=== PATIENT | female | born 1975 | race Caucasian/White ===

== ENCOUNTER 2017-11-02 08:24 | Outpatient (RCR) | payer OTHER, SELFPAY ==
--- NOTE | 2017-11-02 11:03 | BH.NA ---
Physical Data - Vital Signs Pulse Rate: 88 Respiratory Rate: 14 Blood Pressure: 103/70 - Height/Weight Height: 1.63 m Weight:: 54.431 kg Weight in Pounds: 120.0 lbs Nutritional History - Appetite Nutritional Instructions:: If client shows signs of a swallowing problem, weight change of 10 pounds or more in the last month, or is on a diabetic diet, the physician will review and request a dietitian consult, as appropriate. All unintentional weight loss will be referred to the physician for decision on need for dietitian consult. Describe your appetite:: Fair Have you noticed a change in your eating habits lately?: Yes - appetite was down d/t sx, now increased d/t Zyprexa Functional Assessment - Activities Motor Activity:: Functional Sensory/Communication Assess - Hearing Problems Do you have any hearing problems?: Adequate - Communication Problems Do you have difficulty understanding what people are saying?: No Do you have trouble putting your thoughts into words or expressing what you want to say?: Yes Do people ever have trouble understanding what you say?: Yes What is your primary language?: Macedonian Learning Assessment - Learning Barriers Learning Barriers:: Ready to learn Medical Problems/History - Metabolic Conditions Metabolic: Hypothyroidism - Gastrointestinal Conditions Gastrointestinal: Dyspepsia - GERD, Other (See comments) - IBS - Pain Assessment Do you have acute or chronic pain?: No - Female Reproductive Do you think you may be ?: No Number of pregnancies:: 1 Number of children:: 1 Have you reached menopause?: No Do you have any history of breast disease?: No Suicide Assessment - Suicidal Ideation Are you currently or have you been suicidal in the past?: Yes Suicidal Intentional Rating Scale (SIRS): Suicidal thoughts (past), Current suicidal thoughts/No plan/Contracts for safety Physician Notification: If Active suicidal thoughts/Will not contract for safety is checked, contact physician and document in the Physician Notification section below. Fall Risk Assessment - Age Age: Less than 60 - Mental Status Mental Status: Willing & able to ask for assistance when needed - Physical Status Physical Status: No problems - Impairments Impairments: None - Elimination Elimination: Continent AND independent - Gait or Balance Gait or Balance: Walks independently - Hx of Falls History of falls in the past 6 months: No known history - Medications/Substances Psychotropics:: Antipsychotics, Sedatives Medications/substances used within the past 24 hours or ordered to administer: 1-2 of the medications/substances listed above - Total Score Total Points:: 1
--- NOTE | 2017-11-02 11:29 | BH.SGPN_ITS ---
Service Group Progress Note - Session Psychotherapy Session #1 Date Open:: 11/02/17 Time Started:: 09:02 Time Stopped:: 10:05 Targeted Problem #:: 1 Type of Group:: Process - 6 Participants Goal of Group:: The goal of today's group was to check-in with client's mood, stressors, and positives, review homework, and to introduce the topic of the day. Client Response/Progress/Benefit:: Client entered session alert and attentive but appeared anxious AEB bouncing legs and shifting in seat. Client shared how she was recently had a 12 day hospital stay due to depression and suicidal thoughts. She states, ?Now I?m back in reality with my 11 year old daughter.? She went on to share the anxiety that her daughter gives her and how she is staying with her mom to reduce this. Client states, ?I don?t want to be overwhelmed. I feel like a porcelain doll.? Client indicated her emotion as anxious, depressed, and guilty. Client benefitted from group by sharing with her current stressors and receiving support from peers. Progress noted in client ?s ability to share with group. Continued treatment necessary to decrease anxiety levels and depressive symptoms. Eye Contact:: Fair Motor Activity:: Appropriate Appearance:: Casual Speech:: Appropriate Mood:: Anxious, Depressed Affect:: Congruent Thoughts:: Linear, Logical, No evidence of hallucinations/delusions noted Staff Interventions:: Therapist used open-ended questions to elicit information about client's current stressors and mood. Therapist was supportive by using active listening and reflection.
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
--- NOTE | 2017-11-02 12:19 | BH.DR.ITP ---
Initial Treatment Plan - Patient Information Visit Information: ADMISSION DATE: EXPECTED LOS: 4-6 weeks Diagnoses:: Major depressive disorder recurrent severe F 33.2, OCD F 42 - Problems/Symptoms Problem #1:: Depression Symptom:: Sad mood, anhedonia, decreased energy, difficulty concentrating, suicidal ideation Problem #2:: Anxiety Symptom:: Obsessive thoughts, compulsive behaviors, rumination, intrusive traumatic memories
--- NOTE | 2017-11-02 14:04 | BH.MDN_ITS ---
Multi-Disciplinary Note - Note 60-min Individual Time Started:: 12:40 Date: 11/02/17 Purpose of session/treatment goals addressed:: The purpose of this session was to gather information on client's current stressors, symptoms, functioning, and treatment goals. Another goal was to assess risk and collaboratively create a safety plan. Other topics included mental health resources and relaxation techniques. Eye Contact:: Good Motor Activity:: Restless Appearance:: Neat Speech:: Tangential, Rapid Mood:: Anxious Affect:: Constricted Thoughts:: Racing, Other - preoccupied- repetitive asking about time and daughter Staff Interventions:: Therapist used open-ended questions to explore client current stressors, symptoms, functioning, and treatment goals. Therapist used active listening and provided emotional support as client expressed current challenges and stressors. Therapist helped client identify triggers, supports, and healthy coping skills for client's crisis safety plan. Therapist provided client with additional mental health resources and relaxation techniques including guided imagery, which therapist facilitated during session. Therapist used strengths perspective to build rapport and empower client. Client Response:: Client open to meeting with therapist, sharing she feels anxious today. Client reported experiencing high and anxiety which client rates 8 out of 10 and increased depressive symptoms over the past month. Client identified her daughter as a large stressor for client's mental health. Client stated she experiences a lot of guilt regarding her hospitalizations and anxiety towards daughter. Client reported she loves her daughter, but has a hard time dealing with problem behaviors as client is too sensitive per client 's report. Client stated she has obsessive worries about her daughter which results in client frequently needing reassurance. Client shared she seeks reassurance from family, friends, and sometimes strangers. Client shared she is currently staying with her mother as client reports belief returning home to her family and stressors would make me break again. Client was receptive to supportive feedback given by therapist on client recognizing warning signs. Client reported at her mother?s client does not have suicidal thoughts and feels safe. Client identified her treatment goals to be reduce depression, anxiety, and negative thinking. Client reported after today's group topic she has gained awareness of the cognitive distortions client uses daily. Client helped therapist create a safety plan in which client identified triggers, negative thoughts, healthy coping skills, reasons to live, and supports. Client agreed to communicate her safety plan with her supports. Additionally, client asked to include her in a session in the future to increase his knowledge of coping skills and warning signs. Client was receptive to learning deep breathing strategies and engaging in a mindfulness activity to reduce anxiety. Client reported the mindful activity and figure-eight breathing were effective in reducing client's symptoms in the moment. Risks/Concerns:: Client reports passive thoughts of suicide. Client reports thoughts of carbon monoxide poisoning, but denies intent. Client shared she is staying with her mother which serves as a protective factor as client feels safe and has no suicidal thoughts while at mother's house. Client reports strong family support and shares belief she can maintain safety. Progress Toward Goals/Plan:: Client's first day of PHP therefore no progress to be documented. Client reports motivation to engage in the treatment process as well as a strong support system. Client contracts for safety and reports plan to stay with mother while client stabilizes anxiety and depression symptoms to reduce risk of suicidal ideation and regression. Client to continue PHP to promote mood stability and develop emotional regulation skills. Time Stopped:: 13:33
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
--- NOTE | 2017-11-02 16:00 | BH.MTP ---
[facility] Plan - Patient Information Program Physician:: Desi Montiel Primary Therapist:: Leyla Fuentes - Psychiatric Diagnoses Psychiatric Diagnoses:: Major depressive disorder recurrent severe F 33.2, OCD F 42 Diagnosis Code(s):: F 33.2; F42 - Estimated LOS Estimated LOS (in weeks):: 1 Problem/Goal #1 - Problem/Goal #1 Stated Goal:: Client will reduce depression, feelings of hopelessness, and suicidal ideation due to Major Depressive Disorder. Description of Barriers: Client reports her major stressors to be client's relationship with her daughter. Client reports negative thinking and negative core beliefs of self that developed during childhood. Client endorses a depressed mood, rumination, obsessive thoughts, anhedonia, poor concentration, and lack of energy. Client identified dealing with conflict, managing stress, and coping with other people's anger as ongoing barriers. Client reports inappropriate guilt associated with mental health and motherhood. Functional Impact: Client recently discharged from [facility] for increased depression, suicidal ideation, and OCD. Client reports symptoms are interfering with daily functioning. Client states she has negative thinking, inappropriate guilt, passive thoughts of suicide, and a depressed and anxious mood. Client endorses ruminations and panic attacks. Client shared she constantly worries about her daughter, which results in frequent need for reassurance, even from strangers. Client reports her mental health symptoms are impacting client's relationships and ability to function at her baseline. Goal Relevant Strengths/Supports: Client reports a strong support system in her and mother. Client appears compassionate, intelligent, and reports motivation to learn how to cope with mental health as evidenced by her report. Client seems to have good insight to triggers, negative thought patterns, and beneficial coping skills. Client contracts for safety and is willing to separate herself from environmental and certain family stressors while participating in [facility]. - Objectives Objective #1 Stated Objective: Client will learn and utilize 2-3 healthy coping strategies to manage depressive symptoms and increase mood stability. Interventions: Therapist will assist client in identifying warning signs and triggers for depression, suicidal ideation, and feelings of hopelessness. Therapist will teach client coping skills to reduce depression and encourage healthy emotional regulation. Discharge Criteria: Client will have accomplished this goal when she can identify and report using 2-3 healthy coping skills to reduce depressive symptoms. Target Date: 11/09/17 Review Date: 11/09/17 Status: open Objective #2 Stated Objective: Client will work with therapist to develop a crisis plan which includes emergency telephone numbers, 3-4 coping strategies for SI, lists of supports, positive aspects of her life, and motivations Interventions: herapist will provide list of crisis phone numbers. Therapist will work with client to identify effective coping strategies, supports, and steps to take in time of mental health crisis. Discharge Criteria: Client will have achieved this goal once she completes her safety plan and is able to utilize coping and thought replacement strategies. Target Date: 11/09/17 Review Date: 11/09/17 Status: open Problem/Goal #2 - Problem/Goal #2 Stated Goal:: Stabilize anxiety level brought on by OCD while increasing ability to function on daily basis. Description of Barriers: Client reports her major stressors to be client's relationship with her daughter. Client reports negative thinking and negative core beliefs of self that developed during childhood. Client endorses a depressed mood, rumination, obsessive thoughts, anhedonia, poor concentration, and lack of energy. Client identified dealing with conflict, managing stress, and coping with other people's anger as ongoing barriers. Client reports inappropriate guilt associated with mental health and motherhood. Functional Impact: Client recently discharged from [facility] for increased depression, suicidal ideation, and OCD. Client reports symptoms are interfering with daily functioning. Client states she has negative thinking, inappropriate guilt, passive thoughts of suicide, and a depressed and anxious mood. Client endorses ruminations and panic attacks. Client shared she constantly worries about her daughter, which results in frequent need for reassurance, even from strangers. Client reports her mental health symptoms are impacting client's relationships and ability to function at her baseline. Goal Relevant Strengths/Supports: Client reports a strong support system in her and mother. Client appears compassionate, intelligent, and reports motivation to learn how to cope with mental health as evidenced by her report. Client seems to have good insight to triggers, negative thought patterns, and beneficial coping skills. Client contracts for safety and is willing to separate herself from environmental and certain family stressors while participating in [facility]. - Objectives Objective #1 Stated Objective: Client will identify 2-3 anxiety/ OCD triggers and 2-3 coping skills to use when feeling anxious. Interventions: Therapist will help client increase awareness of cognitive distortions, triggers, and warning signs for anxiety and OCD. Therapist will encourage client to focus on stressors in her control. Therapist will utilize CBT, DBT, and mindfulness strategies to teach client ways to manage symptoms and increase emotional regulation. Discharge Criteria: Client will have met this goal when can reduce the need for reassurance and identify at least 2 triggers and 2 ways to cope with anxiety and obsessive thoughts. Target Date: 11/09/17 Review Date: 11/09/17 Status: open
--- NOTE | 2017-11-05 10:27 | BH.SGPN ---
Service Group Progress Note - Session Psychotherapy Session #1 Date Open:: 18 - 9 group members Time Started:: 09:10 Time Stopped:: 10:02 Targeted Problem #:: 1 Type of Group:: Process Goal of Group:: The goal of today's group was to check-in with client's mood, stressors, and positives, and introduce topic for the day. Client Response/Progress/Benefit:: Client responded well to session, providing good insight to discussion. Client reports feeling anxious today as client had an appointment with her psychiatrist this morning and was late to group. Client stated her new medication will be costlier than expected which client reported is contributing to her anxious mood as well. Client shared she spent time with her and daughter this weekend and client reported utilizing calming coping skills such as deep breathing to reduce anxiety while with family. Client continues to report feeling guilty about her mental health symptoms, but challenged the thoughts during session as client stated, I'm trying to take care of me, I didn't sign up for this. Client appeared to benefit from challenging negative thoughts during session as well as gaining emotional support from peers. Client demonstrating progress with generalizing coping skills, but can continue to benefit from more consistent mood stability. Eye Contact:: Good Motor Activity:: Restless Appearance:: Neat Speech:: Appropriate Mood:: Anxious Affect:: Congruent Thoughts:: Linear, No evidence of hallucinations/delusions noted Staff Interventions:: Therapist used open-ended questions to elicit information about client's current stressors and mood state. Therapist was supportive by using active listening and reflection.
--- NOTE | 2017-11-05 10:42 | BH.SGPN ---
Service Group Progress Note - Session Psychotherapy Session #2 Date Open:: 11/05/17 Time Started:: 10:12 Time Stopped:: 11:12 Targeted Problem #:: 1 Type of Group:: Illness Management - 10 participants Psychotherapy Session #3 Date Open:: 11/05/17 Time Started:: 11:19 Time Stopped:: 12:20 Targeted Problem #:: 1 Type of Group:: Functional Skills Development - 8 participants
--- NOTE | 2017-11-05 14:32 | BH.MDN ---
Multi-Disciplinary Note - Note 60-min Individual Time Started:: 12:40 Date: 11/05/17 Purpose of session/treatment goals addressed:: The purpose of this session was to explore client's current stressors, symptoms, functioning, and coping skills. Another goal was to create visual cues with healthy coping skills to increase client's awareness and promote proactively using coping skills. Other topics included: cognitive distortions, supports, and goal setting. Eye Contact:: Good Motor Activity:: Appropriate Appearance:: Casual Speech:: Other - circumstantial; monotone Mood:: Anxious Affect:: Constricted Thoughts:: Other - preoccupied- frequently asking for reassurance and talking about her daughter., No evidence of hallucinations/delusions noted Staff Interventions:: Therapist used open-ended questions to explore clients current stressors, symptoms, functioning, and use of coping skills. Therapist used active listening and provided emotional support as client expressed guilt about motherhood and mental health. Therapist assisted client in identifying healthy versus unhealthy coping skills and helped client create her visual cues. Therapist helped client identify and reframe cognitive distortions. Therapist discussed how habits form in neuropathways as well as the importance of consistency in utilizing healthy coping skills. Therapist used strengths perspective to empower client to set a small goal for the week. Client Response:: Client open to meeting with therapist. Client shared she used figure eight deep breathing this weekend to reduce anxiety as client spent time with her daughter and . Client stated this technique worked for her as client avoided escalation of symptoms. Client reported she has been trying to challenge cognitive distortions as well such as magnification and catastrophizing. Client shared I have to remind myself that some of my daughter's behaviors are normal. Client reported she has been seeing improvements in stress levels as client has been staying with her mother. Client stated, I know that if I go home right now I'll just have another break. Client was receptive to praise from therapist regarding client's high insight to triggers. Client identified her anxiety triggers to be anger, defiance, loud voices, and conflict. Client reported feeling guilty about her daughter being a trigger, but was able to reframe and challenge this thought. Client created visual reminder cues to encourage the use of healthy coping skills when client recognizes triggers or warning signs. Client listed her healthy skills as: reading, walking, exercise, calling a friend, deep breathing, playing games, crocheting, and challenging negative thoughts. Client reported she wants to avoid using unhealthy coping skills like self-medicating, isolation, and self-blame. Client reported the reminder cues will be helpful as client can hang them up around her house. Additionally, client created a goal for the week to increase self-esteem and confidence. Client's goal is to write down three things client deserves credit for each day. Risks/Concerns:: Client reports passive thoughts of suicide, but denies intent and plan as of 11/05/17. Client reports she feels safe and less stressed at her mother's house, where client is currently staying which serves as a protective factor. Client reports motivation to get better which demonstrates future orientation. Progress Toward Goals/Plan:: Client showing progress toward treatment goals as client reported implementing deep breathing and calming coping skills this weekend. Client shared I want to get better and reports working on reframing negative thinking as well. However, client continues to report obsessive thoughts, high anxiety, isolation, a depressed mood, and low self-esteem. Client continues to contract for safety and identifies staying at her mother's house as a positive for client's treatment. Client to continue PHP to promote mood stability and increase emotional regulation. Time Stopped:: 13:33
--- NOTE | 2017-11-05 15:02 | BH.MDN_ITS ---
Multi-Disciplinary Note - Note 60-min Individual Time Started:: 12:40 Date: 11/05/17 Purpose of session/treatment goals addressed:: The purpose of this session was to explore client's current stressors, symptoms, functioning, and coping skills. Another goal was to create visual cues with healthy coping skills to increase client's awareness and promote proactively using coping skills. Other topics included: cognitive distortions, supports, and goal setting. Eye Contact:: Good Motor Activity:: Appropriate Appearance:: Casual Speech:: Other - circumstantial; monotone Mood:: Anxious Affect:: Constricted Thoughts:: Other - preoccupied- frequently asking for reassurance and talking about her daughter., No evidence of hallucinations/delusions noted Staff Interventions:: Therapist used open-ended questions to explore client?s current stressors, symptoms, functioning, and use of coping skills. Therapist used active listening and provided emotional support as client expressed guilt about motherhood and mental health. Therapist assisted client in identifying healthy versus unhealthy coping skills and helped client create her visual cues. Therapist helped client identify and reframe cognitive distortions. Therapist discussed how habits form in neuropathways as well as the importance of consistency in utilizing healthy coping skills. Therapist used strengths perspective to empower client to set a small goal for the week. Client Response:: Client open to meeting with therapist. Client shared she used figure eight deep breathing this weekend to reduce anxiety as client spent time with her daughter and . Client stated this technique worked for her as client avoided escalation of symptoms. Client reported she has been trying to challenge cognitive distortions as well such as magnification and catastrophizing. Client shared I have to remind myself that some of my daughter 's behaviors are normal. Client reported she has been seeing improvements in stress levels as client has been staying with her mother. Client stated, I know that if I go home right now I'll just have another break. Client was receptive to praise from therapist regarding client's high insight to triggers. Client identified her anxiety triggers to be anger, defiance, loud voices, and conflict. Client reported feeling guilty about her daughter being a trigger, but was able to reframe and challenge this thought. Client created visual reminder cues to encourage the use of healthy coping skills when client recognizes triggers or warning signs. Client listed her healthy skills as: reading, walking, exercise, calling a friend, deep breathing, playing games, crocheting, and challenging negative thoughts. Client reported she wants to avoid using unhealthy coping skills like self-medicating, isolation, and self- blame. Client reported the reminder cues will be helpful as client can hang them up around her house. Additionally, client created a goal for the week to increase self-esteem and confidence. Client's goal is to write down three things client deserves credit for each day. Risks/Concerns:: Client reports passive thoughts of suicide, but denies intent and plan as of 11/05/17. Client reports she feels safe and less stressed at her mother's house, where client is currently staying which serves as a protective factor. Client reports motivation to get better which demonstrates future orientation. Progress Toward Goals/Plan:: Client showing progress toward treatment goals as client reported implementing deep breathing and calming coping skills this weekend. Client shared I want to get better and reports working on reframing negative thinking as well. However, client continues to report obsessive thoughts, high anxiety, isolation, a depressed mood, and low self-esteem. Client continues to contract for safety and identifies staying at her mother's house as a positive for client's treatment. Client to continue PHP to promote mood stability and increase emotional regulation. Time Stopped:: 13:33
--- NOTE | 2017-11-06 14:02 | BH.SGPN_ITS ---
Service Group Progress Note - Session Psychotherapy Session #1 Date Open:: 11/06/17 Time Started:: 09:05 Time Stopped:: 09:57 Targeted Problem #:: 1 Type of Group:: Process - 4 Participants Goal of Group:: The goal of today's group was to check-in with client's mood, stressors, and positives, review homework, and to introduce the topic of the day. Client Response/Progress/Benefit:: Client entered session alert, attentive, and willing to engage. Client was a big contributor in group and provided support to peers. Client identified herself as a ?people pleaser? and received upsetting news about her favorite coffee establishment getting involved in a law suit and stating, ?I take on other people?s emotions and when I heard about that I starting getting overwhelmed.? Client shared that this coffee shop was a ?refuge for me, kind of like [employer]. Just a good place and people.? Client went on to share that she saw her daughter last night and was nervous for that but was able to complete some coping skills such as, deep breathing and figure 8 ?s, and then took time away and spoke with her .? Client shared that he will be taking a two day trip to [place] and will have to stay with her daughter but has plans in place to manage the anxiety and stress. She states , ?Our emotions are really connected and she is at a rough age.? Client shared that she is trying to take things 5 minutes at a time and stop looking towards the future or the past. Client benefitted from group by venting concerns and looking at different strategies for coping. Progress noted in client?s ability to begin identifying emotions as they come. Continued treatment necessary to manage anxiety levels and develop more coping skills. Eye Contact:: Fair Motor Activity:: Appropriate Appearance:: Casual Speech:: Appropriate Mood:: Anxious Affect:: Congruent Thoughts:: Linear, Logical, No evidence of hallucinations/delusions noted Staff Interventions:: Therapist used open-ended questions to elicit information about client's current stressors and mood. Therapist was supportive by using active listening and reflection. Psychotherapy Session #2 Date Open:: 11/06/17 Time Started:: 10:05 Time Stopped:: 11:00 Targeted Problem #:: 1 Type of Group:: Illness Management - 4 Participants Goal of Group:: The goal of today?s group is to identify how emotions can impact our communication skills, and why it is important to be able to communicate in stressful situations. Client Response/Progress/Benefit:: Client was alert, attentive, and willing to engage. Client was an active participant and contributor to group. Client did well to process the day?s quote and spoke about how emotions are normal like anger, but if we try to suppress the anger we can explode at others so we just use healthy skills like screaming into a pillow. Client did well to process with the group how various emotions impact communication and one?s ability to utilize supports. Client collaborated with peers and participated in group activity that tested how client would manage her emotions when placed under stressful circumstances. It appeared throughout the activity client struggled with inner self doubt and anxiety as she reported, ?I feel like I?m doing something wrong and not listening.? Despite the difficulty, client benefitted from relating activity back to how our emotions impact communication during times of stress. Progress noted in client?s ability to manage anxiety during activity and complete activity. Continued treatment necessary to stabilize anxiety levels. Eye Contact:: Good Motor Activity:: Appropriate Appearance:: Casual Speech:: Appropriate Mood:: Anxious Affect:: Congruent Thoughts:: Linear, Logical, No evidence of hallucinations/delusions noted Staff Interventions:: Therapist led an experiential activity where group members worked together for a common goal, but with adaptations made on how members were able to communicate with one another. Therapist used open-ended questions to elicit group discussion about emotions which arose during activity , as well as identifying how emotions experienced impacted ability to communicate effectively with other group members.
--- NOTE | 2017-11-06 14:44 | BH.MDN_ITS ---
Multi-Disciplinary Note - Note 45-min Individual Time Started:: 12:22 Date: 11/06/17 Purpose of session/treatment goals addressed:: The purpose of this session was to address client's current stressors, symptoms, and functioning while teaching client coping strategies to increase emotional regulation. Another goal per client request was to discuss forgiveness and identify ways to reduce guilt, resentment, and negative core beliefs. Other topics included: cognitive distortions, psychoeducation, and self-esteem. Eye Contact:: Fair Motor Activity:: Restless Appearance:: Casual Speech:: Other - circumstantial at times, frequency and tone within normal limits. Mood:: Anxious, Depressed Affect:: Constricted Thoughts:: Other - preoccupied Staff Interventions:: Therapist used open-ended questions to explore client?s current stressors, symptoms, and functioning. Therapist demonstrated coping strategies to increase emotional regulation and challenge negative thoughts. Therapist helped client process the aspects of forgiveness and strategies to move forward. Therapist assisted client in challenging negative core beliefs and inappropriate guilt. Therapist provided psychoeducation on the brain and mental health. Therapist encouraged client to write a gratitude/ credit journal to increase self-esteem. Client Response:: Client responded well to session, open to meeting with therapist. Client reported she has negative thoughts during IOP group but challenged them in the moment which demonstrates progress. Client stated she has been using mindfulness, deep breathing, and taking breaks to reduce anxiety. Client responded well to learning about though challenging and agreed to start implementing this technique as well. Client shared she would like to work on forgiveness as client claims she holds on to things too much. Client stated she is having a hard time forgiving her daughter for her past misbehaviors as well as forgiving herself for mental health struggles over the years. Client reported her negative beliefs of self and cognitive distortions get in the way of client moving forward. Client identified forgiveness as not fearing my daughter and not holding it against her. Client and therapist processed steps to forgiveness and the difference between acceptance and approval. Client reported she would like to continue to work on improving her self-esteem as client acknowledges she asks for reassurance and validation frequently which feeds into client?s OCD, anxiety, and depression. Client was receptive to documenting three things that client deserves credit for or is grateful for each day to increase awareness of progress and increase self- esteem. Risks/Concerns:: Client reports passive thoughts of suicide, denies intent and plan as of 11/06/17. Client reports belief she can maintain safety by staying with her mother. Client willing to contact local crisis resources should she feel unable to maintain safety. Progress Toward Goals/Plan:: Client showing progress towards treatment goals as client reports implementing deep breathing, mindfulness, and healthy distractions daily to reduce anxiety. Client continues to report obsessive thoughts and worries about her daughter. Client continues to endorse a depressed mood, but states coming to group helps improve her mood. Client to continue PHP to prevent decompensation and promote mood stability. Time Stopped:: 13:10
--- NOTE | 2017-11-06 14:49 | BH.SGPN_ITS ---
Service Group Progress Note - Session Psychotherapy Session #3 Date Open:: 11/06/17 - 4 group members Time Started:: 11:10 Time Stopped:: 12:03 Targeted Problem #:: 1 Type of Group:: Functional Skills Development Goal of Group:: The goal of today?s group was to increase awareness of different states of alertness attached to emotions and identifying healthy coping strategies for each state of alertness. Client Response/Progress/Benefit:: Client responded well to session, providing good insight to group discussion. Client shared she was proud of herself for managing her anxiety during the activity. Client discussed the four states of emotional alertness and identified warning signs for each. Client reported when she feels low energy she has suicidal thoughts, isolates, and lacks motivation. Client identified setting small goals and reaching out to her supports as coping skills to improve client's low energy or depressed state. Client shared when she is in the high emotional alertness states she has panic, negative thinking, and feels hopeless. Client identified coping skills for high emotional states such as mindfulness, deep breathing, and walking. Client reported it is important to have awareness of warning signs for each emotional state so client can implement healthy coping skills. Client appeared to benefit from identifying warning signs and healthy coping skills specific each level of emotional alertness. Client progressing as shown by her report of implementing calming coping skills to reduce anxiety, but can continue to benefit from challenging obsessive thoughts. Eye Contact:: Good Motor Activity:: Appropriate Appearance:: Casual Speech:: Appropriate Mood:: Anxious Affect:: Constricted Thoughts:: Linear, No evidence of hallucinations/delusions noted Staff Interventions:: Therapist facilitated group by teaching about the 4 zones of different states of alertness and helping clients connect emotions to each zone based on state of alertness. Therapist assisted clients with identifying healthy coping strategies that would be best utilized based on the state of alertness. Therapist provided support by using active listening and providing feedback.
--- NOTE | 2017-11-07 14:16 | BH.SGPN ---
Service Group Progress Note - Session Psychotherapy Session #2 Date Open:: 11/07/17 Time Started:: 10:15 Time Stopped:: 11:07 Targeted Problem #:: 1 Type of Group:: Illness Management Goal of Group:: To increase understanding how positive and negative forces in life can impact balance in life. Client Response/Progress/Benefit:: Client contributed positively to discussion and listened attentively to others. Client connected with the quote and others comments about in order to have personal growth you have to put forth effort in multiple areas of her life to have that occur. During activity client listened to others' ideas and thoughts, cooperative throughout. Client connected that it is important to communicate in utilize support system and helping 1 balance both positive and negative forces. Eye Contact:: Fair Motor Activity:: Appropriate Appearance:: Casual Speech:: Appropriate Mood:: Anxious, Depressed Affect:: Constricted Thoughts:: Linear, Logical, No evidence of hallucinations/delusions noted Staff Interventions:: Therapist facilitated group discussion about the various forces of life and helped clients connect the impact they have on balance in life. Therapist led group in an experiential activity in which group members had to work together to balance an object and move it to a designated location. Therapist utilized the activity as a tool to process the challenges connected with balancing various forces. Psychotherapy Session #3 Date Open:: 11/07/17 Time Started:: 11:17 Time Stopped:: 12:15 Targeted Problem #:: 1 Type of Group:: Functional Skills Development Goal of Group:: To identify positive and negative forces in life and identify which forces are helping stability and which forces are contributing to instability. Client Response/Progress/Benefit:: Client contributed positively discussion and listened attentively to others. Client identified her positive forces to include: Family, friends, communication, breathing, and taking breaks. Client reported her negative forces to include: On manage emotions, not reaching out for support, lack of self-care, and not using healthy coping skills. Client reported not feeling that her positive forces are currently balance with her negative forces being more impactful on her functioning. Client identified her on manage emotions to be the most impactful. Client seemed to benefit from increasing awareness of her positive and negative forces as well as starting to think about which force she can focus on making less negatively impactful. Eye Contact:: Fair Motor Activity:: Appropriate Appearance:: Casual Speech:: Appropriate Mood:: Anxious, Depressed Affect:: Constricted Thoughts:: Linear, Logical, No evidence of hallucinations/delusions noted Staff Interventions:: Therapist provided group with an example of a scenario of a person and the individuals positive and negative forces. Therapist provided each group member with a worksheet in which they were to identify five positive and five negative forces in their life. Therapist processed the activity with the group, helping others connect the impact certain forces have on their life balance.
--- NOTE | 2017-11-07 14:38 | BH.MDN_ITS ---
Multi-Disciplinary Note - Note 45-min Individual Time Started:: 12:30 Date: 11/07/17 Purpose of session/treatment goals addressed:: The purpose of this session was to address client's current stressors and review healthy coping skills to reduce anxiety. Another goal was to problem solve strategies to manage symptoms tonight while client is with her daughter. Other topics included: cognitive distortions, externalizing anxiety, and thought challenge strategies. Eye Contact:: Good Motor Activity:: Restless Appearance:: Casual Speech:: Other - circumstantial Mood:: Anxious Affect:: Constricted Thoughts:: Other - preoccupied Staff Interventions:: Therapist used open-ended questions to explore client?s current stressors and review application of coping skills. Therapist helped client problem-solve coping skills and supports to help reduce client?s anxiety tonight. Therapist utilized a thought challenge strategy to help client explore the most realistic outcomes and how to cope if the worst-case outcome happens. Therapist assisted client in identifying and challenging cognitive distortions. Therapist used strengths-perspective to help client reflect on progress and increase confidence of skill application. Client Response:: Client responded well to session, open to meeting with therapist. Client reports she is feeling ?nervous? today as client will be spending time with her daughter adore. Client shared she continues to have guilt regarding client?s fear of her daughter?s behavior. Client stated, ?I?m sure her behavior is normal for her age, but it?s hard for me to deal with it.? Client reported she has a plan and supports in place for tonight that will help client reduce anxiety. With therapist elicitation, client shared she will be spending about 2 hours alone with her daughter this evening. Client and therapist processed client?s negative thoughts and looked at the worst-case, best case, and more realistic scenarios for how client?s evening with her daughter will go. Client identified her cognitive distortions about tonight as catastrophizing, disqualifying the positives, and jumping to conclusions. Client problem-solved coping strategies for all three scenarios and acknowledged the likelihood of the worst case happening as ?not very likely.? Client reported belief that even if they worst case happens she would be able to call her family for support and use healthy coping skills such as deep breathing and taking breaks. Client shared ?I can make it through because I have in the past.? Client and therapist discussed strategies to challenge negative thinking by externalizing anxiety. Client shared it would be helpful to say, this is my anxiety talking to remind client she is more than her diagnosis. Client stated eventually client would like to be able to spend time with her daughter alone without experiencing high anxiety. Risks/Concerns:: Client denies suicidal ideation, plan, and intent as of . Client reports her and mother continue to be strong supports and protective factors. Client reports belief she can maintain safety and shared she feels able to contact crisis should she begin to feel unsafe. Progress Toward Goals/Plan:: Client showing progress towards treatment goals as client continues to contract for safety and report reduced suicidal thoughts. Additionally, client reports implementing healthy coping skills with the result of reduced severity of symptoms. However, client can continue to benefit from challenging negative thoughts and working on desensitization strategies as client's daughter continues to be a trigger for client. Client to continue PHP to promote gains and increase mood stability. Time Stopped:: 13:12
--- NOTE | 2017-11-07 14:40 | BH.SGPN_ITS ---
Service Group Progress Note - Session Psychotherapy Session #1 Date Open:: 18 - 8 group members Time Started:: 09:05 Time Stopped:: 10:00 Targeted Problem #:: 1 Type of Group:: Process Goal of Group:: The goal of today's group was to check-in with clients and review homework from previous group session. Client Response/Progress/Benefit:: Client responded well to session, active participant. Client reports feeling ?anxious? today as client had a stressful morning. Although client was anxious, she shared she utilized mindfulness and deep breathing exercises to reduce anxiety. Client stated ?it helped a lot I didn?t panic.? Client reported she continues to struggle with managing negative thoughts and spending alone time with her daughter. Client stated she will continue to work on small goals, use healthy coping skills, and use supports to work towards her goal of spending more time at home with her daughter. Client appeared to benefit from reflecting on her use of healthy coping skills. Client seems to be progressing as evidenced by her report of implementing coping skills to reduce anxiety, but can continue to benefit from challenging negative thoughts. Eye Contact:: Good Motor Activity:: Restless Speech:: Rapid Mood:: Anxious, Dysthymic Affect:: Constricted Thoughts:: Circular Staff Interventions:: Therapist facilitated the group session by asking open ended questions that encouraged group members to discuss their coping skills, stressors, barriers, and current mood state.
--- NOTE | 2017-11-08 13:47 | BH.SGPN ---
Service Group Progress Note - Session Psychotherapy Session #1 Date Open:: 11/08/17 Time Started:: 09:05 Time Stopped:: 10:00 Targeted Problem #:: 1 Type of Group:: Process Goal of Group:: The goal of today's group was to check-in with client's mood, stressors, and positives, review homework and introduce topic for the day. Client Response/Progress/Benefit:: Client reported her is leaving on a business trip today and not returning until tomorrow evening. Client shared feeling really anxious about him being gone because she will be alone with her daughter who tends to be a really big trigger to client. Client reported last night she did better with working one-on-one with her daughter to help with homework. Client shared there was a moment that client became overwhelmed and switched out with her so that she can take a break. Client identified her daughter's anger to be a big trigger because she personalizes it and reminds her of her past trauma. Client shared she did utilize various breathing techniques to help her cope while she was working with her daughter. Client demonstrating progress as evidenced by her generalizing the healthy coping skills she is learning. Client continues to be really anxious when she is around her daughter but is making effort to decrease her anxious feelings when with her daughter. Eye Contact:: Fair Motor Activity:: Appropriate Appearance:: Casual Speech:: Appropriate Mood:: Anxious Affect:: Congruent Thoughts:: Linear, Logical, No evidence of hallucinations/delusions noted Staff Interventions:: Therapist used open-ended questions to elicit information about client's current stressors and mood state. Therapist was supportive by using active listening and reflection.
--- NOTE | 2017-11-08 14:49 | BH.MDN ---
Multi-Disciplinary Note - Note 45-min Individual Time Started:: 12:22 Date: 11/08/17 Purpose of session/treatment goals addressed:: The purpose of this session was to address client's current mood, stressors, and functioning and develop strategies to reduce anxiety and increase emotional regulation. Another goal was to ensure client safety and review internal and external supports. Other topics included: thought challenging, guilt, and mindfulness. Eye Contact:: Fair Motor Activity:: Restless Appearance:: Casual Speech:: Rapid Mood:: Anxious Affect:: Constricted Thoughts:: Racing, Other - perseveration- repetitive asking about daughter's behavior. Staff Interventions:: Therapist used open-ended questions to explore clients mood, stressors, and symptoms. Therapist gently challenged client to identify and reframe unhelpful thinking patterns that exacerbate anxiety and guilt. Therapist reviewed calming coping skills and assessed risk. Therapist facilitated a progressive muscle relaxation activity to reduce anxiety in the moment. Therapist provided psychoeducation on normal childhood behavior, stress response, and brain functioning in regards to mental health. Therapist used strengths perspective to help client focus on progress she has made so far. Client Response:: Client open to meeting with therapist, sharing she is very anxious today as client's is out of town. Client shared she does not feel ready to be alone with her daughter which increases client's anxiety and leads to suicidal ideation. Client reported she does not want to go back to the hospital for mental health reasons, so client decided to reach out to her [id number] and mother for support tonight. Client shared allowing herself to have a break tonight will reduce anxiety and keep client safe. Client stated, I feel guilty, but if I don't take care of me I'll go back to the hospital. With therapist elicitation client identified and challenged cognitive distortions contributing to clients cycle of anxiety such as disqualifying the positives, minimizing, and catastrophizing. Client responded well to the discussion of normal childhood development and logic mind versus emotion mind. Client talked about realistic progress and taking small steps at a time. Client reflected on the progress she has made so far such as using deep breathing and making it through stressful group situations. Client responded well to the progressive muscle relaxation technique sharing it helped her calm down. Client reported her negative thoughts overwhelm client at times and that client is not always aware she has those thoughts. Client was given a stress ball to squeeze whenever she had a negative thought to bring awareness to the distortion and challenge it. Risks/Concerns:: Client reports passive thoughts of suicide such as I don't want to deal with this anymore but denies plan and intent. Client stated she will be staying with her mother adore and reports belief she can maintain safety. Client agreed to come to group tomorrow 11/09/17 which demonstrates future orientation. Progress Toward Goals/Plan:: Client showing progress towards treatment goals as she continues to contract for safety and follow her safety plan including utilizing supports and recognizing warning signs. Additionally, client is demonstrating progress with implementing calming coping skills to reduce panic, but continues to struggle with challenging obsessive thoughts and ruminations. Client continues to need frequent reassurance and reports low self-confidence. Client to continue PHP to promote mood stability and emotional regulation skills. Client to spend the evening with her mother to maintain safety. Time Stopped:: 13:00
--- NOTE | 2017-11-08 15:13 | BH.MDN_ITS ---
Multi-Disciplinary Note - Note 45-min Individual Time Started:: 12:22 Date: 11/08/17 Purpose of session/treatment goals addressed:: The purpose of this session was to address client's current mood, stressors, and functioning and develop strategies to reduce anxiety and increase emotional regulation. Another goal was to ensure client safety and review internal and external supports. Other topics included: thought challenging, guilt, and mindfulness. Eye Contact:: Fair Motor Activity:: Restless Appearance:: Casual Speech:: Rapid Mood:: Anxious Affect:: Constricted Thoughts:: Racing, Other - perseveration- repetitive asking about daughter's behavior. Staff Interventions:: Therapist used open-ended questions to explore client?s mood, stressors, and symptoms. Therapist gently challenged client to identify and reframe unhelpful thinking patterns that exacerbate anxiety and guilt. Therapist reviewed calming coping skills and assessed risk. Therapist facilitated a progressive muscle relaxation activity to reduce anxiety in the moment. Therapist provided psychoeducation on normal childhood behavior, stress response, and brain functioning in regards to mental health. Therapist used strengths perspective to help client focus on progress she has made so far. Client Response:: Client open to meeting with therapist, sharing she is very anxious today as client's is out of town. Client shared she does not feel ready to be alone with her daughter which increases client's anxiety and leads to suicidal ideation. Client reported she does not want to go back to the hospital for mental health reasons, so client decided to reach out to her [id number] and mother for support tonight. Client shared allowing herself to have a break tonight will reduce anxiety and keep client safe. Client stated, I feel guilty, but if I don't take care of me I'll go back to the hospital. With therapist elicitation client identified and challenged cognitive distortions contributing to client?s cycle of anxiety such as disqualifying the positives, minimizing, and catastrophizing. Client responded well to the discussion of normal childhood development and logic mind versus emotion mind. Client talked about realistic progress and taking small steps at a time. Client reflected on the progress she has made so far such as using deep breathing and making it through stressful group situations. Client responded well to the progressive muscle relaxation technique sharing it helped her calm down. Client reported her negative thoughts overwhelm client at times and that client is not always aware she has those thoughts. Client was given a stress ball to squeeze whenever she had a negative thought to bring awareness to the distortion and challenge it. Risks/Concerns:: Client reports passive thoughts of suicide such as I don't want to deal with this anymore but denies plan and intent. Client stated she will be staying with her mother adore and reports belief she can maintain safety. Client agreed to come to group tomorrow 11/09/17 which demonstrates future orientation. Progress Toward Goals/Plan:: Client showing progress towards treatment goals as she continues to contract for safety and follow her safety plan including utilizing supports and recognizing warning signs. Additionally, client is demonstrating progress with implementing calming coping skills to reduce panic, but continues to struggle with challenging obsessive thoughts and ruminations. Client continues to need frequent reassurance and reports low self-confidence. Client to continue PHP to promote mood stability and emotional regulation skills. Client to spend the evening with her mother to maintain safety. Time Stopped:: 13:00
--- NOTE | 2017-11-09 13:29 | PCM.PN.BLA ---
Progress Note This is an update to the H&P of 11/02/2017 Patient is seen in follow-up for major depressive disorder recurrent severe, OCD, PTSD. History is been obtained per interview with patient, discussion with staff, review of chart. Case discussed with treatment team. Chief complaint-I worry too much about everything. Interim history Ongoing moderate to severe depression and anxiety but of decreased intensity overall. Episode of increased anxiety yesterday associated with attempting to help her daughter study for an exam while her was out of town. Her daughter became anxious thus increasing her own anxiety. She experienced intermittent passive suicidal thoughts. No suicide plan or intent. She ultimately made arrangements for her daughter and went to her mother's house and made a plan for safety. Ongoing obsessive thoughts about parenting. Intrusive traumatic memories and flashbacks and hypervigilance consistent with PTSD. No homicidal ideation. No symptoms consistent with psychosis. Sleeping from 8:30 PM to 7 AM. Appetite normal. Denies nausea vomiting or diarrhea. Complained of intermittent GERD symptoms. Consuming 1 cup of caffeinated coffee daily. Denies ingestion of alcohol. Compliant with medication including Zyprexa 5 mg 3 times daily and 15 mg nightly. No evidence of EPS. Mirtazapine 15 mg nightly. Trazodone 100 mg nightly. Klonopin 1 mg every morning and 0.5 mg twice daily. Lexapro 20 mg daily. Denies adverse effects to medications. Mental status exam Patient is a 42-year-old female who appears her stated age. She is alert and oriented in no acute distress. She is ambulatory with normal gait and station. She is cooperative with the interview. She has fair eye contact. There is no psychomotor agitation or retardation. Mood is depressed. Affect congruent. Speech is clear and of regular rate and volume. Language fluent. Thought process organized. Associations logical. Thought content significant for ruminative anxiety and themes of depression. Intermittent passive thoughts of suicide. No suicide plan or intent. Feels able to maintain safety. No homicidal ideation related to detected. No evidence of psychosis related to detected. Immediate recent and remote memory grossly intact. Attention and concentration are fair. Estimated intelligence fund of knowledge average. Judgment and insight are fair. Awaiting lab work from [facility]. Further lab work will be obtained as needed. Diagnosis Major depressive disorder recurrent severe F 33.2 OCD PTSD Remote history trichotillomania Plan Patient has participated in PHP and made progress. She is appropriate for discharge from [facility] and admission to IOP. Ongoing treatment in the structured IOP setting is necessary to maintain gains and prevent decompensation. Risks benefits alternatives of medications discussed with patient. Patient acknowledges understanding. She will continue Zyprexa 5 mg p.o. 3 times daily and 15 mg p.o. nightly. Mirtazapine 15 mg p.o. nightly. Trazodone 100 mg p.o. nightly. Klonopin 1 mg every morning and 0.5 mg twice daily. Lexapro 20 mg daily. Patient encouraged to follow-up with outpatient psychiatric providers including Dr. Dolan. 20 minutes of Insight oriented psychotherapy provided. Patient acknowledges understanding and is in agreement with plan. She feels able to maintain safety. She agrees to seek help or emergency care if feeling unsafe to self or others.
--- NOTE | 2017-11-09 13:41 | PN_ITS ---
Progress Note This is an update to the H&P of 11/02/2017 Patient is seen in follow-up for major depressive disorder recurrent severe, OCD , PTSD. History is been obtained per interview with patient, discussion with staff, review of chart. Case discussed with treatment team. Chief complaint-I worry too much about everything. Interim history Ongoing moderate to severe depression and anxiety but of decreased intensity overall. Episode of increased anxiety yesterday associated with attempting to help her daughter study for an exam while her was out of town. Her daughter became anxious thus increasing her own anxiety. She experienced intermittent passive suicidal thoughts. No suicide plan or intent. She ultimately made arrangements for her daughter and went to her mother's house and made a plan for safety. Ongoing obsessive thoughts about parenting. Intrusive traumatic memories and flashbacks and hypervigilance consistent with PTSD. No homicidal ideation. No symptoms consistent with psychosis. Sleeping from 8:30 PM to 7 AM. Appetite normal. Denies nausea vomiting or diarrhea. Complained of intermittent GERD symptoms. Consuming 1 cup of caffeinated coffee daily. Denies ingestion of alcohol. Compliant with medication including Zyprexa 5 mg 3 times daily and 15 mg nightly. No evidence of EPS. Mirtazapine 15 mg nightly. Trazodone 100 mg nightly. Klonopin 1 mg every morning and 0.5 mg twice daily. Lexapro 20 mg daily. Denies adverse effects to medications. Mental status exam Patient is a 42-year-old female who appears her stated age. She is alert and oriented in no acute distress. She is ambulatory with normal gait and station. She is cooperative with the interview. She has fair eye contact. There is no psychomotor agitation or retardation. Mood is depressed. Affect congruent. Speech is clear and of regular rate and volume. Language fluent. Thought process organized. Associations logical. Thought content significant for ruminative anxiety and themes of depression. Intermittent passive thoughts of suicide. No suicide plan or intent. Feels able to maintain safety. No homicidal ideation related to detected. No evidence of psychosis related to detected. Immediate recent and remote memory grossly intact. Attention and concentration are fair. Estimated intelligence fund of knowledge average. Judgment and insight are fair. Awaiting lab work from [facility]. Further lab work will be obtained as needed. Diagnosis Major depressive disorder recurrent severe F 33.2 OCD PTSD Remote history trichotillomania Plan Patient has participated in PHP and made progress. She is appropriate for discharge from [facility] and admission to IOP. Ongoing treatment in the structured IOP setting is necessary to maintain gains and prevent decompensation. Risks benefits alternatives of medications discussed with patient. Patient acknowledges understanding. She will continue Zyprexa 5 mg p.o. 3 times daily and 15 mg p.o. nightly. Mirtazapine 15 mg p.o. nightly. Trazodone 100 mg p.o. nightly. Klonopin 1 mg every morning and 0.5 mg twice daily. Lexapro 20 mg daily. Patient encouraged to follow-up with outpatient psychiatric providers including Dr. Dolan. 20 minutes of Insight oriented psychotherapy provided. Patient acknowledges understanding and is in agreement with plan. She feels able to maintain safety. She agrees to seek help or emergency care if feeling unsafe to self or others.
--- NOTE | 2017-11-09 13:51 | BH.SGPN ---
Service Group Progress Note - Session Psychotherapy Session #1 Date Open:: 11/09/17 Time Started:: 09:00 Time Stopped:: 09:51 Targeted Problem #:: 1 Type of Group:: Process - 7 Participants Goal of Group:: The goal of today's group was to check-in with client's mood, stressors, and positives, review homework, and to introduce the topic of the day. Client Response/Progress/Benefit:: Client entered session alert, attentive, and willing to engage. Client reported feeling like a ball of stress and has experiencing anxiety and suicidal thoughts, as well as feeling of guilt. Client was then able to identify her negative thoughts and reported, Teresa been trying to reframe the thoughts and deal with my daughter. Client indicated her emotion as anxious and benefitted from group by interacting with peers. Progress noted in clients ability to attempt reframing negative thoughts. Continued treatment necessary to reduce anxiety levels and maintain safety. Eye Contact:: Good Motor Activity:: Appropriate Appearance:: Casual Speech:: Appropriate Mood:: Anxious Affect:: Full Thoughts:: Linear, Logical, No evidence of hallucinations/delusions noted Staff Interventions:: Therapist used open-ended questions to elicit information about client's current stressors and mood. Therapist was supportive by using active listening and reflection. Psychotherapy Session #2 Date Open:: 11/09/17 Time Started:: 10:12 Time Stopped:: 10:55 Targeted Problem #:: 1 Type of Group:: Illness Management - 8 Participants Goal of Group:: To increase understanding of pitfalls and impact can have on mental health. Client Response/Progress/Benefit:: Client entered session alert and attentive. Client participated in group discussion on pitfalls and participated in group activity designed to help understand the impact pitfalls can have on the self. Client successfully collaborated with peers to complete activity and stated, the more communication we have about the pitfalls the better it went. Client benefitted from group by identifying strategies and understanding and reducing pitfalls. Progress noted in clients ability to complete activity and identify pitfalls in life. Continued treatment necessary to reduce anxiety levels. Eye Contact:: Good Motor Activity:: Appropriate Appearance:: Casual Speech:: Appropriate Mood:: Anxious Affect:: Full Thoughts:: Linear, Logical, No evidence of hallucinations/delusions noted Staff Interventions:: Therapist facilitated discussion about pitfalls and assisted group in identifying common pitfalls that can set you back. Therapist led group in an activity to help group understand impact pitfalls can have on oneself and identify strategies that could help you get back on the right path. Therapist provided support by using active listening and providing feedback.
--- NOTE | 2017-11-09 14:09 | BH.DR.ITP ---
Initial Treatment Plan - Patient Information Visit Information: ADMISSION DATE: EXPECTED LOS: 4-6 weeks Diagnoses:: Major depressive disorder F 33.2. OCD F 42 - Problems/Symptoms Problem #1:: Depression Symptom:: Sad mood, anhedonia, difficulty concentrating, suicidal ideation Problem #2:: Anxiety Symptom:: Rumination, obsessive thoughts
--- NOTE | 2017-11-09 14:11 | BH.MDN ---
Multi-Disciplinary Note - Note 45-min Individual Time Started:: 12:16 Date: 11/09/17 Purpose of session/treatment goals addressed:: The purpose of this session was to address client's current mood, stressors, and application of coping skills. Another goal was to discuss discharge from [facility] and admission into [facility]. Other topics included: Challenging negative thoughts, desensitization techniques, and supports. Eye Contact:: Fair Motor Activity:: Appropriate Appearance:: Casual Speech:: Other - circumstantial Mood:: Anxious, Depressed Affect:: Constricted Thoughts:: Other - Preoccupied Staff Interventions:: Therapist used open-ended questions to explore client's current mood, stressors, and application of coping skills. Therapist provided emotional support and empowered client to identify and challenge cognitive distortions. Therapist introduced desensitization strategies to reduce obsessions and compulsions. Therapist used CBT and DBT strategies to identify and reframe cognitive distortions that exacerbate guilt and anxiety. Therapist used strengths perspective to empower client on progress made in [facility]. Therapist discussed discharge from [facility] and admission into [facility]. Client Response:: Client open to meeting with therapist, receptive to discharging from [facility]. Client reports her anxiety is lower than yesterday, but overall it continues to be high as client has guilt associated with staying with her mother while client is increasing mood stability. Client reported the guilt is inappropriate and reframed the thought by saying if I didn't take care of myself nothing good would happen. Client stated she is trying to reframe her thoughts towards motherhood and her daughter as well. Client shared she has been utilizing mindfulness and thought challenge daily and it has been reducing the intensity of her symptoms. However, client shared she continues to struggle with letting things go as client reports belief she holds on to a thought and ruminates. Client responded well to the discussion of negative maintenance cycles and client identified her need for validation as a negative cycle. Client was receptive to implementing desensitization strategy called exposure and response prevention. Client agreed to put her ruminating, obsessive thoughts into a worry box and giving herself three minutes before asking for validation. Client acknowledged this will be uncomfortable and shared I know it won't change overnight. Client reported challenging her thoughts and externalizing anxiety has been beneficial so far in treatment. Client stated at times she feels exhausted from being anxious, but tells herself it will get better. Client reported she will work on telling herself thoughts aren't facts. Risks/Concerns:: Client continues to contract for safety. Client denies suicidal ideation, plan, and intent as of 11/09/17. Client identifies staying at her mother's house as a protective factor. Progress Toward Goals/Plan:: Client has demonstrated progress towards PHP treatment goals as client has reported more consistent mood stability, reduced suicidal ideation, and increased use of coping skills. Client reports reduced depression and anxiety through implementing thought challenge and mindfulness skills. However, client continues to report high anxiety with obsessive thoughts and rumination. Client is appropriate for IOP level of care and reports agreement with this decision. Client to start IOP 11/12/17 to maintain gains and promote mood stability. Time Stopped:: 13:03
--- NOTE | 2017-11-09 14:40 | BH.MDN_ITS ---
Multi-Disciplinary Note - Note 45-min Individual Time Started:: 12:16 Date: 11/09/17 Purpose of session/treatment goals addressed:: The purpose of this session was to address client's current mood, stressors, and application of coping skills. Another goal was to discuss discharge from [facility] and admission into [facility]. Other topics included: Challenging negative thoughts, desensitization techniques, and supports. Eye Contact:: Fair Motor Activity:: Appropriate Appearance:: Casual Speech:: Other - circumstantial Mood:: Anxious, Depressed Affect:: Constricted Thoughts:: Other - Preoccupied Staff Interventions:: Therapist used open-ended questions to explore client's current mood, stressors, and application of coping skills. Therapist provided emotional support and empowered client to identify and challenge cognitive distortions. Therapist introduced desensitization strategies to reduce obsessions and compulsions. Therapist used CBT and DBT strategies to identify and reframe cognitive distortions that exacerbate guilt and anxiety. Therapist used strengths perspective to empower client on progress made in [facility]. Therapist discussed discharge from [facility] and admission into [facility]. Client Response:: Client open to meeting with therapist, receptive to discharging from [facility]. Client reports her anxiety is lower than yesterday, but overall it continues to be high as client has guilt associated with staying with her mother while client is increasing mood stability. Client reported the guilt is inappropriate and reframed the thought by saying if I didn't take care of myself nothing good would happen. Client stated she is trying to reframe her thoughts towards motherhood and her daughter as well. Client shared she has been utilizing mindfulness and thought challenge daily and it has been reducing the intensity of her symptoms. However, client shared she continues to struggle with letting things go as client reports belief she holds on to a thought and ruminates. Client responded well to the discussion of negative maintenance cycles and client identified her need for validation as a negative cycle. Client was receptive to implementing desensitization strategy called exposure and response prevention. Client agreed to put her ruminating, obsessive thoughts into a worry box and giving herself three minutes before asking for validation. Client acknowledged this will be uncomfortable and shared I know it won't change overnight. Client reported challenging her thoughts and externalizing anxiety has been beneficial so far in treatment. Client stated at times she feels exhausted from being anxious, but tells herself it will get better. Client reported she will work on telling herself thoughts aren't facts. Risks/Concerns:: Client continues to contract for safety. Client denies suicidal ideation, plan, and intent as of 11/09/17. Client identifies staying at her mother's house as a protective factor. Progress Toward Goals/Plan:: Client has demonstrated progress towards PHP treatment goals as client has reported more consistent mood stability, reduced suicidal ideation, and increased use of coping skills. Client reports reduced depression and anxiety through implementing thought challenge and mindfulness skills. However, client continues to report high anxiety with obsessive thoughts and rumination. Client is appropriate for IOP level of care and reports agreement with this decision. Client to start IOP 11/12/17 to maintain gains and promote mood stability. Time Stopped:: 13:03
--- NOTE | 2017-11-09 14:40 | BH.DS_ITS ---
Discharge Summary - Demographics Date of Admission:: 11/02/17 Discharge Date: 11/09/17 Presenting Problems at Admission:: Client is a 42-year-old female who presents to [facility] post inpatient psychiatric admission October 19 through October 31 at [facility] for increased depression, suicidal ideation, and OCD. At admission, client reported her psychiatric symptoms have been worse over the past month associated with recent stressors of chronic health issues and behavioral issues with her 11-year-old daughter. Client reported having increased obsessive thoughts about her daughter which exacerbated anxiety and depression. At admission, client endorsed a depressed mood with anhedonia, decreased energy, difficulty concentrating, and suicidal thoughts. Additionally , client endorsed ruminative anxiety and panic attacks 2-3 times per week. Client shared a history of trauma, reporting flashbacks, intrusive thoughts, and hypervigilance associated with these traumas. Discharge Diagnoses:: Major depressive disorder recurrent severe F 33.2, OCD F 42 Reason for Discharge:: Client has demonstrated progress in maintaining safety, reducing suicidal ideation, and reducing the intensity of mental health symptoms through medication management and coping skill development. Client no longer meets the criteria for [facility] level of care. Client is transitioning to the IOP program. - Treatment Progress During Treatment & Response: Client appeared to respond well to [facility] treatment as evidenced by client's consistent attendance and active participation in group. Client reported utilizing healthy coping skills daily and reaching out to supports to help reduce anxiety and manage depression. Client stated she is not where she wants to be yet, but feels more equipped to cope with stressors and regulate emotions. Client has met her treatment goals of reduced depression, suicidal ideation, and anxiety. Client has met these goals per client report of reduced intensity of symptoms, increased use of supports, and utilizing healthy coping skills such as mindfulness, thought challenge, and deep breathing. Client reported belief she is on the right path to better herself and wants to continue progressing in [facility]. Client expressed gratitude for the treatment she received in [facility]. Issues Still to be Addressed:: Client can benefit from continued counseling and IOP services to maintain progress in challenging negative thinking and utilizing healthy coping skills to reduce anxiety, depression, and manage obsessive thoughts. Client can also continue to benefit from increasing self- esteem and managing OCD symptoms. Discharge Recommendations/Instructions:: Client was recommended to start IOP program to maintain progress client has made throughout [facility]. Client was also recommended to follow up with individual counselor, Verónica, at [facility] and psychiatrist, Dr. Dolan at [facility]. Client recommended to continue following her safety plan and use family support to maintain safety. Client to contact crisis should client feel unable to maintain safety. Discharge Handout: Complete Discharge Handout with client on aftercare options and continuity of care.
--- NOTE | 2017-11-09 19:20 | BH.SGPN ---
Service Group Progress Note - Session Psychotherapy Session #3 Date Open:: 11/09/17 Time Started:: 11:07 Time Stopped:: 12:00 Targeted Problem #:: 1 Type of Group:: Functional Skills Development Goal of Group:: To identify personal pitfalls and what keeps them stuck from moving forward. Client Response/Progress/Benefit:: Pt contributed positively contributed to discussion and listened attentively to others. Pt identified personal pitfalls to include: guilt, feeling like a burden, fear of conflict, people pleaser, past trauma, cognitive distortions, lack of self-care, magnification, and unmanaged emotions. Pt reported fear of conflict to be the most impactful because she is afraid conflict will result in anger from others and trigger her. Pt seemed to benefit from increasing awareness of her personal pitfalls. Eye Contact:: Good Motor Activity:: Appropriate Appearance:: Casual Speech:: Appropriate Mood:: Anxious Affect:: Constricted Thoughts:: Linear, Logical, No evidence of hallucinations/delusions noted Staff Interventions:: Therapist facilitated activity in which group members were given the task to identify personal pitfalls and what keeps them stuck from moving past the pitfall. Therapist provided group members with the homework assignment of identifying strategies that can help them overcome pitfalls.
--- NOTE | 2017-11-13 08:55 | BH.SGPN_ITS ---
Service Group Progress Note - Session Psychotherapy Session #1 Date Open:: 11/09/17 Time Started:: 09:00 Time Stopped:: 09:51 Targeted Problem #:: 1 Type of Group:: Process - 7 Participants Goal of Group:: The goal of today's group was to check-in with client's mood, stressors, and positives, review homework, and to introduce the topic of the day. Client Response/Progress/Benefit:: Client entered session alert, attentive, and willing to engage. Client reported feeling like a ?ball of stress? and has experiencing anxiety and suicidal thoughts, as well as feeling of guilt. Client was then able to identify her negative thoughts and reported, ?I?ve been trying to reframe the thoughts and deal with my daughter.? Client indicated her emotion as anxious and benefitted from group by interacting with peers. Progress noted in client?s ability to attempt reframing negative thoughts. Continued treatment necessary to reduce anxiety levels and maintain safety. Eye Contact:: Good Motor Activity:: Appropriate Appearance:: Casual Speech:: Appropriate Mood:: Anxious Affect:: Full Thoughts:: Linear, Logical, No evidence of hallucinations/delusions noted Staff Interventions:: Therapist used open-ended questions to elicit information about client's current stressors and mood. Therapist was supportive by using active listening and reflection. Psychotherapy Session #2 Date Open:: 11/09/17 Time Started:: 10:12 Time Stopped:: 10:55 Targeted Problem #:: 1 Type of Group:: Illness Management - 8 Participants Goal of Group:: To increase understanding of pitfalls and impact can have on mental health. Client Response/Progress/Benefit:: Client entered session alert and attentive. Client participated in group discussion on pitfalls and participated in group activity designed to help understand the impact pitfalls can have on the self. Client successfully collaborated with peers to complete activity and stated, ? the more communication we have about the pitfalls the better it went.? Client benefitted from group by identifying strategies and understanding and reducing pitfalls. Progress noted in client?s ability to complete activity and identify pitfalls in life. Continued treatment necessary to reduce anxiety levels. Eye Contact:: Good Motor Activity:: Appropriate Appearance:: Casual Speech:: Appropriate Mood:: Anxious Affect:: Full Thoughts:: Linear, Logical, No evidence of hallucinations/delusions noted Staff Interventions:: Therapist facilitated discussion about pitfalls and assisted group in identifying common pitfalls that can set you back. Therapist led group in an activity to help group understand impact pitfalls can have on oneself and identify strategies that could help you get back on the right path. Therapist provided support by using active listening and providing feedback.
--- NOTE | 2017-11-13 12:40 | BH.COMM ---
Communication Note - Communication with Client Communication Note: This therapist spoke on the phone with client's as client was admitted to [facility] over the weekend for SI and anxiety. Therapist and discussed client updates, plans after discharge, and support options. to follow up with therapist this week for continuity of care and discharge planning.
--- NOTE | 2017-11-13 12:45 | BH.COMM_ITS ---
Communication Note - Communication with Client Communication Note: This therapist spoke on the phone with client's as client was admitted to [facility] over the weekend for SI and anxiety. Therapist and discussed client updates, plans after discharge, and support options. to follow up with therapist this week for continuity of care and discharge planning.
[2018-02-22 16:07] VITALS: BP 103/70; PULSE 88; RESP 14
== END 2017-11-09 14:00 | disposition home or self-care (01) ==
LOC: BHPHP 08:24
PROVIDERS: Family Provider Family Medicine; PCP Family Medicine; Visit Provider Psychiatry & Neurology Psychiatry
DX: F33.2 Major depressive disorder, recurrent severe without psychotic features (principal); F42.9 Obsessive-compulsive disorder, unspecified; F43.10 Post-traumatic stress disorder, unspecified; Z79.899 Other long term (current) drug therapy
CPT/HCPCS: H0035; 90834; 90837; G0410

== ENCOUNTER 2017-11-10 15:33 | Emergency (ER) | payer BC, SELFPAY ==
[2017-11-10] VITALS (7 sets, daily range): BP systolic 103–118; BP diastolic 71–79; PULSE 100–115; RESP 15–20; TEMP 36.8; O2SAT 94–100; BMI 20.5
--- NOTE | 2017-11-10 16:07 | ED.RN ---
URINE COLLECTED AND SENT WHILE IN TRIAGE. PT WAS ESCORTED TO THE RESTROOM BY HER FM.
--- NOTE | 2017-11-10 16:28 | ED.VISSUMM ---
- ER Visit Summary Date of Service: 11/10/17 Chief Complaint: Anxiety, suicidal thoughts History of Present Illness: The patient is a 42 F with history of anxiety, depression, PTSD and OCD presents for 1 week of suicidal thoughts and worsening anxiety. Patient was recently discharged from [facility] on November 02, and had medications adjusted, including increase in Zyprexa, decrease Remeron and discontinuation of BuSpar. Patient has been in partial hospitalization since then and was discharged yesterday, supposed to start intensive outpatient program on Sunday. Patient states for the last week she has been having thoughts of killing herself by carbon monoxide poisoning. She denies doing anything to hurt herself thus far. She also feels very restless all day and at night. She took Klonopin at noon but has not had any improvement in her symptoms. She also has medical histories of hypothyroidism, IBS and GERD. Physical Examination: Vital signs: afebrile, hemodynamically stable, no hypoxia on room air General: well nourished, well developed, in no distress, mildly restless and anxious Skin: warm, dry, no rash, no pallor HEENT: normocephalic and atraumatic; PERRL, EOMI, moist mucous membranes Cardiovascular: tachycardiac rate and rhythm without murmurs, no peripheral edema, 2+ pulses all distal extremities Respiratory: No increased work of breathing, lungs are clear to auscultation bilaterally, no rales, rhonchi or wheezing Abdominal: Abdomen is soft, nontender with normoactive bowel sounds, no guarding or rebound, no masses MSK: Moves all extremities, no deformities, normal strength Neuro: Awake and alert, oriented ?4. No facial droop, sensation and motor function intact and symmetric Psych: Well-groomed, good eye contact, appropriate affect, positive suicidal thoughts, negative homicidal ideation, hallucinations or paranoia. Test Results: Abnormal Lab Results 11/10/17 11/10/17 11/10/17 16:05 16:30 16:30 WBC 9.2 RBC 3.60 L Hgb 11.7 L Hct 36.3 L MCV 100.8 H MCH 32.5 H MCHC 32.2 RDW 12.6 RDW Differential 46.1 H Plt Count 255 MPV 9.9 Immature Gran % (Auto) 0.100 Neut % (Auto) 76.8 H Lymph % (Auto) 13.8 L Meriwether % (Auto) 5.3 Eos % (Auto) 3.8 Baso % (Auto) 0.2 Absolute Neuts (auto) 7.1 Absolute Lymphs (auto) 1.27 Total Counted Not Reportable Sodium 141 Potassium 3.6 Chloride 106 Carbon Dioxide 25.0 Anion Gap 10 BUN 14 Creatinine 0.63 Estim Creat Clear Calc 99.96 Est GFR (MDRD) Af Amer 133 Est GFR (MDRD) Non-Af 110 BUN/Creatinine Ratio 22.2 H Glucose 89 Calcium 8.4 L TSH 3.49 Serum , Qual Urine Opiates Screen NEGATIVE Urine Methadone Screen NEGATIVE Ur Barbiturates Screen NEGATIVE Ur Phencyclidine Scrn NEGATIVE Ur Amphetamines Screen NEGATIVE U Methamphetamin-MDMA NEGATIVE U Benzodiazepines Scrn NEGATIVE Urine Cocaine Screen NEGATIVE U Cannabinoids Screen NEGATIVE Ur Drug Screen Comment Ethyl Alcohol 11/10/17 11/10/17 16:30 16:30 WBC RBC Hgb Hct MCV MCH MCHC RDW RDW Differential Plt Count MPV Immature Gran % (Auto) Neut % (Auto) Lymph % (Auto) Meriwether % (Auto) Eos % (Auto) Baso % (Auto) Absolute Neuts (auto) Absolute Lymphs (auto) Total Counted Sodium Potassium Chloride Carbon Dioxide Anion Gap BUN Creatinine Estim Creat Clear Calc Est GFR (MDRD) Af Amer Est GFR (MDRD) Non-Af BUN/Creatinine Ratio Glucose Calcium TSH Serum , Qual NEGATIVE Urine Opiates Screen Urine Methadone Screen Ur Barbiturates Screen Ur Phencyclidine Scrn Ur Amphetamines Screen U Methamphetamin-MDMA U Benzodiazepines Scrn Urine Cocaine Screen U Cannabinoids Screen Ur Drug Screen Comment Ethyl Alcohol < 3.0 Emergency Department Course and Treatment: Medical screening was performed, and patient was medically cleared for evaluation by the crisis intervention counselor. Patient was deemed actively suicidal, as she plans to kill herself with carbon monoxide poisoning. She was accepted by [facility] for readmission. Patient received medications as needed for symptomatic control while in the emergency department. Treatment Plan: [] Disposition: Transfer to [facility] Impression: Suicidal ideation This note was generated with myaNUMBER dictation software. It may contain incorrect words, spelling, and punctuation that were not noted in review of the chart prior to signing ED Disposition - Plan for ED Patient: Chief Complaint: Suicidal Referrals: Nick Martinez MD [Primary Care Provider] -
[2017-11-10 16:52] LABS: Absolute Lymphocyte Count 1.27 X10^3/ul (0.83-4.51); Absolute Neutrophil Count 7.1 X10^3/uL (2.0-7.7); Basophil# 0.02 X10^3/uL; Basophil% 0.2 % (0-1); Eosinophil# 0.35 X10^3/uL; Eosinophils% 3.8 % (0-5); Hematocrit 36.3 % (37-47); Hemoglobin 11.7 g/dl (12.0-15.0); Lymphocyte # 1.27 X10^3/ul (4.0); Lymphocyte % 13.8 % (19-41); Mean Corp Hgb Conc 32.2 g/gl (32-36); Mean Corpuscular Hgb 32.5 pg (27.0-32.0); Mean Corpuscular Volume 100.8 fL (81-99); Mean Platelet Vol. 9.9 fl (6.2-12.0); Monocyte# 0.49 X10^3/uL; Monocyte% 5.3 % (0-10); Neutrophil # 7.08 X10^3/uL (2.7-7.7); Neutrophil % 76.8 % (47-70); Platelet Count 255 K/mm3 (150-450); RBC Distribution Width CV 12.6 % (11.6-14.6); RBC Distribution Width SD 46.1 fl (35.1-43.9); White Blood Count 9.2 K/mm3 (4.4-11.0)
[2017-11-10 16:54] LABS: POSITIVE COUNT NO; POSITIVE DIFFERENTIAL NO; POSITIVE MORPHOLOGY NO
[2017-11-10 17:06] LABS: Amphetamine Urine VISTA NEGATIVE (<1000 ng/mL); Barbiturate Urine VISTA NEGATIVE (< 200 ng/mL); Benzodiazepine Urine VISTA NEGATIVE (< 200 ng/mL); Cocaine Urine VISTA NEGATIVE (< 300 ng/mL); Ecstacy Urine VISTA NEGATIVE (< 500 ng/mL); Methadone Urine VISTA NEGATIVE (< 300 ng/mL); PCP Urine VISTA NEGATIVE (< 25 ng/mL); THC Urine VISTA NEGATIVE (< 50 ng/mL); Vista UDS pH Range 6
[2017-11-10 17:15] LABS: Pregnancy, Serum, hCG Quali. NEGATIVE Negative (0-9 Nonpreg)
[2017-11-10 17:18] LABS: Alcohol, Blood (Medical)-Serum < 3.0 mg/dL
[2017-11-10 17:22] LABS: Anion Gap 10 (5-15); BUN 14 mg/dL (7-18); BUN/Creat Ratio 22.2 RATIO (10-20); Calcium,Total 8.4 mg/dL (8.5-10.1); Chloride 106 mmol/L (98-107); Creatinine, Serum 0.63 mg/dL (0.55-1.02); EST Glomerular Filtration Rate 110 mL/min (>60); Est Glom Filt Rate - Afr Amer 133 mL/min (>60); Estimated Creatinine Clearance 99.96 ml/min; Glucose 89 mg/dL (70-110); Potassium 3.6 mmol/L (3.5-5.1); Sodium Level 141 mmol/L (136-145); Thyroid Stim Hormone (TSH) 3.49 uIU/mL (0.358-3.74)
[2017-11-10] MEDS: LORazepam 0.5 MG Tablet PO (19:58)
--- NOTE | 2017-11-10 21:52 | EKG12_ITS ---
Test Reason : SUICIDAL Blood Pressure : / mmHG Vent. Rate : 094 BPM Atrial Rate : 094 BPM P-R Int : 132 ms QRS Dur : 076 ms QT Int : 342 ms P-R-T Axes : 064 075 057 degrees QTc Int : 427 ms Normal sinus rhythm Normal ECG Confirmed by TWILA MARTINEZ, YAMILA ([id number]), script editor KRIS BRIAN ([id number]) on 11/13/2017 10:32:19 AM Referred By: OLAF Confirmed By:YAMILA MATTSON MD
--- NOTE | 2017-11-11 01:02 | ED.RN ---
DR. BABIN AWARE PT WOULD LIKE TO TAKE EVENING MEDICATIONS INCLUDING CLONEZPAM, TRAZADONE AND REMERON. DR. BABIN ALLOWS PATIENT TO TAKE PATIENTS OWN EVENING MEDICATIONS
[2017-11-11 01:03] VITALS: BP 107/85; PULSE 95; O2SAT 96
[2017-11-11 01:04] VITALS: BP 107/85; RESP 18
== END 2017-11-11 01:50 | disposition short-term general hospital (02) ==
LOC: ED 16:38
PROVIDERS: Emergency Provider Emergency Medicine; Family Provider Family Medicine; PCP Family Medicine
DX: R45.851 Suicidal ideations (principal); E03.9 Hypothyroidism, unspecified; F32.9 Major depressive disorder, single episode, unspecified; K21.9 Gastro-esophageal reflux disease without esophagitis; K58.9 Irritable bowel syndrome, unspecified; F43.10 Post-traumatic stress disorder, unspecified; F42.8 Other obsessive-compulsive disorder
CPT/HCPCS: 80048; 80307; 80320; 84443; 84703; 85025; 93005; 99285; G0480

== ENCOUNTER 2017-11-19 09:00 | Outpatient (RCR) | payer OTHER, SELFPAY ==
--- NOTE | 2017-11-19 10:44 | BH.COMM ---
Communication Note - Communication with Client Communication Note: This therapist met with client to complete admission paperwork for IOP and answer client questions. Client was informed this therapist will be her IOP therapist.
--- NOTE | 2017-11-19 14:18 | BH.SGPN_ITS ---
Service Group Progress Note - Session Psychotherapy Session #2 Date Open:: 11/19/17 Time Started:: 10:11 Time Stopped:: 11:08 Targeted Problem #:: 1 Type of Group:: Illness Management - 5 Participants Goal of Group:: To increase understanding of fear and explore the negative impact fear of failure can have on mental health and decision making. Client Response/Progress/Benefit:: Client entered session alert, attentive, and willing to engage. Client connected with the quote of the day and stated, ?I?m more likely to believe I?m worthless if it?s someone who I look up too telling me it.? Client collaborated with peers to complete a group activity designed to test how individuals manage failure in their own lives. Client was visibly anxious throughout the activity AEB bouncing legs, shifting positions, holding arms in the air and reporting that her anxiety was elevated. Client was able to successfully complete activity, despite multiple setbacks and elevated anxiety. Client benefitted from group by processing what failure means and how it can impact us physically. Progress noted in client?s ability to use healthy coping skills to manage anxiety throughout activity. Continued treatment necessary to reduce anxiety levels and increase use of coping skills. Eye Contact:: Good Motor Activity:: Appropriate Appearance:: Casual Speech:: Appropriate Mood:: Anxious, Depressed Affect:: Congruent Thoughts:: Linear, Logical, No evidence of hallucinations/delusions noted Staff Interventions:: Therapist facilitated discussion about fear and impact fear of failure can have. Therapist led group in an experiential activity in which client?s would fail numerous times throughout, but were given the opportunity to try again. Therapist led the processing of the activity and assisted clients with connecting how fear of failure impacted their decision making during the activity.
--- NOTE | 2017-11-19 15:34 | BH.SGPN ---
Service Group Progress Note - Session Psychotherapy Session #1 Date Open:: 11/19/17 Time Started:: 09:05 Time Stopped:: 10:00 Targeted Problem #:: 1 Type of Group:: Process Goal of Group:: The goal of today's group was to check-in with client's mood, stressors, and positives, review homework and introduce topic for the day. Client Response/Progress/Benefit:: Client reported she has just been released from being an inpatient for suicidal ideation. Client shared 1 of her medications was giving her a lot of side effects which resulted in increased suicidal thoughts and was hospitalized 2 weekends ago. Client reported over the past week when she was in the hospital they made several medication changes which she is hopeful will help stabilize her mood, decrease obsessive thoughts and anxiety. Client shared she is having a hard time because the medications still need to be titrated up to the level that would be helpful to her so as a result experiencing a lot of anxiety and crying spells. Client shared she is currently staying with her mom because she does not feel like she can parent. Shared she does not think it would be really helpful for her daughter to see her mom constantly crying and being anxious. Client seemed to benefit from expressing thoughts and emotions as well as receiving support. Eye Contact:: Fair Motor Activity:: Restless Appearance:: Casual Speech:: Appropriate Mood:: Anxious, Depressed Affect:: Constricted Thoughts:: Linear, Logical, No evidence of hallucinations/delusions noted Staff Interventions:: Therapist used open-ended questions to elicit information about client's current stressors and mood state. Therapist was supportive by using active listening and reflection.
--- NOTE | 2017-11-20 12:10 | BH.SGPN_ITS ---
Service Group Progress Note - Session Psychotherapy Session #3 Date Open:: 11/19/17 Time Started:: 11:15 Time Stopped:: 12:17 Targeted Problem #:: 1 Type of Group:: Functional Skills Development - 5 participants. Goal of Group:: To identify the impact fear of failure has had on the group members lives and identify strategies to overcome fear of failure. Client Response/Progress/Benefit:: Client attentive and responded well to session. She was able to work with fellow participants in completing remainder of activity and was actively engaged in discussion portion reviewing potential impacts fear of failure may have an once daily life. Client discussed that currently her fear of failure is impeding her ability to reach out to supports for help as she often feels guilty or like she is letting her family down when considering getting help. Client benefited from group discussion as she is able to normalize the spheres and relate to other participants experiences. Client displayed progress in her ability to identify evidence against these thoughts and potential steps she could take in order to overcome negative thinking; however, client required reassurance on several occasions that she is still a good mother if she asks for help. She is recommended continued IOP in order to maintain stability as well as challenge negative ruminations and anxiety symptoms. Eye Contact:: Good Motor Activity:: Appropriate Appearance:: Casual Speech:: Appropriate Mood:: Euthymic, Anxious Affect:: Full Thoughts:: Linear, Logical, No evidence of hallucinations/delusions noted Staff Interventions:: Therapist provided each group member with a worksheet to complete that asked questions about their experiences with fear of failure. Therapist led the processing of the worksheet, helping client?s connect how fear of failure has impacted them. Therapist provided support by using active listening and providing feedback.
--- NOTE | 2017-11-20 14:05 | BH.SGPN_ITS ---
Service Group Progress Note - Session Psychotherapy Session #1 Date Open:: 11/20/17 Time Started:: 09:07 Time Stopped:: 09:58 Targeted Problem #:: 1 Type of Group:: Process - 5 Participants Goal of Group:: The goal of today's group was to check-in with client's mood, stressors, and positives, review homework, and to introduce the topic of the day. Client Response/Progress/Benefit:: Client entered session alert and attentive. Client shared that she has been anxiety yesterday and today and had an unplanned visit with her daughter so to cope states, ?I took some herbal remedy rescue teach to help with the anxiety and the visit went okay.? Client went on to share how she is still waiting for the new medications to kick in and states feeling, ?anxious, depressed, overwhelmed, and my OCD has increased.? Therapist discussed ways of managing the anxiety and client reported the deep breathing exercises not working so therapist went over other coping skills to assist with this. Client was receptive to trying exercise such as walking when feeling anxious again. Client benefited from group by receiving support from peers. Limited progress noted in client?s ability to minimally manage stressors. Continued treatment necessary to stabilize anxiety levels. Eye Contact:: Fair Motor Activity:: Appropriate Appearance:: Casual Speech:: Appropriate Mood:: Anxious, Depressed Affect:: Congruent Thoughts:: Linear, Logical, Racing - Reported by client, No evidence of hallucinations/delusions noted Staff Interventions:: Therapist used open-ended questions to elicit information about client's current stressors and mood. Therapist was supportive by using active listening and reflection.
--- NOTE | 2017-11-20 14:44 | BH.MDN ---
Multi-Disciplinary Note - Note Family Time Started:: 12:30 Date: 11/20/17 Purpose of session/treatment goals addressed:: The purpose of this session was to include client's in the treatment process by providing psychoeducation and increasing insight on how to be a positive support for client. Another goal was to develop small exposure and response goals for client to reduce anxiety and increase confidence. Other topics included: healthy coping skills, triggers, communication, and expectations. Eye Contact:: Fair Motor Activity:: Restless Appearance:: Casual Mood:: Anxious, Dysthymic Affect:: Constricted Thoughts:: Other - preoccupied Staff Interventions:: Therapist used active listening and promoted open communication between client and her , Kurtis. Therapist used open-ended questions to help client explore triggers and coping skills to utilize for different levels of symptoms severity. Therapist empowered client by having her share ways Kurtis can support her and help client work towards goals. Therapist collaborated with Kurtis and client to develop realistic expectations and small exposure goals. Therapist provided psychoeducation and strategies to reduce anxiety and intrusive thoughts such as reminder cues, physical regulation, and challenging negative thoughts. Therapist used strengths-perspective to empower client. Client Response:: Client responded well to session, engaged throughout. Client rated her anxiety as 10/10 today as client reports belief her medication is not at a therapeutic dose. Client was informed she will see AC and will be able to discuss medication then. Client reported she wanted to discuss ways Kurtis can help client manage her symptoms and challenge the guilt she feels. Client stated she feels like a bad mother as client is not taking on a parenting role right now due to her mental health. Kurtis was receptive and shared remember you have to take care of you first. Client and Kurtis discussed appropriate ways to verbalize client's situation to their daughter. Client spoke about her crisis cycle including warning signs, symptoms, and coping skills. Client stated it is easier for client to utilize coping skills and avoid crisis if she catches her warning signs early. Client offered ways Kurtis can support client at each stage of crisis. Client identified reframing negative thoughts, reassurance, and physical regulation as helpful coping skills. Client shared with Kurtis don't induce guilt when I'm in a crisis. Client stated taking a break would be beneficial for client if in crisis, however, client and Kurtis acknowledged safety would need to be prioritized. Client and Kurtis problem-solved safe ways client can take a break when in crisis such as setting a time limit and being with a support person outside. 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 Client and Kurtis stated, we know this will take time and acknowledged client's anxiety may not be completely reduced. Kurtis and client developed a small goal to slowly build exposure between client and her daughter. Client plans to spend two hours with her daughter at client's mother's house after work several times a week. Therapist discussed the importance of slowly moving up the 'fear ladder' to increase confidence and manage anxiety. Client and Kurtis created reminder cues for client to utilize when she has intrusive negative thoughts. Client and Kurtis to follow up on goal setting and mood monitoring. Client was receptive to utilizing calming coping skills daily. Risks/Concerns:: Client denied suicidal ideation, plan, and intent as of 11/20/17. Client reports staying with her mother as a protective factor and looking forward to another family session next week, demonstrating future orientation. Client reports ability to maintain safety. Progress Toward Goals/Plan:: Progress limited as it is client's second day back from IOP post discharge from [facility]. Client recently had medication adjustments which client reports belief is influencing her symptoms. Client endorses intrusive thoughts, high anxiety, depressed mood, and inappropriate guilt. Client to continue IOP to promote mood stability and medication maintenance. Client reported plan to switch her outpatient therapist. Client and agreed to work on communicating expectations and creating small goals. Time Stopped:: 13:30
--- NOTE | 2017-11-20 14:48 | BH.SGPN_ITS ---
Service Group Progress Note - Session Psychotherapy Session #2 Date Open:: 11/20/17 - participants Time Started:: 10:10 Time Stopped:: 11:00 Targeted Problem #:: 1 Type of Group:: Illness Management Goal of Group:: To increase understanding of a crisis and improve client?s awareness of personal warning signs before crisis. Client Response/Progress/Benefit:: Client responded well to session, active participant. Client processed the quote with peers, sharing we can either learn and grow from difficult situations or stay stuck and regress. Client discussed various crises with the group and gained insight on how high stress increases the likelihood of personal crisis. Client shared crisis to her feels like my nerves are frayed and I'm shaken to the core. Client reported when she is in crisis she becomes overwhelmed and suicidal. Client identified increased negative thinking as a warning sign for crisis. Client appeared to benefit from increasing awareness of what crisis is like for her as well as how stress can impact one's ability to cope with difficult times. Client progressing as shown by her increased insight to warning signs. Eye Contact:: Fair Motor Activity:: Appropriate Appearance:: Casual Speech:: Appropriate Mood:: Anxious, Dysthymic Affect:: Constricted Thoughts:: Linear, No evidence of hallucinations/delusions noted Staff Interventions:: Therapist facilitated group discussion about defining a crisis and specifying various events that are considered a crisis. Therapist led group in an activity in which group members had to identify their thoughts and emotions attached to being in a crisis. Therapist provided support by using active listening and providing feedback. Psychotherapy Session #3 Date Open:: 11/20/17 - participants Time Started:: 11:10 Time Stopped:: 12:05 Targeted Problem #:: 1 Type of Group:: Functional Skills Development Goal of Group:: To increase awareness of warning signs before a crisis and identify interventions/coping strategies that would help clients proactively manage potential crises Client Response/Progress/Benefit:: Client responded well to session, active in discussion. Client identified her top three warning signs before crisis as racing thoughts, negative thinking, and uncontrollable worries. Client processed the crisis cycle and gained insight on how one's problem-solving and concentration are impacted when in crisis. Client identified coping skills to utilize to prevent crisis such as thought challenge and physical regulation. Client created a crisis kit to remind client of positive coping skills to utilize when she recognizes warning signs. Client selected a shell, rock, feather, teabag, and flower to remind client of mindfulness, peaceful places, supports, and letting things go. Client appeared to benefit from creating a visual reminder of healthy coping skills she can utilize to prevent crisis. Client progressing as shown by her willingness to implement healthy strategies to reduce anxiety. Eye Contact:: Fair Motor Activity:: Appropriate Appearance:: Casual Speech:: Appropriate Mood:: Anxious, Dysthymic Affect:: Constricted Thoughts:: Linear, No evidence of hallucinations/delusions noted Staff Interventions:: Therapist led the group in discussion about identifying personal warning signs before a crisis and importance of being aware of those signs. Therapist provided the group with various types of items and asked each group member to select five items that represent something that would be helpful in managing their warning signs of a crisis. Therapist facilitated group processing of the crisis emergency kits each group member created. Therapist used open-ended questions to encourage elaboration of each item chosen for their kit. Therapist helped clients connect how the crisis emergency kit could help be a crisis prevention tool.
--- NOTE | 2017-11-22 07:40 | BH.MTP ---
Master Treatment Plan - Patient Information Program Physician:: Desi Montiel Primary Therapist:: Leyla Fuentes - Psychiatric Diagnoses Psychiatric Diagnoses:: Major depressive disorder recurrent severe; OCD; PTSD Diagnosis Code(s):: 33.2 - Estimated LOS Estimated LOS (in weeks):: 6 Problem/Goal #1 - Problem/Goal #1 Stated Goal:: Client will reduce depression, anhedonia, and suicidal ideation due to Major Depressive Disorder. Description of Barriers: Client reports her major stressors to be client's relationship with her daughter, parental expectations, and being at home. Client reports negative thinking and negative core beliefs of self that developed during childhood. Client endorses a depressed mood, rumination, obsessive thoughts, anhedonia, poor concentration, and lack of energy. Client identified dealing with conflict, managing stress, and coping with other people's anger as ongoing barriers. Additionally, client reports ongoing challenges in coping with inappropriate guilt and letting things go. Functional Impact: Client recently discharged from [facility] for the second time this year due to increased depression, suicidal ideation, anxiety, and OCD. Client reports symptoms are interfering with daily functioning, parenting, and overall emotional wellbeing. Client states her symptoms occur for most of the day nearly every day. Client endorses has negative thinking, inappropriate guilt, passive thoughts of suicide, and a depressed and anxious mood. Client endorses intrusive thoughts, compulsions, and panic attacks. Client shared she constantly worries about her daughter and mental health, which results in frequent need for reassurance. Goal Relevant Strengths/Supports: Client reports a strong support system in her and mother. Client appears receptive, compassionate, intelligent, and reports motivation to learn how to cope with mental health as evidenced by her report. Client is medication compliant and seems to have good insight to triggers, negative thought patterns, and past helpful coping skills. Client plans to stay with her mother while increasing stability and working towards small goals. - Objectives Objective #1 Stated Objective: Client will learn and utilize 2-3 healthy coping strategies to manage depressive symptoms, promote self-care, and increase mood stability. Interventions: Therapist will assist client in identifying early warning signs for depression, suicidal ideation, and feelings of hopelessness. Through use of CBT, DBT, and mindfulness strategies, therapist will teach client coping skills to reduce depression and encourage healthy emotional regulation. Discharge Criteria: Client will have accomplished this goal when she can identify and report using 2-3 healthy coping skills to reduce depressive symptoms. Target Date: 12/31/17 Review Date: 12/19/17 Status: open Objective #2 Stated Objective: Client will identify 2-3 small successes or positives each day to increase self-esteem and reduce feelings of guilt. Interventions: Therapist will utilize strengths perspective to help client identify personal qualities that promote resiliency and increase awareness of gradual progress. Therapist will help client identify negative core beliefs of self and implement strategies to reframe and replace with more positive core beliefs. Discharge Criteria: Client will have accomplished this goal when can verbalize 2-3 successes per day and report increased self-confidence. Target Date: 12/31/17 Review Date: 12/19/17 Status: open Problem/Goal #2 - Problem/Goal #2 Stated Goal:: Reduce rumination, anxiety, and intrusive thoughts brought on by OCD while increasing ability to function on daily basis. Description of Barriers: Client reports her major stressors to be client's relationship with her daughter, parental expectations, and being at home. Client reports negative thinking and negative core beliefs of self that developed during childhood. Client endorses a depressed mood, rumination, obsessive thoughts, anhedonia, poor concentration, and lack of energy. Client identified dealing with conflict, managing stress, and coping with other people's anger as ongoing barriers. Additionally, client reports ongoing challenges in coping with inappropriate guilt and letting things go. Functional Impact: Client recently discharged from [facility] for the second time this year due to increased depression, suicidal ideation, anxiety, and OCD. Client reports symptoms are interfering with daily functioning, parenting, and overall emotional wellbeing. Client states her symptoms occur for most of the day nearly every day. Client endorses has negative thinking, inappropriate guilt, passive thoughts of suicide, and a depressed and anxious mood. Client endorses intrusive thoughts, compulsions, and panic attacks. Client shared she constantly worries about her daughter and mental health, which results in frequent need for reassurance. Goal Relevant Strengths/Supports: Client reports a strong support system in her and mother. Client appears receptive, compassionate, intelligent, and reports motivation to learn how to cope with mental health as evidenced by her report. Client is medication compliant and seems to have good insight to triggers, negative thought patterns, and past helpful coping skills. Client plans to stay with her mother while increasing stability and working towards small goals. - Objectives Objective #1 Stated Objective: Client will identify 2-3 intrusive/ruminating thoughts and replace them with 2-3 realistic, alternative thoughts. Interventions: Therapist will help client increase awareness of cognitive distortions and implement strategies to increase self-assurance. Therapist will encourage client to focus on stressors in her control. Therapist will utilize CBT, DBT, and exposure response prevention strategies to teach client ways to manage symptoms and increase emotional regulation. Discharge Criteria: Client will have met this goal when can report reduced need for reassurance and identify at least 2 ways to reframe intrusive thoughts that exacerbate anxiety. Target Date: 12/31/17 Review Date: 12/19/17 Status: open Objective #2 Stated Objective: Client, with the help of her support system, will create 1-2 small exposure and response prevention goals and identify 2-3 coping skills to reduce anxiety. Interventions: Therapist will assist client in developing goals for exposure through developing a fear ladder. Therapist will teach client techniques to manage anxiety and challenge unhelpful interpretations of intrusive thougths. Therapist will incorporate client's support system to increase client confidence. Discharge Criteria: Client will have met this goal when can report accomplishing at least one exposure goal and utilizing at least 2 anxiety reducing coping skills. Target Date: 12/31/17 Review Date: 12/19/17 Status: open
--- NOTE | 2017-11-22 07:40 | BH.PSA ---
Past Psychiatric History - MH Treatment Hx ECT Therapy:: No Development & Family of Origin - Family History Family History: Family History (Last Reviewed 06/06/18 @ 13:46 by Radha Najera) Mother Hyperlipemia
--- NOTE | 2017-11-22 12:35 | BH.COMM ---
Communication Note - Communication with Client Communication Note: Therapist touched base with client to establish treatment goals and discuss medication changes.
--- NOTE | 2017-11-22 12:47 | PCM.PN.BLA ---
Progress Note This is an update to the history and physical of November 02, 2017 Patient is a 42-year-old female with diagnosis of major depressive disorder, OCD, and PTSD. She participated in behavioral medicine IOP November 02 - November 09. She was then transferred to higher level of care for inpatient psychiatric hospitalization [facility] on November 19 for increased depression and suicidal ideation. History has been obtained per interview with patient, discussion with staff, review of chart. Case discussed with treatment team. Chief complaint my anxiety is off the roof Interim history Patient is a 42-year-old female whose participation in the behavior medicine IOP was interrupted by transfer to higher level of care and inpatient psychiatric hospitalization at [facility] for increased suicidal ideation. Patient now returns to the [facility] for ongoing treatment of depression and anxiety. He notes that during her hospitalization they discontinued Zyprexa due to side effects including nervousness, blurred vision and constipation. They initiated Luvox. She feels somewhat better. She continues to complain of physical restlessness but of decreased intensity since discontinuing the Zyprexa. She endorses ruminative anxiety and has obsessive thoughts about being anxious. She continues to require constant reassurance. Compulsively repeats questions. She endorses depressed mood with mild anhedonia and decreased energy. She has passive thoughts of . She denies specific suicide plan or intent. She feels able to maintain safety. She is staying with her mother as part of a safety plan. She denies access to firearms or stockpile of medications. No homicidal ideation related to detected. No symptoms consistent with psychosis. Sleeping from 10 PM to 7 AM. Appetite is fair. She continues to endorse symptoms consistent with PTSD including flashbacks, intrusive thoughts and hypervigilance. Current psychiatric medications -compliant with current medications. Denies adverse effects. Luvox 100 mg daily BuSpar 10 mg 3 times daily Remeron 15 mg nightly Klonopin 1 mg every morning, 0.5 mg at noon, 0.5 mg nightly Trazodone 100 mg nightly Vitamin D Protonix Synthroid Mental status exam Patient is a 42-year-old female who appears her stated age. She is alert and oriented in no acute distress. She is ambulatory with normal gait and station. She is cooperative with interview. Has good eye contact. Mild psychomotor agitation with repetitive foot movement.. Mood is depressed and anxious. Affect congruent. Speech is clear and regular rate and volume. Language fluent. Thought process organized. Associations logical. Thought content significant for ruminative anxiety and themes of depression. Passive intermittent thoughts of . No suicide plan or intent. Feels able to maintain safety. No homicidal ideation related to detected. No evidence of psychosis related to her detected. Immediate recent and remote memory grossly intact. Attention and concentration are fair. Estimated intelligence fund of knowledge average. Judgment and insight are limited to fair. Lab work and records will be requested from [facility]. Further lab work will be obtained as needed. Diagnosis Major depressive disorder recurrent severe OCD PTSD History trichotillomania Plan Admit to IOP as a structured setting is necessary to prevent decompensation. Risks benefits alternatives of medications discussed with patient. Patient acknowledges understanding. Increase Luvox to 50 mg every morning 100 mg nightly. Continue Remeron 15 mg nightly. Continue BuSpar 10 mg 3 times daily. Continue Klonopin 1 mg every morning, 1/2 mg q. noon and 1/2 mg nightly. Continue trazodone 100 mg nightly. Start Cogentin 0.5 mg p.o. twice daily as needed restlessness. It is unclear if patient's restlessness is residual from the Zyprexa. Continue vitamin D supplement. 20 minutes of Insight oriented psychotherapy provided. Encouraged follow-up with outpatient psychiatric providers. Patient acknowledges understanding and is in agreement with plan. She feels able to maintain safety. She agrees to seek help or emergency care if feeling unsafe to self or others.
--- NOTE | 2017-11-22 13:06 | PN_ITS ---
Progress Note This is an update to the history and physical of November 02, 2017 Patient is a 42-year-old female with diagnosis of major depressive disorder, OCD , and PTSD. She participated in behavioral medicine IOP November 02 - November 09. She was then transferred to higher level of care for inpatient psychiatric hospitalization [facility] on November 19 for increased depression and suicidal ideation. History has been obtained per interview with patient, discussion with staff, review of chart. Case discussed with treatment team. Chief complaint my anxiety is off the roof Interim history Patient is a 42-year-old female whose participation in the behavior medicine IOP was interrupted by transfer to higher level of care and inpatient psychiatric hospitalization at [facility] for increased suicidal ideation. Patient now returns to the [facility] for ongoing treatment of depression and anxiety. He notes that during her hospitalization they discontinued Zyprexa due to side effects including nervousness, blurred vision and constipation. They initiated Luvox. She feels somewhat better. She continues to complain of physical restlessness but of decreased intensity since discontinuing the Zyprexa. She endorses ruminative anxiety and has obsessive thoughts about being anxious. She continues to require constant reassurance. Compulsively repeats questions. She endorses depressed mood with mild anhedonia and decreased energy. She has passive thoughts of . She denies specific suicide plan or intent. She feels able to maintain safety. She is staying with her mother as part of a safety plan. She denies access to firearms or stockpile of medications. No homicidal ideation related to detected. No symptoms consistent with psychosis. Sleeping from 10 PM to 7 AM. Appetite is fair. She continues to endorse symptoms consistent with PTSD including flashbacks, intrusive thoughts and hypervigilance. Current psychiatric medications -compliant with current medications. Denies adverse effects. Luvox 100 mg daily BuSpar 10 mg 3 times daily Remeron 15 mg nightly Klonopin 1 mg every morning, 0.5 mg at noon, 0.5 mg nightly Trazodone 100 mg nightly Vitamin D Protonix Synthroid Mental status exam Patient is a 42-year-old female who appears her stated age. She is alert and oriented in no acute distress. She is ambulatory with normal gait and station. She is cooperative with interview. Has good eye contact. Mild psychomotor agitation with repetitive foot movement.. Mood is depressed and anxious. Affect congruent. Speech is clear and regular rate and volume. Language fluent. Thought process organized. Associations logical. Thought content significant for ruminative anxiety and themes of depression. Passive intermittent thoughts of . No suicide plan or intent. Feels able to maintain safety. No homicidal ideation related to detected. No evidence of psychosis related to her detected. Immediate recent and remote memory grossly intact. Attention and concentration are fair. Estimated intelligence fund of knowledge average. Judgment and insight are limited to fair. Lab work and records will be requested from [facility]. Further lab work will be obtained as needed. Diagnosis Major depressive disorder recurrent severe OCD PTSD History trichotillomania Plan Admit to IOP as a structured setting is necessary to prevent decompensation. Risks benefits alternatives of medications discussed with patient. Patient acknowledges understanding. Increase Luvox to 50 mg every morning 100 mg nightly. Continue Remeron 15 mg nightly. Continue BuSpar 10 mg 3 times daily. Continue Klonopin 1 mg every morning, 1/2 mg q. noon and 1/2 mg nightly. Continue trazodone 100 mg nightly. Start Cogentin 0.5 mg p.o. twice daily as needed restlessness. It is unclear if patient's restlessness is residual from the Zyprexa. Continue vitamin D supplement. 20 minutes of Insight oriented psychotherapy provided. Encouraged follow-up with outpatient psychiatric providers. Patient acknowledges understanding and is in agreement with plan. She feels able to maintain safety. She agrees to seek help or emergency care if feeling unsafe to self or others.
--- NOTE | 2017-11-22 13:06 | BH.DR.ITP ---
Initial Treatment Plan - Patient Information Visit Information: ADMISSION DATE: EXPECTED LOS: 4-6 weeks Diagnoses:: Major depressive disorder recurrent severe of 33.2. OCD. PTSD - Problems/Symptoms Problem #1:: Depression Symptom:: Sad mood, anhedonia, decreased energy, difficulty concentrating, suicidal ideation Problem #2:: Anxiety Symptom:: Thoughts, compulsive behaviors, rumination, intrusive traumatic memories
--- NOTE | 2017-11-22 15:46 | BH.SGPN ---
Service Group Progress Note - Session Psychotherapy Session #1 Date Open:: 11/22/17 Time Started:: 09:06 Time Stopped:: 09:58 Targeted Problem #:: 1 Type of Group:: Process Goal of Group:: The goal of today's group was to check-in with client's mood, stressors, and positives, review homework and introduce topic for the day. Client Response/Progress/Benefit:: Client reported she is continuing to feel extremely anxious, reporting she does not believe she is on a therapeutic level for her medication. Shared thus far the only coping strategy that has helped her feel less anxious is reading out loud to her parents. Client expressed some anxiety about having a visit with her daughter tomorrow because it tends to increase her anxiety to unbearable levels. Client shared when her daughter comes over she has to take a natural herb that helps calm her down so she does not have a panic attack. Client shared she is attempting to maintain patient's with waiting for her medication to kick in and start working after having the medication changes from her inpatient hospital stay. Seemed to benefit from expressing thoughts and emotions. Client progress hindered by her focus on the medications and not following through with trying different coping skills to help manage her anxious symptoms. Eye Contact:: Fair Motor Activity:: Restless Appearance:: Casual Speech:: Appropriate Mood:: Anxious, Depressed Affect:: Constricted Thoughts:: Linear, No evidence of hallucinations/delusions noted Staff Interventions:: Therapist used open-ended questions to elicit information about client's current stressors and mood state. Therapist was supportive by using active listening and reflection.
--- NOTE | 2017-11-22 16:25 | BH.SGPN ---
Service Group Progress Note - Session Psychotherapy Session #2 Date Open:: 11/22/17 Time Started:: 10:14 Time Stopped:: 11:07 Targeted Problem #:: 1 Type of Group:: Illness Management - 3 participants Goal of Group:: The goal of this session was to increase self-awareness of what is holding them back from moving towards mental wellness and discuss importance of taking action in their treatment. Eye Contact:: Good Motor Activity:: Restless Appearance:: Casual Speech:: Appropriate Mood:: Anxious, Dysthymic Affect:: Congruent Thoughts:: Linear, Logical, No evidence of hallucinations/delusions noted Staff Interventions:: Therapist facilitated discussion about what it means to take action in achieving mental health wellness. Therapist led activity in which clients were asked to identify the symptoms and things that they would like to take back control over. Therapist provided support by using active listening. Psychotherapy Session #3 Date Open:: 11/22/17 Time Started:: 11:17 Time Stopped:: 12:16 Targeted Problem #:: 1 Type of Group:: Functional Skills Development - 3 participants Goal of Group:: The goal of this session was to create a 30 day action plan that provides small goals that work towards taking action on one thing they would like to take back control over. Eye Contact:: Good Motor Activity:: Appropriate Appearance:: Casual Speech:: Appropriate Mood:: Anxious, Dysthymic Affect:: Congruent Thoughts:: Linear, Logical, No evidence of hallucinations/delusions noted Staff Interventions:: Therapist provided materials and guidance to help clients create a 30 day action plan. Therapist provided support by giving feedback and using active listening.
--- NOTE | 2017-11-23 14:14 | BH.MDN ---
Multi-Disciplinary Note - Note 30-min Individual Time Started:: 12:15 Date: 11/23/17 Purpose of session/treatment goals addressed:: The purpose of this session was to create a plan for the weekend to reduce anxiety, increase self-awareness, and implement emotional regulation strategies to prevent decompensation. Another goal was to challenge cognitive distortions and negative core beliefs. Eye Contact:: Intense Motor Activity:: Restless Appearance:: Casual Speech:: Other - circumstantial Mood:: Anxious, Dysthymic Affect:: Flat Thoughts:: Circular, Other - preoccupied; seeking reassurance throughout session. Staff Interventions:: Therapist used active-listening and open-ended questions to help client explore warning signs, coping skills, avoidance cycles, and negative thoughts. Therapist assisted client in developing an anxiety scale to help client gain awareness of her symptom severity and problem-solve solutions to reduce anxiety. Therapist and client developed a monitoring strategy to help client gain awareness of the severity of symptoms, implement healthy coping skills, and set boundaries. Therapist used strengths-perspective by helping client challenge negative core beliefs and identify successes for the week. Client Response:: Client responded well to session, observably anxious throughout. Client reported she has high anxiety today because my and mom think we should have another visit tonight, but I think it's too much. Client shared she was able to meet with her daughter twice this week for two hours at a time and stated, I should be proud of that, but I'm not. With therapist elicitation, client recognized this is progress as last week client was unable to visit with her daughter at all. Client helped therapist create an anxiety scale where client rated her anxiety 1-10; 1 being no anxiety 10 being panic/crisis. Client shared she is currently at a 6 and reports belief at a 7 I can't handle stuff anymore. Client reported 4-6 is manageable anxiety and when at this level client can still do the visit even though I'm anxious. Client stated if she is at a 7 she will not have a visit and implement crisis prevention coping skills. Client recognized she becomes anxious when she thinks about the visit, which creates a self-fulfilling prophecy as client then believes she will not be able to manage her symptoms. Client responded well to discussion of utilizing healthy coping skills consistently to prevent crisis. Client agreed to monitor her symptoms throughout the day while utilizing healthy coping skills such as walking, thought challenge, and talking with friends, and then determined if the appropriateness of a visit tonight. Risks/Concerns:: Client reports passive thoughts of such as this is exhausting I don't want to feel this way. Client denies plan and intent as of 11/23/17. Client reports looking forward to spending time with her this weekend which demonstrates future orientation. Client reports ability to maintain safety. Progress Toward Goals/Plan:: Client showing mild progress as she continues to report high anxiety, intrusive thoughts, and a depressed mood. However, client reports progress as she was able to manage her anxiety symptoms and visit with her daughter twice this week. Client to continue towards treatment goals and maintain effective communication with her and other supports. Client to monitor her anxiety throughout the day while implementing her coping skills. Time Stopped:: 12:45
--- NOTE | 2017-11-23 14:21 | BH.SGPN_ITS ---
Service Group Progress Note - Session Psychotherapy Session #2 Date Open:: 11/23/17 - 6 participants Time Started:: 10:17 Time Stopped:: 11:13 Targeted Problem #:: 1 Type of Group:: Illness Management Goal of Group:: To increase understanding and awareness of emotions connected to change and the impact those emotions can have on change. Client Response/Progress/Benefit:: Client responded well to session, active participant. Client appeared to connect with the quote sharing, ?change is scary.? Client able to identify emotions associated with making change such as panic, fear, and being overwhelmed. Client reports she understands there are positive emotions associated with making changes, however, client reports only paying attention to the negative ones which prevents client from implementing change. Client appeared to benefit from increasing awareness of the emotions associated with making change and how these emotions impact thoughts, behaviors , and attitude towards change. Client progressing as evidenced by her report of being proud of the small steps she is taking towards change, but can continue to benefit from challenging avoidance behaviors. Eye Contact:: Fair Motor Activity:: Restless Appearance:: Casual Speech:: Rapid Mood:: Anxious Affect:: Constricted Thoughts:: Other - preoccupied, No evidence of hallucinations/delusions noted Staff Interventions:: Therapist facilitated group discussion about change. Therapist led the group in an activity in which the activity was utilized as a tool to increase client?s awareness of emotions connected with change. Therapist led the processing of how each emotion was associated with change. Therapist also educated clients on the stages of change and discussed emotions associated with each stage. Therapist was supportive by providing feedback and using reflective listening. Psychotherapy Session #3 Date Open:: 11/23/17 - 6 participants Time Started:: 11:20 Time Stopped:: 12:10 Targeted Problem #:: 1 Type of Group:: Functional Skills Development Goal of Group:: To identify the challenges associated with making change and identify positive outcomes that have resulted from changes made in past. Client Response/Progress/Benefit:: Client responded well to session, engaged in activity and discussion. Client reported change can be difficult because ?you have setbacks and unexpected situations.? Client stated making personal change is also challenging because client feels overwhelmed and anxious. Client reflected on times when change was positive such as when client was able to visit with her daughter twice this week. Client appeared to benefit from gaining awareness of the challenges associated with change as well as reflecting on a time when change had a positive outcome. Client reported she would like to continue to work on exposure response prevention to reduce anxiety. Eye Contact:: Fair Motor Activity:: Appropriate Appearance:: Casual Speech:: Appropriate Mood:: Anxious Affect:: Constricted Thoughts:: Other - preoccupied AEB frequent seeking of reassurance., No evidence of hallucinations/delusions noted Staff Interventions:: Therapist led group in an activity to help group members recognize the challenges associated with change. Therapist utilized activity as a tool to identify ways to manage changes and adapt to the challenges that ensue. Therapist facilitated group discussion about positive outcomes from change.
--- NOTE | 2017-11-23 15:17 | BH.SGPN ---
Service Group Progress Note - Session Psychotherapy Session #1 Date Open:: 11/23/17 Time Started:: 09:15 Time Stopped:: 10:00 Targeted Problem #:: 1 Type of Group:: Process Goal of Group:: The goal of today's group was to check-in with client's mood, stressors, and positives, review homework and introduce topic for the day. Client Response/Progress/Benefit:: Client reported she is continuing to feel anxious throughout her day. Reported she had a visit with her daughter yesterday and went better than expected because IOP psychiatrist prescribed her a medication to help with her anxiety. Client shared it was nice to be able to visit with her daughter and not feel like she is going to be panicky and have to end the visit. Client reported she did take a walk yesterday which seemed to help her anxiety. Shared her more passive coping skills like breathing mindfulness are not helping still. She responded well to the idea of continuing to try more active coping skills like walking and exercise. Client seemed to benefit from expressing thoughts and emotions. Eye Contact:: Fair Motor Activity:: Restless Appearance:: Casual Speech:: Soft Mood:: Anxious, Depressed Affect:: Flat Thoughts:: Linear, No evidence of hallucinations/delusions noted Staff Interventions:: Therapist used open-ended questions to elicit information about client's current stressors and mood state. Therapist was supportive by using active listening and reflection.
--- NOTE | 2017-11-26 16:43 | BH.COMM ---
Communication Note - Communication with Client Communication Note: This therapist received a phone call from client's as client has been admitted to [facility] in [place] after going to the [facility] ER on 11/25/17. Client's reported he and client are unsure of what client's plans will be post inpatient discharge, but agreed to follow up with therapist. Therapist informed client's of client's IOP discharge due to higher level of care needed and provided client's with options, including returning to [facility], for when client discharges from inpatient.
--- NOTE | 2017-11-27 09:43 | BH.DS ---
Discharge Summary - Demographics Date of Admission:: 11/19/17 Discharge Date: 11/26/17 Presenting Problems at Admission:: Client is a 42-year-old female who participated in [facility] from November 02-November 09, but then was transferred to higher level of care at an inpatient psychiatric hospitalization, [place] for increased suicidal ideation. Client returned to the [facility] for ongoing treatment of depression and anxiety. At admission, client reported her psychiatric symptoms have not decreased in intensity or duration. Client continued to report severe obsessive thoughts which exacerbated anxiety and depression throughout time in [facility]. At admission, client endorsed a depressed mood with anhedonia, decreased energy, difficulty concentrating, and suicidal thoughts. Additionally, client endorsed ruminative anxiety, panic attacks, compulsions, and restlessness. Discharge Diagnoses:: Major depressive disorder recurrent severe F33.2; OCD; PTSD Reason for Discharge:: Client was admitted to [facility] for suicidal ideation and is in need of a higher level of care at this time for mood stability and medication management. Due to the nature of client's discharge, client was unable to complete discharge handouts and aftercare planning. - Treatment Progress During Treatment & Response: Client showed limited progress during time in [facility] as client was admitted into higher level of care after a week in the program. Client reported feeling intense anxiety most of the day nearly every day as well as feelings of hopelessness. Client stated belief when my meds kick in I'll be better, which appeared to hinder client's implementation of healthy coping skills while in the program. Client demonstrated progress with exposure techniques as client reported being able to visit with her daughter twice during the week. Client shared she was utilizing thought challenging, physical regulation, and identifying strengths throughout the week, which worked for short term symptom reduction, but was not enough to reduce client's overall anxiety. Client appeared to respond well to treatment as shown by client's consistent attendance and participation in individual and group sessions. Issues Still to be Addressed:: Client unable to achieve her treatment goals and therefore could benefit from continued work on mood stability, reduction of avoidant behaviors, and challenging cognitive distortions. Client gained awareness of maladaptive coping skills such as avoidance, poor boundaries, and late use of emotional regulation. Client can continue to benefit from setting small exposure response prevention goals to increase her ability to cope with OCD and anxiety. Client could also continue to benefit from utilizing healthy coping skills learned in individual and group sessions to reduce anxiety, manage intrusive thoughts, and reduce guilt. Client can continue to benefit from communicating openly with her supports about her warning signs, triggers, and suicidal ideation. There is a concern post discharge that client will continue to rely on medication changes to reduce her symptoms over utilizing coping skills, which could continue to keep client stuck as client has had numerous medication changes in the past few weeks. Discharge Recommendations/Instructions:: Client was recommended to follow up with outpatient psychiatrist, Dr. Dolan, and [facility]. Client is currently admitted at [facility]. Client's was informed client can to return to [facility] or [facility] post inpatient discharge should it be an appropriate level of care. Discharge Handout: Complete Discharge Handout with client on aftercare options and continuity of care.
--- NOTE | 2017-11-28 08:45 | BH.DS_ITS ---
Discharge Summary - Demographics Date of Admission:: 11/19/17 Discharge Date: 11/26/17 Presenting Problems at Admission:: Client is a 42-year-old female who participated in [facility] from November 02-November 09, but then was transferred to higher level of care at an inpatient psychiatric hospitalization, [place] for increased suicidal ideation. Client returned to the [facility] for ongoing treatment of depression and anxiety. At admission, client reported her psychiatric symptoms have not decreased in intensity or duration. Client continued to report severe obsessive thoughts which exacerbated anxiety and depression throughout time in [facility]. At admission, client endorsed a depressed mood with anhedonia, decreased energy, difficulty concentrating, and suicidal thoughts. Additionally, client endorsed ruminative anxiety, panic attacks, compulsions, and restlessness. Discharge Diagnoses:: Major depressive disorder recurrent severe F33.2; OCD; PTSD Reason for Discharge:: Client was admitted to [facility] for suicidal ideation and is in need of a higher level of care at this time for mood stability and medication management. Due to the nature of client's discharge, client was unable to complete discharge handouts and aftercare planning. - Treatment Progress During Treatment & Response: Client showed limited progress during time in [facility] as client was admitted into higher level of care after a week in the program. Client reported feeling intense anxiety most of the day nearly every day as well as feelings of hopelessness. Client stated belief when my meds kick in I'll be better, which appeared to hinder client's implementation of healthy coping skills while in the program. Client demonstrated progress with exposure techniques as client reported being able to visit with her daughter twice during the week. Client shared she was utilizing thought challenging, physical regulation, and identifying strengths throughout the week , which worked for short term symptom reduction, but was not enough to reduce client's overall anxiety. Client appeared to respond well to treatment as shown by client's consistent attendance and participation in individual and group sessions. Issues Still to be Addressed:: Client unable to achieve her treatment goals and therefore could benefit from continued work on mood stability, reduction of avoidant behaviors, and challenging cognitive distortions. Client gained awareness of maladaptive coping skills such as avoidance, poor boundaries, and late use of emotional regulation. Client can continue to benefit from setting small exposure response prevention goals to increase her ability to cope with OCD and anxiety. Client could also continue to benefit from utilizing healthy coping skills learned in individual and group sessions to reduce anxiety, manage intrusive thoughts, and reduce guilt. Client can continue to benefit from communicating openly with her supports about her warning signs, triggers, and suicidal ideation. There is a concern post discharge that client will continue to rely on medication changes to reduce her symptoms over utilizing coping skills, which could continue to keep client stuck as client has had numerous medication changes in the past few weeks. Discharge Recommendations/Instructions:: Client was recommended to follow up with outpatient psychiatrist, Dr. Dolan, and outpatient [facility]. Client is currently admitted at [facility]. Client's was informed client can to return to [facility] or [facility] post inpatient discharge should it be an appropriate level of care. Discharge Handout: Complete Discharge Handout with client on aftercare options and continuity of care.
--- NOTE | 2017-11-30 11:50 | BH.COMM_ITS ---
Communication Note - Communication with Client Communication Note: This therapist received a phone call from client's as client has been admitted to [facility] in [place] after going to the [facility] ER on 11/25/17. Client's reported he and client are unsure of what client's plans will be post inpatient discharge, but agreed to follow up with therapist. Therapist informed client's of client's IOP discharge due to higher level of care needed and provided client's with options, including returning to [facility], for when client discharges from inpatient.
== END 2017-11-26 08:00 ==
LOC: BHIOP 09:00
PROVIDERS: Family Provider Family Medicine; PCP Family Medicine; Visit Provider Psychiatry & Neurology Psychiatry
DX: F33.2 Major depressive disorder, recurrent severe without psychotic features (principal); F43.10 Post-traumatic stress disorder, unspecified; F42.9 Obsessive-compulsive disorder, unspecified
CPT/HCPCS: H0035; 90832; 90847; 90853

== ENCOUNTER 2017-11-25 20:50 | Emergency (ER) | payer BC, SELFPAY ==
[2017-11-25 20:51] VITALS: BP 105/76; PULSE 98; RESP 16; TEMP 37.1; O2SAT 98; BMI 21.4
--- NOTE | 2017-11-25 20:58 | EKG12_ITS ---
Test Reason : MHC Blood Pressure : / mmHG Vent. Rate : 075 BPM Atrial Rate : 075 BPM P-R Int : 138 ms QRS Dur : 070 ms QT Int : 380 ms P-R-T Axes : 066 073 064 degrees QTc Int : 424 ms Normal sinus rhythm Normal ECG Confirmed by LIT CHRISTOPHER MD ([id number]), assistant film editor KRIS BRIAN ([id number]) on 11/27/2017 12:49:01 PM Referred By: TANA Confirmed By:LIT CHRISTOPHER MD
[2017-11-25 21:18] LABS: Color, Urine Yellow (Yellow); Glucose, Dipstick Normal (Normal); Ketone-Dipstick 5 mg/dl (Negative); Leukocyte Esterase-Dipstick 500 /ul (Negative); Mucous, Urine 0 SEEN /hpf (<or=2+); Nitrite-Dipstick Negative (Negative); Occult Blood-Urine 25 /ul (Negative); Protein-Dipstick Negative (Negative); Specific Gravity, Urine 1.015 (1.002-1.030); Urine Bilirubin Dipstick Negative (Negative); Urine Clarity Clear (Clear); Urine Urobilinogen Normal (Normal)
[2017-11-25 21:24] LABS: Absolute Lymphocyte Count 2.77 X10^3/ul (0.83-4.51); Absolute Neutrophil Count 8.2 X10^3/uL (2.0-7.7); Basophil# 0.08 X10^3/uL; Basophil% 0.7 % (0-1); Eosinophil# 0.24 X10^3/uL; Hematocrit 37.8 % (37-47); Lymphocyte # 2.77 X10^3/ul (4.0); Lymphocyte % 23.1 % (19-41); Mean Corp Hgb Conc 34.4 g/gl (32-36); Mean Corpuscular Hgb 33.9 pg (27.0-32.0); Mean Corpuscular Volume 98.7 fL (81-99); Mean Platelet Vol. 9.9 fl (6.2-12.0); Monocyte# 0.75 X10^3/uL; Monocyte% 6.2 % (0-10); Neutrophil # 8.15 X10^3/uL (2.7-7.7); Neutrophil % 67.8 % (47-70); POSITIVE COUNT NO; POSITIVE DIFFERENTIAL NO; POSITIVE MORPHOLOGY NO; Platelet Count 301 K/mm3 (150-450); RBC Distribution Width CV 11.9 % (11.6-14.6); Red Blood Count 3.83 M/mm3 (4.2-5.4)
[2017-11-25 21:24] LABS: Amphetamine Urine VISTA NEGATIVE (<1000 ng/mL); Barbiturate Urine VISTA NEGATIVE (< 200 ng/mL); Benzodiazepine Urine VISTA NEGATIVE (< 200 ng/mL); Cocaine Urine VISTA NEGATIVE (< 300 ng/mL); Ecstacy Urine VISTA NEGATIVE (< 500 ng/mL); Methadone Urine VISTA NEGATIVE (< 300 ng/mL); PCP Urine VISTA NEGATIVE (< 25 ng/mL); THC Urine VISTA NEGATIVE (< 50 ng/mL); Vista UDS pH Range 5; White Blood Cells 10-25 SEEN /hpf (0-5)
[2017-11-25 21:25] LABS: Bacteria 2+ /hpf (None Seen); Red Blood Cells-Urine 0-5 SEEN /hpf (0-5); Squamous Epithelial Cells - UA 5-10 SEEN /hpf (5-10)
[2017-11-25 21:37] LABS: BUN 16 mg/dL (7-18); Creatinine, Serum 0.64 mg/dL (0.55-1.02); Glucose 84 mg/dL (74-106)
[2017-11-25 21:38] LABS: Anion Gap 9 (5-15); BUN/Creat Ratio 24.9 RATIO (10-20); Calcium,Total 8.5 mg/dL (8.5-10.1); Chloride 107 mmol/L (98-107); EST Glomerular Filtration Rate 107 mL/min (>60); Est Glom Filt Rate - Afr Amer 130 mL/min (>60); Estimated Creatinine Clearance 98.88 ml/min; Potassium 3.5 mmol/L (3.5-5.1); Sodium Level 139 mmol/L (136-145)
[2017-11-25] MEDS: fluvoxaMINE Maleate 50 MG Tablet 100 MG PO (21:54)
[2017-11-25] MEDS: clonazePAM 0.5 MG Tablet PO (21:54)
[2017-11-25] MEDS: Benztropine 2 MG Tablet 0.5 MG PO (21:55)
[2017-11-25] MEDS: Mirtazapine 15 MG Tablet PO (22:01)
[2017-11-25 22:02] VITALS: RESP 16
[2017-11-25 22:04] LABS: Pregnancy, Serum, hCG Quali. NEGATIVE Negative (0-9 Nonpreg)
--- NOTE | 2017-11-25 22:13 | ED.DCSUM_ITS ---
- ER Visit Summary Date of Service: 11/25/17 Chief Complaint: [Suicidal ideation] History of Present Illness: The patient is a 42 F [presents to the emergency department with thoughts of self-harm for the last week. Patient states that she was discharged from [facility] about a week and a half ago after being hospitalized for similar complaints. Patient denies homicidal ideation. Patient denies visual or auditory hallucinations. Patient has not made any attempts on her life. Patient's plan would be to end her life with carbon monoxide and just go to sleep. Patient currently staying with her mother but does not feel safe and feels that she could still find a way to harm herself. She denies recent illness.] Physical Examination: [HEENT-PERRLA, EOMI. Cranial nerves II through XII grossly intact. TMs clear. Mucous membranes moist. No adenopathy. Cardiovascular-regular rate and rhythm without murmur or ectopy Lungs-clear to auscultation, chest wall stable without crepitus or subcu emphysema Abdomen-normoactive bowel sounds, soft, nontender, no rebound or rigidity, no peritoneal signs. Extremities-intact ?4, normal range of motion, normal pulses, atraumatic] Test Results: [CBC with differential showed an elevated white blood cell count of 12, hemoglobin 13, hematocrit 38, platelets 301. Chemistries were normal. Urinalysis showed 500 leukocyte esterase, 10-25 WBCs, +2 bacteria. HCG was negative. Toxicology screen was negative. Alcohol was 14.] Emergency Department Course and Treatment: [Patient will be evaluated by crisis. Patient was started on Bactrim for UTI.] Treatment Plan: [Plan will be to have patient evaluated by crisis and likely transfer to psychiatric facility] Disposition: [Pending eval by crisis] Impression: [Suicidal ideation Depression Urinary tract infection] This note was generated with Credible dictation software. It may contain incorrect words, spelling, and punctuation that were not noted in review of the chart prior to signing ED Disposition - Plan for ED Patient: Chief Complaint: Suicidal Referrals: Nick Martinez MD [Primary Care Provider] -
[2017-11-25] MEDS: Smz/Tmp Ds Tablet 1 TABLET PO (22:20)
[2017-11-25 23:00] VITALS: RESP 14
[2017-11-26 00:02] VITALS: RESP 20
[2017-11-26 01:07] VITALS: BP 98/69; PULSE 78; RESP 16; O2SAT 96
--- NOTE | 2017-11-26 02:19 | NURSING ---
[facility] ACCEPTED DR. Kathy CASILLAS [phone] REPORT
--- NOTE | 2017-11-26 03:58 | NURSING ---
[facility] SAID THEY DONT HAVE A [facility] WILL ARRIVE BETWEEN 7;30-7;43AM
[2017-11-26 04:05] VITALS: BP 97/67; PULSE 77; RESP 20; TEMP 37; O2SAT 97
[2017-11-26 04:15] VITALS: BP 97/67; PULSE 77; RESP 20
[2017-11-26] MEDS: Ziprasidone IM 20 MG/ML VIAL IM (05:31)
[2017-11-26 06:14] VITALS: RESP 20
== END 2017-11-26 08:29 ==
PROVIDERS: Emergency Provider Emergency Medicine; Family Provider Family Medicine; PCP Family Medicine
DX: R45.851 Suicidal ideations (principal); F32.9 Major depressive disorder, single episode, unspecified; N39.0 Urinary tract infection, site not specified; E03.9 Hypothyroidism, unspecified; K21.9 Gastro-esophageal reflux disease without esophagitis
CPT/HCPCS: 80048; 80307; 80320; 81001; 84703; 85025; 93005; 96372; 99284; G0480; J3486

== ENCOUNTER 2017-12-05 08:34 | Outpatient (RCR) | payer OTHER, SELFPAY ==
--- NOTE | 2017-12-05 14:21 | BH.MTP ---
Master Treatment Plan - Patient Information Program Physician:: Desi Montiel Primary Therapist:: Leyla Fuentes - Psychiatric Diagnoses Psychiatric Diagnoses:: Major depressive disorder recurrent severe. OCD. PTSD Diagnosis Code(s):: F 33.2. - Estimated LOS Estimated LOS (in weeks):: 6 Problem/Goal #1 - Problem/Goal #1 Stated Goal:: Client will reduce depression and suicidal ideation due to major depressive disorder while increasing self-worth and personal strengths. Description of Barriers: Client reports her major stressors to be client's relationship with her daughter, parental expectations, and being at home. Client reports negative thinking and negative core beliefs of self that developed during childhood. Client reports chronic thoughts of suicide and in the past as viewed going to the hospital as the only save place which could hinder progress. Client endorses a depressed mood, rumination, obsessive thoughts, anhedonia, poor concentration, and lack of energy. Client identified dealing with conflict, managing stress, and coping with other people's anger as ongoing barriers. Client reports she struggles with setting boundaries, communicating her mental health needs, and lacks confidence in herself. Additionally, client reports ongoing challenges in coping with inappropriate guilt and letting things go. Functional Impact: Client recently discharged from [facility] due to increased depression and suicidal ideation with intent. Client had two previous psychiatric hospitalizations at [facility] in October of this year as well for suicidal ideation with intent. Client endorses severe anxiety, intrusive thoughts, and feelings of hopelessness. Client reports symptoms are interfering with daily functioning, parenting, and overall emotional wellbeing. Client states her symptoms occur for most of the day nearly every day. Client endorses persistent negative thinking, inappropriate guilt, chronic thoughts of suicide, obsessions and compulsion, and a depressed and anxious mood. Client shared she constantly worries about her daughter and mental health, which results in frequent need for reassurance. Goal Relevant Strengths/Supports: Client reports a strong support system in her , mother, and spiritism. Client appears receptive, compassionate, intelligent, and reports motivation to learn how to cope with mental health. Client is medication compliant and seems to have good insight to triggers, negative thought patterns, and past helpful coping skills. Client is receptive to implementing changes that will benefit her overall emotional well-being and reports willingness to ask for help. Client plans to stay with her mother while increasing stability and working towards small goals. - Objectives Objective #1 Stated Objective: Client will identify 2-3 small successes or positives each day to increase self-esteem and reduce feelings of guilt. Interventions: Client will have accomplished this goal when can verbalize 2-3 successes/ positives per day and report increased self-confidence. Discharge Criteria: Therapist will utilize strengths perspective to help client identify personal qualities that promote resiliency and increase awareness of gradual progress. Therapist will help client identify negative core beliefs of self and implement strategies to reframe and replace with more positive core beliefs. Target Date: 01/16/18 Review Date: 01/04/18 Status: open Objective #2 Stated Objective: Client will create a crisis plan and utilize 2-3 healthy coping strategies to manage depressive symptoms, promote self-care, and increase mood stability. Interventions: Therapist will assist client in identifying early warning signs for depression, suicidal ideation, and feelings of hopelessness and assist client in creating a step by step plan to utilize during times of crisis. Therapist will encourage the use of open communication with client's supports.Through use of CBT, DBT, and mindfulness strategies, therapist will teach client coping skills to reduce depression and encourage healthy emotional regulation. Discharge Criteria: Client will have accomplished this goal when she can report following her crisis plan and identify using 2-3 healthy coping skills to reduce depressive symptoms. Target Date: 01/16/18 Review Date: 01/04/18 Status: open Problem/Goal #2 - Problem/Goal #2 Stated Goal:: Reduce rumination, anxiety, and compulsions brought on by OCD while increasing self-assurance and ability to function on a daily basis. Description of Barriers: Client reports her major stressors to be client's relationship with her daughter, parental expectations, and being at home. Client reports negative thinking and negative core beliefs of self that developed during childhood. Client reports chronic thoughts of suicide and in the past as viewed going to the hospital as the only save place which could hinder progress. Client endorses a depressed mood, rumination, obsessive thoughts, anhedonia, poor concentration, and lack of energy. Client identified dealing with conflict, managing stress, and coping with other people's anger as ongoing barriers. Client reports she struggles with setting boundaries, communicating her mental health needs, and lacks confidence in herself. Additionally, client reports ongoing challenges in coping with inappropriate guilt and letting things go. Functional Impact: Client recently discharged from [facility] due to increased depression and suicidal ideation with intent. Client had two previous psychiatric hospitalizations at [facility] in October of this year as well for suicidal ideation with intent. Client endorses severe anxiety, intrusive thoughts, and feelings of hopelessness. Client reports symptoms are interfering with daily functioning, parenting, and overall emotional wellbeing. Client states her symptoms occur for most of the day nearly every day. Client endorses persistent negative thinking, inappropriate guilt, chronic thoughts of suicide, obsessions and compulsion, and a depressed and anxious mood. Client shared she constantly worries about her daughter and mental health, which results in frequent need for reassurance. Goal Relevant Strengths/Supports: Client reports a strong support system in her , mother, and spiritism. Client appears receptive, compassionate, intelligent, and reports motivation to learn how to cope with mental health. Client is medication compliant and seems to have good insight to triggers, negative thought patterns, and past helpful coping skills. Client is receptive to implementing changes that will benefit her overall emotional well-being and reports willingness to ask for help. Client plans to stay with her mother while increasing stability and working towards small goals. - Objectives Objective #1 Stated Objective: Client will identify 2-3 intrusive/ruminating thoughts and replace them with 2-3 realistic, alternative thoughts while utilizing her rumination plan to reduce anxiety. Interventions: Therapist will help client increase awareness of cognitive distortions and implement strategies to increase self-assurance. Therapist will encourage client to focus on stressors in her control. Therapist will utilize CBT, radical acceptance, and exposure response prevention strategies to teach client ways to manage symptoms and increase emotional regulation. Discharge Criteria: Client will have met this goal when can report reduced need for reassurance and identify at least 2 ways to reframe intrusive thoughts that exacerbate anxiety. Target Date: 01/16/18 Review Date: 01/04/18 Status: open Objective #2 Stated Objective: Client, with the help of her support system, will create 1-2 small exposure and response prevention goals and identify 2-3 coping skills to reduce anxiety. Interventions: Therapist will engage client's supports and assist client in developing realistic goals to reduce OCD, fear, and anxiety. Therapist will teach client techniques to manage anxiety and challenge unhelpful interpretations of intrusive thougths. Therapist will incorporate goal setting and strengths perspective to increase client confidence. Discharge Criteria: Client will have met this goal when can report accomplishing at least one exposure goal each week and utilizing at least 2 anxiety reducing coping skills. Target Date: 01/16/18 Review Date: 01/04/18 Status: open
--- NOTE | 2017-12-05 14:40 | BH.SGPN_ITS ---
Service Group Progress Note - Session Psychotherapy Session #2 Date Open:: 12/05/17 - 10 group members Time Started:: 10:25 Time Stopped:: 11:19 Targeted Problem #:: 1 Type of Group:: Illness Management Goal of Group:: To increase understanding of what conflict is and increase awareness of how group members manage conflict. Client Response/Progress/Benefit:: Client responded well to session, engaged through note-taking. Client reported she utilizes the accommodating type when managing conflict. Client stated ?I don?t like when people are mad at me? I avoid conflict at all costs.? Client connected that although there are pros of being accommodating, the costs are client does not advocate for herself or her mental health needs which results in low self-esteem. Client appeared to benefit from increases awareness of ways to appropriately manage conflict. Eye Contact:: Fair Motor Activity:: Slowed Appearance:: Casual Speech:: Appropriate Mood:: Anxious, Dysthymic Affect:: Flat Thoughts:: Linear, No evidence of hallucinations/delusions noted Staff Interventions:: Therapist facilitated discussion about conflict and conflict resolution. Therapist led group in an activity in which group members had to identify their initial response to conflict and how their response changes based on different situations. Therapist assisted clients with conn ecting the impact current conflict style has on their mental health. Psychotherapy Session #3 Date Open:: 12/05/17 - 9 group members Time Started:: 11:25 Time Stopped:: 12:15 Targeted Problem #:: 1 Type of Group:: Functional Skills Development Goal of Group:: To identify what contributes positively and negatively to conflict and appropriate ways to manage conflict with others. Client Response/Progress/Benefit:: Client responded well to session, passive participant at times. Client shared the team was successful because they looked at the big picture. However, client reported she continued to be accommodating during the activity. Client helped the group create a list of strategies to effectively manage conflict which included looking at the benefits of expressing one?s needs, taking breaks, and managing stress. Client appeared to benefit from increased awareness of ways to effectively manage conflict. Client progressing with increasing awareness of how her conflict resolution style impacts mental health, but can continue to benefit from applying the skills learned in group into her daily life. Eye Contact:: Good Motor Activity:: Slowed Appearance:: Casual Speech:: Appropriate Mood:: Anxious, Dysthymic Affect:: Flat Thoughts:: Linear, No evidence of hallucinations/delusions noted Staff Interventions:: Therapist facilitated group activity in which group members were provided with materials and had to eliminate certain items with consensus from group. Therapist processed activity, helping clients connect throughout activity strategies each person used to manage conflict. Therapist led discussion about what contributes to conflict in a positive or negative manner. Therapist facilitated discussion about conflict resolution strategies and provided group member with a handout about effective ways to manage conflict.
--- NOTE | 2017-12-05 14:46 | BH.MDN_ITS ---
Multi-Disciplinary Note - Note 45-min Individual Time Started:: 12:25 Date: 12/05/17 Purpose of session/treatment goals addressed:: The purpose of this session was to explore client's current stressors, symptoms, functioning, and treatment goals. Another goal was to identify, process, and reframe client's negative thought patterns that cause rumination, guilt, and low self-esteem. Other topics included: risk assessment and open, honest communication of SI as client reported during her previous admissions in the program she did not fully express risk factors to therapist or . Eye Contact:: Fair Motor Activity:: Slowed Appearance:: Disheveled Speech:: Other - circumstantial Mood:: Anxious, Depressed Affect:: Congruent - tearful Thoughts:: Circular, Other - preoccupied; seeking reassurance, No evidence of hallucinations/delusions noted Staff Interventions:: Therapist used active listening and open-ended questions to explore client's current symptoms, stressors, treatment goals, and functioning. Therapist helped client identify and reframe cognitive distortions that lead to increased anxiety and depression. Therapist reviewed expectations for treatment including open communication of risks and needs as well as implementation of skills. Therapist assisted client in creating a plan to reduce rumination time and increase coping skills. Therapist used strengths perspective to help client identify personal strengths. Client Response:: Client open to meeting with therapist, tearful throughout. Client reported she had a medication change while client was in inpatient. Client shared the medication has been helpful so far. Client expressed regret and guilt for returning to the hospital for suicidal ideation stating, ?I have put my family through so much.? Client and therapist discussed the pros and cons of focusing on the past and client recognized she cannot change the past, but she can make changes now. Client reported she was not fully open to her supports about her suicidal thoughts and agreed to be more open moving forward.Client shared she has been ruminating about her daughter as client?s daughter expressed feeling concerned and guilty about client?s mental health. Client stated, ?I can?t process this on my own.? Client and therapist discussed the negative impact of rumination and client recognized that the ruminations keep client from enjoying the present. With therapist elicitation, client able to challenge cognitive distortions and create alternative thoughts. Client also identified negative core beliefs of self such as ?I?m a terrible mother.? Client talked with therapist about the amount of time client spends ruminating and agreed to creating a rumination time limit. Client stated she will allow herself to worry and seek reassurance for 20 minutes in the morning. After the amounted time, client will engage in healthy distraction coping skills with her supports such as going for a walk, reading out loud, and working on a puzzle. Client to challenge negative thoughts as homework and work on implementing rumination scheduling. Client identified her treatment goals as reducing guilt, anxiety, and depression while increasing mood stability Risks/Concerns:: Client reports passive thoughts of suicide such as it would be better if I weren't here. Client denies suicidal intent and plan. Client able to contract for safety and reported she is staying with her mother. Client and therapist discussed the importance of open communication of warning signs for crisis and increased S.I Progress Toward Goals/Plan:: Progress limited as it is client's first day back to IOP. Client shared she would like to continue to work on processing guilt, reducing depression and anxiety, and challenging intrusive thoughts. Client able to identify positives and strengths which demonstrated progress from her last IOP admission. Client to continue IOP to promote mood stability and prevent decompensation. Client to follow up with new outpatient therapist, Dr. Barrera, tomorrow. Time Stopped:: 13:13
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
--- NOTE | 2017-12-05 16:01 | BH.COMM ---
Communication Note - Communication with Client Communication Note: This therapist met with client to complete intake paperwork and engage client in the treatment process. Client was informed that this therapist will be client's IOP counselor.
--- NOTE | 2017-12-06 11:25 | BH.SGPN ---
Service Group Progress Note - Session Psychotherapy Session #1 Date Open:: 12/06/17 - 5 participants Time Started:: 09:07 Time Stopped:: 10:10 Targeted Problem #:: 1 Type of Group:: Process Goal of Group:: The goal of today's group was to check-in with client's mood, stressors, and positives, review homework and introduce topic for the day. Client Response/Progress/Benefit:: Client responded somewhat well to session as she was engaged during check in, but appeared distracted while others spoke. Client reports feeling worried today as client continues to have ruminations about her daughter's well-being. Client shared she is currently worried about her daughter making friendships. Client asked for guidance and reassurance from therapist and peers. Client was receptive to support given by peers. Client stated she was able to talk with her daughter last night about client's mental health which client shared made us both feel better. Client appeared to benefit from discussing her current stressors and receiving supportive statements. Client continues to report rumination, intrusive thoughts, inappropriate guilt as well as frequent need for reassurance. Additionally, client reports utilization of social supports, but reports limited implementation of internal coping skills which could hinder progress. Eye Contact:: Fair Motor Activity:: Slowed Appearance:: Casual Speech:: Other - circumstantial; seeking reassurance and bringing the topic back to her daughter. Mood:: Anxious Affect:: Flat Thoughts:: Circular, No evidence of hallucinations/delusions noted Staff Interventions:: Therapist used open-ended questions to elicit information about client's current stressors and mood state. Therapist was supportive by using active listening and reflection.
--- NOTE | 2017-12-06 14:21 | BH.MTP_ITS ---
[facility] Treatment Plan - Patient Information Program Physician:: Desi Montiel Primary Therapist:: Leyla Fuentes - Psychiatric Diagnoses Psychiatric Diagnoses:: Major depressive disorder recurrent severe. OCD. PTSD Diagnosis Code(s):: F 33.2. - Estimated LOS Estimated LOS (in weeks):: 6 Problem/Goal #1 - Problem/Goal #1 Stated Goal:: Client will reduce depression and suicidal ideation due to major depressive disorder while increasing self-worth and personal strengths. Description of Barriers: Client reports her major stressors to be client's relationship with her daughter, parental expectations, and being at home. Client reports negative thinking and negative core beliefs of self that developed during childhood. Client reports chronic thoughts of suicide and in the past as viewed going to the hospital as ?the only save place? which could hinder progress. Client endorses a depressed mood, rumination, obsessive thoughts, anhedonia, poor concentration, and lack of energy. Client identified dealing with conflict, managing stress, and coping with other people's anger as ongoing barriers. Client reports she struggles with setting boundaries, communicating her mental health needs, and lacks confidence in herself. Additionally, client reports ongoing challenges in coping with inappropriate guilt and ?letting things go.? Functional Impact: Client recently discharged from [facility] due to increased depression and suicidal ideation with intent. Client had two previous psychiatric hospitalizations at [facility] in October of this year as well for suicidal ideation with intent. Client endorses severe anxiety, intrusive thoughts, and feelings of hopelessness. Client reports symptoms are interfering with daily functioning, parenting, and overall emotional wellbeing. Client states her symptoms occur for most of the day nearly every day. Client endorses persistent negative thinking, inappropriate guilt, chronic thoughts of suicide, obsessions and compulsion, and a depressed and anxious mood. Client shared she constantly worries about her daughter and mental health, which results in frequent need for reassurance. Goal Relevant Strengths/Supports: Client reports a strong support system in her , mother, and evangelical. Client appears receptive, compassionate, intelligent, and reports motivation to learn how to cope with mental health. Client is medication compliant and seems to have good insight to triggers, negative thought patterns, and past helpful coping skills. Client is receptive to implementing changes that will benefit her overall emotional well-being and reports willingness to ask for help. Client plans to stay with her mother while increasing stability and working towards small goals. - Objectives Objective #1 Stated Objective: Client will identify 2-3 small successes or positives each day to increase self-esteem and reduce feelings of guilt. Interventions: Client will have accomplished this goal when can verbalize 2-3 successes/ positives per day and report increased self-confidence. Discharge Criteria: Therapist will utilize strengths perspective to help client identify personal qualities that promote resiliency and increase awareness of gradual progress. Therapist will help client identify negative core beliefs of self and implement strategies to reframe and replace with more positive core beliefs. Target Date: 01/16/18 Review Date: 01/04/18 Status: open Objective #2 Stated Objective: Client will create a crisis plan and utilize 2-3 healthy coping strategies to manage depressive symptoms, promote self-care, and increase mood stability. Interventions: Therapist will assist client in identifying early warning signs for depression, suicidal ideation, and feelings of hopelessness and assist client in creating a step by step plan to utilize during times of crisis. Therapist will encourage the use of open communication with client's supports.Through use of CBT, DBT, and mindfulness strategies, therapist will teach client coping skills to reduce depression and encourage healthy emotional regulation. Discharge Criteria: Client will have accomplished this goal when she can report following her crisis plan and identify using 2-3 healthy coping skills to reduce depressive symptoms. Target Date: 01/16/18 Review Date: 01/04/18 Status: open Problem/Goal #2 - Problem/Goal #2 Stated Goal:: Reduce rumination, anxiety, and compulsions brought on by OCD while increasing self-assurance and ability to function on a daily basis. Description of Barriers: Client reports her major stressors to be client's relationship with her daughter, parental expectations, and being at home. Client reports negative thinking and negative core beliefs of self that developed during childhood. Client reports chronic thoughts of suicide and in the past as viewed going to the hospital as ?the only save place? which could hinder progress. Client endorses a depressed mood, rumination, obsessive thoughts, anhedonia, poor concentration, and lack of energy. Client identified dealing with conflict, managing stress, and coping with other people's anger as ongoing barriers. Client reports she struggles with setting boundaries, communicating her mental health needs, and lacks confidence in herself. Additionally, client reports ongoing challenges in coping with inappropriate guilt and ?letting things go.? Functional Impact: Client recently discharged from [facility] due to increased depression and suicidal ideation with intent. Client had two previous psychiatric hospitalizations at [facility] in October of this year as well for suicidal ideation with intent. Client endorses severe anxiety, intrusive thoughts, and feelings of hopelessness. Client reports symptoms are interfering with daily functioning, parenting, and overall emotional wellbeing. Client states her symptoms occur for most of the day nearly every day. Client endorses persistent negative thinking, inappropriate guilt, chronic thoughts of suicide, obsessions and compulsion, and a depressed and anxious mood. Client shared she constantly worries about her daughter and mental health, which results in frequent need for reassurance. Goal Relevant Strengths/Supports: Client reports a strong support system in her , mother, and evangelical. Client appears receptive, compassionate, intelligent, and reports motivation to learn how to cope with mental health. Client is medication compliant and seems to have good insight to triggers, negative thought patterns, and past helpful coping skills. Client is receptive to implementing changes that will benefit her overall emotional well-being and reports willingness to ask for help. Client plans to stay with her mother while increasing stability and working towards small goals. - Objectives Objective #1 Stated Objective: Client will identify 2-3 intrusive/ruminating thoughts and replace them with 2-3 realistic, alternative thoughts while utilizing her rumination plan to reduce anxiety. Interventions: Therapist will help client increase awareness of cognitive distortions and implement strategies to increase self-assurance. Therapist will encourage client to focus on stressors in her control. Therapist will utilize CBT, radical acceptance, and exposure response prevention strategies to teach client ways to manage symptoms and increase emotional regulation. Discharge Criteria: Client will have met this goal when can report reduced need for reassurance and identify at least 2 ways to reframe intrusive thoughts that exacerbate anxiety. Target Date: 01/16/18 Review Date: 01/04/18 Status: open Objective #2 Stated Objective: Client, with the help of her support system, will create 1-2 small exposure and response prevention goals and identify 2-3 coping skills to reduce anxiety. Interventions: Therapist will engage client's supports and assist client in developing realistic goals to reduce OCD, fear, and anxiety. Therapist will teach client techniques to manage anxiety and challenge unhelpful interpretations of intrusive thougths. Therapist will incorporate goal setting and strengths perspective to increase client confidence. Discharge Criteria: Client will have met this goal when can report accomplishing at least one exposure goal each week and utilizing at least 2 anxiety reducing coping skills. Target Date: 01/16/18 Review Date: 01/04/18 Status: open
--- NOTE | 2017-12-07 10:55 | BH.SGPN ---
Service Group Progress Note - Session Psychotherapy Session #1 Date Open:: 12/07/17 Time Started:: 09:05 Time Stopped:: 10:00 Type of Group:: Process - 6 group members Goal of Group:: The goal of today's group was to check-in with client's mood, stressors, and positives, review homework and introduce topic for the day. Client Response/Progress/Benefit:: Pt was attentive however was quiet unless prompted. Emotion for today is anxious. Shared with the group that she continues to have trouble with managing her ruminations. Admits to ruminating on the possibility of her mother dying and getting back to being a mother. Asked the group for suggestions. Group provided several suggestions including writing down thoughts and ruminations, setting aside or giving herself permission to worry about these topics a certain amount of time daily, as well as others. Pt thanked the group for these suggestions. Admits to being depressed today. She has plans to have dinner with her this weekend however is not excited. Also will see her daughter which is anxiety producing. Group encouraged her to set boundaries if she does not feel prepared. Unclear who set up this dinner and seeing her daughter as daughter is a trigger which has led to hospitalizations the past few weeks. Some progress noted in regards to increased skills. Continued treatment to maintain safety and prevent further decompensation. Eye Contact:: Poor Motor Activity:: Restless Appearance:: Disheveled Speech:: Soft Mood:: Anxious, Depressed Affect:: Flat Thoughts:: Linear, Logical, No evidence of hallucinations/delusions noted Staff Interventions:: Therapist used open-ended questions to elicit information about client's current stressors and mood state. Therapist was supportive by using active listening and reflection.
--- NOTE | 2017-12-07 11:55 | PCM.PN.BLA ---
Progress Note This is an update to the history and physical of November 02, 2017 and the progress note of November 22, 2017. Patient is a 42-year-old female with diagnosis of major depressive disorder, OCD, and PTSD. Her participation in the behavioral medicine IOP was interrupted for inpatient psychiatric admission October 25 - November 02 for suicidal ideation. She now returns to the IOP. History is been obtained per interview with patient, discussion with staff, review of chart. Case discussed with treatment team. Chief complaint-my anxiety is still high Interim history Patient is a 42-year-old female status post recent inpatient psychiatric hospitalization at [facility] October 25 - November 02 for increased depression and suicidality. She feels med changes during inpatient hospitalization if been helpful. Luvox was increased from 150-200 mg. She started gabapentin 600 mg 3 times daily. She discontinued Remeron BuSpar and Cogentin. She continues to have moderate depressive symptoms but of decreased intensity. She has intermittent passive suicidal thoughts. No suicide plan or intent. Suicidality is decreased since her hospitalization. She feels able to maintain safety. No homicidal ideation. No symptoms consistent with psychosis. She continues to have moderate to severe ruminating thoughts particularly about her daughter in the well-being of her family. She is sleeping from 10 PM to 6:30 AM. Appetite is fair. She has complained of nausea and symptoms consistent with GERD. She had some diarrhea in the hospital which is now resolving. She reports recent weight loss. She continues to endorse symptoms consistent with PTSD including flashbacks, intrusive thoughts and hypervigilance. She continues to reside with her mother where she feels safe. Mental status exam Patient is a 42-year-old female who appears her stated age. She is alert and oriented in no acute distress. She is ambulatory with normal gait and station. She is casually dressed and groomed. Appropriate hygiene. She has good eye contact. There is no psychomotor agitation or retardation. Mood is depressed and anxious. Affect congruent. Speech is clear and of regular rate and volume. Language fluent. Thought process organized. Associations logical. Thought content significant for ruminative anxiety. She continues to seek constant reassurance. Intermittent passive thoughts of . No current suicide plan or intent. Feels able to maintain safety. No homicidal ideation related to detected no evidence of psychosis related to detected. Immediate recent and remote memory grossly intact. Attention and concentration are fair. Estimated intelligence fund of knowledge average. Judgment and insight are fair. Diagnosis Major depressive disorder recurrent severe OCD PTSD History of trichotillomania Plan Admit to IOP as the structured setting is necessary to prevent decompensation. Patient has ongoing stressors and required recent hospitalization. Risks benefits alternatives of medications discussed with patient. Patient acknowledges understanding. She will continue Luvox 200 mg daily, gabapentin 600 mg 3 times daily, trazodone 100 mg nightly, Klonopin 1 mg twice daily. Denies adverse effects to medications. Continue vitamin D supplement. Will be requested from recent inpatient hospitalization. Lab work will be obtained as needed. 16 minutes supportive psychotherapy provided. Encouraged to establish follow-up with outpatient psychiatric providers. Patient acknowledges understanding and is in agreement with plan. She feels able to maintain safety. She agrees to seek help or emergency care feeling unsafe to self or others.
--- NOTE | 2017-12-07 12:04 | BH.DR.ITP ---
Initial Treatment Plan - Patient Information Visit Information: ADMISSION DATE: EXPECTED LOS: 4-6 weeks Diagnoses:: Depressive disorder, OCD, PTSD - Problems/Symptoms Problem #1:: Depression Symptom:: Mood, anhedonia, recent suicidal ideation, biologic disruption sleep and appetite Problem #2:: anxiety Symptom:: Obsessive thoughts, compulsive behaviors, rumination, intrusive traumatic memories
--- NOTE | 2017-12-07 15:46 | BH.MDN_ITS ---
Multi-Disciplinary Note - Note 45-min Individual Time Started:: 12:36 Date: 12/07/17 Purpose of session/treatment goals addressed:: The purpose of this session was to help client create a plan for the weekend to increase safety and establish healthy coping skills and positive supports. Another goal was to assess safety and establish protective factors. Eye Contact:: Fair Motor Activity:: Slowed Appearance:: Disheveled Speech:: Soft Mood:: Anxious, Dysthymic Affect:: Constricted - became tearful Thoughts:: Racing, No evidence of hallucinations/delusions noted Staff Interventions:: Therapist used active listening and empathetic responses to help client feel safe. Therapist assisted client in creating a weekend plan aimed to provide structure and support to reduce anxiety and crisis. Therapist assessed risk factors such as suicidal ideation, plan, and lethality and had client contract for safety. Therapist used strengths perspective to help client gain confidence in her ability to make it through the weekend. Client Response:: Client responded well to session, tearful, but willing to create a weekend plan. Client shared she continues to feel overwhelmed, like a burden, and have intrusive thoughts. Client became tearful when talking about her family as client stated, I've just put them through so much. Client able to reframe negative thinking by reminding herself I'm taking care of me. client agreed that developing a weekend schedule would benefit client and she identified activities that would provide a healthy distraction. Client reported she plans to go out to dinner with her adore which client is looking forward to. Client reported an hour by hour schedule would be most helpful because if I sit with my thoughts I magnify everything. Client's weekend activities include going for walks, drinking tea with a friend, reading to her mom, going to [employer], journaling, and making games with her family. Client and therapist discussed the importance of reflecting on at least one positive a day to combat negative thoughts and improve client's mood and outlook. Client agreed to journal one positive a day along with daily progress. Risks/Concerns:: Client reports chronic thoughts of suicide but denies intention and plan as of 12/07/17. Client verbally contracted for safety over the weekend and was future oriented throughout session as shown by her report of going to dinner with her this weekend. Progress Toward Goals/Plan:: Progress limited at this time as it is client's first week back to IOP. Client reports motivation to get better, utilize open communication, and is medication compliant. Client to continue IOP to prevent decompensation and increase emotional regulation. Client contracted for safety over the weekend and reports willingness to follow her weekend plan. Time Stopped:: 13:18
--- NOTE | 2017-12-10 10:35 | BH.SGPN_ITS ---
Service Group Progress Note - Session Psychotherapy Session #1 Date Open:: 18 - 7 group members Time Started:: 09:05 Time Stopped:: 10:15 Targeted Problem #:: 1 Type of Group:: Process Goal of Group:: The goal of today's group was to check-in with clients and review homework from previous group session. Client Response/Progress/Benefit:: Client responded well to session, receptive to supportive feedback from group. Client reports feeling overwhelmed today as she had a rough weekend. Client shared her 's grandmother this weekend which brought on sadness and grief. However, client able to reflect on positives from the weekend such as spending an extended amount of time with her daughter, going for a family walk, and not going to the hospital for suicidal ideation over the weekend. Client reported she has been utilizing thought logs as well to challenge distortions. Client appeared to benefit from gaining support from peers as well as reflecting on progress she has made. client progressing as evidenced by her generalization of healthy coping skills and making it through the weekend without crisis. Eye Contact:: Good Motor Activity:: Slowed Appearance:: Casual Speech:: Soft - monotone Mood:: Anxious, Dysthymic Affect:: Flat Thoughts:: Linear, No evidence of hallucinations/delusions noted Staff Interventions:: Therapist inquired about each group member?s previous night and current mood state. Therapist reviewed the group member?s homework from previous group session with the group, asking open ended questions to get more information.
--- NOTE | 2017-12-10 14:50 | BH.MDN ---
Multi-Disciplinary Note - Note 60-min Individual Time Started:: 12:37 Date: 12/10/17 Purpose of session/treatment goals addressed:: The purpose of this session was to address current stressors, discuss realistic expectations, and challenge cognitive distortions that increase ruminations. Another goal was to develop techniques to increase self-confidence and reduce intrusive thoughts. Other topics included: risk assessment, radical acceptance, and daily goal setting. Eye Contact:: Fair - staring at times Motor Activity:: Slowed Appearance:: Casual Speech:: Soft, Other - monotone Mood:: Dysthymic Affect:: Flat Thoughts:: Circular, Other - preoccupied Staff Interventions:: Therapist used active listening and open-ended questions to explore client's current stressors, symptoms, cognitive distortions, and use of coping skills. Therapist helped client identify, challenge, and reframe cognitive distortions while utilizing strengths perspective to increase client's confidence. Therapist helped client create realistic expectations for her progress, goals, and return home. Therapist provided psychoeducation about child development. Therapist reviewed radical acceptance and helped client identify daily goals. Therapist assessed risk and had client contract for safety. Client Response:: Client responded well to session, open to meeting with therapist, but tearful throughout. Client shared she continues to have a hard time with challenging her intrusive thoughts, especially regarding parenting and expectations for when client should return home. Client stated I feel pressured about returning home, but Im not ready. Client and therapist identified the cognitive distortions client has been ruminating about and challenged them together. With therapist encouragement, client was able to recognize that although her thoughts are scary and real to me they are actually distortions that are preventing client from enjoying the present. Client continues to struggle with challenging these thoughts on her own, which may be preventing further progress. Client and therapist discussed realistic expectations for clients progress, goals, and return home. Client shared my mom and Al said I could stay until Im stable, but they dont want me to stay forever. 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 Client identified her current expectations to be taking care of myself, staying with mom and Al, and not having to parent. Client and therapist also discussed realistic expectations for clients daughter as client shared Im still having a hard time normalizing her behavior. Client and therapist discussed child development including emotional, behavioral, and physical milestones and functioning. Client also shared she plans to continue to focus on setting daily goals and journaling positives throughout the day. Client and therapist reviewed radical acceptance and discussed how it may pertain to client. Client shared she continues to struggle with guilt, but was able to reframe her feelings of guilt during session. Client reports she has been following her daily schedule and spending time with supports each day which demonstrates progress. Risks/Concerns:: Client continues to report chronic passive thoughts of suicide, denies plan and intent as of 12/10/17. Client verbally contracted for safety and reported belief she can maintain safety tonight. Client identified myself and my family as reasons to keep living. Progress Toward Goals/Plan:: Client demonstrating some progress towards treatment goals as she was able to maintain safety over the weekend and follow through with her daily goals. Client continues to report intrusive thoughts, feelings of guilt, and depressive symptoms. Client to continue IOP to prevent decompensation and promote mood stability. Client to continue following her safety plan and communicate with support system regarding her mental health needs. Client to follow up with counseling at [facility]. Time Stopped:: 13:30
--- NOTE | 2017-12-10 14:53 | BH.MDN_ITS ---
Multi-Disciplinary Note - Note 60-min Individual Time Started:: 12:37 Date: 12/10/17 Purpose of session/treatment goals addressed:: The purpose of this session was to address current stressors, discuss realistic expectations, and challenge cognitive distortions that increase ruminations. Another goal was to develop techniques to increase self-confidence and reduce intrusive thoughts. Other topics included: risk assessment, radical acceptance, and daily goal setting. Eye Contact:: Fair - staring at times Motor Activity:: Slowed Appearance:: Casual Speech:: Soft, Other - monotone Mood:: Dysthymic Affect:: Flat Thoughts:: Circular, Other - preoccupied Staff Interventions:: Therapist used active listening and open-ended questions to explore client's current stressors, symptoms, cognitive distortions, and use of coping skills. Therapist helped client identify, challenge, and reframe cognitive distortions while utilizing strengths perspective to increase client' s confidence. Therapist helped client create realistic expectations for her progress, goals, and return home. Therapist provided psychoeducation about child development. Therapist reviewed radical acceptance and helped client identify daily goals. Therapist assessed risk and had client contract for safety. Client Response:: Client responded well to session, open to meeting with therapist, but tearful throughout. Client shared she continues to have a hard time with challenging her intrusive thoughts, especially regarding parenting and expectations for when client should return home. Client stated ?I feel pressured about returning home, but I?m not ready.? Client and therapist identified the cognitive distortions client has been ruminating about and challenged them together. With therapist encouragement, client was able to recognize that although her thoughts are ?scary and real to me? they are actually distortions that are preventing client from enjoying the present. Client continues to struggle with challenging these thoughts on her own, which may be preventing further progress. Client and therapist discussed realistic expectations for client?s progress, goals, and return home. Client shared ?my mom and Al said I could stay until I?m stable, but they don?t want me to stay forever.? Client and therapist discussed the importance of focusing on short term goals as client has reported mcc goals increase anxiety and feelings of hopelessness. Client identified her current expectations to be ?taking care of myself, staying with mom and Al, and not having to parent.? Client and therapist also discussed realistic expectations for client?s daughter as client shared ?I?m still having a hard time normalizing her behavior.? Client and therapist discussed child development including emotional, behavioral, and physical milestones and functioning. Client also shared she plans to continue to focus on setting daily goals and journaling positives throughout the day. Client and therapist reviewed radical acceptance and discussed how it may pertain to client. Client shared she continues to struggle with guilt, but was able to reframe her feelings of guilt during session. Client reports she has been following her daily schedule and spending time with supports each day which demonstrates progress. Risks/Concerns:: Client continues to report chronic passive thoughts of suicide , denies plan and intent as of 12/10/17. Client verbally contracted for safety and reported belief she can maintain safety tonight. Client identified myself and my family as reasons to keep living. Progress Toward Goals/Plan:: Client demonstrating some progress towards treatment goals as she was able to maintain safety over the weekend and follow through with her daily goals. Client continues to report intrusive thoughts, feelings of guilt, and depressive symptoms. Client to continue IOP to prevent decompensation and promote mood stability. Client to continue following her safety plan and communicate with support system regarding her mental health needs. Client to follow up with counseling at [facility]. Time Stopped:: 13:30
--- NOTE | 2017-12-10 15:55 | BH.COMM ---
Communication Note - Communication with Client Communication Note: This therapist spoke on the phone with client's for the purpose of reviewing client progress, barriers, and treatment updates. Additionally, therapist and client's discussed how to be an effective support person for client.
--- NOTE | 2017-12-10 17:22 | BH.SGPN ---
Service Group Progress Note - Session Psychotherapy Session #2 Date Open:: 12/10/17 Time Started:: 10:21 Time Stopped:: 11:21 Targeted Problem #:: 1 Type of Group:: Illness Management - 8 participants Goal of Group:: To increase understanding of a crisis and improve client?s awareness of personal warning signs before crisis. Eye Contact:: Fair Motor Activity:: Appropriate Appearance:: Casual Speech:: Appropriate Mood:: Anxious, Dysthymic Affect:: Constricted Thoughts:: Linear, Logical, No evidence of hallucinations/delusions noted Staff Interventions:: Therapist facilitated group discussion about defining a crisis and specifying various events that are considered a crisis. Therapist led group in an activity in which group members had to identify their thoughts and emotions attached to being in a crisis. Therapist provided support by using active listening and providing feedback. Psychotherapy Session #3 Date Open:: 12/10/17 Time Started:: 11:28 Time Stopped:: 12:25 Targeted Problem #:: 1 Type of Group:: Functional Skills Development - 7 participants Goal of Group:: To increase awareness of warning signs before a crisis and identify interventions/coping strategies that would help clients proactively manage potential crises. Eye Contact:: Good Motor Activity:: Appropriate Appearance:: Casual Speech:: Appropriate Mood:: Anxious, Dysthymic Affect:: Constricted Thoughts:: Linear, Logical, No evidence of hallucinations/delusions noted Staff Interventions:: Therapist led the group in discussion about identifying personal warning signs before a crisis and importance of being aware of those signs. Therapist provided the group with various types of items and asked each group member to select five items that represent something that would be helpful in managing their warning signs of a crisis. Therapist facilitated group processing of the crisis emergency kits each group member created. Therapist used open-ended questions to encourage elaboration of each item chosen for their kit. Therapist helped clients connect how the crisis emergency kit could help be a crisis prevention tool.
--- NOTE | 2017-12-12 14:11 | BH.SGPN_ITS ---
Service Group Progress Note - Session Psychotherapy Session #2 Date Open:: 12/12/17 Time Started:: 10:32 Time Stopped:: 11:22 Targeted Problem #:: 1 Type of Group:: Illness Management Goal of Group:: To increase self-awareness of current reality in regards to mental wellness and desired mental wellness. Client Response/Progress/Benefit:: Pt contributed to discussion and listened attentively to others. Pt connected with quote reporting she often gives her power away to others, which places a barrier in front of herself because doesn't get her needs met. Recognizes being a people pleaser also is a barrier she places in front of herself. Agreed with others that we tend to be our own worst enemy. Pt reported in her current reality she feels underwater, stressed, anxious, burden to others and a disappointment. Reported for her desired reality she wants to be able to trust her own decisions, have decreased worry, and increased positivity. Seemed to benefit from increasing awareness of her desired future. Eye Contact:: Fair Motor Activity:: Appropriate Appearance:: Casual Speech:: Appropriate Mood:: Anxious Affect:: Flat Thoughts:: Linear, No evidence of hallucinations/delusions noted Staff Interventions:: Therapist facilitated group discussion about current reality in regards to mental health. Client provided each group member a piece o f paper and asked them to draw their current reality. Therapist led the processing of each group members drawing. Therapist provided each group member with a second piece of paper and asked clients to draw desired mental wellness. Therapist processed each group members drawing, helping clients connect the two realities. Psychotherapy Session #3 Date Open:: 12/12/17 Time Started:: 11:32 Time Stopped:: 12:22 Targeted Problem #:: 1 Type of Group:: Functional Skills Development Goal of Group:: To identify obstacles in clients path to mental wellness and identify strategies to help one overcome various obstacles. Client Response/Progress/Benefit:: Client listened to others and shared her thoughts and ideas during discussion. Client identified her current boundaries that are preventing her to get to desired reality include: fear of failing, not trusting self, constant worry, unrealistic expectations of self, anxiety, negative thinking, and feeling guilty. Client identified feeling guilty to be the most impactful barrier because she can easily take a situation and make it negative which often results in feelings of guilt. Client seemed to benefit from group support as well as brainstorming strategies that can help with overcoming various personal barriers. Eye Contact:: Fair Motor Activity:: Appropriate Appearance:: Casual Speech:: Appropriate Mood:: Anxious, Depressed Affect:: Flat Thoughts:: Linear, No evidence of hallucinations/delusions noted Staff Interventions:: Therapist facilitated group discussion about obstacles and the hesitations of overcoming obstacles. Client led group in activity that gave client the opportunity to problem solve various obstacles throughout. Therapist helped clients connect how each obstacle is preventing them from achieving their desired reality. Therapist provided support by using reflective listening and providing feedback.
--- NOTE | 2017-12-12 14:52 | BH.MDN_ITS ---
Multi-Disciplinary Note - Note 60-min Individual Time Started:: 12:34 Date: 12/12/17 Purpose of session/treatment goals addressed:: The purpose of this session was to identify, process, and reframe client's cognitive distortions. Another goal was to create a safety plan for times of increased rumination, anxiety, and crisis. Other topics included: self-worth and boundaries. Eye Contact:: Good Motor Activity:: Appropriate Appearance:: Neat Speech:: Other - circumstantial Mood:: Anxious, Dysthymic Affect:: Flat Thoughts:: Circular, No evidence of hallucinations/delusions noted Staff Interventions:: Therapist used open-ended questions, CBT, and solution- focused techniques to explore client's cognitive distortions, negative core beliefs, and inappropriate guilt. Therapist used a safety plan to help client identify people, coping skills, and places client can utilize to prevent crisis and reduce rumination. Therapist used strengths-perspective to help client identify progress, set boundaries, and increase positive thinking. Therapist assessed risk and had client contract for safety. Therapist provided client with homework to help increase self-confidence. Client Response:: Client open to meeting with therapist, engaged throughout. Client reported she had increased anxiety and hopelessness this morning as client woke up at 5am ruminating about an event yesterday. Client stated, I laid there for hours ruminating. Client wrote down her negative thoughts and identified the cognitive distortions she was utilizing such as personalization and all or nothing thinking. Client acknowledged she is currently viewing everything as the glass half empty. Client able to reframe her thought, but continued to seek reassurance. Client was receptive to therapist gently challenging client on what normal behavior is as client's main themes for ruminations are normal behavior and guilt. Client reflected that her guilt and constant worrying are keeping client stuck. Client stated her 's comments about returning home make me feel even more guilty. Client and therapist discussed the benefits of setting emotional boundaries and communicating mental health needs with her supports. Client and therapist created a safety plan and a rumination plan to help client feel more supported when her symptoms increase. Client reported belief she can maintain safety tonight and agreed to come to group tomorrow which demonstrates future orientation. Client to complete homework and follow up with her supports. Risks/Concerns:: Client reports thoughts of suicide and being a burden, denies current intent and plan. Client reported the thoughts are always there and that she feels at my baseline. Client contracted for safety and reported her family is a reason worth living for. Client reports ability to maintain safety today. Progress Toward Goals/Plan:: Client demonstrating progress toward treatment goals as client has shown increased ability to maintain safety and utilize coping skills. Client reports I've been spending more time with my daughter which client shares she is proud of herself for. Client continues to struggle with severe intrusive thoughts, rumination, guilt, and negative core beliefs. Client to continue IOP to promote emotional regulation and prevent decompensation. Client recommended to see her outpatient provider once a week instead of biweekly. Time Stopped:: 13:30
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
--- NOTE | 2017-12-12 16:01 | BH.COMM ---
Communication Note - Communication with Client Communication Note: This therapist spoke on the phone with client's mother and step-father per client's request. Therapist provided psychoeducation, client advocacy, and shared client's feedback from session of the type of support client needs during crisis. Additionally, therapist offered community resources for family mental health education, encouraged open communication, and provided emotional support. Therapist recommended continued communication between client and her supports to increase progress and maintain stability. Client's mother and step-father shared they would like to be more involved in client treatment.
== END 2017-12-12 23:59 ==
LOC: BHIOP 08:34
PROVIDERS: Family Provider Family Medicine; PCP Family Medicine; Visit Provider Psychiatry & Neurology Psychiatry
DX: F33.2 Major depressive disorder, recurrent severe without psychotic features (principal); F43.10 Post-traumatic stress disorder, unspecified; F42.9 Obsessive-compulsive disorder, unspecified
CPT/HCPCS: H0035; 90834; 90837; 90853

== ENCOUNTER → 2017-12-11 10:50 | Outpatient (CLI) | payer BC, SELFPAY ==
[2017-12-11 12:55] LABS: T4 Free Direct 1.11 ng/dL (0.76-1.46); Thyroid Stim Hormone (TSH) 2.31 uIU/mL (0.358-3.74)
== END ==
PROVIDERS: Family Provider Family Medicine; PCP Family Medicine; Visit Provider Family Medicine
DX: E03.9 Hypothyroidism, unspecified (principal)
CPT/HCPCS: 36415; 84439; 84443

== ENCOUNTER 2017-12-13 09:00 | Outpatient (RCR) | payer OTHER, SELFPAY ==
--- NOTE | 2017-12-13 16:16 | BH.SGPN ---
Service Group Progress Note - Session Psychotherapy Session #1 Date Open:: 12/13/17 Time Started:: 09:04 Time Stopped:: 10:00 Targeted Problem #:: 1 Type of Group:: Process Goal of Group:: The goal of today's group was to check-in with client's mood, stressors, and positives, review homework and introduce topic for the day. Client Response/Progress/Benefit:: Client reported she has been struggling with a decision on whether she should go to her [id number] service because she is afraid of being triggered. Client shared last night she made a decision that it would not be a good idea for her to attend the [facility] service because she does not think that she is in the right mindset to be able to manage something like that right now. She shared that it was not from the encouragement of her parents that help to make the decision about whether she should go or not. Client reports she did spend some time with 1 of her friends which was positive. Client continues to struggle with making decisions on her own often seeking validation and reassurance as to what is the right thing to do. Client to continue IOP to prevent decompensation and decrease in anxious symptoms. Eye Contact:: Fair Motor Activity:: Restless Appearance:: Casual Speech:: Soft Mood:: Anxious, Depressed Affect:: Flat Thoughts:: Linear, Circular, No evidence of hallucinations/delusions noted Staff Interventions:: Therapist used open-ended questions to elicit information about client's current stressors and mood state. Therapist was supportive by using active listening and reflection.
--- NOTE | 2017-12-13 16:31 | BH.SGPN ---
Service Group Progress Note - Session Psychotherapy Session #2 Date Open:: 12/13/17 Time Started:: 10:21 Time Stopped:: 11:13 Targeted Problem #:: 1 Type of Group:: Illness Management - 8 participants Psychotherapy Session #3 Date Open:: 12/13/17 Time Started:: 11:24 Time Stopped:: 12:16 Targeted Problem #:: 1 Type of Group:: Functional Skills Development - 8 participants
--- NOTE | 2017-12-14 15:09 | BH.SGPN ---
Service Group Progress Note - Session Psychotherapy Session #2 Date Open:: 12/14/17 - 8 group members Time Started:: 10:13 Time Stopped:: 11:10 Targeted Problem #:: 1 Type of Group:: Illness Management Goal of Group:: To identify the importance of change, increase understanding of difficulty of making change, identify what clients would like to make changes in and identify the barriers or obstacles that get in the way of change. Client Response/Progress/Benefit:: Client responded well to session, appeared distracted by thoughts, but participating in activity. Client shared making change is challenging because of guilt and ruminations. Client identified goals for the week that would benefit her mental health to be normalize her daughters behavior, be more present throughout the day, and focus on positives rather than ruminate. Client shared these goals would help client manage depression and anxiety and reduce time client spends ruminating. Client identified her barriers to be intrusive thoughts, guilt, and constant worries. Client appeared to benefit from increasing awareness of the positives of change as well as her personal barriers. Client seems to be progressing with identifying cognitive distortions, but continues to seek frequent reassurance of her intrusive thoughts. Eye Contact:: Fair Motor Activity:: Slowed Appearance:: Casual Speech:: Other - circumstantial Mood:: Anxious, Dysthymic Affect:: Flat - became tearful Thoughts:: Circular, No evidence of hallucinations/delusions noted Staff Interventions:: Therapist facilitated discussion about change and helped clients make connections of why change is important. Therapist led group in an experiential activity which involved clients identifying changes want to make and barriers that get in the way of making those changes. Therapist utilized activity as a tool to help clients make connections of difficulties in making changes and identify what helps overcome barriers to change. Psychotherapy Session #3 Date Open:: 12/14/17 - 9 group members Time Started:: 11:15 Time Stopped:: 12:10 Targeted Problem #:: 1 Type of Group:: Functional Skills Development Goal of Group:: To identify specific barriers to an identified change clients would want to make and identify ways to overcome those barriers. Client Response/Progress/Benefit:: Client responded well to session, quiet, but participating when prompted by therapist. Client reported overcoming barriers is challenging as client constantly ruminates about her daughter which keeps client from staying in the moment and working on her goals. Client identified her weekly goal as focuses on her daughter's strengths and journaling positives each day. Client shared her barriers are cognitive distortions, intrusive thoughts, and guilt. Client created strategies to overcome this barrier such as challenging negative thoughts, focuses on small successes, and being consistent with journaling. Client seemed to benefit from identifying strategies to overcome barriers for her weekly goal. Client to continue IOP to prevent decompensation and maintain safety. Eye Contact:: Fair Motor Activity:: Slowed Appearance:: Casual Speech:: Other - circumstantial Mood:: Anxious, Dysthymic Affect:: Flat - became tearful Thoughts:: Circular - bringing topic back to her daughter's mental health., No evidence of hallucinations/delusions noted Staff Interventions:: Therapist facilitated discussion about what helped the group overcome challenges that came about during the experiential activity. Therapist utilized the activity as a tool in relating those experiences to ways to overcome barriers with challenges in their life when trying to make change. Therapist group into smaller groups and had them brainstorm ways to overcome certain barriers to their identified change. Therapist provided support by using reflective listening and providing feedback.
--- NOTE | 2017-12-14 15:16 | BH.SGPN_ITS ---
Service Group Progress Note - Session Psychotherapy Session #2 Date Open:: 12/14/17 - 8 group members Time Started:: 10:13 Time Stopped:: 11:10 Targeted Problem #:: 1 Type of Group:: Illness Management Goal of Group:: To identify the importance of change, increase understanding of difficulty of making change, identify what clients would like to make changes in and identify the barriers or obstacles that get in the way of change. Client Response/Progress/Benefit:: Client responded well to session, appeared distracted by thoughts, but participating in activity. Client shared making change is challenging because of guilt and ruminations. Client identified goals for the week that would benefit her mental health to be normalize her daughter? s behavior, be more present throughout the day, and focus on positives rather than ruminate. Client shared these goals would help client manage depression and anxiety and reduce time client spends ruminating. Client identified her barriers to be intrusive thoughts, guilt, and constant worries. Client appeared to benefit from increasing awareness of the positives of change as well as her personal barriers. Client seems to be progressing with identifying cognitive distortions, but continues to seek frequent reassurance of her intrusive thoughts. Eye Contact:: Fair Motor Activity:: Slowed Appearance:: Casual Speech:: Other - circumstantial Mood:: Anxious, Dysthymic Affect:: Flat - became tearful Thoughts:: Circular, No evidence of hallucinations/delusions noted Staff Interventions:: Therapist facilitated discussion about change and helped client?s make connections of why change is important. Therapist led group in an experiential activity which involved client?s identifying changes want to make and barriers that get in the way of making those changes. Therapist utilized activity as a tool to help client?s make connections of difficulties in making changes and identify what helps overcome barriers to change. Psychotherapy Session #3 Date Open:: 12/14/17 - 9 group members Time Started:: 11:15 Time Stopped:: 12:10 Targeted Problem #:: 1 Type of Group:: Functional Skills Development Goal of Group:: To identify specific barriers to an identified change clients would want to make and identify ways to overcome those barriers. Client Response/Progress/Benefit:: Client responded well to session, quiet, but participating when prompted by therapist. Client reported overcoming barriers is challenging as client constantly ruminates about her daughter which keeps client from staying in the moment and working on her goals. Client identified her weekly goal as focuses on her daughter's strengths and journaling positives each day. Client shared her barriers are cognitive distortions, intrusive thoughts, and guilt. Client created strategies to overcome this barrier such as challenging negative thoughts, focuses on small successes, and being consistent with journaling. Client seemed to benefit from identifying strategies to overcome barriers for her weekly goal. Client to continue IOP to prevent decompensation and maintain safety. Eye Contact:: Fair Motor Activity:: Slowed Appearance:: Casual Speech:: Other - circumstantial Mood:: Anxious, Dysthymic Affect:: Flat - became tearful Thoughts:: Circular - bringing topic back to her daughter's mental health., No evidence of hallucinations/delusions noted Staff Interventions:: Therapist facilitated discussion about what helped the group overcome challenges that came about during the experiential activity. Therapist utilized the activity as a tool in relating those experiences to ways to overcome barriers with challenges in their life when trying to make change. Therapist group into smaller groups and had them brainstorm ways to overcome certain barriers to their identified change. Therapist provided support by using reflective listening and providing feedback.
--- NOTE | 2017-12-14 15:45 | BH.COMM ---
Communication Note - Communication with Client Communication Note: Therapist briefly met with client to check in on client's plan for the weekend, supports, and coping skills to utilize. Client reported she is spending some of the weekend at home with her which client is looking forward to.
--- NOTE | 2017-12-14 16:47 | BH.SGPN ---
Service Group Progress Note - Session Psychotherapy Session #1 Date Open:: 12/14/17 Time Started:: 09:05 Time Stopped:: 10:00 Type of Group:: Process - 4 group members Goal of Group:: The goal of today's group was to check-in with client's mood, stressors, and positives, review homework and introduce topic for the day. Client Response/Progress/Benefit:: Client was attentive during group discussions and shared when prompted. Emotion for today is anxious. Shared with the group that she had gone to a memorial with her and daughter. Believes that she managed the stressors well. Admits to anxiety however was able to see postivies of interactions with daughter. Stated that interactions with her daughter were appropriate and commented that her daughter was very accomodating. Continues to seek reassurance from her peers that her daughter's past behaviors were normal and age appropriate. Progress noted as she is slowly stepping outside comfort zone and using her skills to manage emotions. Continued treatment to maintain safety, stabilize anxiety, and prevent further decompensation. Eye Contact:: Fair Motor Activity:: Restless Appearance:: Disheveled Speech:: Soft Mood:: Anxious Affect:: Congruent Thoughts:: Linear, Logical, No evidence of hallucinations/delusions noted Staff Interventions:: Therapist used open-ended questions to elicit information about client's current stressors and mood state. Therapist was supportive by using active listening and reflection.
--- NOTE | 2017-12-17 13:14 | BH.SGPN ---
Service Group Progress Note - Session Psychotherapy Session #1 Date Open:: 12/17/17 Time Started:: 09:05 Time Stopped:: 10:10 Targeted Problem #:: 1 Type of Group:: Process - 10 Participants Goal of Group:: The goal of today's group was to check-in with client's mood, stressors, and positives, review homework, and to introduce the topic of the day. Client Response/Progress/Benefit:: Client entered session alert and attentive but remained quiet and distant the majority of group and spent time looking hands and floor. Client shared how she was able to spent time with her this weekend without the daughter being present. She reported home being a trigger for her but was beginning to feel better about things but she reports her mom made her anxiety increase when she brought up how she was going to ruin her marriage the longer she stays away from home. 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 Client indicated her emotion as anxious and benefitted from receiving support from peers. Progress noted in clients ability to go home for the weekend and manage emotions. Continued treatment necessary to create a plan for when she returns home. Eye Contact:: Fair Motor Activity:: Appropriate Appearance:: Casual Speech:: Soft Mood:: Depressed Affect:: Constricted Thoughts:: Linear, Logical, No evidence of hallucinations/delusions noted Staff Interventions:: Therapist used open-ended questions to elicit information about client's current stressors and mood. Therapist was supportive by using active listening and reflection. Psychotherapy Session #2 Date Open:: 12/17/17 Time Started:: 10:14 Time Stopped:: 11:10 Targeted Problem #:: 1 Type of Group:: Illness Management - 9 Participants Goal of Group:: To increase understanding and awareness of emotions connected to change and the impact those emotions can have on change. Client Response/Progress/Benefit:: Client was alert in group however she appeared distracted AEB continually looking at her phone and was tearful throughout group. Client participated in small group activity designed to illustrate the emotions of change can look like and how we might respond. Client reported that she is fearful of change but was able to successful complete activity, Client participated in the group discussion on the stages of change and reported she often feels panic when change occurs. Client benefitted from identifying the stages of change and rating what stage she is at. Progress noted in clients awareness. Continued treatment necessary to reduce anxiety levels. Eye Contact:: Fair Motor Activity:: Appropriate Appearance:: Casual Speech:: Soft Mood:: Depressed Affect:: Constricted Thoughts:: Linear, Logical, No evidence of hallucinations/delusions noted Staff Interventions:: Therapist facilitated group discussion about change. Therapist led the group in an activity in which the activity was utilized as a tool to increase clients awareness of emotions connected with change. Therapist led the processing of how each emotion was connected with change. Therapist was supportive by providing feedback and using reflective listening.
--- NOTE | 2017-12-17 13:44 | BH.SGPN_ITS ---
Service Group Progress Note - Session Psychotherapy Session #3 Date Open:: 12/17/17 - 9 group members Time Started:: 11:19 Time Stopped:: 12:15 Targeted Problem #:: 1 Type of Group:: Functional Skills Development Goal of Group:: To identify the challenges associated with making change and identify positive outcomes that have resulted from changes made in past. Another goal was to identify one change they are willing to make this week. Client Response/Progress/Benefit:: Client responded somewhat well to session, taking notes, but appeared distracted as shown by her question asking to peers and tearful affect. Client reported change is difficult because ?I get so overwhelmed and feel hopeless.? Client shared she continues to have a hard time with change because she frequently ruminates on negatives from the past. Client identified a time when change was positive such as recently when client spent a night at home after not being there for over a month. Client stated she would like to ?stop ruminating? as a positive change moving forward. Client appeared to benefit from increasing awareness of the challenges associated with making change as well as times when she has had success with change. Client progressing with maintaining safety, but continues to struggle with intrusive thoughts and little implementation of internal coping skills, which could keep client stuck. Eye Contact:: Other - staring Motor Activity:: Slowed Appearance:: Disheveled Speech:: Soft Mood:: Dysthymic Affect:: Flat - tearful at times Thoughts:: Racing, No evidence of hallucinations/delusions noted Staff Interventions:: Therapist led group in an activity to help group members recognize the challenges associated with change. Therapist utilized activity as a tool to identify ways to manage changes and adapt to the challenges that ensue. Therapist facilitated group discussion about positive outcomes from change. Therapist helped clients explore changes they are willing to make this week and elicited discussion on the pros and cons of making that change.
--- NOTE | 2017-12-17 13:44 | BH.MDN_ITS ---
Multi-Disciplinary Note - Note 60-min Individual Time Started:: 12:25 Date: 12/17/17 Purpose of session/treatment goals addressed:: The purpose of this session was to explore, challenge, and reframe client's cognitive distortions that create rumination, self-doubt, and increased mental health symptoms. Another goal was to help client focus on stressors in her control and establish a plan to manage compulsions throughout the day. Other topics included: social supports, radical acceptance, and strengths. Eye Contact:: Fair Motor Activity:: Restless - AEB shaking leg Appearance:: Casual - client appeared to have good hygiene Speech:: Soft, Other - circumstantial Mood:: Anxious, Dysthymic Affect:: Congruent - Client became tearful a few times throughout session Thoughts:: Other - preoccupied, No evidence of hallucinations/delusions noted Staff Interventions:: Therapist used open-ended and solution-focused questions to help client explore current contributing stressors and identify helpful coping skills. Therapist helped client identify, challenge, and reframe cognitive distortions. Therapist gently challenged client on maladaptive behaviors and encouraged client to focus on stressors in her immediate control. Therapist used radical acceptance and CBT techniques to increase client awareness of her maintenance cycle. Therapist used strengths perspective to assist client in identifying positives and progress. Client Response:: Client responded well to session, receptive to discussing cognitive distortions and radical acceptance. Client reports she is feeling increasingly overwhelmed, worthless, and like a burden as client shared I feel like none of my supports care about me. Client stated she has been feeling increased anxiety since last evening when client did not get a text response from a friend. Client shared I feel like she is avoiding me. Client and therapist identified and challenged client's cognitive distortions regarding supports. Client then stated, I do have people who love and care for me and she is probably busy. Client identified other stressors contributing to anxiety including digestive issues, finding friends for her daughter, and being worried about going home. Client reported her mother mentioned client returning home in January which makes me feel overwhelmed and I don't know if I can do it. Client shared she continues to struggle with looking ahead and focusing on stressors out of her control which causes client to ruminate and miss out on enjoying life. Client created a mantra to tell herself when she starts to feel overwhelmed there are some things out of my control and that's okay, I'm doing the best I can. Client's steps included talking with a support, tell myself stop, write down negative thoughts, and repeat her mantra. Client stated she has been keeping track of her progress in a journal which has been helpful. Client stated she was able to spend the night at home with her which demonstrates progress. Client stated, it went much better than I thought it would. Client shared she has increased passive thoughts of suicide, but denies plan and intent. Client reported belief she can maintain safety. Client asked therapist to contact her mother and stepfather for continuity of care. Risks/Concerns:: Client reports increased suicidal thoughts such as I'm tired of always feeling this way, denied plan and intent. Client future oriented throughout session as shown by her report of spending time with a friend today and identified her family as a reason worth living. Progress Toward Goals/Plan:: Client showing progress towards treatment goals as she reports implementing healthy coping skills daily. Client also continues to show progress with maintaining safety and having less crisis situations. However , client continues to struggle with intrusive thoughts, rumination, and low self -esteem. Client currently working on implementing thought challenge and radical acceptance to reduce anxiety and focus on current progress. Client to continue IOP for mood stability and coping skill maintenance. Client to follow up with her outpatient therapist to schedule a session. Time Stopped:: 13:22
--- NOTE | 2017-12-19 10:40 | BH.SGPN ---
Service Group Progress Note - Session Psychotherapy Session #1 Date Open:: 18 - 6 group members Time Started:: 09:02 Time Stopped:: 10:02 Targeted Problem #:: 1 Type of Group:: Process Goal of Group:: The goal of today's group was to check-in with client's mood, stressors, and positives and introduce topic for the day. Client Response/Progress/Benefit:: Client responded well to session, engaged with peers and sharing when prompted. Client reports feeling stressed and overwhelmed today as client has increased suicidal thoughts and feelings of hopelessness. Client contributed these emotions to increased digestive issues and not being up for parenting. Client identified her and daughter as reasons to live. With therapist elicitation, client identified progress she has made and supports to help her feel safe today. Client shared I'm going for a walk and I'm seeing my crisis counselor today. Client appeared to benefit from connecting with peers and identifying protective factors to keep her safe. Client progressing with maintaining safety and increasing her engagement with family, but continues to have chronic thoughts of suicide and intrusive thoughts about future responsibilities which may hinder client progress. Therapist to follow up with client to assess risk. Eye Contact:: Avoidant Motor Activity:: Slowed Appearance:: Disheveled Speech:: Soft Mood:: Dysthymic Affect:: Flat Thoughts:: Linear, No evidence of hallucinations/delusions noted Staff Interventions:: Therapist used open-ended questions to elicit information about client's current stressors and mood state. Therapist was supportive by using active listening and reflection. Therapist facilitated a mindfulness activity to promote emotional well-being and calmness.
--- NOTE | 2017-12-19 13:26 | BH.MDN_ITS ---
Multi-Disciplinary Note - Note 45-min Individual Time Started:: 11:40 Date: 12/19/17 Purpose of session/treatment goals addressed:: The purpose of this session was to assess suicide lethality, risk, intent, and plan. Another goal was to create a safety plan with client, identify protective factors, and identify supports. Other topics included: reflecting on progress, resiliency and cognitive distortions. Eye Contact:: Poor Motor Activity:: Restless - AEB legs shaking Appearance:: Disheveled Mood:: Anxious, Dysthymic Affect:: Flat - tearful at times, Other - apathetic Thoughts:: Racing, No evidence of hallucinations/delusions noted Staff Interventions:: Therapist used risk assessment questions to explore client 's suicidality, intention, lethality, plan, and time. Therapist helped client create a safety plan which included supports, making the environment safe, coping skills, and reasons to live. Therapist addressed client's cognitive distortions and helped client identify personal resiliency factors. Therapist agreed to call client's parents for safety plan review and continuity of care. Client Response:: Client responded well to session, somewhat disengaged in discussion. Client reported she has increased suicidal thoughts today as client stated, I feel miserable physically and mentally and it's just too much. Client stated she has thoughts of living isn't worth it and would be better. Client able to identify her daughter and as protective factors. Client shared she does not want to go to the hospital because of the impact it would have on her daughter. Client shared her IBS and lack of appetite are contributing to her increased depression as well. Client reported plan to call the doctor to get an earlier appointment. Client shared if her medical issues were managed she would have less suicidal thoughts. Client reported the increased suicidal thoughts potentially worsened due to a conversation with her mother over the weekend. Client shared I just feel like a burden and my meds aren't working. Client had insight that she is the one putting the most pressure on herself to move out and parent which impacts client ?s ability to focus on small goals, be present, and progress. Client reported she does not feel safe being alone, but reported belief she could maintain safety if her parents monitor her throughout the evening and implementing environmental safety measures such as removing pills and car keys. Client identified her family as a reason to live and reflected on her resiliency as she has made it through challenging days before. Client reported she plans to spend the afternoon walking with a support person, going to counseling, and then spending time with her family. Client agreed to her safety plan and contracted for safety. Risks/Concerns:: Client reports increased suicidal thoughts and intent. Client reported plan would be carbon monoxide poisoning as my primary and taking pills as her secondary. Client reports plan to spend the afternoon with a support person and has a crisis counseling appointment which are protective factors. Client and therapist created a safety plan for this evening which included client's mother taking client's car keys and keeping client's medication. Client identified her , daughter, and mother as reasons to live. Progress Toward Goals/Plan:: Client showing some progress towards treatment goals as she has been able to increase the amount of time she spends at home and has maintained safety for the past two weeks. However, client continues to have chronic suicidal ideation, intrusive thoughts, and fears of parenting. Client also continues struggle with utilizing internal coping skills to prevent crisis. Client to continue IOP to prevent decompensation and promote safety. Client to follow up with crisis counselor today and follow safety plan adore. Time Stopped:: 12:27
--- NOTE | 2017-12-19 14:50 | BH.COMM ---
Communication Note - Communication with Client Communication Note: This therapist spoke with client's mother and stepfather to discuss updates, concerns, and review client's safety plan for this evening. Therapist reported client contracted for safety today and therapist shared client's safety plan with mother and stepfather. Therapist advocated for client by reporting client's needs, triggers, and helpful tips for managing crisis. Therapist and parents addressed client's current physical complications such as IBS and digestive issues. Therapist reported that client and therapist agreed that seeing a doctor sooner rather than later would be a benefit as client reports belief her physical complications are contributing to mental health. Therapist answered questions and provided emotional support. Therapist shared client safety concerns, coping skills, and discussed how to manage escalating crisis. Client's parents agreed to the safety plan and reported they would continue to monitor client throughout the evening and call crisis should client report inability to maintain safety.
--- NOTE | 2017-12-19 15:52 | BH.SGPN ---
Service Group Progress Note - Session Psychotherapy Session #2 Date Open:: 12/19/17 Time Started:: 10:20 Time Stopped:: 11:13 Targeted Problem #:: 1 Type of Group:: Illness Management Goal of Group:: To identify within self what is keeping client trapped from achieving better quality of life. Eye Contact:: Poor Motor Activity:: Slowed Appearance:: Disheveled Speech:: Soft Mood:: Dysthymic Affect:: Flat Thoughts:: Circular, No evidence of hallucinations/delusions noted Staff Interventions:: Therapist facilitated discussion about what is keeping client?s stuck from moving toward mental wellness. Therapist assisted clients in connecting how thoughts can contribute to keeping clients stuck. Therapist led discussion about barriers clients face from making changes to help one move forward. Therapist provided support by using active listening and giving feedback to others.
--- NOTE | 2017-12-20 13:58 | BH.SGPN_ITS ---
Service Group Progress Note - Session Psychotherapy Session #1 Date Open:: 18 - 8 group members Time Started:: 09:07 Time Stopped:: 10:12 Targeted Problem #:: 1 Type of Group:: Process Goal of Group:: The goal of today's group was to check-in with client's mood, stressors, and positives, and review homework. Client Response/Progress/Benefit:: Client responded somewhat well to session, receptive to feedback, but continuing to seek reassurance. Client reports feeling anxious and hopeless today, however, client shared she is in a better place than yesterday. Client shared her counseling appointment yesterday went okay as client reframed cognitive distortions, but shared she made me feel worse about my daughter because she couldn't normalize her behavior. With therapist and group elicitation client challenged her rumination and replaced it with a more beneficial thought. Client stated she plans to go for a walk and get tea with a friend today to reduce anxiety and increase positive experiences. Client appeared to benefit from using in the moment coping skills to challenge ruminations, but continues to need frequent reassurance from external supports. Client progressing as evidenced by her ability to maintain safety, but continues to struggle with intrusive thoughts, personalization, and utilizing internal coping skills which could hinder progress. Eye Contact:: Good Motor Activity:: Appropriate Appearance:: Neat - improvement from yesterday Speech:: Other - circumstantial; seeking reassurance Mood:: Anxious, Dysthymic Affect:: Constricted - affect less blunted than yesterday Thoughts:: Circular, Other - preoccupied, No evidence of hallucinations/ delusions noted Staff Interventions:: Therapist used open-ended questions to elicit information about client's current stressors and mood state. Therapist was supportive by using active listening and reflection.
--- NOTE | 2017-12-20 18:21 | BH.SGPN ---
Service Group Progress Note - Session Psychotherapy Session #2 Date Open:: 12/20/17 Time Started:: 10:21 Time Stopped:: 11:14 Targeted Problem #:: 1 Type of Group:: Illness Management - 8 participants Goal of Group:: To increase understanding of pitfalls and impact can have on mental health. Staff Interventions:: Therapist facilitated discussion about pitfalls and assisted group in identifying common pitfalls that can set you back. Therapist led group in an activity to help group understand impact pitfalls can have on oneself and identify strategies that could help you get back on the right path. Therapist provided support by using active listening and providing feedback. Psychotherapy Session #3 Date Open:: 12/20/17 Time Started:: 11:22 Time Stopped:: 12:14 Targeted Problem #:: 1 Type of Group:: Functional Skills Development - 9 participants Goal of Group:: To identify personal pitfalls and what keeps them stuck from moving forward Staff Interventions:: Therapist facilitated activity in which group members were given the task to identify personal pitfalls and what keeps them stuck from moving past the pitfall. Therapist provided group members with the homework assignment of identifying strategies that can help them overcome pitfalls.
--- NOTE | 2017-12-21 15:08 | BH.SGPN ---
Service Group Progress Note - Session Psychotherapy Session #1 Date Open:: 12/21/17 Time Started:: 09:10 Time Stopped:: 10:00 Type of Group:: Process - 6 group members Goal of Group:: The goal of today's group was to check-in with client's mood, stressors, and positives, review homework and introduce topic for the day. Client Response/Progress/Benefit:: Limited participation unless prompted however was attentive. Emotion for today is hopeless. Shared with the group increased depression and passive suicidal ideations. Shared that she continues to feel hopeless. Noticable regression in the past few days due to ruminations. She is having coffee with a friend today which she is looking forward too. 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 Agreed to discuss this with psychiatrist. Group provided support and encouragment. No progress noted as she is having difficulty managing her emotions and depressive thoughts. Informed pt's therapist of her current mood. Eye Contact:: Poor Motor Activity:: Restless Appearance:: Disheveled Speech:: Appropriate Mood:: Anxious, Depressed Affect:: Flat Thoughts:: Linear, Logical, No evidence of hallucinations/delusions noted Staff Interventions:: Therapist used open-ended questions to elicit information about client's current stressors and mood state. Therapist was supportive by using active listening and reflection.
--- NOTE | 2017-12-21 16:16 | BH.SGPN ---
Service Group Progress Note - Session Psychotherapy Session #2 Date Open:: 12/21/17 Time Started:: 10:20 Time Stopped:: 11:10 Targeted Problem #:: 1 Type of Group:: Illness Management Goal of Group:: The goal of this session was to increase self-awareness of what is holding them back from moving towards mental wellness and discuss importance of taking action in their treatment. Eye Contact:: Fair Motor Activity:: Appropriate Appearance:: Casual Speech:: Appropriate Mood:: Anxious, Depressed Affect:: Flat Thoughts:: Linear, No evidence of hallucinations/delusions noted Staff Interventions:: Therapist facilitated discussion about what it means to take action in achieving mental health wellness. Therapist led activity in which clients were asked to identify the symptoms and things that they would like to take back control over. Therapist provided support by using active listening. Psychotherapy Session #3 Date Open:: 12/21/17 Time Started:: 11:20 Time Stopped:: 12:20 Targeted Problem #:: 1 Type of Group:: Functional Skills Development Goal of Group:: The goal of this session was to create a 30 day action plan that provides small goals that work towards taking action on one thing they would like to take back control over. Eye Contact:: Fair Motor Activity:: Appropriate Appearance:: Casual Speech:: Appropriate Mood:: Anxious, Depressed Affect:: Flat Thoughts:: Linear, No evidence of hallucinations/delusions noted Staff Interventions:: Therapist provided materials and guidance to help clients create a 30 day action plan. Therapist provided support by giving feedback and using active listening.
--- NOTE | 2017-12-24 10:07 | BH.MTP_ITS ---
Treatment Plan Review Date of Admission:: 12/05/17 Date of Treatment Plan Review:: 12/19/17 Admitting Diagnoses:: Major depressive disorder recurrent severep; OCD; PTSD; History of trichotillomania Current Diagnoses:: Major depressive disorder recurrent severep; OCD; PTSD; History of trichotillomania Patient's Response to Treatment:: Client appears to be responding well to treatment as evidenced by her consistent attendance and engagement in individual and group sessions. Client has demonstrated accountability and motivation as shown by her communication of warning signs, coping skills, and safety plan with her supports to help promote safety and prevent decompensation. Client has good engagement with peers and often provides supportive statements. However, client continues to struggle with magnifying comments said by peers which leads to ruminations and reassurance seeking from staff and group members. Overall, client's progress is limited as client continues to report severe symptoms and difficulty implementing thought challenging coping skills by herself to reduce intrusive thoughts and ruminations. Status of Current Problems and Symptoms: Client continues to endorse a depressed mood, negative thoughts, thoughts of , poor appetite, hopelessness, and intrusive thoughts daily. Client reports feeling anxious most of the day nearly every day due to ruminations, guilt about not being with her family, and has constant worry about her daughter. Client continues to seek reassurance from peers and therapists at [facility]. Client currently living with her mother and step-father to promote safety and provide support. Client has progressed with maintaining safety with the help of her supports and safety plan. Client has also progressed with increasing socialization as client plans several pleasurable activities with supports daily. Problem #1 Problem Name:: Pt. to reduce depression and suicidal ideation while increasing self-worth Status of Goals:: Client has not yet accomplished this goal as she continues to report a depressed mood, hopelessness, chronic thoughts of , and poor appetite. Client has progressed with journaling strengths and daily small wins to help client focus on the positives. Client able to maintain safety through use of her safety plan and communication of warning signs with her supports. Client and therapist working on reframing negative thoughts, maintaining safety , and incorporating client's family more in treatment. Team Recommendations:: Client recommended to continue working on treatment goal as she continues to endorse a depressed mood, poor appetite, and chronic thoughts of . Client has been able to maintain safety, which demonstrates progress, but can continue to benefit from identifying and reframing negative thoughts and communicating with her positive supports. Problem #2 Problem Name:: Reduce rumination, anxiety, and compulsions brought on by OCD Status of Goals:: Client has not yet accomplished this goal as she continues to report ongoing moderate to severe anxiety brought on by ruminations, intrusive thoughts, and cognitive distortions. Client has progressed with learning calming coping skills and reports using deep breathing, journaling, and healthy distractions. Client and therapist currently working on reducing rumination time and reassurance seeking through reframing and delaying strategies. Team Recommendations:: Client recommended to continue working towards treatment goal to increase thought reframing, reduce assurance seeking, and promote the use of healthy coping skills. Client recommended to follow up with outpatient therapist for continuity of care and continued work on challenging intrusive thoughts.
--- NOTE | 2017-12-24 12:02 | BH.SGPN ---
Service Group Progress Note - Session Psychotherapy Session #1 Date Open:: 12/24/17 Time Started:: 09:04 Time Stopped:: 10:20 Targeted Problem #:: 1 Type of Group:: Process - 8 participants Goal of Group:: The goal of today's group was to check-in with client's mood, stressors, and positives, review homework and introduce topic for the day Eye Contact:: Fair Motor Activity:: Restless Appearance:: Casual Speech:: Appropriate Mood:: Anxious, Depressed Affect:: Constricted Thoughts:: Linear, Logical, Other - consistent with rumination, No evidence of hallucinations/delusions noted Staff Interventions:: Therapist used open-ended questions to elicit information about client's current stressors and mood state. Therapist was supportive by using active listening and reflection.
--- NOTE | 2017-12-24 16:18 | BH.SGPN ---
Service Group Progress Note - Session Psychotherapy Session #2 Date Open:: 12/24/17 Time Started:: 10:30 Time Stopped:: 11:20 Targeted Problem #:: 1 Type of Group:: Illness Management Goal of Group:: To increase understanding how positive and negative forces in life can impact balance in life. Eye Contact:: Fair Motor Activity:: Appropriate Appearance:: Casual Speech:: Appropriate Mood:: Anxious, Depressed Affect:: Flat Thoughts:: Linear, Logical, No evidence of hallucinations/delusions noted Staff Interventions:: Therapist facilitated group discussion about the various forces of life and helped clients connect the impact they have on balance in life. Therapist led group in an experiential activity in which group members had to work together to balance an object and move it to a designated location. Therapist utilized the activity as a tool to process the challenges connected with balancing various forces. Psychotherapy Session #3 Date Open:: 12/24/17 Time Started:: 11:30 Time Stopped:: 12:20 Targeted Problem #:: 1 Type of Group:: Functional Skills Development Goal of Group:: To identify positive and negative forces in life and identify which forces are helping stability and which forces are contributing to instability. Eye Contact:: Good Motor Activity:: Appropriate Appearance:: Casual Speech:: Appropriate Mood:: Anxious, Depressed Affect:: Flat Thoughts:: Linear, No evidence of hallucinations/delusions noted Staff Interventions:: Therapist provided group with an example of a scenario of a person and the individual???s positive and negative forces. Therapist provided each group member with a worksheet in which they were to identify five positive and five negative forces in their life. Therapist processed the activity with the group, helping others connect the impact certain forces have on their life balance.
--- NOTE | 2017-12-25 16:16 | BH.SGPN_ITS ---
Service Group Progress Note - Session Psychotherapy Session #1 Date Open:: 12/13/17 Time Started:: 09:04 Time Stopped:: 10:00 Targeted Problem #:: 1 Type of Group:: Process Goal of Group:: The goal of today's group was to check-in with client's mood, stressors, and positives, review homework and introduce topic for the day. Client Response/Progress/Benefit:: Client reported she has been struggling with a decision on whether she should go to [id number] because she is afraid of being triggered. Client shared last night she made a decision that it would not be a good idea for her to attend the [facility] service because she does not think that she is in the right mindset to be able to manage something like that right now. She shared that it was not from the encouragement of her parents that help to make the decision about whether she should go or not. Client reports she did spend some time with 1 of her friends which was positive. Client continues to struggle with making decisions on her own often seeking validation and reassurance as to what is the right thing to do. Client to continue IOP to prevent decompensation and decrease in anxious symptoms. Eye Contact:: Fair Motor Activity:: Restless Appearance:: Casual Speech:: Soft Mood:: Anxious, Depressed Affect:: Flat Thoughts:: Linear, Circular, No evidence of hallucinations/delusions noted Staff Interventions:: Therapist used open-ended questions to elicit information about client's current stressors and mood state. Therapist was supportive by using active listening and reflection.
--- NOTE | 2017-12-26 10:22 | BH.SGPN ---
Service Group Progress Note - Session Psychotherapy Session #1 Date Open:: 12/26/17 - 5 participants Time Started:: 09:05 Time Stopped:: 10:05 Targeted Problem #:: 1 Type of Group:: Process Goal of Group:: The goal of today's group was to check-in with client's mood, stressors, and positives, review homework and introduce topic for the day. Client Response/Progress/Benefit:: Client responded well to session, receptive to feedback from peers. Client reports feeling anxious, depressed, and hopeless today as client continues to struggle with guilt and intrusive thoughts. Client reported I talked to someone at [employer] and they made me feel extremely guilty about my daughter. With therapist elicitation, client able to challenge some of the negative thoughts she had that were increasing guilt. Client was also receptive to group feedback on how to cope when people outside of one's support system say things that could be triggering. Client responded to feedback with, I can tell myself they don't know my situation and I'm trying to help myself. Client stated she can improve her mood today by reminding herself to thought challenge as well as focusing on utilizing positive supports. Client reported she has an appointment on January 10 for an ECT intake. Client shared she is hopeful ECT will work. Client seemed to benefit from using in the moment coping skills to challenge negative thoughts. Client appears to be progressing with reframing her thinking with the help of external supports, but continues to struggle with low self-esteem which prevents client from using internal skills. Eye Contact:: Good Motor Activity:: Appropriate Appearance:: Casual Speech:: Other - circumstantial Mood:: Anxious, Depressed Affect:: Flat Thoughts:: Other - preoccupied with guilt, No evidence of hallucinations/delusions noted Staff Interventions:: Therapist used open-ended questions to elicit information about client's current stressors and mood state. Therapist was supportive by using active listening and reflection.
--- NOTE | 2017-12-26 15:21 | BH.MDN ---
Multi-Disciplinary Note - Note Family Time Started:: 12:32 Date: 12/26/17 Purpose of session/treatment goals addressed:: The purpose of this session was to bring together client's support system to promote communication, establish a client-centered plan, and explore positives and barriers. Another goal was to increase client's self-esteem by having client service consultant for her needs and identify helpful coping strategies. Other topics included: thought challenging, guilt, and supports. Symptoms/Behavior:: Family including in session: client's mother- Dariana, Step-father- Paul, and Kurtis. Eye Contact:: Fair Motor Activity:: Appropriate Appearance:: Casual Speech:: Appropriate Mood:: Anxious, Dysthymic Affect:: Flat - becoming tearful at times Thoughts:: Circular, No evidence of hallucinations/delusions noted Staff Interventions:: Therapist used active listening and open-ended questions to facilitate discussion between client and her support system. Therapist advocated for client's mental health needs and empowered client to use assertive communication to promote emotional well-being. Therapist assisted client and her family in creating a plan to increase positive thinking and reflect on progress. Therapist helped client identify, challenge, and reframe intrusive thoughts and taught client's family how to implement this strategy at home. Therapist used strengths perspective to empower client and her supports. Client Response:: Client and family responded well to session, receptive throughout and listening to one another's concerns and needs. Client reported she is struggling with guilt, especially regarding not being home with her and daughter. Kurtis could help client challenge her guilt through focusing on the positives. Client advocated for herself as she shared triggers for anxiety and guilt as well as her needs with her parents and . Client expressed her intrusive thoughts--guilt, her daughter, and EC--with her support system and negative core beliefs such as I'm a burden and a bad parent. Therapist guided the family in challenging those thoughts and encouraged the family to have client reassure herself. Therapist and family reviewed clients safety plan, boundaries, and helpful coping skills as well. Lack of communication was brought up during session and the family was receptive to developing a plan to promote effective communication. Client and family decided to meet at a neutral location once a week to discuss client's progress, needs, and barriers. Client also agreed to be more open with her regarding progress and positives by sharing her progress journal and communicating positives each day. Risks/Concerns:: Client continues to report chronic suicidal thoughts, but reports ability to maintain safety as of 12/26/17. Client and her mother report client has been following her safety plan which demonstrates progress. Client reports she is hopeful the ECT treatment will work which shows future orientation. Progress Toward Goals/Plan:: Client is showing some progress towards her treatment goals as shown by her report of journaling daily progress, maintaining safety, and using calming coping strategies when visiting with daughter. However, client continues to struggle with intrusive thoughts, guilt, and seeking reassurance that may hinder further progress. Client to continue IOP to prevent decompensation and promote gains. Client and her supports agreed to have on-going communication and follow safety plan. Time Stopped:: 13:32
--- NOTE | 2017-12-27 11:44 | BH.SGPN ---
Service Group Progress Note - Session Psychotherapy Session #1 Date Open:: 12/27/17 Time Started:: 09:06 Time Stopped:: 10:20 Targeted Problem #:: 1 Type of Group:: Process - 9 participants Goal of Group:: The goal of today's group was to check-in with client's mood, stressors, and positives, review homework and introduce topic for the day. Staff Interventions:: Therapist used open-ended questions to elicit information about client's current stressors and mood state. Therapist was supportive by using active listening and reflection.
--- NOTE | 2017-12-27 13:04 | BH.SGPN ---
Service Group Progress Note - Session Psychotherapy Session #2 Date Open:: 12/27/17 - 10 group members Time Started:: 10:25 Time Stopped:: 11:15 Targeted Problem #:: 1 Type of Group:: Illness Management Goal of Group:: To increase understanding of importance of boundaries and the different ways of setting boundaries (permeable, rigid, and flexible). Client Response/Progress/Benefit:: Client responded well to session, active through note-taking. Client appeared to connect with the topic, stating I share too much. Client identified her boundary type as porous as client often seeks reassurance and stated I say too much about her mental health. Client recognized this negatively impacts her mental health because some of the people she shares with are not positive supports. Client appeared to benefit from increasing awareness of the different boundary types and they impact mental health. Client to continue IOP to prevent decompensation. Eye Contact:: Fair Motor Activity:: Appropriate Appearance:: Casual Speech:: Appropriate Mood:: Depressed Affect:: Flat Thoughts:: Circular, No evidence of hallucinations/delusions noted Staff Interventions:: Therapist facilitated group discussion about defining boundaries. Therapist led discussion about importance of boundaries, assisting group members with identifying the impact of healthy and unhealthy boundaries. Therapist educated the group about the three different ways of setting boundaries and led discussion about each one. Therapist assisted clients with identifying the costs and benefits to the three different styles of boundary setting and how each style can impact mental health as well as relationships. Psychotherapy Session #3 Date Open:: 12/27/17 - 9 group members Time Started:: 11:25 Time Stopped:: 12:20 Targeted Problem #:: 1 Type of Group:: Functional Skills Development Goal of Group:: Increase awareness of current boundary style, identifying impact current way of setting boundaries has on mental health as well as relationships. Client Response/Progress/Benefit:: Client responded well to session, active participant. Client created a visual representation of her boundaries stating, the door to my emotions is always open, I have no boundaries. Client shared she is also a people pleaser and feels as though she cannot say no to others. Client reported she is trying to work on limiting who she talks to and focus on sharing with positive supports. Client appeared to benefit from recognizing how her boundaries impact her emotions and well-being. Progress noted in clients willingness to limit who she discusses mental health concerns with. Eye Contact:: Fair Motor Activity:: Appropriate Appearance:: Casual Speech:: Appropriate Staff Interventions:: Therapist provided the group member with a wide array of supplies, asking each group member to create a castle that would represent the boundaries they currently have in place. The expressive activity was used as a tool to help increase clients self-awareness of their boundaries. Therapist processed each group members castle, inquiring what style the group member currently uses most frequently and how current boundary style impacts his/her mental health and relationships. Therapist provided support by using reflective listening and giving feedback.
--- NOTE | 2017-12-27 13:07 | BH.SGPN_ITS ---
Service Group Progress Note - Session Psychotherapy Session #2 Date Open:: 12/27/17 - 10 group members Time Started:: 10:25 Time Stopped:: 11:15 Targeted Problem #:: 1 Type of Group:: Illness Management Goal of Group:: To increase understanding of importance of boundaries and the different ways of setting boundaries (permeable, rigid, and flexible). Client Response/Progress/Benefit:: Client responded well to session, active through note-taking. Client appeared to connect with the topic, stating ?I share too much.? Client identified her boundary type as porous as client often seeks reassurance and stated ?I say too much? about her mental health. Client recognized this negatively impacts her mental health because some of the people she shares with are not positive supports. Client appeared to benefit from increasing awareness of the different boundary types and they impact mental health. Client to continue IOP to prevent decompensation. Eye Contact:: Fair Motor Activity:: Appropriate Appearance:: Casual Speech:: Appropriate Mood:: Depressed Affect:: Flat Thoughts:: Circular, No evidence of hallucinations/delusions noted Staff Interventions:: Therapist facilitated group discussion about defining boundaries. Therapist led discussion about importance of boundaries, assisting group members with identifying the impact of healthy and unhealthy boundaries. Therapist educated the group about the three different ways of setting boundaries and led discussion about each one. Therapist assisted clients with identifying the costs and benefits to the three different styles of boundary setting and how each style can impact mental health as well as relationships. Psychotherapy Session #3 Date Open:: 12/27/17 - 9 group members Time Started:: 11:25 Time Stopped:: 12:20 Targeted Problem #:: 1 Type of Group:: Functional Skills Development Goal of Group:: Increase awareness of current boundary style, identifying impact current way of setting boundaries has on mental health as well as relationships. Client Response/Progress/Benefit:: Client responded well to session, active participant. Client created a visual representation of her boundaries stating, ? the door to my emotions is always open, I have no boundaries.? Client shared she is also a people pleaser and feels as though she cannot say no to others. Client reported she is trying to work on limiting who she talks to and focus on sharing with positive supports. Client appeared to benefit from recognizing how her boundaries impact her emotions and well-being. Progress noted in client?s willingness to limit who she discusses mental health concerns with. Eye Contact:: Fair Motor Activity:: Appropriate Appearance:: Casual Speech:: Appropriate Staff Interventions:: Therapist provided the group member with a wide array of supplies, asking each group member to create a castle that would represent the boundaries they currently have in place. The expressive activity was used as a tool to help increase client?s self-awareness of their boundaries. Therapist processed each group member?s castle, inquiring what style the group member currently uses most frequently and how current boundary style impacts his/her mental health and relationships. Therapist provided support by using reflective listening and giving feedback.
--- NOTE | 2017-12-28 14:20 | BH.SGPN ---
Service Group Progress Note - Session Psychotherapy Session #1 Date Open:: 12/28/17 - 5 participants Time Started:: 09:08 Time Stopped:: 10:15 Targeted Problem #:: 1 Type of Group:: Process Goal of Group:: The goal of today's group was to check-in with client's mood, stressors, and positives, review homework and introduce topic for the day. Client Response/Progress/Benefit:: Client responded well to session, providing positive support to peers. Client reports feeling hopeless and guilty today as client continues to struggle with challenging intrusive thoughts about her daughter which results in client ruminating all day. Client shared her current rumination with the group and was receptive to group feedback. Therapist gently challenged client to reframe her negative thoughts and client had success with this. Client identified progress she has made such as spending time with friends each day and working on her progress journal. Client appeared to benefit from redirecting her negative thoughts and guilt by focusing on positives. Client seems to be progressing as shown by her ability to maintain safety and challenge rumination with help from therapist. However, client continues to rely on external supports for emotional regulation which could hinder progress. Eye Contact:: Good Motor Activity:: Slowed Appearance:: Casual Speech:: Other - circumstantial Mood:: Anxious, Dysthymic Affect:: Flat - became tearful when discussing daughter Thoughts:: Racing, Other - preoccupied, No evidence of hallucinations/delusions noted Staff Interventions:: Therapist used open-ended questions to elicit information about client's current stressors and mood state. Therapist was supportive by using active listening and reflection.
--- NOTE | 2017-12-28 15:42 | BH.SGPN_ITS ---
Service Group Progress Note - Session Psychotherapy Session #2 Date Open:: 12/28/17 Time Started:: 10:20 Time Stopped:: 11:10 Targeted Problem #:: 1 Type of Group:: Illness Management - 7 participants Goal of Group:: To increase understanding of fear and explore the negative impact fear of failure can have on mental health and decision making. Client Response/Progress/Benefit:: Client willing to participate in group and was recptive of discussing the group topic, Fear of Failure. Although Client took on a mostly passive participatory role in disscussion, she was attentive and actively took in the information covered. This was evidenced by client taking notes throughout. Client additionally showed much progress in her ability to challenge herself to manage her anxieties while participating in the group activity. Client did well to ask for assistance when needed and benefited from times in which she had to confront failed attempts at completing the task provided without needing reassurance from the group as Client had identified failure to mean not meeting expectations for self. Client appears to be making progress in her ability to challenge and reframe negative thoughts. She would benefit from ongoing treament focus in this area. Eye Contact:: Fair Motor Activity:: Appropriate Appearance:: Casual Speech:: Appropriate Mood:: Anxious, Depressed Affect:: Flat Thoughts:: Linear, Logical, No evidence of hallucinations/delusions noted Staff Interventions:: Therapist facilitated discussion about fear and impact fear of failure can have. Therapist led group in an experiential activity in which client?s would fail numerous times throughout, but were given the opportunity to try again. Therapist led the processing of the activity and assisted clients with connecting how fear of failure impacted their decision making during the activity.
--- NOTE | 2017-12-28 15:54 | BH.SGPN_ITS ---
Service Group Progress Note - Session Psychotherapy Session #2 Date Open:: 12/26/17 Time Started:: 10:15 Time Stopped:: 11:10 Targeted Problem #:: 1 Type of Group:: Illness Management Goal of Group:: The goal of group was to increase understanding of coping strategies and impact problems have on self. Another goal was to practice utilizing coping skills in the moment. Client Response/Progress/Benefit:: Client Eye Contact:: Good Motor Activity:: Appropriate Appearance:: Casual Speech:: Soft Mood:: Anxious Affect:: Congruent Thoughts:: Linear, Logical, No evidence of hallucinations/delusions noted Staff Interventions:: Therapist facilitated the group discussion about coping strategies. Therapist group and activity challenge them to work together in utilize healthy coping skills in the moment. Therapist utilized the activity as a tool to process what it feels like when dealing with problems and what strategies they used to cope throughout activity. Psychotherapy Session #3 Date Open:: 12/26/17 Time Started:: 11:20 Time Stopped:: 12:15 Targeted Problem #:: 1 Type of Group:: Functional Skills Development Goal of Group:: The goal of group was to increase client???s ability to recogniz e the different between an internal and external coping strategy. Another goal was to increase client???s self-awareness on their use of coping strategies and increase repertoire of healthy coping strategies. Eye Contact:: Good Motor Activity:: Appropriate Appearance:: Casual Speech:: Soft Mood:: Anxious Affect:: Congruent Thoughts:: Linear, Logical, No evidence of hallucinations/delusions noted Staff Interventions:: Therapist facilitated discussion about the different types of coping skills. Therapist led group in an activity in which group members were asked to brainstorm coping strategies that fit in each coping skill category. Therapist led a discussion about whether the coping strategies identified were healthy or unhealthy.
--- NOTE | 2017-12-31 10:55 | BH.SGPN ---
Service Group Progress Note - Session Psychotherapy Session #1 Date Open:: 12/31/17 Time Started:: 09:05 Time Stopped:: 10:20 Targeted Problem #:: 1 Type of Group:: Process - 8 group members Goal of Group:: The goal of today's group was to check-in with client's mood, stressors, and positives, review homework and introduce topic for the day. Client Response/Progress/Benefit:: Client reported she did not have very good weekend because there was a lot of ruminating in crying. Client shared she had a lot of breakdowns. Client reported she kept ruminating about how she is unable to be with her family and how hard it has to be on them. Her negative thought patterns tend to lead to her feeling guilty and believing that she is a burden and too much on her family. Throughout group session client seemed to be seeking reassurance from group members. Client reported she is looking forward to her appointment next week about starting ECT therapy because giving her some sort of hope that she can eventually feel better since medication interventions and other interventions have been ineffective thus far. Client seemed benefit from verbalizing thoughts and feelings as well as receiving support by peers. Progress is variable with weekends being extremely difficult for client because she is more time to ruminate and Often is around her daughter which tends to trigger client. Eye Contact:: Fair Motor Activity:: Restless Appearance:: Casual Speech:: Appropriate Mood:: Anxious, Depressed, Other - Tearful Affect:: Flat Thoughts:: Circular, No evidence of hallucinations/delusions noted Staff Interventions:: Therapist used open-ended questions to elicit information about client's current stressors and mood state. Therapist was supportive by using active listening and reflection.
--- NOTE | 2017-12-31 11:58 | BH.SGPN ---
Service Group Progress Note - Session Psychotherapy Session #3 Date Open:: 12/31/17 Time Started:: 11:35 Time Stopped:: 12:30 Targeted Problem #:: 1 Type of Group:: Functional Skills Development - 7 participants Goal of Group:: The goal of group was to increase understanding of the different types of social support. Another goal was to identify one type of support the clients desire and establish one small step towards achieving that support. Client Response/Progress/Benefit:: Client responded well to session and appeared to be making progress in her ability to remain present within the group. She did well to engage in the group discussion reviewing potential signs that a social support system may be ineffective or lacking. Client appeared to benefit from the discussion reviewing the potential barriers to social supports, specifically of a codependent relationship on maintaining strong supports. Client further indicated connecting to the fellow group member suggestion of establishing and adhering to firm boundaries so as to prevent engagimng in codependent behavior such as reassurance seeking. Client expressed wanting to focus on improving upon her ability to clearly communicate her needs with support so that they may know how to best help. Recommended remaining in IOP to maintain stability and continue to work on addressing intrusive thoughts contributing to sx of anxiety and depression. Eye Contact:: Fair Motor Activity:: Appropriate Appearance:: Casual Speech:: Appropriate Mood:: Depressed Affect:: Flat Thoughts:: Linear, Logical, No evidence of hallucinations/delusions noted Staff Interventions:: Therapist facilitated group discussion on the different types of social support and importance of each type of support. A social support worksheet, was utilized to give clients direction in identifying which type of support they desired, how it will help, and identifying the first. small step towards the desired support. Therapist provided homework for each group member to try and accomplish the one small step each group member identified on the worksheet.
--- NOTE | 2017-12-31 12:17 | BH.MDN_ITS ---
Multi-Disciplinary Note - Note 45-min Individual Time Started:: 11:10 Date: 12/31/17 Purpose of session/treatment goals addressed:: The purpose of this session was to work on Goal #2, Objective #1 of client's treatment plan. Another goal was to address personal strengths, successes, and positives. Eye Contact:: Fair Motor Activity:: Appropriate - rocking leg at times Appearance:: Neat Speech:: Other - circumstantial, bringing topic back to guilt. Monotone Mood:: Dysthymic Affect:: Flat Thoughts:: Circular, Other - preoccupied with guilt, No evidence of hallucinations/delusions noted Staff Interventions:: Therapist used open-ended questions to explore client's current stressors, ruminations, and challenges. Therapist gently challenged client's negative thoughts and encouraged self-reassurance through having client identify and reframe her negative thoughts. Therapist used a modified DDD (delay, distract, decide) technique to promote emotional regulation when client experiences guilt. Therapist used strengths perspective to empower client on positives and progress. Therapist and client developed a rumination plan using DDD which client is to work on for homework with the help of her supports. Client Response:: Client responded well to session, sharing ruminating thoughts and receptive to gentle challenging from therapist. Therapist and client discussed the benefits of starting the session with positives, in which client reported personal successes from the weekend. Client stated she spent time with her and daughter, went to get groceries with her mother, crocheted, and went shopping. Client reported she became overwhelmed and emotional while out and tried to use deep breathing and mindfulness. Client reported some success with utilizing calming coping skills, but shared she continues to struggle with guilt. Client reported when she gets guilty thoughts she becomes sick, depressed , and anxious. With therapist elicitation, client challenged thoughts that bring on guilt and reframed them. Client and therapist discussed DDD and modified it to more effectively challenge ruminations. Client created a rumination plan to use when client gets a negative thought. Client agreed to communicate DDD and her rumination plan with her supports and practice using self-reassurance. Risks/Concerns:: Client reports chronic thoughts of suicide, denies plan or intent. Client shared she is following her safety plan with the support of her mother and stepfather. Client stated being hopeful for ECT to work which demonstrates future orientation. Progress Toward Goals/Plan:: Client demonstrating progress towards treatment goals as shown by client's continued ability to maintain safety as well as her report of implementing calming strategies and utilizing positive supports. Client continues to struggle with guilt, seeking reassurance from others, suicidal thoughts, and ruminations. However, client is showing progress during individual session with challenging negative thoughts and using self- reassurance. Client to continue IOP to prevent decompensation and promote emotional regulation. Time Stopped:: 12:00
--- NOTE | 2018-01-02 11:43 | BH.SGPN_ITS ---
Service Group Progress Note - Session Psychotherapy Session #1 Date Open:: 01/02/18 Time Started:: 09:03 Time Stopped:: 10:03 Targeted Problem #:: 1 Type of Group:: Process Goal of Group:: The goal of today's group was to check-in with client's mood, stressors, and positives, review homework and introduce topic for the day. Client Response/Progress/Benefit:: Client reported she had several doctor appointments recently because her anxiety seems to be exasperating some of her somatic issues. Client shared she feels more hopeful because after meeting with 1 of her doctors the doctor had told her that he had several patients have client reportedECT with success. She is holding onto hope that going through ECT is going to successfully help her manage her depression as well as reduce her anxiety. Client able to identify positives to be: ate breakfast breakfast, minute to muslim on Sunday, and has been walking. Client having a difficult time being able to see the positives unless encouraged by others. Client seems to be motivated to keep trying however may be putting all of her hope into ECT. Eye Contact:: Fair Motor Activity:: Restless Appearance:: Casual Speech:: Appropriate Mood:: Anxious, Depressed Affect:: Flat Thoughts:: Linear, Logical, No evidence of hallucinations/delusions noted Staff Interventions:: Therapist used open-ended questions to elicit information about client's current stressors and mood state. Therapist was supportive by using active listening and reflection.
--- NOTE | 2018-01-02 13:43 | BH.SGPN ---
Service Group Progress Note - Session Psychotherapy Session #2 Date Open:: 01/02/18 group members Time Started:: 10:17 Time Stopped:: 11:15 Targeted Problem #:: 1 Type of Group:: Illness Management Goal of Group:: To increase understanding of what stress is, identify current life stressors, and connect impact stressors have on mental health. Client Response/Progress/Benefit:: Client responded well to session, engaged through note-taking. Client appeared to connect with the quote stating, stress can make you have racing thoughts. Client helped the group process eustress versus unhealthy, chronic stress. Client identified her major stressors to be medications not working, worrying about her daughter, and guilt. Client stated her stress jar is overflowing which makes client feel overwhelmed, cry, sick, and increases mental health symptoms. Client shared she constantly feels like her stress jar is full. Client appeared to benefit from gaining awareness of her personal stressors and how stress impacts mental health. Client seems to be progressing as shown by her report of utilizing external supports, but continues to need frequent reassurance. Eye Contact:: Good Motor Activity:: Appropriate Appearance:: Casual Speech:: Appropriate Mood:: Anxious, Dysthymic Affect:: Constricted Thoughts:: Racing, No evidence of hallucinations/delusions noted Staff Interventions:: Therapist facilitated discussion about stress. Therapist facilitated an activity in which group members were asked to identify various stressors they have in their life currently. Therapist instructed group members to indicate if certain stressors were larger than others. Therapist led processing of each members stress jar and helped them connect impact the stress has on their mental health. Psychotherapy Session #3 Date Open:: 01/02/18 group members Time Started:: 11:25 Time Stopped:: 12:15 Targeted Problem #:: 1 Type of Group:: Functional Skills Development Goal of Group:: To identify what stressors have control over and what stressors have no control over. Another goal was to increase repertoire of healthy strategies to help manage stress. Client Response/Progress/Benefit:: Client responded well to session, active participant despite reporting high anxiety. Client appeared to connect with the activity stating, it takes time and help from others to manage stress. Client helped group process the importance of focusing on stressors in her control versus out of her control. Client nodded in agreement that focusing on stressors out of ones control is unhelpful. Client identified challenging her negative thoughts as a stressor in her control. Client helped the group develop stress management strategies including: deep breathing, going for walks, talk with supports, and be patient. Client appeared to benefit from increasing her repertoire of stress reduction techniques as well as from using in the moment calming strategies to reduce stress. Client seems to be progressing with increased awareness of the negative impacts of having an external locus of control, but continues to struggle with thought challenging. Eye Contact:: Good Motor Activity:: Appropriate Appearance:: Casual Speech:: Appropriate Mood:: Anxious Affect:: Flat Thoughts:: Linear, No evidence of hallucinations/delusions noted Staff Interventions:: Therapist facilitated discussion about control versus no control and helped group members connect the concept to stressors. Therapist led discussion about importance of putting forth more energy on those stressors they can control. Therapist led an activity aimed at inducing stress to help clients use in the moment coping strategies and support. Therapist facilitated brainstorming of strategies to help manage stress level. Therapist provided support by using active listening and providing feedback.
--- NOTE | 2018-01-02 13:47 | BH.SGPN_ITS ---
Service Group Progress Note - Session Psychotherapy Session #2 Date Open:: 01/02/18 group members Time Started:: 10:17 Time Stopped:: 11:15 Targeted Problem #:: 1 Type of Group:: Illness Management Goal of Group:: To increase understanding of what stress is, identify current life stressors, and connect impact stressors have on mental health. Client Response/Progress/Benefit:: Client responded well to session, engaged through note-taking. Client appeared to connect with the quote stating, ?stress can make you have racing thoughts. Client helped the group process eustress versus unhealthy, chronic stress. Client identified her major stressors to be medications not working, worrying about her daughter, and guilt. Client stated her stress jar is overflowing which makes client feel overwhelmed, cry, sick, and increases mental health symptoms. Client shared she constantly feels like her stress jar is full. Client appeared to benefit from gaining awareness of her personal stressors and how stress impacts mental health. Client seems to be progressing as shown by her report of utilizing external supports, but continues to need frequent reassurance. Eye Contact:: Good Motor Activity:: Appropriate Appearance:: Casual Speech:: Appropriate Mood:: Anxious, Dysthymic Affect:: Constricted Thoughts:: Racing, No evidence of hallucinations/delusions noted Staff Interventions:: Therapist facilitated discussion about stress. Therapist facilitated an activity in which group members were asked to identify various stressors they have in their life currently. Therapist instructed group members to indicate if certain stressors were larger than others. Therapist led processing of each member?s stress jar and helped them connect impact the stress has on their mental health. Psychotherapy Session #3 Date Open:: 01/02/18 group members Time Started:: 11:25 Time Stopped:: 12:15 Targeted Problem #:: 1 Type of Group:: Functional Skills Development Goal of Group:: To identify what stressors have control over and what stressors have no control over. Another goal was to increase repertoire of healthy strategies to help manage stress. Client Response/Progress/Benefit:: Client responded well to session, active participant despite reporting high anxiety. Client appeared to connect with the activity stating, it takes time and help from others? to manage stress. Client helped group process the importance of focusing on stressors in her control versus out of her control. Client nodded in agreement that focusing on stressors out of one?s control is unhelpful. Client identified challenging her negative thoughts as a stressor in her control. Client helped the group develop stress management strategies including: deep breathing, going for walks, talk with supports, and be patient. Client appeared to benefit from increasing her repertoire of stress reduction techniques as well as from using in the moment calming strategies to reduce stress. Client seems to be progressing with increased awareness of the negative impacts of having an external locus of control, but continues to struggle with thought challenging. Eye Contact:: Good Motor Activity:: Appropriate Appearance:: Casual Speech:: Appropriate Mood:: Anxious Affect:: Flat Thoughts:: Linear, No evidence of hallucinations/delusions noted Staff Interventions:: Therapist facilitated discussion about control versus no control and helped group members connect the concept to stressors. Therapist led discussion about importance of putting forth more energy on those stressors they can control. Therapist led an activity aimed at inducing stress to help clients use in the moment coping strategies and support. Therapist facilitated brainstorming of strategies to help manage stress level. Therapist provided support by using active listening and providing feedback.
--- NOTE | 2018-01-02 14:24 | BH.SGPN_ITS ---
Service Group Progress Note - Session Psychotherapy Session #3 Date Open:: 12/31/17 Time Started:: 11:35 Time Stopped:: 12:30 Targeted Problem #:: 1 Type of Group:: Functional Skills Development - 7 participants Goal of Group:: The goal of group was to increase understanding of the different types of social support. Another goal was to identify one type of support the client?s desire and establish one small step towards achieving that support. Client Response/Progress/Benefit:: Client responded well to session and appeared to be making progress in her ability to remain present within the group. She did well to engage in the group discussion reviewing potential signs that a social support system may be ineffective or lacking. Client appeared to benefit from the discussion reviewing the potential barriers to social supports , specifically of a codependent relationship on maintaining strong supports. Client further indicated connecting to the fellow group member suggestion of establishing and adhering to firm boundaries so as to prevent engagimng in codependent behavior such as reassurance seeking. Client expressed wanting to focus on improving upon her ability to clearly communicate her needs with support so that they may know how to best help. Recommended remaining in IOP to maintain stability and continue to work on addressing intrusive thoughts contributing to sx of anxiety and depression. Eye Contact:: Fair Motor Activity:: Appropriate Appearance:: Casual Speech:: Appropriate Mood:: Depressed Affect:: Flat Thoughts:: Linear, Logical, No evidence of hallucinations/delusions noted Staff Interventions:: Therapist facilitated group discussion on the different types of social support and importance of each type of support. A social support worksheet, was utilized to give clients direction in identifying which type of support they desired, how it will help, and identifying the first. small step towards the desired support. Therapist provided homework for each group member to try and accomplish the one small step each group member identified on the worksheet.
--- NOTE | 2018-01-03 14:09 | BH.SGPN ---
Service Group Progress Note - Session Psychotherapy Session #1 Date Open:: 01/03/18 Time Started:: 09:10 Time Stopped:: 10:00 Targeted Problem #:: 1 Type of Group:: Process Goal of Group:: The goal of today's group was to check-in with client's mood, stressors, and positives, review homework and introduce topic for the day. Client Response/Progress/Benefit:: Client reported she woke up this morning ruminating about her daughter. Reported she attempted to reframe her thoughts and pray which helped a little bit. Client reported today she is in the go for a walk and go out to get some tea. Client shared she is keep him on herself that her daughter does not care about her and by getting help is not stressing her daughter out more. Throughout group session client sought reassurance often about the same topic over and over again typically connected to something with her daughter. Client's anxious loop continues to be a hindrance to her treatment progress. However progress noted by client being able to recognize and attempt to challenge her unhealthy thinking. Eye Contact:: Fair - in the context of Motor Activity:: Restless Appearance:: Casual Speech:: Appropriate Mood:: Anxious Affect:: Congruent Thoughts:: Circular, No evidence of hallucinations/delusions noted Staff Interventions:: Therapist used open-ended questions to elicit information about client's current stressors and mood state. Therapist was supportive by using active listening and reflection.
--- NOTE | 2018-01-03 16:25 | BH.SGPN ---
Service Group Progress Note - Session Psychotherapy Session #2 Date Open:: 01/03/18 Time Started:: 10:13 Time Stopped:: 11:13 Targeted Problem #:: 1 Type of Group:: Illness Management - 7 participants Goal of Group:: To increase understanding of a crisis and improve client?s awareness of personal warning signs before crisis. Eye Contact:: Fair Motor Activity:: Appropriate Appearance:: Casual Speech:: Appropriate Mood:: Anxious, Dysthymic Affect:: Congruent Thoughts:: Linear, Logical, No evidence of hallucinations/delusions noted Staff Interventions:: Therapist facilitated group discussion about defining a crisis and specifying various events that are considered a crisis. Therapist led group in an activity in which group members had to identify their thoughts and emotions attached to being in a crisis. Therapist provided support by using active listening and providing feedback. Psychotherapy Session #3 Date Open:: 01/03/18 Time Started:: 11:22 Time Stopped:: 12:24 Targeted Problem #:: 1 Type of Group:: Functional Skills Development - 7 participants Goal of Group:: To increase awareness of warning signs before a crisis and identify interventions/coping strategies that would help clients proactively manage potential crises. Eye Contact:: Good Motor Activity:: Appropriate Appearance:: Casual Speech:: Appropriate Mood:: Anxious Affect:: Congruent Thoughts:: Linear, Logical, No evidence of hallucinations/delusions noted Staff Interventions:: Therapist led the group in discussion about identifying personal warning signs before a crisis and importance of being aware of those signs. Therapist provided the group with various types of items and asked each group member to select five items that represent something that would be helpful in managing their warning signs of a crisis. Therapist facilitated group processing of the crisis emergency kits each group member created. Therapist used open-ended questions to encourage elaboration of each item chosen for their kit. Therapist helped clients connect how the crisis emergency kit could help be a crisis prevention tool.
--- NOTE | 2018-01-04 14:29 | BH.SGPN ---
Service Group Progress Note - Session Psychotherapy Session #1 Date Open:: 01/04/18 Time Started:: 09:08 Time Stopped:: 10:10 Targeted Problem #:: 1 Type of Group:: Process - 8 participants Goal of Group:: The goal of today's group was to check-in with client's mood, stressors, and positives, review homework and introduce topic for the day. Client Response/Progress/Benefit:: Client was attentive and actively engaged in the discussion throughout. She provided positive feedback and encouragement to fellow participants as they shared with the group. Client discussed with the group increasing difficulty with focusing for the past few days and feeling stressed out. Client indicates ongoing difficulties in reducing her anxiety in the moment however has been making strides towards actively applying positive self talk strategies in order to calm her nerves. Client shared that her psychiatrist has also increased her Ativan rx which she is hopeful will help. She benefited from reviewing with the group various calming techniques that have worked in the past. Client continues to struggle with isolation and consistent implementation of skills learned. She is recommended continued IOP tx to further develop these skills. Eye Contact:: Good Motor Activity:: Appropriate Appearance:: Casual Speech:: Appropriate Mood:: Euthymic Affect:: Congruent Thoughts:: Linear, Logical, No evidence of hallucinations/delusions noted Staff Interventions:: Therapist used open-ended questions to elicit information about client's current stressors and mood state. Therapist was supportive by using active listening and reflection.
--- NOTE | 2018-01-04 14:51 | BH.SGPN_ITS ---
Service Group Progress Note - Session Psychotherapy Session #2 Date Open:: 01/04/18 - 9 group members Time Started:: 10:25 Time Stopped:: 11:15 Targeted Problem #:: 1 Type of Group:: Illness Management Goal of Group:: To increase understanding of the impact viewing situations as impossible can have on our mental health. Client Response/Progress/Benefit:: Client responded well to session, quiet, but participating when prompted. Client seemed to connect with the quote sharing ? anxiety makes something seem impossible.? Client stated ruminations and depression cause client to have a negative outlook and view situations as impossible when they most likely are not. Client participated in a group activity that at first seems impossible, but with teamwork can be accomplished. Client reported the activity helped client learn to ask for and accept support. Client appeared to benefit from gaining awareness of the negative implications of having an impossible mindset. Progress noted in client's ability to maintain safety. Eye Contact:: Fair Motor Activity:: Slowed Appearance:: Casual Speech:: Appropriate Mood:: Anxious, Dysthymic Affect:: Flat Thoughts:: Racing, No evidence of hallucinations/delusions noted Staff Interventions:: Therapist facilitated discussion about what it means to overcome what seems impossible. Therapist led group in an activity that would initially seem impossible to complete, but once group members looked at the problem in a different way they would be able to see alternative solutions. Therapist utilized the activity as a tool to discuss overcoming those situations that seem impossible to get through. Psychotherapy Session #3 Date Open:: 01/04/18 - 10 group members Time Started:: 11:25 Time Stopped:: 12:15 Targeted Problem #:: 1 Type of Group:: Functional Skills Development Goal of Group:: To identify personal barriers that get in the way of accomplishing tasks and identify internal and external resources to help overcome difficult situations. Client Response/Progress/Benefit:: Client responded well to session, active through note-taking. Client reflected on the activity and shared you can't give up in impossible situations. Client reported her personal barriers are negative thinking, guilt, and low self-esteem. Client shared she has improved her ability to challenge negative thoughts, which client once thought would be impossible. Client helped the group identify internal and external resources to help overcome barriers. Client reported coping skills that help her are journaling positives, reframing thoughts, going to counseling, and talking with positive supports. Client appeared to benefit from identifying internal and external strategies to help client overcome negative thinking and other barriers. Client progressing as shown by her report of improved through challenging, but can continue to benefit from increased mood stability. Eye Contact:: Fair Motor Activity:: Appropriate Appearance:: Casual Speech:: Soft Mood:: Anxious, Dysthymic Affect:: Flat Thoughts:: Racing, No evidence of hallucinations/delusions noted Staff Interventions:: Therapist facilitated discussion about internal and external resources and helped clients connect various internal resources they use. Therapist provided group members with a handout that gave information about various external resources the clients could utilize to get support. Therapist gave clients a worksheet in which they were asked to identify several barriers that get in their way to overcoming difficult situations. They also were asked to identify several internal and external resources they could use when needed.
--- NOTE | 2018-01-04 14:53 | PN_ITS ---
Progress Note Patient is seen in follow-up for major depressive disorder recurrent severe, OCD , PTSD. Case discussed with treatment team. History obtained per interview with patient, discussion with staff, review of chart. Chief complaint-anxious and depressed. I just keep ruminating and worrying. Interim history Patient reports ongoing depressive symptoms stating that she feels not much improvement. She continues to struggle daily with social and familial functioning. She endorses a sad mood with anhedonia and thoughts of . She reports previous thoughts of suicide by carbon monoxide. She denies current suicide plan or intent. She feels able to maintain safety with the assistance of her family. She is currently staying with her parents who have secured car keys, excess medications, and knives. She denies access to firearms. She continues to have obsessive thoughts and seeks constant reassurance. Continues to have ruminative anxiety about the well-being of her daughter although attempts to use meyers mind and cognitive reframing of distorted thoughts. No homicidal ideation. No symptoms consistent with psychosis. Sleeping from 11 PM to 5 AM but states she awakes with ruminating thoughts. Appetite is fair. Reports diarrhea associated with IBS. Denies vomiting but notes occasional symptoms of GERD. Continues to endorse symptoms consistent with PTSD including flashbacks, intrusive thoughts and hypervigilance. Compliant with medications including Luvox 200 mg daily, gabapentin 600 mg 3 times daily, trazodone 100 mg nightly, and Klonopin 1 mg twice daily. Denies adverse effects to medications. Denies ingestion of alcohol or illicit drugs. Reports she currently has an appointment for ECT evaluation with Dr. Tres Winn January 10. Mental status exam Patient is alert and oriented in no acute distress. She is ambulatory with normal gait and station. She is casually dressed and groomed. She is cooperative with the interview. She has good eye contact. There is mild psychomotor retardation. Mood is depressed. Affect congruent. Speech is clear and of regular rate and volume. Language fluent. Thought process organized. Associations logical. Thought content significant for ruminative anxiety and perseverative thoughts. Passive thoughts of . No current suicide plan or intent. Feels able to maintain safety. No homicidal ideation related to detected. No evidence of psychosis related or detected. Immediate recent and remote memory grossly intact. Attention and concentration are fair. Estimated intelligence fund of knowledge average. Judgment and insight are limited to fair. Diagnosis Major depressive disorder recurrent severe OCD PTSD History of trichotillomania Continue IOP as the structured setting is necessary to prevent decompensation. Patient will likely benefit from ongoing IOP treatment. Risks benefits alternatives of medications discussed with patient. Patient acknowledges understanding. She will increase her Luvox. Prescription provided for Luvox ER 150 mg p.o. twice daily. Dispense #60 with 0 refills. Continue gabapentin 600 mg 3 times daily. Continue trazodone 100 mg nightly. Continue Klonopin 1 mg p.o. twice daily. Continue vitamin D supplement. Further lab work will be obtained as needed. ECT evaluation scheduled with Dr. Winn January 10. 18 minutes of Insight oriented psychotherapy provided. Patient acknowledges understanding and is in agreement with plan. She feels able to maintain safety. She agrees to seek help or emergency care feeling unsafe to self or others.
--- NOTE | 2018-01-07 14:49 | BH.SGPN_ITS ---
Service Group Progress Note - Session Psychotherapy Session #2 Date Open:: 01/07/18 group members Time Started:: 10:17 Time Stopped:: 11:15 Targeted Problem #:: 1 Type of Group:: Illness Management Goal of Group:: To increase understanding of communication and the various types of communication. Another goal was to increase understanding of impact communication styles can have. Client Response/Progress/Benefit:: Client responded well to session, providing input when prompted by therapist. Client appeared to connect with quote sharing our supports won't know how to help if we don't tell them. Client helped group identify various communication styles and reported she uses the passive type. Client expressed I apologize for everything and I don't want to hurt people's feelings. Client reflected being passive causes low self-esteem and leads client to not express her needs. Client appeared to benefit from learning the different types of communication styles as well as increasing awareness of communication impacts mental health. Client progressing as shown by her report of setting boundaries at [facility], but continues to struggle with managing ruminations during group which may hinder progress. Eye Contact:: Fair Motor Activity:: Slowed Appearance:: Casual Speech:: Appropriate Mood:: Anxious, Dysthymic Affect:: Flat Thoughts:: Other - preoccupied, No evidence of hallucinations/delusions noted Staff Interventions:: Therapist facilitated the group discussion about communication and explained the different types of communication. Therapist assisted group members in connecting the communication styles to the way they communicate and impact the communication style has on their relationships. Therapist provided support by using active listening and providing feedback. Psychotherapy Session #3 Date Open:: 01/07/18 group members Time Started:: 11:25 Time Stopped:: 12:15 Targeted Problem #:: 1 Type of Group:: Functional Skills Development Goal of Group:: To identify important components of communication and practice specific, clear communication. Client Response/Progress/Benefit:: Client responded well to session, active participant. Client reported she wants to be more assertive, but struggled with using assertive communication in the activity. Client helped the group identify strategies to increase assertive communication including managing emotions, taking breaks, and sharing triggers and warning signs. Client reported she has been working on setting boundaries as part of assertive communication which has been helpful. Client appeared to benefit from identifying ways to improve her communication. Client progressing with setting boundaries, but continues to struggle with expressing her needs and opinions with others. Eye Contact:: Fair Motor Activity:: Slowed Appearance:: Casual Speech:: Other - circumstantial- bringing discussion back to ruminations of her daughter's mental health. Mood:: Anxious, Dysthymic Affect:: Flat Thoughts:: Other - preoccupied, No evidence of hallucinations/delusions noted Staff Interventions:: Therapist led the discussion about important components of effective communication. Therapist provided each group member with the same three materials and broke the group into pairs. Therapist facilitated a communication activity in which the group members would have to achieve a goal by using effective communication to achieve such goal. Therapist processed the activity with the group.
--- NOTE | 2018-01-07 15:07 | BH.SGPN ---
Service Group Progress Note - Session Psychotherapy Session #1 Date Open:: 01/07/18 Time Started:: 09:05 Time Stopped:: 10:05 Type of Group:: Process - 6 group members Goal of Group:: The goal of today's group was to check-in with client's mood, stressors, and positives, review homework and introduce topic for the day. Client Response/Progress/Benefit:: Pt was attentive however visibly upset AEB by crying. Ruminating a great deal on not being a good mother. Group provided support and encouragement. Therapist helped guide pt through challenging her thoughts by herself w/o the assistance of others which she was able to do. She is hopeless that she will have depression, guilt, and anxiety for the rest of her life. Also beleives that she is negatively effecting his daughter due to living her her mother. Limited progress noted. Has appt for ECT this week. IOP currently being used to maintain safety, prevent further decompensation, and provide support. Eye Contact:: Poor Motor Activity:: Restless Appearance:: Disheveled Speech:: Appropriate Mood:: Depressed Affect:: Flat Thoughts:: Linear, Logical, No evidence of hallucinations/delusions noted Staff Interventions:: Therapist used open-ended questions to elicit information about client's current stressors and mood state. Therapist was supportive by using active listening and reflection.
--- NOTE | 2018-01-09 11:57 | BH.SGPN_ITS ---
Service Group Progress Note - Session Psychotherapy Session #1 Date Open:: 18 - 8 group members Time Started:: 09:06 Time Stopped:: 10:15 Targeted Problem #:: 1 Type of Group:: Process Goal of Group:: The goal of today's group was to check-in with client's mood, stressors, and positives, and review homework. Client Response/Progress/Benefit:: Client responded well to session, provided supportive statements to peers. Client reports feeling overwhelmed today as client shared her mental health symptoms continue to take over. Client stated she plans to go for a walk and spend time with a friend today to manage symptoms and calm herself down. Client reported she started crocheting again which demonstrates progress as client could not do this activity a few weeks ago due to her symptoms. Client continues to ruminate on her daughter?s stress and feeling guilty, but with therapist elicitation client redirected the thoughts and focused on positives. Client appeared to benefit from reflecting on progress and challenging ruminations during session. Client can continue to benefit from consistently implementing healthy coping skills and reframing thoughts to promote gains and prevent decompensation. Eye Contact:: Good Motor Activity:: Appropriate Speech:: Appropriate Mood:: Anxious, Dysthymic Affect:: Constricted - improvement in affect compared to previous session, client laughing with peers at times. Thoughts:: Circular, No evidence of hallucinations/delusions noted Staff Interventions:: Therapist used open-ended questions to elicit information about client's current stressors and mood state. Therapist was supportive by using active listening and reflection. Therapist guided client in challenging ruminations and reframing negative thoughts.
--- NOTE | 2018-01-09 14:13 | BH.MDN ---
Multi-Disciplinary Note - Note 45-min Individual Time Started:: 12:40 Date: 01/09/18 Purpose of session/treatment goals addressed:: The purpose of this session was to work on goal #2 objective #1 of client's treatment plan. Another goal was to identify small successes and review healthy coping skills to reduce depression and anxiety. Other topics included aftercare options for mental health groups. Eye Contact:: Good Motor Activity:: Restless Appearance:: Casual Speech:: Appropriate Mood:: Anxious, Dysthymic Affect:: Constricted - became tearful when discussing personal strengths. Thoughts:: Circular, No evidence of hallucinations/delusions noted Staff Interventions:: Therapist used active listening and open-ended questions to explore client's current stressors, ruminations, and use of coping skills. Therapist guided client in reframing negative thoughts and focusing on positives. Therapist helped client normalize her daughter's behavior and provided psychoeducation on depression. Therapist reviewed client's rumination plan, discussed healthy coping skills, and used strengths perspective to empower client. Client Response:: Client responded well to session, open to meeting with therapist. Client reported she continues to feel overwhelmed by her depression, OCD, and anxiety, but able to identify positives such as I'm still here and I and taking care of myself. Client shared her mother and stepfather have been very helpful in following clients safety plan. Client stated she is hopeful ECT treatment will work for her as client's medication trials and traditional therapy have not been fully effective in reducing depressive symptoms and intrusive thoughts. Client shared she continues to have ruminations about her daughter which increases guilt. Client utilized her rumination plan to reframe her negative thoughts and normalize her daughter's behavior. Client and therapist discussed thoughts are just thoughts and the value client puts on thoughts. Client recognized that when she has excessive guilt and thoughts about being a bad mom it's my depression talking. Client shared she has been consistent with journaling positives, spending time with supports, and walking each day. Client started crocheting which was a goal she created a few weeks ago. Client was receptive to praise given by therapist regarding this success. Client and therapist discussed mental health groups in the area that client could begin post IOP discharge. Client was agreeable to trying [facility] and a [facility]. Risks/Concerns:: Client endorses chronic suicidal thoughts, but reports reduced intent. Client is actively following her safety plan with the support of her parents. Client feels able to maintain safety with safety plan in place. Client reports looking forward to ECT which demonstrates future orientation. Progress Toward Goals/Plan:: Client demonstrating progress towards treatment goals as shown by client's continued ability to maintain safety with reduced suicidal intent. Client has also shown progress per her report of implementing calming strategies, crocheting, and utilizing positive supports. Client continues to struggle with guilt, seeking reassurance from others, suicidal thoughts, and ruminations. However, client is showing progress during individual session with challenging negative thoughts and reframing ruminations. Client to continue IOP to prevent decompensation and promote emotional regulation. Client to follow up with ECT consultation tomorrow, 01/10/18. Time Stopped:: 13:20
--- NOTE | 2018-01-09 14:46 | BH.MDN_ITS ---
Multi-Disciplinary Note - Note 45-min Individual Time Started:: 12:40 Date: 01/09/18 Purpose of session/treatment goals addressed:: The purpose of this session was to work on goal #2 objective #1 of client's treatment plan. Another goal was to identify small successes and review healthy coping skills to reduce depression and anxiety. Other topics included aftercare options for mental health groups. Eye Contact:: Good Motor Activity:: Restless Appearance:: Casual Speech:: Appropriate Mood:: Anxious, Dysthymic Affect:: Constricted - became tearful when discussing personal strengths. Thoughts:: Circular, No evidence of hallucinations/delusions noted Staff Interventions:: Therapist used active listening and open-ended questions to explore client's current stressors, ruminations, and use of coping skills. Therapist guided client in reframing negative thoughts and focusing on positives. Therapist helped client normalize her daughter's behavior and provided psychoeducation on depression. Therapist reviewed client's rumination plan, discussed healthy coping skills, and used strengths perspective to empower client. Client Response:: Client responded well to session, open to meeting with therapist. Client reported she continues to feel overwhelmed by her depression, OCD, and anxiety, but able to identify positives such as I'm still here and I and taking care of myself. Client shared her mother and stepfather have been very helpful in following client?s safety plan. Client stated she is hopeful ECT treatment will work for her as client's medication trials and traditional therapy have not been fully effective in reducing depressive symptoms and intrusive thoughts. Client shared she continues to have ruminations about her daughter which increases guilt. Client utilized her rumination plan to reframe her negative thoughts and normalize her daughter's behavior. Client and therapist discussed ?thoughts are just thoughts? and the value client puts on thoughts. Client recognized that when she has excessive guilt and thoughts about being a bad mom it's my depression talking. Client shared she has been consistent with journaling positives, spending time with supports, and walking each day. Client started crocheting which was a goal she created a few weeks ago. Client was receptive to praise given by therapist regarding this success. Client and therapist discussed mental health groups in the area that client could begin post IOP discharge. Client was agreeable to trying [facility] and a [facility]. Risks/Concerns:: Client endorses chronic suicidal thoughts, but reports reduced intent. Client is actively following her safety plan with the support of her parents. Client feels able to maintain safety with safety plan in place. Client reports looking forward to ECT which demonstrates future orientation. Progress Toward Goals/Plan:: Client demonstrating progress towards treatment goals as shown by client's continued ability to maintain safety with reduced suicidal intent. Client has also shown progress per her report of implementing calming strategies, crocheting, and utilizing positive supports. Client continues to struggle with guilt, seeking reassurance from others, suicidal thoughts, and ruminations. However, client is showing progress during individual session with challenging negative thoughts and reframing ruminations. Client to continue IOP to prevent decompensation and promote emotional regulation. Client to follow up with ECT consultation tomorrow, . Time Stopped:: 13:20
--- NOTE | 2018-01-09 16:17 | BH.SGPN ---
Service Group Progress Note - Session Psychotherapy Session #2 Date Open:: 01/09/18 Time Started:: 10:20 Time Stopped:: 11:15 Targeted Problem #:: 1 Type of Group:: Illness Management - 7 group members Goal of Group:: To increase understanding of cognitive distortions, identify examples of when have had unhelpful thinking, and increase awareness of the impact cognitive distortions have on mental health. Eye Contact:: Fair Motor Activity:: Restless Appearance:: Casual Speech:: Appropriate Mood:: Anxious, Depressed Affect:: Flat Thoughts:: Circular, No evidence of hallucinations/delusions noted Staff Interventions:: Therapist provided group members with a handout that listed ten cognitive distortions with examples. Therapist facilitated group discussion about cognitive distortions. Therapist led group members in an activity to help them understand the impact cognitive distortions can have on emotions and behavior. Therapist provided support by using active listening and providing feedback. Psychotherapy Session #3 Date Open:: 01/09/18 Time Started:: 11:30 Time Stopped:: 12:20 Targeted Problem #:: 1 Type of Group:: Functional Skills Development - 7 group members Goal of Group:: To identify ways of defeating cognitive distortions and rehearse defeating the identified cognitive distortion. Eye Contact:: Fair Motor Activity:: Restless Appearance:: Casual Speech:: Appropriate Mood:: Anxious, Depressed, Other - Tearful Affect:: Labile Thoughts:: Circular - Ruminations about daughter and feeling guilty, No evidence of hallucinations/delusions noted Staff Interventions:: Therapist utilized an activity as a tool in helping clients connect the amount of effort one will need to put forth to defeat cognitive distortions. Therapist provided group members with a handout to use as an aid when trying to defeat their unhelpful thinking. Therapist processed the worksheet with group members, helping them reframe the cognitive distortions.
--- NOTE | 2018-01-11 15:35 | BH.SGPN_ITS ---
Service Group Progress Note - Session Psychotherapy Session #1 Date Open:: 01/11/18 Time Started:: 09:05 Time Stopped:: 10:15 Targeted Problem #:: 1 Type of Group:: Process - 7 participants Goal of Group:: The goal of today's group was to check-in with client's mood, stressors, and positives, review homework and introduce topic for the day. Client Response/Progress/Benefit:: Client attentive and openly shared with the group. She discussed having had a rough day yesterday as she was feeling short of breath and continued to struggle with managing symptoms of anxiety due to increased worry related to physical health. Client indicates that she is feelin better today and is a little less anxious as a result. She continues to struggle with managing symptoms or implementing calming strategies in the moment. Client reports plans to spend Easter with one of the other residents in her biulding and went on to discuss plans to watch crime dramas and attend congregational. Client appeared to benefit from the supportive environment of the group and relating to experiences of fellow participants. Recommended continued IOP to work on increasing implementation of health anxiety reducing skills. Eye Contact:: Fair Motor Activity:: Appropriate Appearance:: Casual Speech:: Appropriate Mood:: Euthymic Affect:: Congruent Thoughts:: Linear, Logical, No evidence of hallucinations/delusions noted Staff Interventions:: Therapist used open-ended questions to elicit information about client's current stressors and mood state. Therapist was supportive by using active listening and reflection.
--- NOTE | 2018-02-18 13:45 | BH.SGPN_ITS ---
Service Group Progress Note - Session Psychotherapy Session #2 Date Open:: 01/11/18 Time Started:: 10:30 Time Stopped:: 11:20 Targeted Problem #:: 1 Type of Group:: Illness Management Goal of Group:: To increase understanding of cognitive distortions, identify examples of when have had unhelpful thinking, and increase awareness of the impact cognitive distortions have on mental health. Eye Contact:: Fair Motor Activity:: Appropriate Appearance:: Casual Speech:: Appropriate Mood:: Anxious Affect:: Congruent Thoughts:: Linear, Logical, No evidence of hallucinations/delusions noted Staff Interventions:: Therapist provided group members with a handout that listed ten cognitive distortions with examples. Therapist facilitated group discussion about cognitive distortions. Therapist led group members in an activity to help them understand the impact cognitive distortions can have on emotions and behavior. Therapist provided support by using active listening and providing feedback. Psychotherapy Session #3 Date Open:: 01/11/18 Time Started:: 11:30 Time Stopped:: 12:20 Targeted Problem #:: 1 Type of Group:: Functional Skills Development Goal of Group:: To identify ways of defeating cognitive distortions and rehearse defeating the identified cognitive distortion. Eye Contact:: Fair Motor Activity:: Appropriate Appearance:: Casual Speech:: Appropriate Mood:: Anxious Affect:: Congruent Thoughts:: Linear, Logical, No evidence of hallucinations/delusions noted Staff Interventions:: Therapist utilized an activity as a tool in helping clients connect the amount of effort one will need to put forth to defeat cogn itive distortions. Therapist provided group members with a handout to use as an aid when trying to defeat their unhelpful thinking. Therapist processed the worksheet with group members, helping them reframe the cognitive distortions.
== END 2018-01-12 23:59 ==
LOC: BHIOP 09:00
PROVIDERS: Family Provider Family Medicine; PCP Family Medicine; Visit Provider Psychiatry & Neurology Psychiatry
DX: F33.2 Major depressive disorder, recurrent severe without psychotic features (principal); F43.10 Post-traumatic stress disorder, unspecified; F42.9 Obsessive-compulsive disorder, unspecified
CPT/HCPCS: H0035; 90834; 90837; 90847; 90853

== ENCOUNTER → 2017-12-31 16:09 | Outpatient (CLI) | payer BC, SELFPAY ==
[2017-12-31 19:27] LABS: Chlamydia Trachomatis by PCR Negative (Negative); Neisserai gonorrhoeae by PCR Negative (Negative); Probe Check PASS; Sample Adequacy Control PASS; Specimen Processing Control PASS
== END ==
PROVIDERS: Visit Provider Obstetrics & Gynecology
DX: Z11.3 Encounter for screening for infections with a predominantly sexual mode of transmission (principal)
CPT/HCPCS: 87491; 87591

== ENCOUNTER → 2018-01-01 14:24 | Outpatient (CLI) | payer BC, SELFPAY ==
--- NOTE | 2018-01-01 14:27 | HPBI_ITS ---
MAMMOGRAPHY - BILATERAL SCREENING REASON FOR EXAM: Female, 42 years old. Routine annual screening examination. PERTINENT HISTORY: Personal history of breast cancer. Prior right lumpectomy and right stereotactic breast biopsy. TECHNIQUE: Digital bilateral breast yeyo (3D mammographic acquisition) in the CC and MLO projections. 2-D mediolateral oblique (MLO) and craniocaudad (CC) views of both breasts were obtained. CAD: Full Field Digital Mammography with Computer Added Detection was performed. COMPARISON: Comparison is made with prior study dated November 27, 2016. FINDINGS: Breast Composition: The breasts are heterogeneously dense, which may obscure small masses. There are no dominant masses or suspicious calcifications. The patient is status post lumpectomy in the upper outer quadrant of the right breast with resultant postoperative scarring. The calcifications are not seen at this time. No other significant abnormalities are identified. HPBI/SCREENING MAMM (CAD), BILAT IMPRESSION: No suspicious abnormality is seen at this time. Yearly follow-up mammogram recommended. (A) ASSESSMENT CATEGORY: BIRADS Category 2: Benign. A letter regarding these results will be sent to the patient by the facility within 30 days. Approximately 10% of breast cancers are not detected by mammography. A normal mammogram should not delay biopsy of a clinically suspicious abnormality. [id number] Electronically Signed: Juwan Fay MD at 15:51 EDT Tel [phone], Service support ,
== END ==
PROVIDERS: Family Provider Family Medicine; PCP Family Medicine; Visit Provider Obstetrics & Gynecology
DX: Z12.31 Encounter for screening mammogram for malignant neoplasm of breast (principal)
CPT/HCPCS: 77063; 77067

== ENCOUNTER → 2018-01-11 13:34 | Outpatient (CLI) | payer BC, SELFPAY ==
[2018-01-11 14:33] LABS: Absolute Lymphocyte Count 1.73 X10^3/ul (0.83-4.51); Absolute Neutrophil Count 4.5 X10^3/uL (2.0-7.7); Basophil# 0.02 X10^3/uL; Basophil% 0.3 % (0-1); Eosinophil# 0.18 X10^3/uL; Eosinophils% 2.6 % (0-5); Hematocrit 41.2 % (37-47); Hemoglobin 13.6 g/dl (12.0-15.0); Lymphocyte # 1.73 X10^3/ul (4.0); Lymphocyte % 25.2 % (19-41); Mean Corpuscular Hgb 33.2 pg (27.0-32.0); Mean Corpuscular Volume 100.5 fL (81-99); Mean Platelet Vol. 10.2 fl (6.2-12.0); Monocyte# 0.47 X10^3/uL; Monocyte% 6.8 % (0-10); Neutrophil # 4.46 X10^3/uL (2.7-7.7); Platelet Count 242 K/mm3 (150-450); RBC Distribution Width CV 11.7 % (11.6-14.6); RBC Distribution Width SD 42.6 fl (35.1-43.9); White Blood Count 6.9 K/mm3 (4.4-11.0)
[2018-01-11 14:34] LABS: POSITIVE COUNT NO; POSITIVE DIFFERENTIAL NO; POSITIVE MORPHOLOGY NO
[2018-01-11 15:05] LABS: Anion Gap 9 (5-15); BUN 17 mg/dL (7-18); BUN/Creat Ratio 21.7 RATIO (10-20); Calcium,Total 8.6 mg/dL (8.5-10.1); Chloride 103 mmol/L (98-107); Creatinine, Serum 0.78 mg/dL (0.55-1.02); EST Glomerular Filtration Rate 85 mL/min (>60); Est Glom Filt Rate - Afr Amer 103 mL/min (>60); Glucose 94 mg/dL (74-106); Potassium 3.8 mmol/L (3.5-5.1); Sodium Level 140 mmol/L (136-145)
== END ==
PROVIDERS: Family Provider Family Medicine; PCP Family Medicine
DX: Z79.899 Other long term (current) drug therapy (principal)
CPT/HCPCS: 36415; 80048; 85025

== ENCOUNTER 2018-01-15 09:00 | Outpatient (RCR) | payer OTHER, SELFPAY ==
--- NOTE | 2018-01-15 10:36 | BH.COMM ---
Communication Note - Communication with Client Communication Note: Therapist called client's outpatient psychiatrist, Dr. Dolan, to follow up on a referral to the depression group at [facility]. Dr. Dolan left a message sharing she would refer client to the group as part of client's aftercare post IOP discharge.
--- NOTE | 2018-01-15 12:32 | BH.SGPN ---
Service Group Progress Note - Session Psychotherapy Session #1 Date Open:: 01/15/18 Time Started:: 09:03 Time Stopped:: 10:10 Targeted Problem #:: 1 Type of Group:: Process - 5 participants Goal of Group:: The goal of today's group was to check-in with client's mood, stressors, and positives, review homework and introduce topic for the day. Client Response/Progress/Benefit:: Client was attentive and actively engaged throughout session. She did wellt o provide input to fellow participants as they shared and openly discussed current thoughts, feelings, and concerns. Client discussed being able to successfully spend the entire hol with her daughter and family without becoming overwhelmingly anxious. CLient futher indicated that reminding herself to take things slowly and maintaining consistent communication with her aided most in managing anxiety. Client went on to reflect on her first psychology appointment occurring yesterday. She did well to identify the positive events of the weekend and benefited from doing so as this allowed CLient to reflect upon progress made. Client displayed progress in her ability to identify and challenge egative thinking patterns as they occurred. Continued IOP to maintain consistent use of skills learned. Eye Contact:: Good Motor Activity:: Appropriate Appearance:: Casual Speech:: Appropriate Mood:: Anxious, Dysthymic Affect:: Congruent Thoughts:: Linear, Logical, No evidence of hallucinations/delusions noted Staff Interventions:: Therapist used open-ended questions to elicit information about client's current stressors and mood state. Therapist was supportive by using active listening and reflection.
--- NOTE | 2018-01-15 14:42 | BH.SGPN ---
Service Group Progress Note - Session Psychotherapy Session #2 Date Open:: 01/15/18 Time Started:: 10:20 Time Stopped:: 11:20 Targeted Problem #:: 1 Type of Group:: Illness Management - 7 group members Goal of Group:: To increase understanding and awareness of emotions connected to change and the impact those emotions can have on change. Client Response/Progress/Benefit:: Client listened attentively to others, contributed to discussion at times. Client appeared anxious during challenge activity, able to stay engaged and not give up. Client seemed to connect importance of communication and adapting to change when processing activity. Client identified she plans to use today's topic into her daily life by working on disputing cognitive distortions, specifically when client predicts the future. Client shared one small change she is willing to make is journaling from positives from her day. Seemed to benefit from identifying one small change she is willing to do that can benefit her mental health. Eye Contact:: Fair Motor Activity:: Appropriate Appearance:: Casual Speech:: Appropriate Mood:: Anxious, Depressed Affect:: Constricted Thoughts:: Linear, No evidence of hallucinations/delusions noted Staff Interventions:: Therapist facilitated group discussion about change. Therapist led the group in an activity in which the activity was utilized as a tool to increase clients awareness of emotions connected with change. Therapist led the processing of how each emotion was connected with change. Therapist provided psychoeducation process of change, helped group members apply it to their life. Therapist was supportive by providing feedback and using reflective listening. Psychotherapy Session #3 Date Open:: 01/15/18 Time Started:: 11:30 Time Stopped:: 12:20 Targeted Problem #:: 1 Type of Group:: Functional Skills Development - 6 group members Goal of Group:: To identify the challenges associated with making change and identify positive outcomes that have resulted from changes made in past. Eye Contact:: Fair Motor Activity:: Appropriate Appearance:: Casual Speech:: Appropriate Mood:: Anxious, Depressed Affect:: Constricted Thoughts:: Linear, No evidence of hallucinations/delusions noted Staff Interventions:: Therapist led group in an activity to help group members recognize the challenges associated with change. Therapist utilized activity as a tool to identify ways to manage changes and adapt to the challenges that ensue. Therapist facilitated group discussion about positive outcomes from change.
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
--- NOTE | 2018-01-16 11:29 | BH.SGPN ---
Service Group Progress Note - Session Psychotherapy Session #1 Date Open:: 18 - 8 participants Time Started:: 09:03 Time Stopped:: 10:10 Targeted Problem #:: 1 Type of Group:: Process Goal of Group:: The goal of today's group was to check-in with client's mood, stressors, and positives, and review homework. Client Response/Progress/Benefit:: Client responded well to session, active participant and providing supportive statements to peers. Client reports feeling anxious and depressed today as she continues to struggle with frequent intrusive thoughts mainly regarding her daughter and parenting. Client shared she had a crying spell last night and felt overwhelmed, but reported she used deep breathing and reframing thoughts to calm down so she could spend time with her daughter. Client shared some of her current negative thoughts and reframed them during session with limited help from therapist. Client stated she is trying to remain hopeful ECT will work for her. Client reported she is scheduled to get an CT scan as part of the initial process for ECT. Client appeared to benefit from challenging cognitive distortions and reframing intrusive thoughts during session. Client demonstrating progress as shown by her reduction in risk for suicide and her increased use of healthy coping skills. Eye Contact:: Good Motor Activity:: Appropriate Appearance:: Casual Speech:: Appropriate Mood:: Dysthymic Affect:: Constricted - laughing at times with peers Thoughts:: Circular, No evidence of hallucinations/delusions noted Staff Interventions:: Therapist used open-ended questions to elicit information about client's current stressors and mood state. Therapist was supportive by using active listening and reflection.
--- NOTE | 2018-01-18 10:00 | BH.AFTERPLAN ---
Aftercare Plan - Demographics Treatment End Date:: 01/18/18 Psychiatrist:: Desi Montiel Psychiatrist Office #:: [id number] [facility]/IOP Therapist:: Leyla Fuentes Therapist Phone #:: [phone] - Medications Home Medications: Home Medications Clonazepam [Klonopin] 1 mg PO BID 12/22/16 Levothyroxine [Synthroid] 75 mcg PO DAILY 12/22/16 traZODone [Desyrel] 100 mg PO QHS 12/22/16 Cholecalciferol (Vitamin D3) [Vitamin D3] 1 tablet PO DAILY 11/10/17 Pantoprazole Sodium [Protonix] 40 mg PO DAILY 11/10/17 Fluvoxamine Maleate [Luvox] 200 mg PO DAILY 11/25/17 Gabapentin [Neurontin] 300 mg PO TID 12/21/17 - Plan Details Progress/Aftercare Plan Details:: You have demonstrated progress with being safe and following your safety plan! You have not had any readmissions into the hospital, which is huge progress. You have improved with reframing negative intrusive thoughts. You have been consistent with journaling positives and your progress which has helped you not focus on the negative. You have been increasing your time spent with positive supports and have been setting boundaries. You have put your mental health as a priority and you have been taking care of yourself. Strategies for Success:: 1. Reframe, reframe, reframe!! 2. Remeber to breathe! Slow deep breaths from your belly and using positive self-talk. 3. Keep up with journaling positives and progress, do this daily to help focus on the improvements you are making. 4. Thoughts are thoughts, NOT facts! this goes for our thoughts and other people's. 5. Take it day by day! 6. Keep your reminder sheet somewhere you can see it! and read it every morning. 7. Use guided imagery, mindfulness, prayer, crocheting, walking, and drinking tea. 8. Use your positive supports and set boundaries! 9. 5-4-3-2-1 (5 senses). 10. Emotions come and go, this is true for ourselves and others. 11. Accept things that are out of your control, and focus on what you can control. 12. Remember you are strong and you can't pour from an empty cup. - Appointments Appointments/Referrals to Other Services:: 1. Dr. Joe 01/24/18 at 12:00pm 2. [facility] 01/23/18 from 1:30-3:00pm 3. Appointment with Dr. Dolan 02/26/18. 4. CAT scan tomorrow 01/19/18 with plans to then schedule ECT treatment.
--- NOTE | 2018-01-18 10:07 | BH.IGGP_ITS ---
Aftercare Plan - Demographics Treatment End Date:: 01/18/18 Psychiatrist:: Desi Montiel Psychiatrist Office #:: [id number] [facility]/IOP Therapist:: Leyla Fuetnes Therapist Phone #:: [phone] - Medications Home Medications: Home Medications Clonazepam [Klonopin] 1 mg PO BID 12/22/16 Levothyroxine [Synthroid] 75 mcg PO DAILY 12/22/16 traZODone [Desyrel] 100 mg PO QHS 12/22/16 Cholecalciferol (Vitamin D3) [Vitamin D3] 1 tablet PO DAILY 11/10/17 Pantoprazole Sodium [Protonix] 40 mg PO DAILY 11/10/17 Fluvoxamine Maleate [Luvox] 200 mg PO DAILY 11/25/17 Gabapentin [Neurontin] 300 mg PO TID 12/21/17 - Plan Details Progress/Aftercare Plan Details:: You have demonstrated progress with being safe and following your safety plan! You have not had any readmissions into the hospital, which is huge progress. You have improved with reframing negative intrusive thoughts. You have been consistent with journaling positives and your progress which has helped you not focus on the negative. You have been increasing your time spent with positive supports and have been setting boundaries. You have put your mental health as a priority and you have been taking care of yourself. Strategies for Success:: 1. Reframe, reframe, reframe!! 2. Remeber to breathe! Slow deep breaths from your belly and using positive self-talk. 3. Keep up with journaling positives and progress, do this daily to help focus on the improvements you are making. 4. Thoughts are thoughts, NOT facts! this goes for our thoughts and other people's. 5. Take it day by day! 6. Keep your reminder sheet somewhere you can see it! and read it every morning. 7. Use guided imagery, mindfulness, prayer, crocheting, walking, and drinking tea. 8. Use your positive supports and set boundaries! 9. 5-4-3-2-1 (5 senses). 10. Emotions come and go, this is true for ourselves and others. 11. Accept things that are out of your control, and focus on what you can control. 12. Remember you are strong and you can't pour from an empty cup. - Appointments Appointments/Referrals to Other Services:: 1. Dr. Joe 01/24/18 at 12:00pm 2. [facility] 01/23/18 from 1:30-3:00pm 3. Appointment with Dr. Dolan 02/26/18. 4. CAT scan tomorrow 01/19/18 with plans to then schedule ECT treatment.
--- NOTE | 2018-01-18 11:01 | BH.MDN ---
Multi-Disciplinary Note - Note 45-min Individual Time Started:: 10:10 Date: 01/18/18 Purpose of session/treatment goals addressed:: The purpose of this session was to establish aftercare, evaluate progress, and review healthy coping strategies. Another goal was to promote use of in the moment thought challenging and reframing. Eye Contact:: Fair Motor Activity:: Appropriate Appearance:: Casual Speech:: Soft, Other - circumstantial Mood:: Dysthymic Affect:: Flat Thoughts:: Circular - bringing topic back to parenting and guilt., No evidence of hallucinations/delusions noted Staff Interventions:: Therapist used active listening and open-ended questions to explore client's progress, aftercare, and emotions about discharge. Therapist helped client create a list of healthy coping skills and strategies to promote emotional regulation and keep client progressing. Therapist used strengths perspective to empower client on her progress. Therapist encouraged client to reframe negative thoughts and provided client with a guided imagery resource. Client Response:: Client responded well to session, reporting she is sad to be leaving [facility], but is ready to start the next part of her treatment. Client reflected on her progress stating, I've gotten better at reframing I think, but I'm a work in progress. Client stated she understands she has more progress to make before she can return to her daily functioning, but was happy with her ability to remain out of the hospital and gain healthy coping strategies. Client also identified progress with journaling positives, focusing on small goals, and setting boundaries. Client identified her strategies for success to be reframe thoughts, deep breathing, take it one day at a time, thoughts are just thoughts, maintain a self-care schedule, and practice mindfulness. Client continues to report struggling with guilt and normalizing her daughter's behavior. Client was able to reframe her guilt during session stating, I shouldn't be guilty, I'm taking care of myself. Client stated she plans to write a forgiveness letter to her daughter to help her let go of the past. Client expressed gratitude to [facility] staff and scheduled a follow up session with this therapist for 01/29/18. Client asked for resources on guided imagery and reported her plans to attend the depression group at the counseling center next week. Risks/Concerns:: Client reports chronic suicidal thoughts stating, the thoughts are always there, but there's no intent Client reports ability to maintain safety and shared her family is a reason to live. Client reports looking forward to starting ECT which demonstrates future orientation. Progress Toward Goals/Plan:: Client has shown moderate progress towards treatment goals as she has not had any psychiatric hospitalization during her time in IOP and reports increased ability to reframe intrusive thoughts. Client has progressed with de-escalating crisis symptoms, focusing on positives, and reports increased assertive communication and boundary setting. Client to discharge from [facility] and follow up with Dr. Joe for outpatient counseling. Time Stopped:: 10:55
--- NOTE | 2018-01-18 11:04 | BH.MDN_ITS ---
Multi-Disciplinary Note - Note 45-min Individual Time Started:: 10:10 Date: 01/18/18 Purpose of session/treatment goals addressed:: The purpose of this session was to establish aftercare, evaluate progress, and review healthy coping strategies. Another goal was to promote use of in the moment thought challenging and reframing. Eye Contact:: Fair Motor Activity:: Appropriate Appearance:: Casual Speech:: Soft, Other - circumstantial Mood:: Dysthymic Affect:: Flat Thoughts:: Circular - bringing topic back to parenting and guilt., No evidence of hallucinations/delusions noted Staff Interventions:: Therapist used active listening and open-ended questions to explore client's progress, aftercare, and emotions about discharge. Therapist helped client create a list of healthy coping skills and strategies to promote emotional regulation and keep client progressing. Therapist used strengths perspective to empower client on her progress. Therapist encouraged client to reframe negative thoughts and provided client with a guided imagery resource. Client Response:: Client responded well to session, reporting she is sad to be leaving [facility], but is ready to start the next part of her treatment. Client reflected on her progress stating, I've gotten better at reframing I think, but I'm a work in progress. Client stated she understands she has more progress to make before she can return to her daily functioning, but was happy with her ability to remain out of the hospital and gain healthy coping strategies. Client also identified progress with journaling positives, focusing on small goals, and setting boundaries. Client identified her strategies for success to be reframe thoughts, deep breathing, take it one day at a time, thoughts are just thoughts, maintain a self-care schedule, and practice mindfulness. Client continues to report struggling with guilt and normalizing her daughter's behavior. Client was able to reframe her guilt during session stating, I shouldn't be guilty, I'm taking care of myself. Client stated she plans to write a forgiveness letter to her daughter to help her let go of the past. Client expressed gratitude to [facility] staff and scheduled a follow up session with this therapist for 01/29/18. Client asked for resources on guided imagery and reported her plans to attend the depression group at the counseling center next week. Risks/Concerns:: Client reports chronic suicidal thoughts stating, the thoughts are always there, but there's no intent Client reports ability to maintain safety and shared her family is a reason to live. Client reports looking forward to starting ECT which demonstrates future orientation. Progress Toward Goals/Plan:: Client has shown moderate progress towards treatment goals as she has not had any psychiatric hospitalization during her time in IOP and reports increased ability to reframe intrusive thoughts. Client has progressed with de-escalating crisis symptoms, focusing on positives, and reports increased assertive communication and boundary setting. Client to discharge from [facility] and follow up with Dr. Joe for outpatient counseling. Time Stopped:: 10:55
--- NOTE | 2018-01-18 11:04 | BH.DS ---
Discharge Summary - Demographics Date of Admission:: 12/05/17 Discharge Date: 01/18/18 Presenting Problems at Admission:: Patient is a 42-year-old female with diagnosis of major depressive disorder, OCD, and PTSD. Client presented to [facility], following three psychiatric hospitalizations between October and November 2017, endorsing a depressed mood with anhedonia, decreased energy, difficulty concentrating, and suicidal thoughts. Additionally, client endorsed ruminative anxiety, panic attacks, intrusive thoughts, guilt, and lack of appetite with weight loss. Client reported chronic passive thoughts of throughout [facility] as well, but reported ability to maintain safety with the help of her support system. Discharge Diagnoses:: Major depressive disorder recurrent severe F33.2; OCD; PTSD Reason for Discharge:: Client has made moderate progress towards treatment goals as shown by client's ability to maintain safety, increase implementation of coping skills, and reduce suicidal ideation and intent. Additionally, client plans to start ECT therapy for ongoing treatment of her depression and OCD. - Treatment Progress During Treatment & Response: Client appeared to respond well to treatment as client was consistent with attendance, receptive to learning coping skills, and open to including her supports. Client was a positive group member and often offered supportive statements to peers who were struggling. Client reported individual and group sessions helped her learn a lot of coping skills and ways to challenge her thoughts, but expressed it was hard for her to concentrate and apply the skills due to her intrusive thoughts and ruminations. Client shared she is hopeful ECT will make it easier for her to apply the skills. Client demonstrated progress with maintaining safety and reducing suicidal ideation and intent. Client shared when she started the program her suicidal ideation and intent were a 4 out of 5 with 5 being severe, but finishing the program SI was a 2 out of 5. Client also shared an increased ability to reframe intrusive thoughts and identify cognitive distortions, though the symptoms continued to interfere with her daily functioning. Client has progressed with focusing on positives, assertive communication, and boundary setting. Client also demonstrated progress with incorporating daily self-care and reframing negative core beliefs. Issues Still to be Addressed:: Client can continue to benefit from following up with her outpatient providers to expand and reinforce emotional regulation skills, reframing intrusive thoughts, and applying techniques learned in individual and group sessions. Client can also continue to benefit from writing in her progress journal, communicating mental health needs with her support system, setting boundaries, and challenging cognitive distortions. Unable to work extensively on exposure response prevention strategies while in IOP, but client could benefit from continued work on this intervention while in outpatient counseling as client's long-term goal is to return home with her and daughter. Client reported enjoying the group setting, and could continue to benefit from ongoing engagement in mental health support groups. Discharge Recommendations/Instructions:: Client is recommended to follow up with her outpatient counselor, Dr. Joe, her next appointment is on 01/24/18 at 12:00p.m. Client is also recommended to follow up with her outpatient psychiatrist, Dr. Dolan, on 02/26/18 at [facility]. Client reports plan to attend a depression group at [facility] beginning 01/23/18. Client has an appointment for a CT scan tomorrow at [facility] and reports ECT will be scheduled after the results of client's CT scan. Discharge Handout: Complete Discharge Handout with client on aftercare options and continuity of care.
--- NOTE | 2018-01-18 13:09 | BH.SGPN ---
Service Group Progress Note - Session Psychotherapy Session #3 Date Open:: 01/21/18 Time Started:: 11:15 Time Stopped:: 12:10 Targeted Problem #:: 1 Type of Group:: Functional Skills Development Goal of Group:: To increase awareness of warning signs before a crisis and identify interventions/coping strategies that would help clients proactively manage potential crises. Client Response/Progress/Benefit:: Pt listened attentively and contributed to discussion at times. Pt related to the crisis cycle able to connect importance of having coping skills that she can use to avoid going into peak and coping strategies that can help her de-escalate once in peak. Pt shared for her crisis survival kit she chose a tea bag to remind her drinking tea is calming. Chose a shell and rock to remind her nature is often calming for her when in distress. Pt reported she chose a heart to remind her of her loving family and support system. Pt seemed to benefit from increasing awareness of her warning signs as well as identifying coping strategies that could be of help when aware of warning signs. Eye Contact:: Good Motor Activity:: Appropriate Appearance:: Casual Speech:: Appropriate Mood:: Anxious Affect:: Congruent Thoughts:: Linear, No evidence of hallucinations/delusions noted Staff Interventions:: Therapist led the group in discussion about identifying personal warning signs before a crisis and importance of being aware of those signs.Therapist provided the group with various types of items and asked each group member to select five items that represent something that would be helpful in managing their warning signs of a crisis. Therapist facilitated group processing of the crisis emergency kits each group member created. Therapist used open-ended questions to encourage elaboration of each item chosen for their kit. Therapist helped clients connect how the crisis emergency kit could help be a crisis prevention tool.
--- NOTE | 2018-01-18 16:11 | BH.SGPN_ITS ---
Service Group Progress Note - Session Psychotherapy Session #1 Date Open:: 01/18/18 Time Started:: 09:00 Time Stopped:: 10:00 Type of Group:: Process - 9 group members Goal of Group:: The goal of today's group was to check-in with client's mood, stressors, and positives, review homework and introduce topic for the day. Client Response/Progress/Benefit:: Pt spoke when prompted however was attentive throughout the group. Shared with the group that this is her last day in the IOP program. She discussed her aftercare plans. She is very anxious about discharge however group was supportive. Pt is following up with aftercare group , counseling, and ECT as her symptoms continue to affect her daily functioning. Pt was tearful and beleives that this program has been extremely helpful in managing her symptoms and keeping her out of the hospital. Progress noted in the IOP program and she has reached maximum benefit from this program. Eye Contact:: Fair Motor Activity:: Restless Appearance:: Casual Speech:: Appropriate Mood:: Anxious Affect:: Congruent Thoughts:: Linear, Logical, No evidence of hallucinations/delusions noted Staff Interventions:: Therapist used open-ended questions to elicit information about client's current stressors and mood state. Therapist was supportive by using active listening and reflection.
== END 2018-01-18 14:00 | disposition home or self-care (01) ==
LOC: BHIOP 09:00
PROVIDERS: Family Provider Family Medicine; PCP Family Medicine; Visit Provider Psychiatry & Neurology Psychiatry
DX: F33.2 Major depressive disorder, recurrent severe without psychotic features (principal); F42.9 Obsessive-compulsive disorder, unspecified; F43.10 Post-traumatic stress disorder, unspecified; Z79.899 Other long term (current) drug therapy
CPT/HCPCS: H0035; 90834; 90853

== ENCOUNTER → 2018-01-19 10:38 | Outpatient (CLI) | payer BC, SELFPAY ==
--- NOTE | 2018-01-19 06:59 | CT_ITS ---
STUDY: CT BRAIN WITHOUT CONTRAST REASON FOR EXAM: Female, 42 years old. ALTERED MENTAL STATUS. RADIATION DOSAGE (If Supplied By Facility): CTDIvol = ( 44.99 ) mGy, DLP = ( 745.49 ) mGycm TECHNIQUE: Transaxial CT imaging of the brain was performed without administration of intravenous contrast material. Individualized dose optimization techniques were used for this CT. COMPARISON: None. FINDINGS: Normal soft tissue structures. Normal calvarium. Normal size ventricles and extra-axial spaces for the patient's age. Normal white matter tracts of the cerebral hemispheres. Normal basal ganglia and thalami. Normal brainstem. Normal cerebellum. There is no intracranial hemorrhage. There are no findings of an acute ischemic infarction. Normal visualized paranasal sinuses. CT/Brain/Head without Contrast IMPRESSION: Normal unenhanced CT scan of the brain. Electronically Signed: Luana Mortensen MD at 8:12 EDT Tel , Service support ,
== END ==
PROVIDERS: Family Provider Family Medicine; PCP Family Medicine
DX: R41.82 Altered mental status, unspecified (principal)
CPT/HCPCS: 70450

== ENCOUNTER → 2018-02-20 16:04 | Outpatient (CLI) | payer BC, SELFPAY ==
[2018-02-20 17:52] LABS: Absolute Lymphocyte Count 1.72 X10^3/ul (0.83-4.51); Absolute Neutrophil Count 3.7 X10^3/uL (2.0-7.7); Basophil# 0.02 X10^3/uL; Basophil% 0.3 % (0-1); Eosinophil# 0.23 X10^3/uL; Eosinophils% 3.7 % (0-5); Hematocrit 39.8 % (37-47); Lymphocyte # 1.72 X10^3/ul (4.0); Lymphocyte % 27.7 % (19-41); Mean Corp Hgb Conc 32.7 g/gl (32-36); Mean Corpuscular Hgb 32.3 pg (27.0-32.0); Mean Platelet Vol. 10.2 fl (6.2-12.0); Neutrophil # 3.74 X10^3/uL (2.7-7.7); Neutrophil % 60.1 % (47-70); Platelet Count 212 K/mm3 (150-450); RBC Distribution Width CV 12.8 % (11.6-14.6); RBC Distribution Width SD 46.7 fl (35.1-43.9); Red Blood Count 4.02 M/mm3 (4.2-5.4); White Blood Count 6.2 K/mm3 (4.4-11.0)
[2018-02-20 17:54] LABS: POSITIVE COUNT NO; POSITIVE DIFFERENTIAL NO; POSITIVE MORPHOLOGY NO
[2018-02-20 18:20] LABS: T4 Free Direct 0.93 ng/dL (0.76-1.46); Thyroid Stim Hormone (TSH) 2.44 uIU/mL (0.358-3.74)
== END ==
PROVIDERS: Family Provider Family Medicine; PCP Family Medicine; Visit Provider Family Medicine
DX: R50.9 Fever, unspecified (principal); F41.9 Anxiety disorder, unspecified
CPT/HCPCS: 36415; 84439; 84443; 85025

== ENCOUNTER 2018-04-23 10:03 | Emergency (ER) | payer BC, SELFPAY ==
[2018-04-23] VITALS (10 sets, daily range): BP systolic 99–113; BP diastolic 64–78; PULSE 65–101; RESP 16–18; TEMP 36.7; O2SAT 97–100; BMI 20.2
--- NOTE | 2018-04-23 10:13 | EKG12_ITS ---
Test Reason : SUICIDAL Blood Pressure : / mmHG Vent. Rate : 084 BPM Atrial Rate : 084 BPM P-R Int : 126 ms QRS Dur : 080 ms QT Int : 352 ms P-R-T Axes : 063 072 062 degrees QTc Int : 415 ms Normal sinus rhythm Normal ECG Confirmed by CANDI MARTINEZ, LIT ([id number]), deputy editor in chief KRIS BRIAN ([id number]) on 04/25/2018 1:45:16 PM Referred By: MOSHE Confirmed By:LIT CHRISTOPHER MD
--- NOTE | 2018-04-23 10:27 | ED.DCSUM_ITS ---
- ER Visit Summary Date of Service: 04/23/18 Chief Complaint: Suicidal ideation History of Present Illness: The patient is a 43 F who comes the emergency department under a pink slip from her psychiatrist. Patient apparently had a appointment this morning which she stated that because she is not getting better from her GERD/anxiety/depression/OCD she wishes to kill herself by carbon monoxide. Patient has had this planned in the past. Patient states she really does not wish to go to the hospital and she is here under protest. Physical Examination: Afebrile vital signs are stable Gen: Well-nourished well-developed Head: Normocephalic atraumatic Eyes: Perrl EOMI ENT: TMs clear no rhinorrhea moist mucous membranes Neck: Supple no lymphadenopathy no JVD nontender CVS: Regular rate rhythm no murmurs normal S1-S2 Respiratory: No distress clear to auscultation bilaterally chest nontender Abdomen: Soft nontender nondistended normal bowel sounds no masses Back: Nontender Extremity: Nontender no edema Skin: Normal color no rash Neuro: alert orientated ?3 CN II-XII intact normal strength sensation reflexes gait cerebellar Psych: Flat affect. Suicidal thoughts with plan. Test Results: EGD demonstrates normal sinus rhythm at a rate of 84. Emergency Department Course and Treatment: Patient was cleared for psychiatric and crisis evaluation. Crisis will be in to evaluate the patient to help facilitate transfer to inpatient care. Impression: 1. Suicidal ideation with plan This note was generated with [employer] dictation software. It may contain incorrect words, spelling, and punctuation that were not noted in review of the chart prior to signing ED Disposition - Plan for ED Patient: Chief Complaint: Suicidal Referrals: Nick Martinez MD [Primary Care Provider] -
[2018-04-23 10:43] LABS: Absolute Lymphocyte Count 1.21 X10^3/ul (0.83-4.51); Absolute Neutrophil Count 4.3 X10^3/uL (2.0-7.7); Basophil# 0.02 X10^3/uL; Basophil% 0.3 % (0-1); Eosinophil# 0.15 X10^3/uL; Eosinophils% 2.4 % (0-5); Hemoglobin 13.2 g/dl (12.0-15.0); Lymphocyte # 1.21 X10^3/ul (4.0); Lymphocyte % 19.1 % (19-41); Mean Corp Hgb Conc 33.8 g/gl (32-36); Mean Corpuscular Hgb 34.5 pg (27.0-32.0); Mean Corpuscular Volume 101.8 fL (81-99); Monocyte% 9.5 % (0-10); Neutrophil # 4.34 X10^3/uL (2.7-7.7); Neutrophil % 68.7 % (47-70); POSITIVE COUNT NO; POSITIVE DIFFERENTIAL NO; POSITIVE MORPHOLOGY NO; Platelet Count 186 K/mm3 (150-450); RBC Distribution Width CV 12.7 % (11.6-14.6); RBC Distribution Width SD 46.7 fl (35.1-43.9); Red Blood Count 3.83 M/mm3 (4.2-5.4); White Blood Count 6.3 K/mm3 (4.4-11.0)
[2018-04-23 11:08] LABS: AST(SGOT) 19 U/L (15-37); Alanine Aminotransfer ALT/SGPT 23 U/L (13-56); Albumin, Serum 3.9 g/dL (3.2-5.0); Alkaline Phosphatase 38 U/L (45-117); Anion Gap 5 (5-15); BUN 13 mg/dL (7-18); BUN/Creat Ratio 13.3 RATIO (10-20); Calcium,Total 8.7 mg/dL (8.5-10.1); Chloride 106 mmol/L (98-107); Creatinine, Serum 0.98 mg/dL (0.55-1.02); EST Glomerular Filtration Rate 66 mL/min (>60); Est Glom Filt Rate - Afr Amer 80 mL/min (>60); Estimated Creatinine Clearance 62.54 ml/min; Globulin 3.8 g/dL (2.2-4.2); Glucose 81 mg/dL (74-106); Potassium 3.8 mmol/L (3.5-5.1); Protein, Total 7.7 g/dL (6.4-8.2); Sodium Level 141 mmol/L (136-145); Thyroid Stim Hormone (TSH) 3.37 uIU/mL (0.358-3.74)
[2018-04-23 11:12] LABS: Pregnancy, Serum, hCG Quali. NEGATIVE Negative (0-9 Nonpreg)
[2018-04-23 11:12] LABS: Amphetamine Urine VISTA NEGATIVE (<1000 ng/mL); Barbiturate Urine VISTA NEGATIVE (< 200 ng/mL); Benzodiazepine Urine VISTA POSITIVE (< 200 ng/mL); Cocaine Urine VISTA NEGATIVE (< 300 ng/mL); Ecstacy Urine VISTA POSITIVE (< 500 ng/mL); Methadone Urine VISTA NEGATIVE (< 300 ng/mL); PCP Urine VISTA NEGATIVE (< 25 ng/mL); THC Urine VISTA NEGATIVE (< 50 ng/mL); Vista UDS pH Range 5
[2018-04-23 12:09] LABS: Alcohol, Blood (Medical)-Serum < 3.0 mg/dL
--- NOTE | 2018-04-23 12:18 | PCA ---
[facility] NOTIFIED PT IS HERE AND NEEDS EVALUATED WAITING FOR ADMINISTRATIVE PROJECT COORDINATOR TO CALL BACK
--- NOTE | 2018-04-23 13:14 | NURSING ---
CALLED [facility]. AUGUSTUS IS ON HER WAY OVER
[2018-04-23] MEDS: Gabapentin 600 MG Tablet PO (13:39)
[2018-04-23] MEDS: clonazePAM 1 MG Tablet PO (13:39)
--- NOTE | 2018-04-23 14:59 | NURSING ---
CHART FAXED TO [facility] TRANSFER LINE
--- NOTE | 2018-04-23 15:34 | NURSING ---
ACCEPTED AT [facility]
[2018-04-23 15:42] LABS: Mucous, Urine 0 SEEN /hpf (<or=2+)
[2018-04-23 15:44] LABS: Color, Urine Yellow (Yellow); Glucose, Dipstick Normal (Normal); Ketone-Dipstick Negative (Negative); Leukocyte Esterase-Dipstick 500 /ul (Negative); Nitrite-Dipstick Negative (Negative); Occult Blood-Urine 25 /ul (Negative); Protein-Dipstick Negative (Negative); Urine Bilirubin Dipstick Negative (Negative); Urine Clarity Sl. Cloudy (Clear); Urine Urobilinogen Normal (Normal)
[2018-04-23 16:08] LABS: Amorphous Sediment 1+ URATE; Bacteria RARE /hpf (None Seen); Red Blood Cells-Urine 0-5 SEEN /hpf (0-5); Squamous Epithelial Cells - UA 5-10 SEEN /hpf (5-10); White Blood Cells 10-25 SEEN /hpf (0-5)
[2018-04-23] MEDS: Ibuprofen 200 MG Tablet 800 MG PO (16:32)
--- NOTE | 2018-04-23 17:52 | NURSING ---
[address] REPORT [phone]
--- NOTE | 2018-04-23 18:19 | NURSING ---
CALLED [facility] FOR TRANSPORT . ETA 15 TO 20
--- NOTE | 2018-04-23 19:44 | NURSING ---
TALISHA ARRIVED AND TOOK [facility] TO TAKE THE PT TO [facility].
== END 2018-04-23 19:44 ==
PROVIDERS: Emergency Provider Emergency Medicine; Family Provider Family Medicine; PCP Family Medicine
DX: R45.851 Suicidal ideations (principal); F32.9 Major depressive disorder, single episode, unspecified; F41.9 Anxiety disorder, unspecified; K21.9 Gastro-esophageal reflux disease without esophagitis; F42.8 Other obsessive-compulsive disorder
CPT/HCPCS: 36415; 80053; 80307; 80320; 81001; 84443; 84703; 85025; 93005; 99285; G0480

== ENCOUNTER 2018-05-13 08:30 | Outpatient (RCR) | payer OTHER, SELFPAY ==
--- NOTE | 2018-05-13 09:05 | BH.SGPN.GN ---
Behaviors/Verbalizations/Mental Status: [Client maintained fair, often inconsistent eye contact - looking at ground much of session, disheveled - hair needing brushed, motor activity lethargic - closed body language, speech rate and tone WNL - limited input provided, mood depressed, anxious, affect flat, constricted, thoughts linear and logical, no evidence of delusions or hallucinations. Therapist reviewed clients symptom tracker to assess for intensity of mental health symptoms and identify risk for suicide. No signs of suicidal ideation, plan, or intent to date.] Client Response/Progress/Benefit: [Client willing to attend session and remained an active listener throughout, though passive participant. This was clients first day back to the IOP program and she was still adjusting to the group environment. She appeared to benefit from the structure of the group environment as well as the supportive feedback provided. She displayed progress in her ability to manage rumination and symptoms of anxiety as compared to prior baseline. Client recommended continued IOP tx to prevent decompensation and improve use of anxiety management and thought challenging skills ] Narrative Note: []
--- NOTE | 2018-05-13 10:35 | BH.SGPN.GN ---
Behaviors/Verbalizations/Mental Status: []Client alert and oriented, casually dressed. Eye contact fair. Motor activity slowed. Speech monotone, slowed. Affect flat, mood dysthymic, anxious. Client appeared fatigued. Thoughts linear, logical, no signs of hallucinations or delusions. Client Response/Progress/Benefit: []Client responded well to session, quiet, but engaged through note-taking. Client nodded in agreement with peers that depression, anxiety, and negative thinking can lead to an impossible mindset which could lead to a person not making helpful changes. Client passive participant in activity, client did not share ideas with peers, but was receptive. Client listened as the group processed what helped the group be successful such as communication, working together, and positive outlook. Client appeared to benefit from recognizing the consequences of viewing situations as impossible. Clients first day in PHP, so no progress to document at this time. Client to continue PHP to prevent decompensation, reduce ruminations, and increase emotional regulation.
--- NOTE | 2018-05-13 11:32 | BH.SGPN.GN ---
Behaviors/Verbalizations/Mental Status: []Client alert and oriented, neatly dressed and groomed. Eye contact fair. Motor activity slowed. Speech slowed, monotone, soft. Affect flat, mood dysthymic, fatigued, anxious. Thoughts linear, logical, no signs of hallucinations or delusions Client Response/Progress/Benefit: []Client responded well to session, quiet, but participating when prompted. Client appeared to connect with growth versus fixed mindset as client stated she tends to have a fixed mindset when faced with new situations. Client helped the group process the benefits of adapting to a more growth-focused mindset. Client identified getting over my trichotillomania as a time when client thought something would be impossible to get past, but she was able to overcome. Client able to identify internal and external resources that can help client overcome current barriers of anxiety and rumination such as thought challenging and reaching out to positive supports. Client appeared to benefit from learning about growth-mindset and increasing awareness of internal and external resources that may help client overcome current barriers. Client to continue PHP to prevent decompensation and promote mood stability.
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
--- NOTE | 2018-05-13 15:24 | BH.MDN ---
Multi-Disciplinary Note - Note 45-min Individual Time Started:: 12:43 Date: 05/13/18 Purpose of session/treatment goals addressed:: The purpose of this session was to establish treatment goals, create a safety plan, and address client's current psychosocial stressors. Eye Contact:: Fair Appearance:: Casual Speech:: Other - monotone, stuttering, slow formation of sentences Mood:: Anxious, Dysthymic Affect:: Flat Thoughts:: Linear, Logical, No evidence of hallucinations/delusions noted Staff Interventions:: Therapist used open-ended questions and active listening to explore client's current psychosocial stressors and treatment goals. Therapist used a safety plan template to assess risk, identify warning signs, and create a list of strategies and supports client can use should she feel unsafe. Therapist used strengths-perspective to empower client on the progress she has made since last [facility] admission. Therapist had client identify positive changes she has recognizes since her first admission and to start writing in her positivity journal again for homework. Client Response:: Client responded well to session, open to meeting with therapist. Client shared she has returned to [facility] after a recent admission at an inpatient psychiatric hospital. Client reported she had been coping relatively well until client went on vacation with her and daughter. Client shared on their return client had increased anxiety and suicidal ideation which client expressed to her new psychiatrist. Client reported belief her admission was not needed as client felt able to maintain safety at her mother's house and client shared if her renal case manager would have been present at client's psychiatrist appointment client would not have been admitted. Client participated in ECT therapy for 15 sessions after discharging from [facility] in January and has been seeing Dr. Joe for outpatient counseling. Client shared belief the ECT was helpful in reducing depression, but client continues to feel high anxiety. Client stated it's like a vicious cycle as client's anxiety feeds into client's depression and suicidal ideation. Client reported she would like to work on being less hard on myself, setting emotional boundaries, reframing negative core beliefs, and reducing guilt while in [facility]. Client completed her safety plan and reported belief she can maintain safety tonight. Client reflected on her progress since previous [facility] admission and shared I'm not crying as much and I'm staying with my mom less. Client reported this admission in [facility] she feels somewhat better and more able to concentrate. Client and therapist talked about how client may benefit more from PHP this time around now that she has reduced symptoms and can focus better on learning and applying the skills. Risks/Concerns:: Client reports chronic suicidal ideation, but with reduced frequency. Client completed safety plan with therapist and contracted for safety. Client shared her family and wanting to get better are her reasons to live. Client denied access to weapons or stockpiles of medication. Client reported her mother and keep client's car keys as a protective factor. Progress Toward Goals/Plan:: Progress limited as it is client's first day in PHP. Client was a previous PHP/IOP client, and since her last admission reported reduced depressive and OCD symptoms which demonstrates progress. Client also reports reduced frequency of suicidal thoughts and increased engagement with her and daughter which demonstrates progress. Client continues to endorse chronic suicidal thoughts, intrusive thoughts, depressed mood, negative core beliefs, severe anxiety, and inappropriate guilt. Client to continue PHP to prevent decompensation, promote safety, and increase mood stability. Time Stopped:: 13:30
--- NOTE | 2018-05-13 16:10 | BH.MTP_ITS ---
[facility] - Patient Information Program Physician:: Desi Montiel Primary Therapist:: Leyla Fuentes - Psychiatric Diagnoses Psychiatric Diagnoses:: Major depressive disorder recurrent severe of F33.2; OCD Diagnosis Code(s):: F33.2; F42 - Estimated LOS Estimated LOS (in weeks):: 1 Problem/Goal #1 - Problem/Goal #1 Stated Goal:: Client will reduce depression, feelings of hopelessness, and suicidal ideation due to Major Depressive Disorder. Description of Barriers: Client continues to report high anxiety associated with her daughter's well-being and client's role as a mother. Client also continues to report guilt and negative core beliefs. Client states her medication makes her feel extreme fatigue and low energy. Client endorses a depressed mood, rumination, obsessive thoughts, anhedonia, and poor concentration. Client shares ongoing stomach issues which client recognizes is connected to her depression and anxiety. Client states her reassurance and verbalizing questions brought on by OCD has decreased, but client continues to struggle with ?letting thoughts go? and reports rumination. Functional Impact: Client is a 43-year-old female known to the behavioral medicine IOP staff through previous participation in the [facility] in October 2017. Client has had 3 inpatient psychiatric hospitalizations since October 2017 for depression, obsessive thoughts and suicidal ideation. Client? s most recent inpatient psychiatric hospitalization was at [facility] April 24 - April 29 for suicidal ideation with a plan. Client completed 15 sessions of ECT in December at [facility] with Dr. Winn and Dr. Mayorga and states that the ECT did result in some improvement in her depression, but she continues to have anxiety and rumination. Client endorses some mild to moderately depressed mood with anhedonia and decreased energy. Client continues to have chronic suicidal thoughts, but of decreased in intensity and frequency. She continues to have ruminative anxiety about multiple issues including recent health issues, her quality of life, and her daughter. Client reports that her OCD symptoms of reassurance seeking have decreased, but continues to have intrusive thoughts. Goal Relevant Strengths/Supports: Client reports a strong support system in her , mother, family friend, and step-father. Since client last IOP admission , client reports reduced frequency of suicidal thoughts, reduced depression, and less reassurance seeking which demonstrates progress. Client is intelligent , compassionate, and loves her family. Client reports increased use of coping skills and reduced avoidance behaviors since her last admission as well. - Objectives Objective #1 Stated Objective: Client will work with therapist to develop a ?crisis plan? which includes emergency telephone numbers, 3-4 coping strategies for SI, lists of supports, positive aspects of her life, and motivations Interventions: Therapist will provide list of crisis phone numbers and resources. Therapist will work with client to identify effective coping strategies, supports, and steps to take in time of mental health crisis. Discharge Criteria: Client will have achieved this goal once she completes her safety plan and is able to utilize coping and thought replacement strategies. Target Date: 05/20/18 Review Date: 05/20/18 Status: open Objective #2 Stated Objective: Client will identify and replace 2-3 negative thinking patterns that mediate feelings of hopelessness and guilt. Interventions: Through groups and individual therapy, client will be provided with education on cognitive distortions, mistaken beliefs, and identifying and combating negative self-talk. Therapist will help client explore connection between thoughts, feelings, and actions and help client reframe depressive thought patterns. Discharge Criteria: client will be able to identify 2-3 negative thinking patterns and be able to effectively stop, challenge, or cope with those negative thoughts. Target Date: 05/20/18 Review Date: 05/20/18 Status: open Problem/Goal #2 - Problem/Goal #2 Stated Goal:: Reduce anxiety brought on by OCD while increasing ability to function on daily basis. Description of Barriers: Client continues to report high anxiety associated with her daughter's well-being and client's role as a mother. Client also continues to report guilt and negative core beliefs. Client states her medication makes her feel extreme fatigue and low energy. Client endorses a depressed mood, rumination, obsessive thoughts, anhedonia, and poor concentration. Client shares ongoing stomach issues which client recognizes is connected to her depression and anxiety. Client states her reassurance and verbalizing questions brought on by OCD has decreased, but client continues to struggle with ?letting thoughts go? and reports rumination. Functional Impact: Client is a 43-year-old female known to the behavioral medicine IOP staff through previous participation in the [facility] in October 2017. Client has had 3 inpatient psychiatric hospitalizations since October 2017 for depression, obsessive thoughts and suicidal ideation. Client? s most recent inpatient psychiatric hospitalization was at [facility] April 24 - April 29 for suicidal ideation with a plan. Client completed 15 sessions of ECT in December at [facility] with Dr. Winn and Dr. Mayorga and states that the ECT did result in some improvement in her depression, but she continues to have anxiety and rumination. Client endorses some mild to moderately depressed mood with anhedonia and decreased energy. Client continues to have chronic suicidal thoughts, but of decreased in intensity and frequency. She continues to have ruminative anxiety about multiple issues including recent health issues, her quality of life, and her daughter. Client reports that her OCD symptoms of reassurance seeking have decreased, but continues to have intrusive thoughts. Goal Relevant Strengths/Supports: Client reports a strong support system in her , mother, family friend, and step-father. Since client last [facility] admission , client reports reduced frequency of suicidal thoughts, reduced depression, and less reassurance seeking which demonstrates progress. Client is intelligent , compassionate, and loves her family. Client reports increased use of coping skills and reduced avoidance behaviors since her last admission as well. - Objectives Objective #1 Stated Objective: Client will create a maintenance plan by identifying 2-3 anxiety/ OCD triggers and 2-3 coping skills to use when feeling anxious. Interventions: Therapist will help client increase awareness of cognitive distortions, triggers, and warning signs for anxiety and OCD. Therapist will help client create a maintenace plan to help cope with anxiety and obsessive thoughts. Therapist will teach client ways to manage obsessive thoughts and increase emotional regulation. Discharge Criteria: Client will have met this goal when can identify at least 2 triggers and report using at least 2 ways to cope with anxiety and obsessive thoughts. Target Date: 05/20/18 Review Date: 05/20/18 Status: open
--- NOTE | 2018-05-13 16:10 | BH.MDN_ITS ---
Multi-Disciplinary Note - Note 45-min Individual Time Started:: 12:43 Date: 05/13/18 Purpose of session/treatment goals addressed:: The purpose of this session was to establish treatment goals, create a safety plan, and address client's current psychosocial stressors. Eye Contact:: Fair Appearance:: Casual Speech:: Other - monotone, stuttering, slow formation of sentences Mood:: Anxious, Dysthymic Affect:: Flat Thoughts:: Linear, Logical, No evidence of hallucinations/delusions noted Staff Interventions:: Therapist used open-ended questions and active listening to explore client's current psychosocial stressors and treatment goals. Therapist used a safety plan template to assess risk, identify warning signs, and create a list of strategies and supports client can use should she feel unsafe. Therapist used strengths-perspective to empower client on the progress she has made since last [facility] admission. Therapist had client identify positive changes she has recognizes since her first admission and to start writing in her positivity journal again for homework. Client Response:: Client responded well to session, open to meeting with therapist. Client shared she has returned to [facility] after a recent admission at an inpatient psychiatric hospital. Client reported she had been coping relatively well until client went on vacation with her and daughter. Client shared on their return client had increased anxiety and suicidal ideation which client expressed to her new psychiatrist. Client reported belief her admission was not needed as client felt able to maintain safety at her mother's house and client shared if her human services case manager would have been present at client's psychiatrist appointment client would not have been admitted. Client participated in ECT therapy for 15 sessions after discharging from [facility] in January and has been seeing Dr. Joe for outpatient counseling. Client shared belief the ECT was helpful in reducing depression, but client continues to feel high anxiety. Client stated it's like a vicious cycle as client's anxiety feeds into client's depression and suicidal ideation. Client reported she would like to work on being less hard on myself, setting emotional boundaries, reframing negative core beliefs, and reducing guilt while in [facility]. Client completed her safety plan and reported belief she can maintain safety tonight. Client reflected on her progress since previous [facility] admission and shared I'm not crying as much and I'm staying with my mom less. Client reported this admission in [facility] she feels somewhat better and more able to concentrate. Client and therapist talked about how client may benefit more from PHP this time around now that she has reduced symptoms and can focus better on learning and applying the skills. Risks/Concerns:: Client reports chronic suicidal ideation, but with reduced frequency. Client completed safety plan with therapist and contracted for safety. Client shared her family and wanting to get better are her reasons to live. Client denied access to weapons or stockpiles of medication. Client reported her mother and keep client's car keys as a protective factor. Progress Toward Goals/Plan:: Progress limited as it is client's first day in PHP. Client was a previous PHP/IOP client, and since her last admission reported reduced depressive and OCD symptoms which demonstrates progress. Client also reports reduced frequency of suicidal thoughts and increased engagement with her and daughter which demonstrates progress. Client continues to endorse chronic suicidal thoughts, intrusive thoughts, depressed mood, negative core beliefs, severe anxiety, and inappropriate guilt. Client to continue PHP to prevent decompensation, promote safety, and increase mood stability. Time Stopped:: 13:30
--- NOTE | 2018-05-14 09:05 | BH.SGPN.GN ---
Behaviors/Verbalizations/Mental Status: [Client orient x3, maintained fair eye contact, casually dressed though clothing baggy, motor activity slowed, client appearing distant and delayed in response time, speech slowed and soft tone, mood is depressed and anxious, affect constricted - flat, thoughts linear and logical, no evidence of delusions or hallucinations. Therapist reviewed clients symptom tracker to assess for intensity of mental health symptoms and identify risk for suicide. No signs of suicidal ideation, plan, or intent to date.] Client Response/Progress/Benefit: [Client receptive of session and displaying improved engagement in group as she more openly discussed her own symptoms, stressors, and progress with the group. Client shared that she is still feeling really anxious today but has an appointment with her psychologist this afternoon that she is looking forward to. CLient expressed that she will be having a scope to help identify the problems she is encountering with her stomach and indicated being hopeful for positive results. CLient benefitted from the support provided by the welcoming and structured group environment. She is recommended continued IOP tx to prevent decompensation, maintain safety, and improve ability to manage mental health sx of anxiety and depression.] Narrative Note: []
--- NOTE | 2018-05-14 10:25 | BH.SGPN.GN ---
Behaviors/Verbalizations/Mental Status: [] Pt maintained fair eye contact, casually dressed though clothing baggy, motor activity slowed, client appearing distant and delayed in response time, speech slowed and soft tone, mood is depressed and anxious, affect constricted - flat, thoughts linear and logical, no evidence of delusions or hallucinations. Client Response/Progress/Benefit: [] Client passive participant as evidenced by limited verbal contributions however did appear to listen attentively to others. Client seemed to connect with others comments about the challenges of following through in generalizing healthy coping skills. Client recognizes she tends to shut down or push others away as her way of coping, which does not help her situation. Client showed increased engagement during group activity, able to manage her anxiety in the moment. Client seemed to benefit from having opportunity to use healthy coping in the moment during activity as well as increased awareness of how her current coping is hindrance to progress. Narrative Note: []
--- NOTE | 2018-05-14 11:25 | BH.SGPN.GN ---
Behaviors/Verbalizations/Mental Status: []Pt alert and oriented, casually dressed and groomed. Eye contact fair. Motor activity appropriate. Speech within normal limits. Affect constricted, mood anxious. Thoughts linear, logical, no signs of hallucinations or delusions Client Response/Progress/Benefit: [] Pt responded well to session, taking notes and contributing. Group discussed the different categories of coping skills which included distraction, emotional release, grounding, self-love, and thought challenging.? Pt participated in creating a coping skills ?menu? from the five categories of coping skills. Pt's coping skill menu included: walk, music, journal, eat healthy meal, and look for positives. Appeared to benefit from increasing repertoire of healthy coping skills. Will continue IOP tx to prevent decompensation, reframe distorted thought patterns, and improve daily functioning.
--- NOTE | 2018-05-14 15:42 | BH.MDN_ITS ---
Multi-Disciplinary Note - Note 60-min Individual Time Started:: 12:34 Date: 05/14/18 Purpose of session/treatment goals addressed:: The purpose of this session was to address client's current stressors, symptoms, and ability to maintain safety. Another goal was to practice in the moment coping skills to manage anxiety, intrusive thoughts, and guilt. Eye Contact:: Good Motor Activity:: Appropriate Appearance:: Casual Speech:: Appropriate Mood:: Anxious, Dysthymic Affect:: Constricted, Other - Client smiled a few times in session Thoughts:: Linear, Logical, No evidence of hallucinations/delusions noted Staff Interventions:: Therapist used active listening and open-ended questions to explore client's current stressors, symptoms, and assess risk. Therapist used graphs and discussion to help client gain awareness of the long-term benefits of engaging in exposure response prevention techniques and praised client for her progress with this. Therapist used 'myths of thoughts' to help normalize client's experience, challenge guilt, and help client learn new ways to manage her intrusive thoughts. Therapist used an activity to help client sit with discomfort in the moment to demonstrate client has the ability to handle uncomfortable feelings. Therapist used strengths-perspective by having client identify positives and progress she has noticed since her first PHP/IOP admission. Client Response:: Client responded well to session, stating she feels anxious, but that's kind of my M.O. Client shared she completed her homework and read her positives and progress since her last PHP/IOP admission. Client reported she is crying less, apologizing less, and spending more time with her daughter and . Client and therapist discussed the benefits of exposure response prevention and client able to recognize that by engaging in anxiety-producing situations and being successful it will reduce anxiety over time. Client is currently using this technique to help client get back to living at home with her and daughter. Client and therapist discussed the anxiety scale and baby steps as client wants to challenge myself but not overwhelm myself. Client shared she continues to have ruminations about her daughter, but she is verbalizing them less. Client reported her step-father has been helpful with calling me out when client is ruminating. Client receptive to discussing myths of thoughts and reported connecting to thoughts do not determine character. Client shared this can help her feel less guilty and recognize even though her thoughts tell client she is a bad mom client's behaviors provide evidence that she is a good mother. Client responded well to the activity on discomfort and made the connection that if she can learn to sit with the discomfort of a pen on the floor and use healthy distractions, client can learn to sit with the discomfort of intrusive thoughts and let them pass. Risks/Concerns:: Client reports following her safety plan and reports ability to maintain safety. Client shares I always have the thoughts but they continue to be less frequent. Client identified her daughter and family as reasons to live. Client mother continues to keep client's keys and monitor medications as a protective factor. Client reports being aware of the crisis resources should she feel unable to maintain safety. Progress Toward Goals/Plan:: Client's progress still limited as it is her second day in PHP. However, client has demonstrated progress since her last PHP/ IOP admission with reframing negative thoughts, identifying positives, and reduced reassurance behaviors. Client also reports reduced frequency of suicidal thoughts which demonstrates progress. Client continues to struggle with anxiety, ruminations, low energy, depressed mood, and intrusive thoughts. Client to continue PHP to prevent decompensation, increase mood stability, and promote safety. Time Stopped:: 13:28
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
== END 2018-05-14 23:59 ==
LOC: BHPHP 08:30
PROVIDERS: Family Provider Family Medicine; PCP Family Medicine; Visit Provider Psychiatry & Neurology Psychiatry
DX: F33.2 Major depressive disorder, recurrent severe without psychotic features (principal); F42.9 Obsessive-compulsive disorder, unspecified
CPT/HCPCS: H0035; 90834; 90837; G0410

== ENCOUNTER 2018-05-15 09:00 | Outpatient (RCR) | payer OTHER, SELFPAY ==
--- NOTE | 2018-05-15 09:05 | BH.SGPN.GN ---
Behaviors/Verbalizations/Mental Status: []Client alert and oriented, dress casual. Eye contact fair. Motor activity slowed. Speech within normal limits. Affect flat, mood anxious, dysthymic. Thoughts linear, logical, no signs of hallucinations or delusions. Reviewed clients symptom tracker, client identified moderate thoughts of suicide, but low risk of intent of suicide. This therapist to meet with client for individual session today and to review safety plan. Client Response/Progress/Benefit: []Client responded well to session, appeared to be actively listening to peers as evidenced by eye contact. Client reports feeling anxious today due to multiple stressors, but client recognizes she does not feel overwhelmed. Client has been using an anxiety scaled to help client more accurately describe the intensity of her anxiety and client shared I'm in the middle today. Client reported she met with her new outpatient psychiatrist yesterday. Client reported I didn't meet with her long because she knows I'm seeing [facility] Sunday. Client shared she was encouraged by a friend to go for a walk last night, which client reported made her feel better. Client appeared to benefit from gaining support from peers. Progress noted as client reports reduced intensity of anxiety and use of healthy coping. Client to continue PHP to prevent decompensation and maintain safety.
--- NOTE | 2018-05-15 10:18 | BH.SGPN.GN ---
Behaviors/Verbalizations/Mental Status: [Client alert and orient x3, maintained fair eye contact, casually dressed - baggy clothing, motor activity slowed, speech soft at times appearing delayed in processing, mood anxious and depressed, affect congruent, thoughts linear and logical, no evidence of delusions or hallucinations.] Client Response/Progress/Benefit: [Client receptive of group session and improvements in her ability to engage in both the activity and discussion/processing portions. Discussed connecting with the topic of pitfalls and identified that often anticipating a pitfall can cause negative repercussions on management of mental health symptoms due to increasing anxiety and feelings of overwhelmed. Client benefited from the group discussion in which fellow participants identified ways in which strategies they used to overcome the pitfalls in the activity portion relate to overcoming personal pitfalls and once daily life. She discussed connecting with the importance of decreasing use of minimization and isolation by in improving her ability to communicate and lean on supports when needed. Client recommended continued PHP treatment in order to event decompensation, maintain safety, and continue to improve ability to better manage mental health symptoms.] Narrative Note: []
--- NOTE | 2018-05-15 11:19 | BH.SGPN.GN ---
Behaviors/Verbalizations/Mental Status: [Client alert and orient x3, maintained consistent fair eye contact - often looking down or away, casually and dressed - baggy clothing, motor activity lethargic, speech normal at times appearing slowed to respond and process, mood depressed and anxious, congruent affect, thoughts linear and logical, no evidence of delusions or hallucinations.] Client Response/Progress/Benefit: [Client responded well to session and was able to remain engaged throughout discussion regarding personal pitfalls. He identified that her personal pitfalls include anticipatory anxiety, guilt, mind reading, test revising, and self-doubt. Client benefited from discussing with the group the various personal pitfalls they all fall into and indicated relating to other participants also identified. Client worked with the group on brainstorming strategies for overcoming these PIP falls and indicated that asking for help, practicing strong emotional boundaries, increasing community supports, establishing a daily routine, and making sure her cup is full may be helpful for avoiding and minimizing the impact of personal pitfalls identified. Client beginning to display progress in her ability to internalize treatment concepts discussed as they apply to her own life. Client continues to struggle with significant anxiety and is recommended continued PHP treatment to aid in improving skills for managing in terms of anxiety and depression as well as maintaining safety and preventing decompensation.] Narrative Note: []
--- NOTE | 2018-05-15 14:33 | BH.MDN_ITS ---
Multi-Disciplinary Note - Note 45-min Individual Time Started:: 12:27 Date: 05/15/18 Purpose of session/treatment goals addressed:: The purpose of this session was to address client's current stressors, symptoms, and use of coping skills. Another goal was to discuss myths of thoughts and practice strategies to help client better manage intrusive thoughts and anxious thinking patterns. Other topics included using the meyers mind. Eye Contact:: Good Motor Activity:: Appropriate Appearance:: Casual Speech:: Appropriate Mood:: Anxious, Dysthymic Affect:: Constricted, Other - laughing a few times during session Thoughts:: Linear, Logical, No evidence of hallucinations/delusions noted Staff Interventions:: Therapist used active listening and open-ended questions to explore client's current stressors, symptoms, and assess risk. Therapist reviewed client?s homework from the previous session and processed it with client. Therapist continued to process 'myths of thoughts' with client to help client learn new ways to manage her intrusive thoughts. Therapist provided psychoeducation on anxiety and the brain?s response to real or perceived danger (false alarm). Therapist taught client strategies to challenge anxiety ?false alarms? and how to utilize her meyers mind. Therapist used strengths-perspective by having client identify positives and progress she has noticed. Client Response:: Client responded well to session, open to meeting with therapist. Client shared this time in PHP things are taking root more and client feels more able to learn coping skills. Client and therapist reviewed client's homework, client stated she resonated with the readings on myths of thoughts. Client identified phrases that were helpful such as thoughts are just our guesses about the future thoughts don't operate the world.? Client stated this helped her as it reminds client that just because I think it doesn' t mean it will come true. Client and therapist discussed false alarms and how our brain can perceive danger from anxiety when there is no real danger. Client shared feeling like her brain has been trained to fall for the false alarms. Client and therapist discussed strategies to help client not fall for the false alarms, but instead to use her meyers mind. Client reported connecting with emotion, logic, and meyers mind and shared belief she often only uses emotion mind. Client and therapist rehearsed scenarios in which client could use her meyers mind and practiced meyers mind self-talk. Client able to identify positives from the day before such as going to library to get games, going for a walk, and visiting a friend. Client also identified personal strengths such as empathetic, sense of humor, and being compassionate. Client was willing to practice using her meyers mind tonight and to use healthy distractions. Risks/Concerns:: Client reports passive suicidal thoughts today but not as frequent. Client shared the intent is very low today. Client reports ability to maintain safety tonight and shared she is following her safety plan. Client' s mother continues to manage medication and keep client's keys. Client identified wanting to get better as a reason to keep living. Progress Toward Goals/Plan:: Client demonstrating progress towards treatment goals as she reports ability to maintain safety and use of coping skills. Client continues to endorse depressed mood, anxiety, chronic passive suicidal thoughts, and intrusive thoughts. Client to continue PHP to prevent decompensation and increase mood stability. Client to read about myths about thoughts from the book Overcoming Unwanted Intrusive Thoughts for homework and attempt to use her meyers mind. Time Stopped:: 13:13
--- NOTE | 2018-05-16 09:03 | BH.SGPN.GN ---
Behaviors/Verbalizations/Mental Status: []Pt alert and oriented. Casually dressed and appropriately groomed. Mood euthymic, affect congruent. Speech tone and rate WNL. Thoughts linear and logical. Motor activity appropriate. No evidence of delusions or hallucinations. Reviewed clients symptom tracker, indicated thoughts of suicide. IOP individual therapist informed of symptoms SI. Client Response/Progress/Benefit: []Pt reported she is feeling very tired and fatigued throughout the day in which she is attributing fatigue to being on [place]. Pt shared despite feeling tired and fatigued throughout the day she is still extremely anxious. Pt reported she has been going hiking which seems to help reduce her anxiety. Pt shared she is feeling discouraged with limited progress since new medication change. Pt progress stagnant, continuing to report anxious symptoms with limited relief from coping skills. Pt to continue PHP level of care to improve mood stability, decrease anxiety, and prevent decompensation. Narrative Note: []
--- NOTE | 2018-05-16 10:07 | BH.SGPN.GN ---
Behaviors/Verbalizations/Mental Status: []Client alert and oriented, dress casual. Eye contact good. Motor activity appropriate. Speech within normal limits. Affect flat, mood depressed, anxious. Thoughts linear, logical, no signs of hallucinations or delusions. Client Response/Progress/Benefit: []Client responded well to session, engaged through note-taking and participating in the activity. Client connected with the quote sharing, I doubt myself all the time. Client participated in the discussion of failure, and the impact fear of failure has on ones mental health. Client stated fear of failure can keep a person from trying and lead to increased anxiety and depression. Client connected the activity to failures in life, sharing at times one has to go backwards to move forward. Client appeared to benefit from increasing awareness of how fear of failure impacts mental health. Client to continue PHP to prevent decompensation and increase mood stability.
--- NOTE | 2018-05-16 11:15 | BH.SGPN.GN ---
Behaviors/Verbalizations/Mental Status: []Client alert and oriented, dress casual. Eye contact good. Motor activity appropriate. Speech within normal limits. Affect flat, mood anxious, dysthymic. Thoughts linear, logical, no signs of hallucinations or delusions. Client Response/Progress/Benefit: []Client responded well to session, participating when prompted. Client shared fear of failure has impacted client because it has kept client from trying new things and doing things with family. Client shared I know its dumb, but I don't even want to play a game sometimes because Im afraid I'll fail. Client helped the group identify strategies to overcome fear of failure such as challenging expectations, setting small goals, and reaching out to supports. Client set a personal goal to challenge her unrealistic expectations of self to reduce guilt and overcome fear of failure. Client appeared to benefit from gaining strategies to overcome fear of failure. Client seems to be progressing as shown by her reduced reassurance seeking, but continues to endorse depressed mood, anxiety, and intrusive thoughts.
--- NOTE | 2018-05-16 14:38 | BH.MDN_ITS ---
Multi-Disciplinary Note - Note 60-min Individual Time Started:: 12:25 Date: 05/16/18 Purpose of session/treatment goals addressed:: The purpose of this session was to address client's current stressors, symptoms, safety and risk factors, and use of coping skills. Another goal was to reframe unrealistic expectations, identify strengths, and practice strategies to help client better manage intrusive thoughts and anxious thinking patterns. Eye Contact:: Fair Motor Activity:: Slowed Appearance:: Casual Speech:: Soft Mood:: Anxious, Dysthymic Affect:: Constricted, Other - tearful. Laughed a few times. Thoughts:: Linear, Logical, No evidence of hallucinations/delusions noted Staff Interventions:: Therapist used active listening and open-ended questions to explore client's current stressors, symptoms, and assess risk. Therapist reviewed client?s homework from the previous session and processed it with client. Therapist helped client identify unrealistic expectations and assisted client in reframing them. Therapist used a worksheet as a tool to help client recognize negative statements she tells herself and rewrite them to reflect the positives client is demonstrating. Therapist taught client how to sift through her thoughts to determine which thoughts are ?junk? or unhelpful and which are going to help client. Therapist helped client practice this strategy and asked client to try this for homework. Therapist used emotional support and strengths- perspective by having client identify positives and progress she has noticed. Client Response:: Client responded well to session, tearful when discussing negative thoughts. Client shared today she feels increased hopelessness due to issues with her stomach. Client has a consult today for her stomach issues, sharing I just feel like it's always something. Client able to identify positives to redirect her negative thought patterns. Client stated she continues to struggle with feeling guilty and having unrealistic expectations for her progress. Client reported I never thought my life would be like this referring to client not working or living at home. Client shared she often compares herself to her sister which increases depression and anxiety. Client and therapist discussed the negative effects of comparing to others or even one' s self. Client wrote out negative statements she tells herself when client compares. Client was tearful while writing these and had a hard time rewriting them to reflect her positives, but with prompting and gently challenging client able to rewrite the negatives. Client responded well to the discussion of junk thoughts and shared the myths of thoughts has been helpful to her. Client was receptive to practicing the technique of letting junk thoughts come and pass tonight. Client shared when she has a junk thought client can talk herself through the process and if it does not pass after distracting herself, client can reframe or challenge the thought. Risks/Concerns:: Client reports passive suicidal thoughts today, but denies active suicidal ideation. Client stated she does not have access to the means as client?s mother is keeping her keys and medication. Client shared Client reports ability to maintain safety tonight and shared she is following her safety plan. Client identified her and daughter as reasons to live. Progress Toward Goals/Plan:: Client progressing towards treatment goals as evidenced by her ability to maintain safety and her report of incorporating healthy coping skills to manage negative thoughts and anxiety. Client also reports increased concentration during group which is helping client retain more information. However, client continues to struggle with guilt, rumination, and using internal coping strategies to regulate emotions. Client also reports ongoing feelings of hopelessness and passive suicidal thoughts, but of reduced intensity. Client to continue PHP to maintain safety, prevent decompensation, and improve ability to manage symptoms. Time Stopped:: 13:18
--- NOTE | 2018-05-17 09:05 | BH.SGPN.GN ---
Behaviors/Verbalizations/Mental Status: []Client alert and oriented, neatly dressed and groomed. Eye contact good. Motor activity slowed. Speech monotone. Affect flat- did laugh a few times, mood anxious, dysthymic. Thoughts linear, logical, no signs of hallucinations or delusions. Reviewed clients symptom tracker, client reports thoughts of suicide, but low intent. Therapist and client to meet for an individual session today and will discuss symptom tracker and safety plan. Client Response/Progress/Benefit: []Client responded well to session, laughing with peers. Client reports feeling tired and anxious today due to clients medication and client's plan to go to a birthday constitution party this weekend. The group provided client coping strategies to manage anxiety at the constitution party and client appeared receptive. Client identified going hiking with a friend while using mindfulness and getting good news from the surgeon yesterday as her two positives. Client shared she continues to struggle with feeling tired all the time due to her medications. Client is to see [facility] psychiatrist, BISI today. Client appeared to benefit from reflecting on positives and gaining feedback from peers. Progress noted in clients ability to maintain safety and identify positives rather than ruminate during group. Client to discharge from [facility] today and start IOP 05/20/18.
--- NOTE | 2018-05-17 11:04 | BH.NA_ITS ---
Physical Data - Vital Signs Temperature: 98.1 F Pulse Rate: 76 Respiratory Rate: 13 Blood Pressure: 96/52 - Height/Weight Height: 1.63 m Weight:: 50.802 kg Weight in Pounds: 112.0 lbs Current Medication Compliance - Medication Compliance Do you take your medication as prescribed?: Yes Do you need assistance with taking medication?: No Nutritional History - Appetite Nutritional Instructions:: If client shows signs of a swallowing problem, weight change of 10 pounds or more in the last month, or is on a diabetic diet, the physician will review and request a dietitian consult, as appropriate. All unintentional weight loss will be referred to the physician for decision on need for dietitian consult. Describe your appetite:: Fair Have you noticed a change in your eating habits lately?: Yes - has chronically supressed appetite r/t meds and anxiety Additional nutritional information:: No caffiene use Functional Assessment - Sleep Pattern Describe any problems with sleeping: Sleeps well on current meds - Activities Motor Activity:: Functional Sensory/Communication Assess - Hearing Problems Do you have any hearing problems?: Adequate - Communication Problems Do you have difficulty understanding what people are saying?: No Do you have trouble putting your thoughts into words or expressing what you want to say?: Yes Do people ever have trouble understanding what you say?: No What is your primary language?: Brazilian Learning Assessment - Learning Barriers Learning Barriers:: Ready to learn Medical Problems/History - Metabolic Conditions Metabolic: Hypothyroidism - Gastrointestinal Conditions Gastrointestinal: Dyspepsia - GERD, Other (See comments) - OBS - Female Reproductive Do you think you may be ?: No Number of pregnancies:: 1 Number of children:: 1 Have you reached menopause?: No Do you have any history of breast disease?: No - Family History Family History: Family History (Last Reviewed 06/06/18 @ 13:46 by Radha Najera) Mother Hyperlipemia Substance Abuse - Substance Abuse Please describe substance abuse in the last 30 days:: Denies ETOH, tobacco, and illicit substance use. Mental Status Summary - Mental Status Significant Findings/Observations on Appearance and Mood:: Isabell is a 43-year- old female, well known to this RN form previous visits. She exhibits appropriate grooming and hygiene, and is casually dressed. She avoids eye contact. Isabell's speech is clear, slow, and soft. Moderate depression and anhedonia with flat affect. Slow process, logical associations, and fair knowledge. She is somewhat preoccupied with her daughter and family dynamics. Denies hallucinations and HI. Continues to have intermittent, fleeting SI without plan or intent. Suicide Assessment - Suicidal Ideation Are you currently or have you been suicidal in the past?: Yes Suicidal Intentional Rating Scale (SIRS): Current suicidal thoughts with plan/ Contracts for safety - intermittent SI with plan for CO poisoning Physician Notification: If Active suicidal thoughts/Will not contract for safety is checked, contact physician and document in the Physician Notification section below. Past Psychiatric History - MH Treatment Hx Past Psychiatric Medications:: I've had them all ECT Therapy Details:: 15 sessions completed in December 2017 Fall Risk Assessment - Age Age: Less than 60 - Mental Status Mental Status: Willing & able to ask for assistance when needed - Physical Status Physical Status: No problems - Impairments Impairments: None - Elimination Elimination: Continent AND independent - Gait or Balance Gait or Balance: Walks independently - Hx of Falls History of falls in the past 6 months: No known history - Medications/Substances Psychotropics:: Antidepressants, Mood stabilizers Intoxication From:: Benzodiazepines Medications/substances used within the past 24 hours or ordered to administer: 3 or more of the medications/substances listed above - Total Score Total Points:: 2 Physician Notification - Physician Notification Physician Notified: Desi Montiel Method of Notification: Face to Face Comments: discussion of medications and treatment planning engineer Summary of Impressions - Impressions Recommendations: Include psychiatric and medical issues, treatment planning recommendations, and discharge planning needs. Impressions: Psychiatric Issues: anxiety, MDD, OCD - Level of Care How do the client's current symptoms and functional deficits support need for this level of care?: Isabell has presented back to [facility] due to intense symptoms of anxiety and daily panic attacks, which she describes have overwhelming with difficulty breathing. She endorses intermittent SI without plan or intent. She has not had any SA since her last visit. The patient notes feeling fatigued and lacking emotion, which she links to her lithium use. Isabell does have some reflux, nausea, and abd pain associated with her anxiety for which no medical etiology has been determined. Due to her decompensation and intermittent SI, she is appropriate from [facility].
--- NOTE | 2018-05-17 11:15 | BH.NA ---
Physical Data - Vital Signs Temperature: 98.1 F Pulse Rate: 76 Respiratory Rate: 13 Blood Pressure: 96/52 - Height/Weight Height: 1.63 m Weight:: 50.802 kg Weight in Pounds: 112.0 lbs Current Medication Compliance - Medication Compliance Do you take your medication as prescribed?: Yes Do you need assistance with taking medication?: No Nutritional History - Appetite Nutritional Instructions:: If client shows signs of a swallowing problem, weight change of 10 pounds or more in the last month, or is on a diabetic diet, the physician will review and request a dietitian consult, as appropriate. All unintentional weight loss will be referred to the physician for decision on need for dietitian consult. Describe your appetite:: Fair Have you noticed a change in your eating habits lately?: Yes - has chronically supressed appetite r/t meds and anxiety Additional nutritional information:: No caffiene use Functional Assessment - Sleep Pattern Describe any problems with sleeping: Sleeps well on current meds - Activities Motor Activity:: Functional Sensory/Communication Assess - Hearing Problems Do you have any hearing problems?: Adequate - Communication Problems Do you have difficulty understanding what people are saying?: No Do you have trouble putting your thoughts into words or expressing what you want to say?: Yes Do people ever have trouble understanding what you say?: No What is your primary language?: Salvadorean Learning Assessment - Learning Barriers Learning Barriers:: Ready to learn Medical Problems/History - Metabolic Conditions Metabolic: Hypothyroidism - Gastrointestinal Conditions Gastrointestinal: Dyspepsia - GERD, Other (See comments) - OBS - Female Reproductive Do you think you may be ?: No Number of pregnancies:: 1 Number of children:: 1 Have you reached menopause?: No Do you have any history of breast disease?: No - Family History Family History: Family History (Last Reviewed 06/06/18 @ 13:46 by Radha Najera) Mother Hyperlipemia Substance Abuse - Substance Abuse Please describe substance abuse in the last 30 days:: Denies ETOH, tobacco, and illicit substance use. Mental Status Summary - Mental Status Significant Findings/Observations on Appearance and Mood:: Isabell is a 43-year-old female, well known to this RN form previous visits. She exhibits appropriate grooming and hygiene, and is casually dressed. She avoids eye contact. Isabell's speech is clear, slow, and soft. Moderate depression and anhedonia with flat affect. Slow process, logical associations, and fair knowledge. She is somewhat preoccupied with her daughter and family dynamics. Denies hallucinations and HI. Continues to have intermittent, fleeting SI without plan or intent. Suicide Assessment - Suicidal Ideation Are you currently or have you been suicidal in the past?: Yes Suicidal Intentional Rating Scale (SIRS): Current suicidal thoughts with plan/Contracts for safety - intermittent SI with plan for CO poisoning Physician Notification: If Active suicidal thoughts/Will not contract for safety is checked, contact physician and document in the Physician Notification section below. Past Psychiatric History - MH Treatment Hx Past Psychiatric Medications:: I've had them all ECT Therapy Details:: 15 sessions completed in December 2017 Fall Risk Assessment - Age Age: Less than 60 - Mental Status Mental Status: Willing & able to ask for assistance when needed - Physical Status Physical Status: No problems - Impairments Impairments: None - Elimination Elimination: Continent AND independent - Gait or Balance Gait or Balance: Walks independently - Hx of Falls History of falls in the past 6 months: No known history - Medications/Substances Psychotropics:: Antidepressants, Mood stabilizers Intoxication From:: Benzodiazepines Medications/substances used within the past 24 hours or ordered to administer: 3 or more of the medications/substances listed above - Total Score Total Points:: 2 Physician Notification - Physician Notification Physician Notified: Desi Montiel Method of Notification: Face to Face Comments: discussion of medications and treatment manager financial planning Summary of Impressions - Impressions Recommendations: Include psychiatric and medical issues, treatment planning recommendations, and discharge planning needs. Impressions: Psychiatric Issues: anxiety, MDD, OCD - Level of Care How do the client's current symptoms and functional deficits support need for this level of care?: Isabell has presented back to [facility] due to intense symptoms of anxiety and daily panic attacks, which she describes have overwhelming with difficulty breathing. She endorses intermittent SI without plan or intent. She has not had any SA since her last visit. The patient notes feeling fatigued and lacking emotion, which she links to her lithium use. Isabell does have some reflux, nausea, and abd pain associated with her anxiety for which no medical etiology has been determined. Due to her decompensation and intermittent SI, she is appropriate from [facility].
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
--- NOTE | 2018-05-17 13:14 | BH.DR.ITP ---
Initial Treatment Plan - Patient Information Visit Information: ADMISSION DATE: EXPECTED LOS: 4-6 weeks Diagnoses:: Major depressive disorder recurrent severe of 33.2. OCD F 42 - Problems/Symptoms Problem #1:: Depression Symptom:: Sad mood, anhedonia, suicidal ideation Problem #2:: Anxiety Symptom:: Rumination, obsessive thoughts
--- NOTE | 2018-05-17 15:15 | BH.MDN ---
Multi-Disciplinary Note - Note 45-min Individual Time Started:: 12:37 Date: 05/17/18 Purpose of session/treatment goals addressed:: The purpose of this session was to address client's current stressors, symptoms, and use of coping skills. Another goal was to create a maintenance plan for the weekend to manage anxiety, rumination, promote safety. Other topics included affirmations and strategies to manage intrusive thoughts. Eye Contact:: Good Motor Activity:: Appropriate Appearance:: Neat Speech:: Appropriate Mood:: Anxious Affect:: Congruent, Other - smiling and laughing several times during session. Thoughts:: Linear, Logical, No evidence of hallucinations/delusions noted Staff Interventions:: Therapist used active listening and open-ended questions to explore client's current stressors, symptoms, and use of coping. Therapist gathered information on changes to clients medications since recent [facility] psychiatrist visit. Therapist also assessed risk and reviewed clients safety plan. Therapist gave client a list of affirmations for anxiety to promote positive self-talk from client. Therapist assisted client in creating a maintenance plan for the weekend that included resources, supports, and coping strategies to help client maintain safety and manage mental health symptoms. Therapist reviewed various calming strategies with client and led client in a mindful music exercise. Therapist used emotional support and strengths-perspective by having client identify positives and progress she has noticed. Client Response:: Client responded well to session, open to meeting with therapist. Client shared she is feeling okay today, better than yesterday. Client shared her appointment with [facility] went well and client is hoping the medication changes will make her less tired. Client stated she is anxious about the weekend due to client going home to spend the weekend with her and daughter and plans to attend a birthday republican. Client reported group this morning helped her come up with coping strategies to use at the republican to manage anxiety. Client shared she liked the strategy of drinking calming tea, petting the family dog, and taking breaks. Client was receptive to reading affirmations for anxiety, reporting many of them relate to her. Client selected the top five most helpful affirmations and stated willingness to use them every morning and evening to help make it a habit so when client is ruminating, the affirmations come easily. Client completed her maintenance plan and identified numerous coping strategies, supports, and resources to help client manage mental health symptoms over the weekend. Client receptive to mindful music exercise and shared plan to try this over the weekend. Risks/Concerns:: Client reports passive suicidal thoughts, describing them as periodic and fleeting. Client stated she does not have access to the means as clients mother is keeping her keys and medication. Client reports ability to maintain safety tonight and shared she is following her safety plan. Client identified her and daughter as reasons to live. Client reported reduced anxiety symptoms today which is a protective factor as clients suicidal ideation increases with increased anxiety symptoms. Progress Toward Goals/Plan:: Client has progressed towards PHP treatment goals as evidenced by her ability to maintain safety, report of utilizing healthy coping, and reduced frequency of intrusive and suicidal thoughts. Client also demonstrating increased sense of humor and reports engaging in pleasurable activities. However, client continues to struggle with guilt, rumination, and managing anxiety. Client also reports ongoing feelings of hopelessness and self-comparing that increases depressive symptoms. Client to discuss PHP as she has made progress and start IOP to maintain safety, prevent decompensation, and improve ability to manage symptoms. Time Stopped:: 13:20
--- NOTE | 2018-05-17 16:02 | BH.MDN_ITS ---
Multi-Disciplinary Note - Note 45-min Individual Time Started:: 12:37 Date: 05/17/18 Purpose of session/treatment goals addressed:: The purpose of this session was to address client's current stressors, symptoms, and use of coping skills. Another goal was to create a maintenance plan for the weekend to manage anxiety , rumination, promote safety. Other topics included affirmations and strategies to manage intrusive thoughts. Eye Contact:: Good Motor Activity:: Appropriate Appearance:: Neat Speech:: Appropriate Mood:: Anxious Affect:: Congruent, Other - smiling and laughing several times during session. Thoughts:: Linear, Logical, No evidence of hallucinations/delusions noted Staff Interventions:: Therapist used active listening and open-ended questions to explore client's current stressors, symptoms, and use of coping. Therapist gathered information on changes to client?s medications since recent [facility] psychiatrist visit. Therapist also assessed risk and reviewed client?s safety plan. Therapist gave client a list of affirmations for anxiety to promote positive self-talk from client. Therapist assisted client in creating a maintenance plan for the weekend that included resources, supports, and coping strategies to help client maintain safety and manage mental health symptoms. Therapist reviewed various calming strategies with client and led client in a mindful music exercise. Therapist used emotional support and strengths- perspective by having client identify positives and progress she has noticed. Client Response:: Client responded well to session, open to meeting with therapist. Client shared she is feeling okay today, better than yesterday. Client shared her appointment with [facility] went well and client is hoping the medication changes will make her less tired. Client stated she is anxious about the weekend due to client going home to spend the weekend with her and daughter and plans to attend a birthday alliance party. Client reported group this morning helped her come up with coping strategies to use at the alliance party to manage anxiety. Client shared she liked the strategy of drinking calming tea, petting the family dog, and taking breaks. Client was receptive to reading affirmations for anxiety, reporting many of them relate to her. Client selected the top five most helpful affirmations and stated willingness to use them every morning and evening to help make it a habit so when client is ruminating, the affirmations come easily. Client completed her maintenance plan and identified numerous coping strategies, supports, and resources to help client manage mental health symptoms over the weekend. Client receptive to mindful music exercise and shared plan to try this over the weekend. Risks/Concerns:: Client reports passive suicidal thoughts, describing them as ? periodic and fleeting.? Client stated she does not have access to the means as client?s mother is keeping her keys and medication. Client reports ability to maintain safety tonight and shared she is following her safety plan. Client identified her and daughter as reasons to live. Client reported reduced anxiety symptoms today which is a protective factor as client?s suicidal ideation increases with increased anxiety symptoms. Progress Toward Goals/Plan:: Client has progressed towards PHP treatment goals as evidenced by her ability to maintain safety, report of utilizing healthy coping, and reduced frequency of intrusive and suicidal thoughts. Client also demonstrating increased sense of humor and reports engaging in pleasurable activities. However, client continues to struggle with guilt, rumination, and managing anxiety. Client also reports ongoing feelings of hopelessness and self- comparing that increases depressive symptoms. Client to discuss PHP as she has made progress and start IOP to maintain safety, prevent decompensation, and improve ability to manage symptoms. Time Stopped:: 13:20
--- NOTE | 2018-05-17 16:03 | BH.DS ---
Discharge Summary - Demographics Date of Admission:: 05/13/18 Discharge Date: 05/17/18 Presenting Problems at Admission:: Client was recently discharged from inpatient psychiatric hospitalization at [facility] April 24 - April 29 for suicidal ideation. Client completed 15 sessions of ECT in December at [facility] with Dr. Winn and Dr. Mayorga and states that the ECT did result in some improvement in her depression, but she continues to have anxiety and rumination. At admission, client endorsed some mild to moderately depressed mood with anhedonia and decreased energy. Additionally, client continued to report chronic suicidal thoughts, but of decreased in intensity and frequency. Client also endorsed ruminative anxiety about multiple issues including recent health issues, her quality of life, and her daughter. Client reported that her OCD symptoms of reassurance seeking have decreased since last IOP admission, but continues to have intrusive thoughts. Discharge Diagnoses:: Major depressive disorder recurrent severe F33.2.; OCD F42; Anxiety unspecified Reason for Discharge:: Client no longer meets criteria for [facility] level of care. Completed treatment plan goals and reports decrease in severity, duration, and frequency of instrusive thoughts, SI, and anxiety. - Treatment Progress During Treatment & Response: Client appeared to respond well to treatment as evidenced by her report of things are taking root better this time. Client reported increased ability to retain information during group and individual sessions compared to her last IOP admission. While admitted in [facility], client was an active participant, seemed receptive to feedback from peers, and took notes during sessions. Client was engaged in individual sessions as evidenced by her consistent completion of homework and report of implementing coping skills. Client demonstrated progress during PHP as evidenced by her ability to maintain safety, report of applying healthy coping skills to manage depression and anxiety, and report of reduced frequency of suicidal and intrusive thoughts. Client stated actively using positive affirmations, reframing, and letting thoughts pass to help improve and reduce negative thinking patterns. Client also reported using hiking, mindfulness, and reading to manage anxiety when client notices warning signs. Issues Still to be Addressed:: Client has made progress with maintaining safety, following her safety plan, identifying negative thought patterns, and using healthy coping skills to manage symptoms. However, client continues to struggle with negative core beliefs, rumination, and using internal coping skills to manage anxiety. Client can continue to benefit from ongoing IOP treatment to prevent decompensation, increase self-esteem and coping skills, and reduce negative thinking patterns. Client can continue to benefit from following up with her outpatient providers to expand and reinforce emotional regulation skills, reframing intrusive thoughts, and applying techniques learned in individual and group sessions. Discharge Recommendations/Instructions:: Client recommended to step down to IOP level of care to maintain gains, prevent decompensation, and further stabilize mood. Client reports increased concentration during groups, improved use of coping skills, and more positive thoughts however would benefit from continued support, increased coping skills, and medication management. Discharge Handout: Complete Discharge Handout with client on aftercare options and continuity of care.
--- NOTE | 2018-05-17 16:13 | BH.DS_ITS ---
Discharge Summary - Demographics Date of Admission:: 05/13/18 Discharge Date: 05/17/18 Presenting Problems at Admission:: Client was recently discharged from inpatient psychiatric hospitalization at [facility] April 24 - April 29 for suicidal ideation. Client completed 15 sessions of ECT in December at [facility] with Dr. Winn and Dr. Mayorga and states that the ECT did result in some improvement in her depression, but she continues to have anxiety and rumination. At admission, client endorsed some mild to moderately depressed mood with anhedonia and decreased energy. Additionally, client continued to report chronic suicidal thoughts, but of decreased in intensity and frequency. Client also endorsed ruminative anxiety about multiple issues including recent health issues, her quality of life, and her daughter. Client reported that her OCD symptoms of reassurance seeking have decreased since last IOP admission, but continues to have intrusive thoughts. Discharge Diagnoses:: Major depressive disorder recurrent severe F33.2.; OCD F42 ; Anxiety unspecified Reason for Discharge:: Client no longer meets criteria for [facility] level of care. Completed treatment plan goals and reports decrease in severity, duration, and frequency of instrusive thoughts, SI, and anxiety. - Treatment Progress During Treatment & Response: Client appeared to respond well to treatment as evidenced by her report of things are taking root better this time. Client reported increased ability to retain information during group and individual sessions compared to her last IOP admission. While admitted in [facility], client was an active participant, seemed receptive to feedback from peers, and took notes during sessions. Client was engaged in individual sessions as evidenced by her consistent completion of homework and report of implementing coping skills. Client demonstrated progress during PHP as evidenced by her ability to maintain safety, report of applying healthy coping skills to manage depression and anxiety, and report of reduced frequency of suicidal and intrusive thoughts. Client stated actively using positive affirmations, reframing, and letting thoughts pass to help improve and reduce negative thinking patterns. Client also reported using hiking, mindfulness, and reading to manage anxiety when client notices warning signs. Issues Still to be Addressed:: Client has made progress with maintaining safety , following her safety plan, identifying negative thought patterns, and using healthy coping skills to manage symptoms. However, client continues to struggle with negative core beliefs, rumination, and using internal coping skills to manage anxiety. Client can continue to benefit from ongoing IOP treatment to prevent decompensation, increase self-esteem and coping skills, and reduce negative thinking patterns. Client can continue to benefit from following up with her outpatient providers to expand and reinforce emotional regulation skills, reframing intrusive thoughts, and applying techniques learned in individual and group sessions. Discharge Recommendations/Instructions:: Client recommended to step down to IOP level of care to maintain gains, prevent decompensation, and further stabilize mood. Client reports increased concentration during groups, improved use of coping skills, and more positive thoughts however would benefit from continued support, increased coping skills, and medication management. Discharge Handout: Complete Discharge Handout with client on aftercare options and continuity of care.
--- NOTE | 2018-05-20 09:05 | BH.SGPN.GN ---
Behaviors/Verbalizations/Mental Status: []Client alert and oriented, neatly dressed and groomed. Eye contact good. Motor activity appropriate. Speech within normal limits. Affect constricted-laughed once, mood anxious. Thoughts linear, logical, no signs of hallucinations or delusions. Reviewed clients symptom tracker, client report moderate thoughts of suicide, but low intent as of 05/20/18. Client and therapist to meet individually today and therapist will assess safety. Client Response/Progress/Benefit: []Client responded well to session, quiet, but demonstrating active listening skills. Client reports feeling anxious today as client continues to worry about her daughter and other stressors. Client spent time with her and daughter this weekend, reporting they did several activities as a family. Client shared she accomplished her goal for the weekend and tried new calming coping skills to manage anxiety. Client reported Sunday was a little bit of a rough day due to client's recent medication changes, but client stated she was able to manage her symptoms by setting boundaries, using distractions, and using mindfulness skills. Client appeared to benefit from reflecting on the positive ways she coped this weekend. Progress noted as client was able to manage symptoms this weekend to prevent crisis, but continues to struggle with intrusive thoughts and mood instability. Client to continue IOP to prevent decompensation and increase mood stability.
[2018-06-28 14:42] VITALS: BP 96/52; PULSE 76; RESP 13; TEMP 36.7
== END 2018-05-17 14:00 | disposition home or self-care (01) ==
LOC: BHPHP 09:00
PROVIDERS: Family Provider Family Medicine; PCP Family Medicine; Visit Provider Psychiatry & Neurology Psychiatry
DX: F33.2 Major depressive disorder, recurrent severe without psychotic features (principal); F42.9 Obsessive-compulsive disorder, unspecified; F41.9 Anxiety disorder, unspecified
CPT/HCPCS: H0035; 90834; 90837; G0410

== ENCOUNTER → 2018-05-15 13:42 | Outpatient (CLI) | payer BC, SELFPAY ==
[2018-05-15 15:15] LABS: Creatinine, Serum 0.84 mg/dL (0.55-1.02); EST Glomerular Filtration Rate 79 mL/min (>60); Est Glom Filt Rate - Afr Amer 96 mL/min (>60); Thyroid Stim Hormone (TSH) 4.47 uIU/mL (0.358-3.74)
== END ==
PROVIDERS: Family Provider Family Medicine; PCP Family Medicine; Visit Provider Psychiatry & Neurology Psychiatry
DX: Z79.899 Other long term (current) drug therapy (principal)
CPT/HCPCS: 36415; 80178; 82565; 84443

== ENCOUNTER 2018-05-20 09:00 | Outpatient (RCR) | payer OTHER, SELFPAY ==
--- NOTE | 2018-05-16 09:03 | BH.SGPN.GN ---
Addendum entered and electronically signed by Lyudmila Guerra [facility] 08/08/18 15:26: Disregard this note, entered incorrectly into pt's IOP chart when meant to be in PHP chart. Original Note: Behaviors/Verbalizations/Mental Status: []Pt alert and oriented. Casually dressed and appropriately groomed. Mood euthymic, affect congruent. Speech tone and rate WNL. Thoughts linear and logical. Motor activity appropriate. No evidence of delusions or hallucinations. Reviewed clients symptom tracker, indicated thoughts of suicide. IOP individual therapist informed of symptoms SI. Client Response/Progress/Benefit: []Pt reported she is feeling very tired and fatigued throughout the day in which she is attributing fatigue to being on [place]. Pt shared despite feeling tired and fatigued throughout the day she is still extremely anxious. Pt reported she has been going hiking which seems to help reduce her anxiety. Pt shared she is feeling discouraged with limited progress since new medication change. Pt progress stagnant, continuing to report anxious symptoms with limited relief from coping skills. Pt to continue PHP level of care to improve mood stability, decrease anxiety, and prevent decompensation. Narrative Note: []
--- NOTE | 2018-05-20 10:25 | BH.SGPN.GN ---
Behaviors/Verbalizations/Mental Status: [] Pt eye contact fair, casually dressed, motor activity restless, speech normal rate and tone, mood anxious and dysthymic, flat affect, thoughts linear and logical, no evidence of delusions or hallucinations. Client Response/Progress/Benefit: [] Client passive participant as evidenced by client contributed little to discussion however did appear to be attentive as evidenced by her nodding her head and taking notes throughout group session. Client appeared to connect with others comments about the challenges of effective communication and at times believing 1 communicates effectively but in reality passive and indirect communication results in misinterpretations and increased comfort. Client reported she most often is a passive communicator because she wants to avoid conflict and is a people pleaser. Client shared by P and people pleaser and often leads to people walking over her and she struggles with setting firm boundaries. Client recognizes she has been working on being more assertive but is continuing to struggle with setting particularly emotional boundaries. Client seemed to benefit from learning about the positives and negatives of each of the 4 communication styles. Narrative Note: []
--- NOTE | 2018-05-20 11:25 | BH.SGPN.GN ---
Behaviors/Verbalizations/Mental Status: [] Pt eye contact fair, casually dressed, motor activity restless, speech normal rate and tone, mood anxious, constricted affect, thoughts linear and logical, no evidence of delusions or hallucinations. Client Response/Progress/Benefit: []Pt passive participant AEB pt quiet only contributing if elicited by therapist. Pt worked cooperatively with others during challenge activity of using clear and specific communication. Pt recognized how easy communication can become misinterpreted if not being direct and clear. Pt shared when she doesn't communicate to her family what she is experiencing in regards to her mental health symptoms it can lead to worsening symptoms and not getting the help she needs. Pt identified a small goal for the week is to continue to work on countering negative thoughts with positive thoughts. Pt seemed to benefit from rehearsing clear and specific communication as well as establishing a short term goal for the week to keep pt focused on moving forward. Pt to continue IOP level of care to decrease anxiety and prevent decompensation. Narrative Note: []
--- NOTE | 2018-05-20 14:09 | BH.MDN_ITS ---
Multi-Disciplinary Note - Note 45-min Individual Time Started:: 12:39 Date: 05/20/18 Purpose of session/treatment goals addressed:: The purpose of this session was to address client's current stressors, symptoms, use of coping skills, and treatment goals for IOP. Another goal was to practice strategies to manage negative intrusive thoughts and improve self-esteem. Other topics included safety and establishing healthy coping routines. Eye Contact:: Fair Motor Activity:: Appropriate Appearance:: Casual Speech:: Other - circumstantial at times Mood:: Anxious Affect:: Constricted Thoughts:: Linear, Logical, No evidence of hallucinations/delusions noted Staff Interventions:: Therapist used active listening and open-ended questions to explore client's current stressors, symptoms, use of coping, and treatment goals for IOP. Therapist gathered information on strategies that have been most helpful for client to ensure continuity of care moving forward. Therapist also assessed risk and reviewed client?s safety plan. Therapist gave client a list of ways to challenge negative thinking and a list of ways to improve use of positive affirmations. Therapist assisted client in using in the moment strategies to overcome intrusive anxious thoughts. Therapist helped client process struggles from the weekend and pointed on positive ways client coped to increase client confidence. Therapist focused on client's strengths and gave client homework to increase self-esteem. Client Response:: Client responded well to session, open to meeting with therapist. Client shared she stayed with her and daughter over the weekend which brought on high anxiety at times, but client reported I made it through and we had a good time. Client used affirmations and emotional boundaries when her daughter became upset which helped client manage anxiety and avoid crisis. Client shared other positives from the weekend and stated it helps client when she reflects on her progress. Client reported she has been trying to work on letting junk thoughts pass and shared having some success with that over the weekend, but client continues to struggle with ruminating about her daughter and life in general. Client accomplished her goal of using self-care and trying new calming strategies. Client's reported currently being anxious about her daughter starting school as client has negative thoughts of she is going to get bullied. Client and therapist challenged the thought, labeling it as the predicting the future cognitive distortion. Client identified evidence against and reframed the thought to this isn't likely to happen. Client appears to be doing better with reframing her thoughts to positives as client did this multiple times during session without prompting. Client receptive to writing in an accomplishment log each day to improve self- esteem and reduce negative thoughts. Risks/Concerns:: Client reports passive suicidal thoughts, describing them as ? periodic and fleeting.? Client shared her thoughts are less frequent today and there is low intent. Client reports ability to maintain safety tonight and shared she is following her safety plan. Client identified her and daughter as reasons to live. Client reported reduced anxiety symptoms today which is a protective factor and seemed future oriented as shown by her report of looking forward to hiking tonight. Progress Toward Goals/Plan:: Client started IOP today and reports wanting to work on setting emotional boundaries, reducing guilt and negative self-talk, and increasing confidence. Client had demonstrated progress in PHP as shown by her report of reduced frequency of suicidal thoughts and consistent implementation of affirmations, calming strategies, and self-talk to manage mental health symptoms. Client stayed with her and daughter over the weekend and was able to manage her anxiety without escalating into crisis which also demonstrates progress. Client continues to endorse ruminations, anxiety, depressed mood, low energy, guilt, and low self-esteem. Client to continue IOP to prevent decompensation, promote safety, and increase mood stability. Time Stopped:: 13:20
--- NOTE | 2018-05-20 14:11 | BH.MTP ---
[facility] - Patient Information Program Physician:: Desi Montiel Primary Therapist:: Leyla Fuentes - Psychiatric Diagnoses Psychiatric Diagnoses:: Major depressive disorder recurrent severe of F33.2; OCD Diagnosis Code(s):: F33.2; F42 - Estimated LOS Estimated LOS (in weeks):: 6 Problem/Goal #1 - Problem/Goal #1 Stated Goal:: Client will reduce depression and suicidal ideation due to major depressive disorder while increasing self-worth. Description of Barriers: Client continues to report high anxiety and rumination associated with her daughter's well-being and clients success as a mother. Client also continues to report guilt and negative core beliefs. Client endorses a depressed mood, rumination, obsessive thoughts, and anhedonia. Client identifies herself as an emotional sponge which makes it hard for client to set boundaries and focus on stressors in her control. Client shares ongoing stomach issues which client recognizes is connected to her depression and anxiety. Client states her reassurance and verbalizing questions brought on by OCD has decreased, but client continues to struggle with letting thoughts go and using internal coping skills to manage her symptoms. Functional Impact: Client is a 43-year-old female who recently discharged from the PHP program after successfully completing her treatment goals. Client continues to endorse a mild to moderately depressed mood with anhedonia, guilt, and decreased energy. Client continues to have chronic suicidal thoughts nearly every day, but of decreased in intensity and frequency. Client denies intent and reports following her safety plan. Client reports ongoing rumination and severe anxiety about multiple issues including recent health, friends, and her daughter. Client shares ongoing difficulty with comparing herself to others and setting boundaries. Client reports that her OCD symptoms of reassurance seeking have decreased, but continues to have intrusive thoughts and difficulty using internal coping skills to reduce obsessive thoughts. Clients symptoms impact her ability to perform daily tasks and function at her baseline. Goal Relevant Strengths/Supports: Client demonstrated progress in [facility] as evidenced by her report of reduced suicidal thoughts, increased use of coping skills, and increased concentration during group. Client's medication was changed which has reduced fatigue and improved client's energy. Client reports a strong support system in her , daughter, mother, family friend, and step-father. Since client last [facility] admission, client reports reduced frequency of suicidal thoughts, reduced depression, and less reassurance seeking which demonstrates progress. Client is intelligent, compassionate, and loves her family. Client is consistent with completing homework assigned by therapist and reports actively using coping skills to manage anxiety, obsessive thoughts, and depression. Client reports staying active through hiking and plans to start going to [employer] classes again. - Objectives Objective #1 Stated Objective: Client will keep a weekly accomplishment log, identifying at least three positives per day to increase self-esteem and reduce feelings of guilt. Interventions: Therapist will educate client on maintenance cycles and the psychological benefits of reflecting on positives. Therapist will provide client with a weekly accomplishment log each week. Therapist will help client create a list of affirmations, personal progress, and pleasurable activities that promote healthy maintenance cycles. Therapist will assist client in identifying her core beliefs and help client reframe negative thoughts of self by looking at client's strengths and challenging distortions. Discharge Criteria: Client will have achieved this objective when she can report at least three positives per day and reports filling out her weekly accomplishment log. Target Date: 06/24/18 Review Date: 06/10/18 Status: open Objective #2 Stated Objective: Client will identify and replace 2-3 negative thinking patterns that mediate feelings of hopelessness, low self-worth, and guilt to reduce depression as evidenced by reduced DSM-5 cross-cutting scores. Interventions: Through groups and individual therapy, client will be provided with education on cognitive distortions, mistaken beliefs, and identifying and combating negative self-talk. Therapist will assist client recognizing triggers for increased suicidal and depressive thought patterns. Therapist will help client explore connection between thoughts, feelings, and actions and help client reframe depressive thought patterns. Therapist will help client gain awareness of the benefits of boundaries and self-care. Discharge Criteria: Client will have accomplished this goal when her DSM-5 cross-cutting scores reduce for depression and when she can report at least 2 ways to reframe negative thinking patterns. Target Date: 06/24/18 Review Date: 06/10/18 Status: open Problem/Goal #2 - Problem/Goal #2 Stated Goal:: Reduce anxiety brought on by OCD while increasing ability to function on daily basis. Description of Barriers: Client continues to report high anxiety and rumination associated with her daughter's well-being and clients success as a mother. Client also continues to report guilt and negative core beliefs. Client endorses a depressed mood, rumination, obsessive thoughts, and anhedonia. Client identifies herself as an emotional sponge which makes it hard for client to set boundaries and focus on stressors in her control. Client shares ongoing stomach issues which client recognizes is connected to her depression and anxiety. Client states her reassurance and verbalizing questions brought on by OCD has decreased, but client continues to struggle with letting thoughts go and using internal coping skills to manage her symptoms. Functional Impact: Client is a 43-year-old female who recently discharged from the [facility] program after successfully completing her treatment goals. Client continues to endorse a mild to moderately depressed mood with anhedonia, guilt, and decreased energy. Client continues to have chronic suicidal thoughts nearly every day, but of decreased in intensity and frequency. Client denies intent and reports following her safety plan. Client reports ongoing rumination and severe anxiety about multiple issues including recent health, friends, and her daughter. Client shares ongoing difficulty with comparing herself to others and setting boundaries. Client reports that her OCD symptoms of reassurance seeking have decreased, but continues to have intrusive thoughts and difficulty using internal coping skills to reduce obsessive thoughts. Clients symptoms impact her ability to perform daily tasks and function at her baseline. Goal Relevant Strengths/Supports: Client demonstrated progress in [facility] as evidenced by her report of reduced suicidal thoughts, increased use of coping skills, and increased concentration during group. Client's medication was changed which has reduced fatigue and improved client's energy. Client reports a strong support system in her , daughter, mother, family friend, and step-father. Since client last [facility] admission, client reports reduced frequency of suicidal thoughts, reduced depression, and less reassurance seeking which demonstrates progress. Client is intelligent, compassionate, and loves her family. Client is consistent with completing homework assigned by therapist and reports actively using coping skills to manage anxiety, obsessive thoughts, and depression. Client reports staying active through hiking and plans to start going to [employer] classes again. - Objectives Objective #1 Stated Objective: Client will identify 2-3 intrusive/ruminating thoughts and learn 2-3 strategies to overcome, replace, or challenge those thoughts. Interventions: Therapist will help client increase awareness of cognitive distortions, false comfort, and times when situations client ruminated on had positive outcomes. Therapist will encourage client to focus on stressors in her control and teach client myths about thoughts. Therapist will utilize distractions, mindfulness, and CBT-based strategies to help client learn how to more effectively manage and cope with her intrusive thoughts. Discharge Criteria: Client will have met this goal when can report least 2 ways to cope with intrusive thoughts that exacerbate anxiety. Target Date: 06/24/18 Review Date: 06/10/18 Status: open Objective #2 Stated Objective: Client will identify 2-3 anxiety triggers and 2 coping skills to use when feeling anxious to manage anxiety as shown by preventing decompensation via maintaining current DSM-5 scores for anxiety. Interventions: Through group and individual sessions, client will gain awareness of her anxiety triggers and learn numerous techniques to manage anxiety symptoms. Therapist will use an anxiety scale to help client increase awareness of the severity of her anxiety and identify appropriate coping skills to use depending on severity. Discharge Criteria: Client will have met this goal if client can prevent decompensation as evidenced by stability in DSM-5 scores and when she can identify at least 2 triggers and 2 ways to cope with anxiety. Target Date: 06/24/18 Review Date: 06/10/18 Status: open
--- NOTE | 2018-05-22 09:05 | BH.SGPN.GN ---
Behaviors/Verbalizations/Mental Status: []Pt alert and oriented. Casually dressed and appropriately groomed. Mood anxious and dysthymic, affect constricted. Speech tone and rate WNL. Thoughts linear and logical. Motor activity restless. No evidence of delusions or hallucinations. Reviewed clients symptom tracker, indicates suicidal thoughts. IOP individual therapist notified about pt's SI. Client Response/Progress/Benefit: []Pt reported she went hiking, which was calming and does reduce her anxiety for a little. Pt shared she is still really anxious, but does not feel as fatigued and tired throughout the day since she stopped taking [place] in the morning. Pt reported starting to ruminate and worry about her daughter starting middle school this year. Pt shared she is unsure of what she will do with situations that might arise at school. Pt continuing to struggle with obsessive thoughts about her daughter. Pt progressing with going on daily hikes, however continues to struggle with managing her anxious thoughts about her daughter. Pt to continue IOP level of care to decrease anxiety and prevent decompensation. Narrative Note: []
--- NOTE | 2018-05-22 10:21 | BH.SGPN.GN ---
Behaviors/Verbalizations/Mental Status: [[Client alert and orient x3. She maintained consistent eye contact, casually dressed in jeans and T-shirt, motor activity within normal limits -no longer appearing lethargic as evidenced in previous sessions, speech soft, normal rate, mood dysthymic and anxious, affect constricted, thoughts linear and logical, no evidence of delusions or hallucinations.] Client Response/Progress/Benefit: [Client receptive of session and did well to engage more than previous sessions. This is evidenced by increased levels of input and client taking notes throughout. She did well to work with fellow participants on brainstorming various characteristics related to what may cause a crisis situation and how crisis can impact ones mental-health and wellness. Client appeared to benefit from the discussion regarding ways in which client's have been able to grow from crisis and become more empathetic. Client indicated relating to fellow participant who discussed discovering how resilient she is after the of her father. CLient provided minimal input though frequently nodded in agreement as fellow participants shared. She is making progress in her ability to begin applying thought challenging techniques and calming strategies to improve symptom management. CLient recommended continued IOP to maintain stability and further decrease client depressive and anxiety symptoms.] Narrative Note: []
--- NOTE | 2018-05-22 11:24 | BH.SGPN.GN ---
Behaviors/Verbalizations/Mental Status: [Client alert and orient x3. She maintained consistent eye contact, casually dressed in jeans and T-shirt, motor activity within normal limits,, speech soft, normal rate, mood anxious -more engaged than previous session, affect congruent, thoughts linear and logical, no evidence of delusions or hallucinations.] Client Response/Progress/Benefit: [Client responded well to session, and engage throughout. She did well to increase participation in input in discussion. Client discussed various potential warning signs for a crisis situation and did well to complete the prompt in which participants were encouraged to identify their own individual warning signs. Client indicated that anticipatory anxiety and restlessness as well as intrusive thoughts are major warning signs for her. She appeared to benefit from the discussion regarding the importance of him increasing awareness of these warning signs in order to implement effective healthy coping strategies. Client displaying progress in her ability to brainstorm potential effective interventions and means for coping. Client shared the crisis kit she had made with group and identified placing a bag of Tea and her kit as a reminder to relax and several small hearts to remind her of her supports and motivations to keep trying. Client recommended continued IOP treatment in order to maintain stability as she continues to work on improving insight into mental health symptoms and effective management strategies Narrative Note: []
--- NOTE | 2018-05-23 08:12 | BH.MTP_ITS ---
[facility] Treatment Plan - Patient Information Program Physician:: Desi Montiel Primary Therapist:: Leyla Fuentes - Psychiatric Diagnoses Psychiatric Diagnoses:: Major depressive disorder recurrent severe of F33.2; OCD Diagnosis Code(s):: F33.2; F42 - Estimated LOS Estimated LOS (in weeks):: 6 Problem/Goal #1 - Problem/Goal #1 Stated Goal:: Client will reduce depression and suicidal ideation due to major depressive disorder while increasing self-worth. Description of Barriers: Client continues to report high anxiety and rumination associated with her daughter's well-being and client?s success as a mother. Client also continues to report guilt and negative core beliefs. Client endorses a depressed mood, rumination, obsessive thoughts, and anhedonia. Client identifies herself as an ?emotional sponge? which makes it hard for client to set boundaries and focus on stressors in her control. Client shares ongoing stomach issues which client recognizes is connected to her depression and anxiety. Client states her reassurance and verbalizing questions brought on by OCD has decreased, but client continues to struggle with ?letting thoughts go ? and using internal coping skills to manage her symptoms. Functional Impact: Client is a 43-year-old female who recently discharged from the PHP program after successfully completing her treatment goals. Client continues to endorse a mild to moderately depressed mood with anhedonia, guilt, and decreased energy. Client continues to have chronic suicidal thoughts nearly every day, but of decreased in intensity and frequency. Client denies intent and reports following her safety plan. Client reports ongoing rumination and severe anxiety about multiple issues including recent health, friends, and her daughter. Client shares ongoing difficulty with comparing herself to others and setting boundaries. Client reports that her OCD symptoms of reassurance seeking have decreased, but continues to have intrusive thoughts and difficulty using internal coping skills to reduce obsessive thoughts. Client?s symptoms impact her ability to perform daily tasks and function at her baseline. Goal Relevant Strengths/Supports: Client demonstrated progress in [facility] as evidenced by her report of reduced suicidal thoughts, increased use of coping skills, and increased concentration during group. Client's medication was changed which has reduced fatigue and improved client's energy. Client reports a strong support system in her , daughter, mother, family friend, and step-father. Since client last [facility] admission, client reports reduced frequency of suicidal thoughts, reduced depression, and less reassurance seeking which demonstrates progress. Client is intelligent, compassionate, and loves her family. Client is consistent with completing homework assigned by therapist and reports actively using coping skills to manage anxiety, obsessive thoughts, and depression. Client reports staying active through hiking and plans to start going to [employer] classes again. - Objectives Objective #1 Stated Objective: Client will keep a weekly accomplishment log, identifying at least three positives per day to increase self-esteem and reduce feelings of guilt. Interventions: Therapist will educate client on maintenance cycles and the psychological benefits of reflecting on positives. Therapist will provide client with a weekly accomplishment log each week. Therapist will help client create a list of affirmations, personal progress, and pleasurable activities that promote healthy maintenance cycles. Therapist will assist client in identifying her core beliefs and help client reframe negative thoughts of self by looking at client's strengths and challenging distortions. Discharge Criteria: Client will have achieved this objective when she can report at least three positives per day and reports filling out her weekly accomplishment log. Target Date: 06/24/18 Review Date: 06/10/18 Status: open Objective #2 Stated Objective: Client will identify and replace 2-3 negative thinking patterns that mediate feelings of hopelessness, low self-worth, and guilt to reduce depression as evidenced by reduced DSM-5 cross-cutting scores. Interventions: Through groups and individual therapy, client will be provided with education on cognitive distortions, mistaken beliefs, and identifying and combating negative self-talk. Therapist will assist client recognizing triggers for increased suicidal and depressive thought patterns. Therapist will help client explore connection between thoughts, feelings, and actions and help client reframe depressive thought patterns. Therapist will help client gain awareness of the benefits of boundaries and self-care. Discharge Criteria: Client will have accomplished this goal when her DSM-5 cross -cutting scores reduce for depression and when she can report at least 2 ways to reframe negative thinking patterns. Target Date: 06/24/18 Review Date: 06/10/18 Status: open Problem/Goal #2 - Problem/Goal #2 Stated Goal:: Reduce anxiety brought on by OCD while increasing ability to function on daily basis. Description of Barriers: Client continues to report high anxiety and rumination associated with her daughter's well-being and client?s success as a mother. Client also continues to report guilt and negative core beliefs. Client endorses a depressed mood, rumination, obsessive thoughts, and anhedonia. Client identifies herself as an ?emotional sponge? which makes it hard for client to set boundaries and focus on stressors in her control. Client shares ongoing stomach issues which client recognizes is connected to her depression and anxiety. Client states her reassurance and verbalizing questions brought on by OCD has decreased, but client continues to struggle with ?letting thoughts go ? and using internal coping skills to manage her symptoms. Functional Impact: Client is a 43-year-old female who recently discharged from the [facility] program after successfully completing her treatment goals. Client continues to endorse a mild to moderately depressed mood with anhedonia, guilt, and decreased energy. Client continues to have chronic suicidal thoughts nearly every day, but of decreased in intensity and frequency. Client denies intent and reports following her safety plan. Client reports ongoing rumination and severe anxiety about multiple issues including recent health, friends, and her daughter. Client shares ongoing difficulty with comparing herself to others and setting boundaries. Client reports that her OCD symptoms of reassurance seeking have decreased, but continues to have intrusive thoughts and difficulty using internal coping skills to reduce obsessive thoughts. Client?s symptoms impact her ability to perform daily tasks and function at her baseline. Goal Relevant Strengths/Supports: Client demonstrated progress in [facility] as evidenced by her report of reduced suicidal thoughts, increased use of coping skills, and increased concentration during group. Client's medication was changed which has reduced fatigue and improved client's energy. Client reports a strong support system in her , daughter, mother, family friend, and step-father. Since client last [facility] admission, client reports reduced frequency of suicidal thoughts, reduced depression, and less reassurance seeking which demonstrates progress. Client is intelligent, compassionate, and loves her family. Client is consistent with completing homework assigned by therapist and reports actively using coping skills to manage anxiety, obsessive thoughts, and depression. Client reports staying active through hiking and plans to start going to [employer] classes again. - Objectives Objective #1 Stated Objective: Client will identify 2-3 intrusive/ruminating thoughts and learn 2-3 strategies to overcome, replace, or challenge those thoughts. Interventions: Therapist will help client increase awareness of cognitive distortions, false comfort, and times when situations client ruminated on had positive outcomes. Therapist will encourage client to focus on stressors in her control and teach client myths about thoughts. Therapist will utilize distractions, mindfulness, and CBT-based strategies to help client learn how to more effectively manage and cope with her intrusive thoughts. Discharge Criteria: Client will have met this goal when can report least 2 ways to cope with intrusive thoughts that exacerbate anxiety. Target Date: 06/24/18 Review Date: 06/10/18 Status: open Objective #2 Stated Objective: Client will identify 2-3 anxiety triggers and 2 coping skills to use when feeling anxious to manage anxiety as shown by preventing decompensation via maintaining current DSM-5 scores for anxiety. Interventions: Through group and individual sessions, client will gain awareness of her anxiety triggers and learn numerous techniques to manage anxiety symptoms. Therapist will use an anxiety scale to help client increase awareness of the severity of her anxiety and identify appropriate coping skills to use depending on severity. Discharge Criteria: Client will have met this goal if client can prevent decompensation as evidenced by stability in DSM-5 scores and when she can identify at least 2 triggers and 2 ways to cope with anxiety. Target Date: 06/24/18 Review Date: 06/10/18 Status: open
--- NOTE | 2018-05-24 09:06 | BH.SGPN.GN ---
Behaviors/Verbalizations/Mental Status: []Pt alert and oriented. Casually dressed and appropriately groomed. Mood anxious, affect constricted. Speech tone and rate WNL. Thoughts linear and logical. Motor activity appropriate. No evidence of delusions or hallucinations. Reviewed clients symptom tracker, indicated suicidal thoughts. Individual IOP therapist notified of pt's SI. Client Response/Progress/Benefit: []Pt reported she went on a couple hikes, which she found to be relaxing. Pt shared she had an appointment with her psychologist yesterday in which she was asked to compare herself to how her friend who lost her has dealt with stressors. Pt shared comparing herself to that friend made pt feel much worse because pt feels she isn't doing good enough. Pt identified feeling down and anxious. Pt reported she followed through with her goal of self-care by going on a hike. Pt progress could be hindered if pt continues to rely on the coping skill of hiking, could benefit from increasing repertoire of coping and self-care. Pt to continue IOP level of care to stabilize moods, improve daily functioning, and prevent decompensation. Narrative Note: []
--- NOTE | 2018-05-24 10:23 | BH.SGPN.GN ---
Behaviors/Verbalizations/Mental Status: []Client alert and oriented, neatly dressed and groomed. Eye contact good. Motor activity appropriate. Speech within normal limits. Affect constricted, mood anxious, dysthymic Thoughts linear, logical, no signs of hallucinations or delusions. Client Response/Progress/Benefit: []Client responded well to session, participating when prompted. Client connected with the quote sharing boundaries are self-care. Client stated she has improved with setting boundaries, but continues to struggle with it as client thinks she may hurt others. Client reported other barriers to setting healthy boundaries such mind-reading, low self-esteem, and anxiety. Client identified potential benefits of boundaries such self-care, letting ones values get heard, and communicating needs. Client helped the group discuss the different types of boundaries, porous, rigid, and flexible as well as the pros and cons to each. Client identified using porous boundaries as client has a hard time saying no and verbalizing her expectations which leads to low self-esteem. Client appeared to benefit from learning how boundaries impact mental health and identifying her boundary type. Client to continue IOP as she has progressed with utilizing healthy coping skills, but can continue to increase mood stability.
--- NOTE | 2018-05-24 11:05 | PCM.PN.BLA ---
Progress Note This is an update to the history and physical of 05/17/2018. Patient is seen in follow-up for major depressive disorder recurrent severe, OCD, anxiety unspecified. History is been obtained per interview with patient, discussion with staff, review of chart. Case discussed with treatment team. Chief complaint-depression and anxiety. Still anxious. Interim history Moderate depressive symptoms persist but of decreased intensity within the past week. Continues to have suicidal thoughts occurring a few times per day but of decreased intensity and frequency. Reports thoughts of carbon monoxide poisoning but states I will not carry it out. Reports that she does not have access to keys or a car. Denies specific plan. Denies suicide intent. Feels able to maintain safety. Reports that she wants to live for her family. No homicidal ideation. No symptoms consistent with psychosis. Continues to have moderate ruminative anxiety which she states is pretty high. Notes that she is anxious about spending weekends with her and daughter. She is using coping skills gained through [facility] to manage anxiety during the weekends. Sleeping from 11 PM until 7 AM. Complaint of daytime somnolence. Reports somnolence however has decreased with moving lithium to p.m. dosing. Appetite is fair. Reports nausea associated with GERD but symptoms decreased with Carafate. Denies vomiting or diarrhea. Compliant with medication including lithium ER 600 mg nightly, Luvox 150 mg p.o. twice daily. Continues to use Klonopin 1 mg p.o. 3 times daily. Encouraged to reduce Klonopin to 0.5 mg every morning and 1 mg q. afternoon and 1 mg nightly. Mental status exam Alert and oriented. No acute distress. Ambulatory with normal gait and station. Casually dressed and groomed. Appropriate hygiene. Cooperative with interview. Good eye contact. No psychomotor agitation or retardation. Mood depressed but improved. Affect congruent. Appears brighter. Speech is clear and of regular rate and volume. Language fluent. Thought process organized. Associations logical. Thought content significant for ruminative anxiety and themes of depression. Chronic suicidal ideation. No specific suicide plan or intent. Feels able to maintain safety. No homicidal ideation related to her detected. No evidence of psychosis related to her detected. Immediate recent and remote memory grossly intact. Attention and concentration are fair. Estimated intelligence fund of knowledge average. Judgment and insight are limited to fair. Labs and testing May 15, 2018 labs. [place] level 0.7, TSH 4.47, creatinine 0.84. Further lab work will be obtained as needed Diagnosis Major depressive disorder recurrent severe F 33.2 OCD Anxiety unspecified Plan Patient has participated in [facility] and made progress. She is appropriate for discharge from [facility] and admission to [facility]. Ongoing treatment in a structured setting is necessary to maintain gains and prevent decompensation. Risks benefits alternatives of medications discussed with patient. Patient acknowledges understanding. She will continue lithium ER 600 mg p.o. nightly. Continue Luvox 150 mg p.o. twice daily. Decrease Klonopin to 1/2 mg p.o. every morning and 1 mg p.o. q. afternoon and 1 mg p.o. nightly. Reduce Klonopin may reduce daytime somnolence. Recommend trazodone 100 mg nightly on an as-needed basis only. Encouraged to follow-up with outpatient providers including Dr. Frias and Dr. Joe. 20 minutes of Insight oriented psychotherapy provided. Patient acknowledges understanding and is in agreement with plan. Patient feels able to maintain safety. Agrees to seek help or emergency care if feeling unsafe to self or others.
--- NOTE | 2018-05-24 11:15 | PN_ITS ---
Progress Note This is an update to the history and physical of 05/17/2018. Patient is seen in follow-up for major depressive disorder recurrent severe, OCD , anxiety unspecified. History is been obtained per interview with patient, discussion with staff, review of chart. Case discussed with treatment team. Chief complaint-depression and anxiety. Still anxious. Interim history Moderate depressive symptoms persist but of decreased intensity within the past week. Continues to have suicidal thoughts occurring a few times per day but of decreased intensity and frequency. Reports thoughts of carbon monoxide poisoning but states I will not carry it out. Reports that she does not have access to keys or a car. Denies specific plan. Denies suicide intent. Feels able to maintain safety. Reports that she wants to live for her family. No homicidal ideation. No symptoms consistent with psychosis. Continues to have moderate ruminative anxiety which she states is pretty high. Notes that she is anxious about spending weekends with her and daughter. She is using coping skills gained through [facility] to manage anxiety during the weekends. Sleeping from 11 PM until 7 AM. Complaint of daytime somnolence. Reports somnolence however has decreased with moving lithium to p.m. dosing. Appetite is fair. Reports nausea associated with GERD but symptoms decreased with Carafate. Denies vomiting or diarrhea. Compliant with medication including lithium ER 600 mg nightly, Luvox 150 mg p.o. twice daily. Continues to use Klonopin 1 mg p.o. 3 times daily. Encouraged to reduce Klonopin to 0.5 mg every morning and 1 mg q. afternoon and 1 mg nightly. Mental status exam Alert and oriented. No acute distress. Ambulatory with normal gait and station. Casually dressed and groomed. Appropriate hygiene. Cooperative with interview. Good eye contact. No psychomotor agitation or retardation. Mood depressed but improved. Affect congruent. Appears brighter. Speech is clear and of regular rate and volume. Language fluent. Thought process organized. Associations logical. Thought content significant for ruminative anxiety and themes of depression. Chronic suicidal ideation. No specific suicide plan or intent. Feels able to maintain safety. No homicidal ideation related to her detected. No evidence of psychosis related to her detected. Immediate recent and remote memory grossly intact. Attention and concentration are fair. Estimated intelligence fund of knowledge average. Judgment and insight are limited to fair. Labs and testing May 15, 2018 labs. [place] level 0.7, TSH 4.47, creatinine 0.84. Further lab work will be obtained as needed Diagnosis Major depressive disorder recurrent severe F 33.2 OCD Anxiety unspecified Plan Patient has participated in [facility] and made progress. She is appropriate for discharge from [facility] and admission to [facility]. Ongoing treatment in a structured setting is necessary to maintain gains and prevent decompensation. Risks benefits alternatives of medications discussed with patient. Patient acknowledges understanding. She will continue lithium ER 600 mg p.o. nightly. Continue Luvox 150 mg p.o. twice daily. Decrease Klonopin to 1/2 mg p.o. every morning and 1 mg p.o. q. afternoon and 1 mg p.o. nightly. Reduce Klonopin may reduce daytime somnolence. Recommend trazodone 100 mg nightly on an as-needed basis only. Encouraged to follow-up with outpatient providers including Dr. Frias and Dr. Joe. 20 minutes of Insight oriented psychotherapy provided. Patient acknowledges understanding and is in agreement with plan. Patient feels able to maintain safety. Agrees to seek help or emergency care if feeling unsafe to self or others.
--- NOTE | 2018-05-24 11:15 | BH.DR.ITP ---
Initial Treatment Plan - Patient Information Visit Information: ADMISSION DATE: EXPECTED LOS: 4-6 weeks Diagnoses:: Major depressive disorder recurrent severe F 33.2, OCD F 42 - Problems/Symptoms Problem #1:: Depression Symptom:: Sad mood, anhedonia, suicidal ideation Problem #2:: Anxiety Symptom:: Rumination, obsessive thoughts
--- NOTE | 2018-05-24 11:21 | BH.SGPN.GN ---
Behaviors/Verbalizations/Mental Status: []Client alert and oriented, neatly dressed and groomed. Eye contact good. Motor activity appropriate. Speech within normal limits. Affect congruent- making jokes and laughing, mood anxious Thoughts linear, logical, no signs of hallucinations or delusions. Client Response/Progress/Benefit: []Client responded well to session, active participant, joking with a peer who had a similar visual representation. Client created a visual representation of her current boundary style sharing, Im also all or nothing when it comes to boundaries, Im mostly porous but sometimes I just have to shut people out. Client stated she has worked to improve setting boundaries, which client recognizes has not been easy, but per client report it has helped remove toxic people. Client receptive to learning ways to set healthy boundaries such as challenging negative thoughts and guilt and communicating with supports. Client set a daily goal to promote boundary setting which was to continue using emotional boundaries with her daughter. Client appeared to benefit from learning how to set healthy boundaries. Client to continue IOP to prevent decompensation, increase internal coping skills, and increase mood stability.
--- NOTE | 2018-05-27 09:10 | BH.SGPN.GN ---
Behaviors/Verbalizations/Mental Status: [] Pt eye contact fair, casually dressed, motor activity restless, speech normal rate and tone, mood anxious, congruent affect, thoughts linear and logical, no evidence of delusions or hallucinations. Patient's symptom tracker did indicate suicidal thoughts as a 3 out of 5 and intent to harm self a 2 out of 5. Patient's IOP individual therapist notified of suicidal ideation. Per history of patient's symptom trackers the scores indicate a decrease in suicidal thoughts and intent. Client Response/Progress/Benefit: [] Client reported Sunday she spent some time with her daughter and overall the day went well. Client reported on Sunday she was ruminating a lot in the morning and certainly get out of bed but with encouragement from her she is able to get moving. However client reported she drank some pop which resulted in stomach ache and client laid in bed the rest of the day. Client recognizes when she laid in bed majority of the day it resulted in increased ruminations and distorted thought patterns. Client reported on Sunday she had a much better day by attending judaism with her family, going on a hike, and helping her daughter organize school supplies. Client shared going on a hike was helpful to manage her anxiety level and believed she had a better time managing her emotions around her daughter. Client progress noted with manage emotions while her granddaughter. Continuing to struggle with allowing ruminations to take over her day. Client to continue IOP level care to decreased anxiety, improve daily functioning, and prevent decompensation Narrative Note: []
--- NOTE | 2018-05-27 10:23 | BH.SGPN.GN ---
Behaviors/Verbalizations/Mental Status: [Client maintained fair eye contact, casually and neatly dressed, motor activity restless fidgeting in chair throughout, speech normal rate and soft tone, mood dysthymic, anxious, congruent affect, thoughts linear and intact some need for reassurance, no evidence of delusions or hallucinations.]] Client Response/Progress/Benefit: [Pt listened attentively to others AEB taking notes and as well contributing to discussion on conflict resolution. Able to identify the importance of effective conflict resolution to promote positive support and maintain mental health. Pt identified she mostly connects to avoidant style of conflict resolution when communicating with others, often minimizing or shutting down to prevent discussing difficult topics. She shared being a ?shark? or aggressive towards self at times, engaging in self-deprecating talk which further increases guilt and anxiety. Pt shared personal example regarding ruminating on ?mistakes? she thinks she makes in communicating with her daughter. Pt able to identify how aggressive internal conflict approaches could be impacting her mental health and preventing from believing positive self-statements. Pt seemed to benefit from learning about the different conflict resolution styles and pros/cons of each. Progress in client levels of insight regarding own approach to conflict.] Narrative Note: []
--- NOTE | 2018-05-27 11:30 | BH.SGPN.GN ---
Behaviors/Verbalizations/Mental Status: [Client maintained fair eye contact, casually and neatly dressed, motor activity restless, speech normal rate and soft tone, mood anxious, congruent affect, thoughts linear and intact some need for reassurance, no evidence of delusions or hallucinations.] Client Response/Progress/Benefit: [Pt receptive of session and attempted to collaborate with others during challenge activity, however often ended up using accommodation. Pt struggled in verbalizing her thoughts and opinions throughout the conflict activity. Pt did well to identify similar instances of attempting to speak up or engage with others and then becoming intimidated and shutting down. Pt seemed to benefit from recognizing that fear of rejection impacts her ability to get own needs met in daily life and displaying progress in ability to brainstorm healthy conflict resolution skills. Discussed plans to communicate her opinion/concerns at least once today to improve assertive communication.] Narrative Note: []
--- NOTE | 2018-05-27 15:17 | BH.MDN ---
Multi-Disciplinary Note - Note 45-min Individual Time Started:: 12:35 Date: 05/27/18 Purpose of session/treatment goals addressed:: The purpose of this session was to review client's homework from the weekend, address current stressors, and practice strategies to reduce ruminations. Other topics included boundaries and scheduling pleasurable activities. Eye Contact:: Fair Motor Activity:: Appropriate Appearance:: Disheveled - hair appeared unwashed. Speech:: Other - stuttering a few times during session. Mood:: Anxious, Dysthymic Affect:: Constricted, Other - laughing a few times. Thoughts:: Linear, Logical, No evidence of hallucinations/delusions noted Staff Interventions:: Therapist used open-ended and scaling questions to explore client's current stressors, symptoms, and homework. Therapist allowed client a safe place to process her ruminations and challenges from the weekend. Therapist used various techniques to help client challenge, reduce, and reframe ruminations. Therapist helped client recall past experiences when situations client was ruminating on turned out positive. Therapist provided client a handout on different techniques to reduce rumination including healthy distractions, mindfulness, and cost benefit analysis of ruminating. Therapist helped client identify distorted thoughts and set emotional boundaries using internal locus of control. Therapist gave client homework to continue her accomplishment log, practice letting thoughts pass, and keep track of her ruminations and outcomes. Client Response:: Client responded well to session, open to meeting with therapist. Client stated this weekend had positives and negatives. Client shared the negative was client spent most of the day Sunday in bed ruminating. Client reported Kurtis finally told me you need to get out of the room and come drink tea. Client shared once she got up she felt much better, but then drank a pop which upset her stomach and returned client to her bedroom. Client reported Sunday was a better day, client and her family went [place] and [place], then client helped her daughter get organized for school. Client stated she has been using healthy distractions and writing positives about her days, but continues to struggle with letting go of intrusive thoughts and ruminations. Client stated, I tell myself if I just think hard enough I will solve the problem. Client receptive to practicing strategies to reduce ruminations and intrusive thoughts. Client identified situations in the past that led to ruminations and severe anxiety and then wrote the outcomes of those situations. One of the situations was when client's daughter changed schools, client's ruminating thought was she's not going to like it... She's going to get bullied. Client recognized she was predicting the future and shared that brought on a lot of anxiety. Client wrote down the outcome of the situation and it turned out her daughter liked the new school and did not get bullied. Client labeled the outcome as better than expected. Client did several other situations and shared all of them turned out better than I thought. Client agreed to do this for homework to help client gain confidence that ruminations do not predict the future. Client was also encouraged to continue using healthy distractions, mindfulness, and the junk thought strategy to help overcome intrusive thoughts. Client reported she is also currently ruminating about her friends who are struggling with hardships and her daughter's upcoming open house for school. With therapist elicitation, client able to challenge negative thoughts and identify possible positive outcomes. Client and therapist also discussed the benefits of setting emotional boundaries and focusing things client has control over. Client stated she plans to tell herself I did the best I could, I can't fix everything to help her set emotional boundaries. Client to complete her rumination log, identify daily accomplishments, and continue working on other coping strategies for homework. Client also reported plan to return to [facility] this as a pleasurable activity. Risks/Concerns:: No concerns to document at this time. Client reported some passing suicidal thought last night, but shared I don't have any today. Client's mother continues to keep client's car keys and administer client's medications during the week. Client reports ability to maintain safety. Progress Toward Goals/Plan:: Client appears to be progressing towards her treatment goals as evidenced by her report of using mindfulness and distraction coping skills daily as well as client's report of reduced suicidal ideation. Client continues to report high anxiety and rumination mostly regarding her daughter, but has shown progress with managing emotions to avoid crisis. Client shared over the weekend she spent the morning in bed ruminating until her encouraged her to get up and read, showing client continues to struggle with implementing internal coping skills. Client to continue IOP to prevent decompensation, increase mood stability, and reduce ruminations. Time Stopped:: 13:20
--- NOTE | 2018-05-29 09:03 | BH.SGPN.GN ---
Behaviors/Verbalizations/Mental Status: []Client alert and oriented, neatly dressed and groomed, hair washed and toes painted. Eye contact good. Motor activity appropriate. Speech within normal limits. Affect congruent- smiling and laughing. Mood anxious, but reporting hopeful as well. Thoughts linear, logical, no signs of hallucinations or delusions. Reviewed clients symptom tracker, client self-reports moderate thoughts of suicide, but intent is low as of 05/29/18 which client reports as her baseline. Client Response/Progress/Benefit: []Client responded well to session, providing supportive statements. Client reports feeling a little anxious, but hopeful this life will turn around soon. Client shared she has been working on her personal goals and accomplished one last night as client reached out to a friend. Client stated she wanted to be a support for her friend and worked on setting emotional boundaries. Client reported she was very anxiety yesterday due to client and her attending their daughter's open house for school. Client shared I was a nervous wreck but client went on a walk to calm herself down before and used positive self-talk during. Client reflected on the event stating it went better than she thought, and client kept track of this as part of her rumination homework. Client was receptive to praise from group and shared I have to just do it like [employer] when I'm afraid. Client appeared to benefit from gaining supportive statements from peers and reflecting on progress. Client to continue IOP as she is progressing with implementing positive self-talk, but continues to struggle with managing ruminations and anxiety.
--- NOTE | 2018-05-29 10:15 | BH.SGPN.GN ---
Behaviors/Verbalizations/Mental Status: []Pt alert and oriented, eye contact fair, casually dressed, speech and tone WNL, mood dysthymic and anxious, affect constricted, thoughts linear and intact, no evidence of delusions or hallucinations. Client Response/Progress/Benefit: Client passive participant, contributed to discussion at times and appeared to listen to others attentively. Client appeared to connect with others about the importance of having social supports because feel more secure and stable when have others can count on. Pt shared it can be challenging to communicate what kind of support she needs. When processing challenge activity pt recognizes importance of being specific and direct with support system so it is clear what supports can do to be the most supportive. Pt seemed to benefit from increased awareness of characteristics of healthy supports.
--- NOTE | 2018-05-29 11:25 | BH.SGPN.GN ---
Behaviors/Verbalizations/Mental Status: [] Pt eye contact fair, casually dressed, motor activity restless, speech normal rate and tone, mood anxious, congruent affect, thoughts linear and logical, no evidence of delusions or hallucinations. Client Response/Progress/Benefit: [] Patient was sensitive to others and contributed if elicited by therapist. Client reported she finds it most helpful on her 's her gentle reminders what healthy coping skills can help her and the given situation. Client reported her will remind her of those skills when she is stuck in bed ruminating. Client shared she needs to focus on increasing her personal relationships to increase her social support network because she recognizes it would help her emotionally to have others to talk with and ask for help. Client shared her goal is to reach out to new people and communicate to her current supports what kind of support is most helpful to her. Client to continue IOP level of care to stabilize anxiety, maintain gains, and prevent decompensation. Narrative Note: []
--- NOTE | 2018-05-31 09:05 | BH.SGPN.GN ---
Behaviors/Verbalizations/Mental Status: []Client alert and oriented, neatly dressed and groomed. Eye contact fair. Motor activity appropriate. Speech monotone, otherwise within normal limits. Affect constricted- laughing a few times during session, mood anxious. Thoughts linear, logical, no signs of hallucinations or delusions. Reviewed clients symptom tracker, client reports passing thoughts of suicide, no risk for suicidal ideation, plan, or intent as of 05/31/18. Client Response/Progress/Benefit: []Client responded well to session, affect brighter and actively participating. Client reports feeling anxious and kind of depressed today due to a crisis at home this morning. Client stays with her mother and step-father during the week and this morning her father received a call regarding his adopted daughter that was distressing. Client shared I just feel terrible for my mom and Al because they shouldnt have to deal with that in their sharma years. Client reported this also triggered clients thoughts of Teresa been a burden which client was able to challenge with help during session. Client reminded by peers of the importance of focusing on stressors in her control and setting emotional boundaries. Client reported she completed her goal of going to [employer] yesterday which helped client feel better and practice emotional release. Client appeared to benefit from challenging negative thoughts in the moment and reflecting on progress. Client progressing as shown by her report of generalizing healthy coping, but continues to struggle with negative core beliefs and rumination.
--- NOTE | 2018-05-31 10:10 | BH.SGPN.GN ---
Behaviors/Verbalizations/Mental Status: []Client alert and oriented, neatly dressed and groomed. Eye contact fair. Motor activity appropriate. Speech monotone, otherwise within normal limits. Affect constricted- laughing a few times during session, mood anxious. Thoughts linear, logical, no signs of hallucinations or delusions. Client Response/Progress/Benefit: []Pt passive participant, attentive to others comments and only contributing thoughts and ideas if elicited by therapist. Pt reported for her current reality she feels like she is flying a plane that knows where the landing zone is, but crashes right before it. Pt stated currently she feels out of control and constantly anxious. Pt shared for her desired reality she wants the airplane to successfully land on the runway. Pt shared in her desired reality she would be more in control of her emotions and life. Pt reported she would also be able to enjoy life. Pt seemed to benefit from recognizing it's helpful to have a desired reality because it can provide hope and motivation to keep fighting. Narrative Note: []
--- NOTE | 2018-05-31 11:10 | BH.SGPN.GN ---
Behaviors/Verbalizations/Mental Status: []Client alert and oriented, neatly dressed and groomed. Eye contact fair. Motor activity appropriate. Speech monotone, otherwise within normal limits. Affect constricted,, mood anxious. Thoughts linear, logical, no signs of hallucinations or delusions. Client Response/Progress/Benefit: []Pt responded well to session AEB pt contributing if elicited by therapist and engaging in activity despite expressing anxiety. Pt identified the barriers that are keeping her stuck from getting to desired reality include: comparing self to others, negative thoughts, not reaching out to supports, cognitive distortions and physical problems. Pt reported negative thoughts to be the most impactful barrier that keeps her from reaching desired reality. Pt worked cooperatively with peers throughout activity to identify various skills and strategies to help overcome various obstacles and barriers in life. Pt shared her goal is to focus on self care by taking a bubble bath today. Pt seemed to benefit from group brainstorm of ideas to overcome various barrier and obstacles in life. Narrative Note: []
--- NOTE | 2018-06-03 09:10 | BH.SGPN.GN ---
Behaviors/Verbalizations/Mental Status: [] Pt eye contact fair, casually dressed, motor activity restless, speech normal rate and tone, mood anxious, congruent affect, thoughts linear and logical, no evidence of delusions or hallucinations. Patient's symptom Tracker indicates current suicidal thoughts of a 4 out of 5 and intention to harm himself a 3 out of 5. Patient's IOP individual therapist notified of patient's current suicidal ideation and intent. Client Response/Progress/Benefit: [] Client reported she did accomplish her goal of trying a self care activity of taking a bubble bath. Client reported the relaxing that did not go as planned because she only lasted a few minutes. Client shared it was too quiet in the water was too hot, which resulted in client leaving the bathtub quickly. Client open to suggestions and problem solving on what could make her relaxing bath better experienced next time. Client shared her daughter was away throughout the weekend she spent some time with her and going on walks. Client reported on Sunday she did not want to get out of bed but with encouragement from her she was able to get out of bed and get some chores done around the house. Client reported yesterday she started to ruminate about her daughter starting middle school this week. Client open to support from peers and recognizes she is fortune telling and the distorted thought patterns are not helping her feel any better. Client continues to struggle with fortune telling and having difficulty staying in the moment. Client demonstrated progress with attempting a different type of relaxation and calming tool instead of just going on a walk. Client to continue IOP level of care to decrease obsessive thoughts, improve daily functioning and prevent decompensation. Narrative Note: []
--- NOTE | 2018-06-03 10:10 | BH.SGPN.GN ---
Behaviors/Verbalizations/Mental Status: []Client alert and oriented, neatly dressed and groomed. Eye contact fair. Motor activity appropriate. Speech monotone, otherwise within normal limits. Affect constricted, laughing at times. Mood anxious. Thoughts linear, logical, no signs of hallucinations or delusions. Client Response/Progress/Benefit: []Client responded well to session, active participant and receptive to supportive statements. Client seemed to connect with the quote sharing, the way we cope can build dockery around us and keep us stuck. Client engaged in discussion of what keeps people trapped from obtaining mental wellness. Client shared self-comparisons, low self-esteem, family, and negative thinking keeps people trapped. Client shared connecting with the discussion on maintenance cycles and how negative thinking can lead to unhealthy coping and increased depression or anxiety. Client identified negative thoughts that have kept client trapped as Im worthless, why bother, shes got it better than me, what bad thing will happen next. Client appeared to benefit from learning how negative thoughts can keep a person trapped. Client seems to be progressing as evidenced by her report of using self-care routinely, but client continues to struggle with managing anxiety and ruminations. Client to continue IOP to prevent decompensation.
--- NOTE | 2018-06-03 11:15 | BH.SGPN.GN ---
Behaviors/Verbalizations/Mental Status: []Client alert and oriented, neatly dressed and groomed. Eye contact fair Motor activity appropriate. Speech monotone, otherwise within normal limits. Affect constricted, mood anxious. Thoughts linear, logical, no signs of hallucinations or delusions. Client Response/Progress/Benefit: []Client responded well to session, active participant providing strategies. Client identified what bad thing will happen next as the thought keeping her most stuck. Client reported this thought is unrealistic as client is predicting the future and viewing situations as worst-case scenarios. Client stated when she thinks this thought she ruminates, isolates, and looks for reassurance. Client reframed her thought to a positive, more realistic thought of some negative things may happen, but I have skills to get me through. Client stated her reframed thought would make client more relaxed and less anxious. Client helped the group create a list of strategies to challenge negative thoughts such as looking at the evidence, thoughts are just thoughts, and positive self-talk. Client appeared to benefit from challenging a negative thought keeping client stuck and learning strategies to combat negative thoughts. Client progressing as shown by her report of increased self-care and positive self-talk, but client continues to report ruminations and difficulty managing anxiety. Client to continue IOP to prevent decompensation and increase use of internal coping skills.
--- NOTE | 2018-06-03 14:27 | BH.MDN ---
Multi-Disciplinary Note - Note 45-min Individual Time Started:: 12:15 Date: 06/03/18 Purpose of session/treatment goals addressed:: The purpose of this session was to address client's current stressors, review homework, and identify healthy coping skills to manage anxiety and rumination. Another goal was to identify strategies to increase self-esteem and reduce self-comparisons. Eye Contact:: Fair Motor Activity:: Appropriate Appearance:: Casual Speech:: Other - circumstantial Mood:: Anxious Affect:: Constricted, Other - laughing at times Thoughts:: Circular, Other - preoccupied, No evidence of hallucinations/delusions noted Staff Interventions:: Therapist used open-ended and scaling questions to explore client's current symptoms and stressors. Therapist processed events from the weekend and reviewed client's homework. Therapist gathered information on the ways client coped with stressors over the weekend and helped client increase insight to coping skills that promote healthy maintenance cycles. Therapist reviewed strategies to reframe, replace, and challenge intrusive thoughts. Therapist assisted client in creating a list of alternative coping skills to seeking reassurance when experiencing intrusive thoughts. Therapist provided client with a positive traits worksheet and encouraged client to spend the time she uses waiting for her meds to practice replacing negative thoughts of self with positive traits. Therapist also gave client homework to practice the STOPP technique to manage anxiety and negative thinking. Client Response:: Client responded well to session, open to meeting with therapist. Client shared the weekend was good because Kurtis and I got to do a lot of stuff together, but also had challenges as client spent Sunday morning in bed ruminating. Client stated she was triggered after Kurtis talked with her about staying the night at home on Wednesdays in addition to the weekends. Client shared this is intimidating to her because client is fearful about her daughter getting upset while doing homework. However, client verbalized her needs to her and recognizes she has numerous supports which increases clients confidence in following through despite anxiety. Client stated she was able to get out of bed Sunday with Kurtis's support and they went to the mall and for a walk. Client and therapist discussed maintenance cycles and client shared staying in bed only makes me feel better short term. Client able to identify healthy coping skills that promote healthy maintenance cycles such as hiking, reading, spending time with her , and using positive self-talk. Client was receptive to trying audiobooks while taking a bath as a new self-care strategy. Client reported she is currently ruminating about her daughter. Client rated her anxiety as a 6 out of 10 (10 being severe) and stated, if I stopped ruminating it would drop. Client and therapist reviewed strategies to manage intrusive and ruminating thoughts such as labeling thoughts as junk thoughts and letting them pass, deep breathing, using the STOPP technique, and using positive affirmations. Client was receptive to homework provided by therapist and shared belief the homework would be helpful. Risks/Concerns:: Client reports some passive suicidal thoughts today which client described as passing and infrequent. Client denies intent and was future oriented during session as evidenced by her report of wanting to find a new place to do t[place] and wanting to start attending ladies' night. Client identifies her daughter and as reasons to live. Progress Toward Goals/Plan:: Client appears to be progressing towards her treatment goals as evidenced by her report of consistently documenting her daily accomplishments to promote self-esteem and report of actively using positive self-talk. Client continues to report high anxiety and rumination mostly regarding her daughter, but client reports using positive self-talk and reminding herself thoughts are thoughts not facts has helped client redirect her thinking. Client reports ongoing avoidance and isolation, client spent Sunday morning in bed due to feeling overwhelmed. However, client reported using opposite action Sunday which improved clients mood and helped client have a more active Sunday as well. Client to continue IOP to prevent decompensation, increase mood stability, and reduce ruminations. Time Stopped:: 13:00
--- NOTE | 2018-06-05 09:03 | BH.SGPN.GN ---
Behaviors/Verbalizations/Mental Status: [Client maintained fair eye contact, casually dressed with appropriate hygiene, motor activity within normal limits, speech normal rate and tone, mood dysthymic, anxious, affect congruent, thoughts linear and logical, no evidence of delusions or hallucinations. Therapist reviewed clients symptom tracker to assess for intensity of mental health symptoms and identify risk for suicide. No signs of suicidal ideation, plan, or intent to date.] Client Response/Progress/Benefit: [Client receptive of session and able to engage throughout. She did well to provide feedback as fellow participants discussed current thoughts, stressors, and concerns. Client indicated relating to fellow participants as they expressed struggling to relay information with their supports due to fear of being misunderstood or not taken seriously. Client went on to share feeling overwhelmed today as she had been planning to meet with a stomach surgeon due to client experiencing increased psychosomatic symptoms; however, the appointment had been rescheduled. Client expressed hoping to be able to reschedule the appointment as she finds the pain to negatively impact her ability to function at baseline. Client went on to describe additionally struggling with rumination related to her daughter starting middle school this week. CLient benefitted from being able to reflect upon progress in challenging these thoughts and was able to identify how she has made progress in her ability to manage stressors related to concern for her daughter. CLient recommended ongoing IOP treatment to continue to improve client ability to apply cognitive restructuring techniques in order to maintain stability and improve ability to function at baseline. ] Narrative Note: []
--- NOTE | 2018-06-05 10:17 | BH.SGPN.GN ---
Behaviors/Verbalizations/Mental Status: []Client alert and oriented, casual dress. Eye contact good. Motor activity appropriate. Speech monotone otherwise within normal limits. Affect constricted, mood anxious. Thoughts linear, logical, no signs of hallucinations or delusions. Client Response/Progress/Benefit: []Client responded well to session, quiet but participating when prompted. Client stated coping skills help people deal with challenges and manage emotions. Client shared one learns coping skills from family, friends, and professionals. Client reported healthy coping skills take time. Client was passive with providing verbal input during the activity, but she provided help in other ways. Client reported it is important to have a mix of internal and external coping skills as one has to use supports and be able to self-regulate. Client shared she is improving her internal coping skills, but client continues to rely on external supports when experiencing crisis or increased mental health symptoms. Client reported she wants to increase her ability to use internal coping skills. Client appeared to benefit from increasing awareness of her healthy and unhealthy coping skills and of the benefits of having a balance of internal and external coping skills. Clients seems to be progressing as shown by her report of increased social activity during the week and use of thought challenging strategies, but client continues to struggle with managing ruminations.
--- NOTE | 2018-06-05 11:25 | BH.SGPN.GN ---
Behaviors/Verbalizations/Mental Status: []Client alert and oriented, casual dress. Eye contact good. Motor activity appropriate. Speech monotone, otherwise within normal limits. Affect congruent- laughing and smiling at times, mood anxious. Thoughts linear, logical, no signs of hallucinations or delusions. Client Response/Progress/Benefit: []Client responded well to session, quiet, but participating when prompted. Client able to identify healthy and unhealthy coping skills she has used in the past to regulate emotions and mental health. Client reported she has used isolation and alcohol to cope in the past which were not helpful. Client stated thoughts are thoughts not facts has been helping client manage her intrusive thoughts better. Client helped the group create a list of coping skills for the five categories of coping skills- distraction, emotional release, grounding, self-love, and thought challenging. Client also identified the pros and cons of each coping skill category. Client reported she uses grounding and distraction coping skills a lot and would like to work on emotional release. Client reported willingness to try puzzles, music, shower/bath bombs, and identifying times she succeeded. Client appeared to benefit from increasing her repertoire of healthy coping skills and learning the importance of using a variety of coping skills. Client to continue IOP to prevent decompensation and reduce anxiety and ruminations.
--- NOTE | 2018-06-07 09:03 | BH.SGPN.GN ---
Behaviors/Verbalizations/Mental Status: []Client alert and oriented, neatly dressed and groomed. Eye contact good. Motor activity appropriate. Speech monotone, otherwise within normal limits. Affect constricted- made a few jokes, but mostly constricted, mood dysthymic, anxious. Thoughts linear, logical, no signs of hallucinations or delusions. Reviewed clients symptom tracker, client reported yesterday having increased suicidal ideation, but that the thoughts have decreased today. No suicidal ideation, plan, or intent as of 06/07/18. Client Response/Progress/Benefit: []Client responded well to session, receptive to supportive statements made by peers. Client reports feeling hopeless and anxious today after having a bad day yesterday due to stomach issues which led to increased suicidal thoughts. Client stated her suicidal thoughts are less frequent today. Client shared one her support people helped client identify positives when she was feeling overwhelmed and client used self-talk of Im a survivor which improved clients mood. Client identified current positives as talking on phone with friends yesterday, setting emotional boundaries, having a scope scheduled for next Sunday, and going on a hike last night. Client appeared to benefit from identifying healthy coping skills that helped client overcome the challenging day yesterday as well as receiving supportive statements from peers. Client seems to be progressing with implementing calming coping skills and using more positive self-talk, but client continues to report high anxiety and difficulty managing ruminations. Client to continue IOP to prevent decompensation and increase clients ability to manage intrusive thoughts.
--- NOTE | 2018-06-07 10:15 | BH.SGPN.GN ---
Behaviors/Verbalizations/Mental Status: [Client maintained fair eye contact, casually and neatly dressed, motor activity appropriate, speech normal rate and soft tone, mood anxious, dysthymic, flat affect, thoughts linear and intact, no evidence of delusions or hallucinations.] Client Response/Progress/Benefit: [Client receptive of session and willing to engage throughout AEB providing input to discussion, though limited, and taking notes. Client did well to collaborate with fellow participants to attempts to complete ?group juggle? activity and appeared to benefit from being challenged to do so as levels of participation and mood improved. She was able to make connections between activity and components of a resilient lifestyle, identifying relating to another participant?s observation that if you focus on too many stressors at a time it is easy to get overwhelmed and shut down. Client noted struggling significantly with this in the past. Client shared that she now struggles most with guilt and negative thoughts. Client appeared to benefit from gaining awareness of the different factors that contribute to building a resilient lifestyle. Client identified connecting with the ?hope and optimism? and ?courage and confidence? components as these are areas she feels need most work in her own life. Progress noted in client ability to make connections between materials discussed and own life. Continued treatment necessary to improve depression management as well as prevent decompensation.] Narrative Note: []
--- NOTE | 2018-06-07 11:20 | BH.SGPN.GN ---
Behaviors/Verbalizations/Mental Status: [Client maintained fair eye contact, casually and neatly dressed, motor activity appropriate, speech normal rate and soft tone, mood anxious, dysthymic, flat affect, thoughts linear and intact, no evidence of delusions or hallucinations.] Client Response/Progress/Benefit: [Client was receptive of session, and again did well to challenge self to participate in both activity and reflection portions. Client collaborated with the group to complete the second resilience challenge, and was receptive of trying various strategies suggested by the group. Client continues to benefit from the activity portions of group, as she appears more engaged and increasingly able to be present in group. Continued work in this area recommended to further improve ability to challenge thoughts preventing full attention. Client connected with reflections provided by fellow participants regarding how elements of activity relate to daily life and completed the Stress Ball activity in which Clients identified things to remind them of their own resilience. Client identified wanting to improve her levels of ?hope and optimism? in her own life and indicated writing ?5 senses?, ?take a break? and ?positive self-talk? on her stress ball. Continued treatment necessary to improve depression, increase skill application and maintain stability.] Narrative Note: []
--- NOTE | 2018-06-10 10:25 | BH.SGPN.GN ---
Behaviors/Verbalizations/Mental Status: []Pt eye contact good, casually dressed, motor activity appropriate, speech normal rate and tone, mood anxious, congruent affect, thoughts linear and intact, no evidence of delusions or hallucinations. Client Response/Progress/Benefit: []Pt passive participant, contributed to discussion if elicited pt therapist. Pt appeared to agree with others comments about goals being important because provides direction and purpose AEB pt nodding her head. Pt connected with low motivation, energy and depression as common barriers to setting and accomplishing goals. Pt engaged in group activity, worked cooperatively with others. Pt able to connect importance of setting attainable goals. Pt seemed to benefit from learning about SMART goals and practicing setting small goals in the moment. Narrative Note: []
--- NOTE | 2018-06-10 10:45 | BH.MDN ---
Multi-Disciplinary Note - Note 45-min Individual Time Started:: 09:35 Date: 06/10/18 Purpose of session/treatment goals addressed:: The purpose of this session was to address client's current stressors, review homework, and identify healthy coping skills to manage anxiety and ruminations. Another goal was to identify and replace negative thought patterns that mediate guilt, feeling like a burden, and worthlessness. Eye Contact:: Fair Motor Activity:: Appropriate Appearance:: Neat Speech:: Appropriate Mood:: Anxious, Dysthymic Thoughts:: Circular, No evidence of hallucinations/delusions noted Staff Interventions:: Therapist used open-ended and scaling questions to explore client's current symptoms and stressors. Therapist processed events from the weekend and reviewed client's homework while addressing barriers that kept client from accomplishing goals. Therapist used strengths perspective to encourage client on her progress in coping with ruminations over the weekend. Therapist assisted client in reframing, replacing, and challenging negative thought patterns that mediate guilt and worthlessness. Therapist discussed maintenance cycles with client and helped client reflect on the connection between physical symptoms, emotions, thoughts, and behaviors. Therapist reviewed healthy strategies for managing ruminations and helped client create a goal to reduce ruminations using the Delay Distract Decide method. Therapist reviewed clients accomplishment log and encouraged client to focus on positives and progress. Therapist also gave client homework to practice the STOPP technique to manage anxiety and negative thinking. Client Response:: Client responded well to session, open to meeting with therapist. Client reported increased anxiety over the weekend. Client reports belief she was triggered by a woman at restoration and her plan to increase the number of days client stays home with her and daughter. Client has been staying with her and daughter Sunday and Sunday nights and Sunday during the day, but soon plans to add Sunday nights as well. Client stated, I'm anxious about that and then I feel like a burden to my mom and Al and then to Kurtis. Client shared she also feels guilty for not spending every day at home. With therapist elicitation and gentle challenging, client able to replace the irrational thoughts with I have to take care of me first. Client recognizes taking small, slow steps will benefit client long-term. Client able to identify evidence that shows client will be able to successfully increase her days spent at home such as being able to do it in the past. Client connected with the statement it's not about how fast you get there it's just about getting there. Despite client's report of high anxiety this weekend, client shared reduced isolation and rumination this weekend which demonstrates progress. Client shared Sunday she went to a reunion and Sunday instead of ruminating in bed she went to two restoration services. Client reports documenting her progress and reminding herself of junk thoughts have been helpful. Client recognizes when she stays in bed it increases anxiety and ruminations, but when client gets up she can distract herself and better manage symptoms. Client open to creating a goal to reduce rumination time which is to get out of bed for at least five minutes first thing in the morning. Client stated she did not accomplish her goal of using the STOPP technique, but she was open to trying that this week. Risks/Concerns:: Client reports chronic, passive suicidal thoughts but denies active suicidal ideation, plan, and intent as of 06/10/18. Client reports ability to maintain safety. Progress Toward Goals/Plan:: Client demonstrating progress towards treatment goals as shown by her report of reduced isolative behaviors this weekend. Client also showing progress as shown by her report of using healthy coping skills such as thoughts are thoughts not facts, distractions, and opposite action over the weekend. Client continues to report high anxiety and rumination associated with her daughter, role as a parent, and progress. Client also shares having increased thoughts of guilt and burden this weekend as well after talking to a woman at restoration. Client reported belief her stomach issues exacerbate her mental health symptoms. Client to work on her identified rumination goal this week and to continue IOP to prevent decompensation, increase mood stability, and reduce ruminations. Time Stopped:: 10:20
--- NOTE | 2018-06-10 11:25 | BH.SGPN.GN ---
Behaviors/Verbalizations/Mental Status: []Pt eye contact good, casually dressed, motor activity appropriate, speech normal rate and tone, mood anxious, constricted affect, thoughts linear and intact, no evidence of delusions or hallucinations. Client Response/Progress/Benefit: []Pt listened attentively to others and contributed thoughts and ideas to discussion. Pt reported her goal is when she starts to ruminate she will distract herself by reading a book or magazine. Pt stated this goal will benefit her by reducing her anxiety. Pt reported potential obstacles could be: worrying the rumination will return and stomach problems. Pt shared to overcome obstacle of worry that ruminations will return she will do a more active coping skill. Pt stated to overcome obstacle of stomach problems she has an appointment set with a doctor to get a scope done to figure out what is wrong. Pt seemed to benefit from setting a SMART goal and identifying strategies that will help her overcome any potential obstacles that might occur. Pt to continue IOP level of care to decrease anxiety, increase use of healthy coping, and prevent decompensation. Narrative Note: []
--- NOTE | 2018-06-12 09:00 | BH.SGPN.GN ---
Behaviors/Verbalizations/Mental Status: [] Pt eye contact fair, casually dressed, motor activity restless, speech normal rate and tone, mood anxious, congruent affect, thoughts linear and logical, no evidence of delusions or hallucinations. Reviewed client?s symptom tracker, no signs of suicidal ideation, plan, or intent as of today. Client Response/Progress/Benefit: []Pt reported she did work on her goal of either reading or doing something different when ruminating while in bed. Pt shared she used a grounding skill which helped for a little, but then just got out of bed because started to ruminate about food. Pt shared she has her stomach scope tomorrow and is hoping will get some answers as to why she is having stomach pain. Pt reported positives to include: hiking at [facility] [employer] and reaching out to one of her good friends. With assistance from therapist pt became aware that her fears and thought patterns hold her back from asking her friend to do something together due to pt thinking she's too busy and not actually asking her friend. Pt seemed to benefit from noting positives and expressing thoughts and feelings. Pt to continue IOP level of care to decrease anxiety, improve daily functioning, and prevent decompensation. Narrative Note: []
--- NOTE | 2018-06-12 10:25 | BH.SGPN.GN ---
Behaviors/Verbalizations/Mental Status: []Client alert and oriented, neatly dressed and groomed. Eye contact fair. Motor activity appropriate. Speech quiet. Affect brighter-laughing with peers, mood anxious. Thoughts linear, logical, no signs of hallucinations or delusions. Client Response/Progress/Benefit: []Client responded well to session, quiet, but participating when prompted. Client connected with the quote sharing, ?I?m always thinking negatively.? ?Client participated as the group discussed the different types of distortions and client reported she most often uses disqualifying the positives, mental filtering, and personalizing. Client reported when she uses cognitive distortions it makes client feel more anxious and depressed. Client appeared to benefit from gaining insight to the different types of cognitive distortions. Client to continue IOP to prevent decompensation, increase mood stability, and reduce anxiety.
--- NOTE | 2018-06-12 11:25 | BH.SGPN.GN ---
Behaviors/Verbalizations/Mental Status: []Client alert and oriented, neatly dressed and groomed. Eye contact fair. Motor activity appropriate. Speech within normal limits. Affect constricted overall, but laughing and joking with peers at times, mood euthymic. Thoughts linear, logical, no signs of hallucinations or delusions. Client Response/Progress/Benefit: []Client responded well to session, quiet but taking notes. Client was engaged during the group activity and connected that overcoming cognitive distortions takes a lot of time, practice, and energy. Client shared ?it?s constant challenging? Client stated it is important to have awareness when she is using distortions, so she can challenge them not let the thoughts consume her. Client participated with the group in identifying cognitive distortions and replacing them. Client challenged her thought of ?I?m not good enough? which client identified as labeling and disqualifying the positives. With group help, client reframed the thought to ?I?m not perfect but there are good things about me.? Client appeared to benefit from gaining insight to the effort it takes to replace negative thoughts and from challenging a negative thought during group.
== END 2018-06-14 23:59 ==
LOC: BHIOP 09:00
PROVIDERS: Family Provider Family Medicine; PCP Family Medicine; Visit Provider Psychiatry & Neurology Psychiatry
DX: F33.2 Major depressive disorder, recurrent severe without psychotic features (principal); F42.9 Obsessive-compulsive disorder, unspecified; F41.9 Anxiety disorder, unspecified
CPT/HCPCS: H0035; 90834; 90853

== ENCOUNTER 2018-06-14 09:05 | Day surgery (SDC) | payer BC, SELFPAY ==
--- NOTE | 2018-06-14 | IMM_PTH ---
PATIENT: NIDLA BEARD LOC: EN U#:[id number] AGE/SX: 43/F ROOM: RE06/14/[address]: Dr. Imtiaz Hogan MD : 1975 BED: DIS: 06/14/2018 SPEC #: [id number] RECD: 06/18/18 09:54 STATUS: ANN RECaio #: [id number] LIONEL: 06/14/18 00:[address]: Imtiaz Hogan DEPT: IMMUNOHISTOCHEMISTRY RECD BY: Merline Chavez ENTERED: 06/18/18 09:54 SP TYPE: IMMUNO OTHR DR: Dr. Nick Martinez MD Tissues: A - Stomach, NOS Procedures: H Pylori (initial) PHYSICIAN & INSTITUTION [place] [id number] SPECIMEN INFORMATION: Tissue Source: A ? Antral biopsy Clinical Info: GERD Specimen Number: [id number] CPT code: 44521 METHODOLOGY: Deparaffinized sections of prefer/formalin-fixed tissue or PAP/DQ stained slides are incubated with monoclonal/polyclonal antibodies/oligonucleotide probes. Localization is made via biotin free immunoperoxidase method. Appropriate controls are performed and reacted as expected. Results on target cell population are indicated in the following table: RESULTS: ANTIBODY / CLONE RESULT Block A H Pylori (polyclonal) negative These tests were developed and their performance characteristics determined by [facility]. They may not have been cleared or approved by the U.S. Food and Drug Administration. The FDA has determined that such clearance or approval is not necessary. INTERPRETATION: A. Antral biopsy: Negative for Helicobacter pylori organisms. SJ:jovita 06/18/18
[2018-06-14 09:18] VITALS: BP 98/64; PULSE 70; RESP 16; TEMP 36.3; O2SAT 100; BMI 20.9
[2018-06-14 09:25] LABS: Internal QC Validated? YES +Cl - CLEAR BKGD
[2018-06-14 09:26] LABS: Pregnancy, Urine Negative Negative
--- NOTE | 2018-06-14 10:15 | EGD_PTH ---
PATIENT: NILDA BEARD LOC: EN U#:[id number] AGE/SX: 43/F ROOM: RE06/14/[address]: Dr. Imtiaz Hogan MD : 1975 BED: DIS: 06/14/2018 SPEC #: [id number] RECD: 06/14/18 11:37 STATUS: ANN HEATHER #: [id number] LIONEL: 06/14/18 10:[address]: Imtiaz Hogan DEPT: SURGICAL PATHOLOGY RECD BY: Michele Varela ENTERED: 06/14/18 14:12 SP TYPE: EGD BIOPSY OT DR: Dr. Nick Martinez MD Tissues: A - Gastric mucous membrane B - Gastric mucous membrane Procedures: Special Stain Group II Surgery Specimen Level IV Alcian Blue/PAS (control) HEADER OPERATION: EGD ([facility] [place]) PRE-OP DIAGNOSIS: GERD TISSUE SUBMITTED: A ? Antral biopsy for H. pylori and pathology, B ? GE junction biopsy MICROSCOPIC DIAGNOSIS A. Antral biopsy: Mild gastritis. See microscopic description and comment. B. GE junction, biopsy: Fragments of gastroesophageal mucosa with mild inflammation. Minute lymphoid aggregate formation, favor benign. Intestinal metaplasia (goblet cell metaplasia) is not identified. See comment. SJ:rg 06/18/18 COMMENT A. The results of immunohistochemistry for Helicobacter pylori will be reported separately ([id number]). B. Alcian blue/PAS stain with matched control is used in the evaluation of the specimen. MICROSCOPIC DESCRIPTION Slides are reviewed. A. The specimen shows fragments of gastric mucosa with chronic inflammatory cell infiltrates in the lamina propria consisting of lymphocytes and plasma cells, consistent with mild chronic gastritis. GROSS DESCRIPTION A - Received in fixative is one container labeled with the patient's name and designated antral biopsy. The specimen consists of one irregular fragment of light grover soft tissue that measures 0.2 x 0.2 x 0.1 cm. The specimen is totally submitted in one cassette. B - Received in fixative is one container labeled with the patient's name and designated GE junction biopsy. The specimen consists of multiple irregular fragments of light grover soft tissue that in aggregate measure 0.6 x 0.6 x 0.1 cm. The specimen is totally submitted in one cassette. / AM:jovita 06/14/18 TC:3 CPT: 12296 x2, 56888
[2018-06-14 11:11] VITALS: BP 88/56; BP 98/64; PULSE 63; RESP 14; TEMP 36.6; O2SAT 95
[2018-06-14 11:15] VITALS: BP 90/59; BP 98/64; PULSE 59; RESP 16; O2SAT 95
[2018-06-14 11:20] VITALS: BP 105/65; BP 98/64; PULSE 62; RESP 16; O2SAT 98
[2018-06-14 11:23] VITALS: BP 97/66; BP 98/64; PULSE 63; RESP 16; TEMP 37; O2SAT 99
[2018-06-14 11:39] VITALS: BP 98/64
--- NOTE | 2018-06-14 12:02 | PCM.OPRPT ---
Problem List (1) GERD with esophagitis Status: Acute Report of Operation Date of Procedure: 06/14/18 Pre-Operative Diagnosis: Epigastric pain and GERD Post-Operative Diagnosis: GERD with esophagitis Surgery/Procedure Performed:: EGD with biopsy Specimen's removed: 1. Antrum biopsy. 2. GE junction biopsy Description of Procedure: The major risks and benefits associated with the procedure were explained to the patient in detail. The patient verbalized understanding and agreement with the same. The patient was then placed in the left lateral decubitus position. IV sedation was started by anesthesia. The endoscope was then advanced under direct visualization over the tongue, into the esophagus, stomach and duodenum. It was slowly withdrawn and the mucosa was carefully evaluated. Duodenal mucosal abnormalities were not visualized. Antegrade and retrograde views of the stomach were normal and did not reveal a hiatal hernia or ulceration. Gastric folds were normal. A biopsy of the antrum was performed with cold forceps. The scope was then withdrawn through the GE junction and there appear to be erosive esophagitis. This was biopsied with cold forceps. Careful examination of the remainder of the esophagus was normal. The scope was then withdrawn from the patient and the procedure terminated. It was well tolerated and there were no immediate complications.
== END 2018-06-14 11:58 | disposition home or self-care (01) ==
LOC: EN 09:07 → AC 09:08
PROVIDERS: Family Provider Family Medicine; PCP Family Medicine; Visit Provider Surgery
PROC: 0DJ08ZZ Inspection of Upper Intestinal Tract, Via Natural or Artificial Opening Endoscopic (ICD-10-PCS; CPT 43235; principal; 2018-06-14 10:10)
DX: K21.0 Gastro-esophageal reflux disease with esophagitis (principal); K29.70 Gastritis, unspecified, without bleeding; E03.9 Hypothyroidism, unspecified; F17.200 Nicotine dependence, unspecified, uncomplicated
CPT/HCPCS: 43239; 81025; 88305; 88313; 88342; J7120

== ENCOUNTER 2018-06-20 09:00 | Outpatient (RCR) | payer OTHER, SELFPAY ==
--- NOTE | 2018-06-20 09:07 | BH.SGPN.GN ---
Behaviors/Verbalizations/Mental Status: []Eye contact is good. Motor activity is appropriate. Appearance is casual, disheveled. Speech is Appropriate. Mood is anxious and dysthymic. Affect is congruent. Thoughts are linear and logical. No evidence of psychosis. Reviewed daily check in sheet and pt denies any suicidal ideations, plan, or intent. Client Response/Progress/Benefit: []Pt was an attentive and semi-active participant in group discussion. Emotion for today is ?anxious?. Shared that she went to visit a friend who does singing [employer] and that he had made a few comments about pt?s daughter that made her feel guilty. Pt reflected upon this and expressed plans to reach out to her supports for help with better boundary setting. Went on to discuss meeting with outpatient counselor which was helpful in further challenging her anxious thoughts and feelings of guilt. Discussed plans to look for a used bike for her daughter today. Progress noted per pt report of improved thought challenging and reduced rumination. Benefited from group support, encouragement, and feedback. Will continue IOP tx to prevent decompensation, increase mood stability, and reduce mental health sx severity. Narrative Note: []
--- NOTE | 2018-06-20 10:24 | BH.SGPN.GN ---
Behaviors/Verbalizations/Mental Status: []Client alert and oriented, hygiene clean, dress casual. Eye contact fair. Motor activity appropriate. Speech within normal limits. Affect constricted, mood anxious, dysthymic. Thoughts linear, logical, no signs of hallucinations or delusions. Client Response/Progress/Benefit: []client responded well to session, taking notes and engaging in discussion. Client appeared to connect with the quote sharing, fear keeps you stuck where you don't belong. Client processed with the group the different emotions associated with change and how these emotions impact how one manages change. Client stated for her change typically makes client feel anxious, fearful, and overwhelmed which makes client more hesitant to change. Client appeared to benefit from increasing awareness of how emotions impact how one manages change. Client seems to be progressing as evidenced by her report of increased days spent at home, but she continues to struggle with managing ruminations and anxiety.
--- NOTE | 2018-06-20 11:33 | BH.SGPN.GN ---
Behaviors/Verbalizations/Mental Status: []Client alert and oriented, casual dress. Eye contact good. Motor activity appropriate. Speech within normal limits. Affect congruent-smiling and joking with peers at times, mood anxious. Thoughts linear, logical, no signs of hallucinations or delusions. Client Response/Progress/Benefit: []Client responded well to session, active participant. Client engaged in the group activity that portrayed what change can look like and feel like. Client reported the activity was frustrating at times because I kept messing up. Client received supportive feedback from peers and client connected that change sometimes requires trial and error. Client identified returning home as a time when she experienced a positive change. Client helped the group create strategies to better manage change such as communicating with supports, identifying barriers, and challenging negative thinking patterns. Client appeared to benefit from identifying times when change was positive. Progress noted in clients ability to maintain safety and use of healthy coping skills. Client can continue to benefit from IOP to increase emotional regulation skills and prevent decompensation.
--- NOTE | 2018-06-21 08:02 | BH.MTP_ITS ---
Treatment Plan Review Date of Admission:: 05/20/18 Date of Treatment Plan Review:: 06/20/18 Admitting Diagnoses:: Major depressive disorder recurrent severe F 33.2, OCD F 42 Current Diagnoses:: Major depressive disorder recurrent severe F 33.2, OCD F 42 Patient's Response to Treatment:: Client appears to be responding well to treatment as evidenced by her consistent attendance, report of implementing strategies discussed during group and individual sessions, and participation in group activities. Client is quiet during group sessions and she often does not share her opinions, but client takes notes and provides supportive statements to peers. Client is demonstrating progress towards her treatment goals as shown by client's reduced DSM-5 cross-cutting symptoms scores for anxiety, suicidal ideation, and OCD. Additionally, client reports active use of healthy coping skills to manage anxiety, intrusive thoughts, and depression. Client has responded well to strategies for overcoming unwanted, intrusive thoughts and with identifying daily accomplishments. Furthermore, client reports increased desire to engage in social interactions and has been staying at home with her and daughter more frequently which demonstrates progress. Status of Current Problems and Symptoms: Client reports moderate symptoms of anxiety and depression along with guilt, ruminations, and negative core beliefs. Client continues to have ongoing stomach issues that are medical and psychosomatic as client reports the symptoms worsen when her anxiety is high. Client's social, occupational, and familial functioning continue to be impaired due to her symptoms. Client also reports ongoing fleeting suicidal thoughts of reduced intensity. Problem #1 Problem Name:: Client will reduce depression and suicidal ideation Status of Goals:: Client has accomplished part of this goal as she reports reduced suicidal ideation and has successfully been completing weekly accomplishment logs. Client has also made progress with identifying and replacing negative thinking patterns, but she has not yet met this objective as evidenced by no changes to client's DSM-5 scores for depression and report of ongoing guilt and low self-worth. Client's DSM-5 cross-cutting scores for depression were a 5 out of 8 at admission and a 5 out of 8 at review which does not demonstrate improved mood but may suggest client has been able to prevent decompensation. Client's scores for suicidal ideation were a 4 out of 4 at admission and a 3 out of 4 at review which demonstrates progress. Team Recommendations:: Client recommended to continue working towards treatment goals as she has been able to maintain stability and safety, but client can continue to benefit from ongoing work on improving self-esteem, thought challenging, and behavioral activation to prevent decompensation and improve mood. Client recommended to follow up with her outpatient providers, Dr. Joe , for counseling and Dr. Villasenor for psychiatry. Therapist and client have also discussed the benefits of attending a WRAP (wellness recovery action plan) group post IOP discharge to promote mood stability and coping skill maintenance. Problem #2 Problem Name:: Reduce anxiety brought on by OCD while increasing ability to function Status of Goals:: Client has accomplished this goal as she has reduced her DSM- 5 scores for anxiety and OCD. At admission, client scored 12 out of 12 (severe) for anxiety and 8 out of 8 (severe) for repetitive thoughts and behaviors. At review client scored 9 out of 12 (moderate) for anxiety and 5 out of 8 (mild- moderate) for repetitive thoughts and behaviors. Client has also increased the number of days she spends at home with her and daughter which demonstrates progress. Additionally, client can report using at least two coping skills to manage intrusive thoughts and anxiety symptoms. Team Recommendations:: Client recommended to continue working on this treatment goal as she has accomplished her goal of reducing anxiety and OCD symptoms through use of healthy coping skills, but she continues to report moderate symptoms which impacts client's overall functioning. Client also recommended to follow up with her outpatient providers, Dr. Joe and Dr. Villasenor for continuity of care.
--- NOTE | 2018-06-21 10:15 | BH.SGPN.GN ---
Pt was not in group long enough to bill. Behaviors/Verbalizations/Mental Status: [] Client Response/Progress/Benefit: [] Narrative Note: []
--- NOTE | 2018-06-21 10:27 | BH.MDN ---
Multi-Disciplinary Note - Note 45-min Individual Time Started:: 09:30 Date: 06/21/18 Purpose of session/treatment goals addressed:: The purpose of this session was to address client's current stressors, symptoms, and use of coping skills. Another goal was to use the PLAN tool to help client increase emotional regulation when faced with anxiety triggers. Eye Contact:: Fair Motor Activity:: Appropriate Appearance:: Casual Speech:: Appropriate Mood:: Anxious Affect:: Congruent - smiling and laughing at times Thoughts:: Circular, No evidence of hallucinations/delusions noted Staff Interventions:: Therapist used open-ended and scaling questions to explore clients current stressors, symptoms, and use of coping skills. Therapist gave client a safe place to verbally process challenges and triggers that occurred this week. Therapist used the PLAN (prepare, let go, acceptance, note all coping skills) tool to help client increase emotional regulation skills when faced with an anxiety or PTSD trigger. Therapist used strengths perspective and praised client for her application of calming and thought stopping techniques. Therapist gave client homework to practice the PLAN tool this weekend when client spends time with her daughter. Client Response:: Client responded well to session, open to meeting with therapist. Client shared her stomach scope results show client has esophagitis. Client stated she is frustrated with how long she has been having stomach issues and the lack of alleviation from her symptoms. Client reported she was successful with spending an additional night at home earlier this week with her and daughter which demonstrates progress. Client rated her anxiety as 7 out of 10 (10 being high) before staying an extra night at home, but now client feels slightly less anxious about it. Client and therapist discussed how gradual exposure reduces anxiety over time. Client reported she continues to feel anxious about situations where her daughter may become dramatic and trigger clients anxiety and PTSD. Client open to learning about the PLAN technique to help client more effectively manage her symptoms before and during the situation. Client identified emotions, thoughts, and physical symptoms that client may feel in a triggering situation as part of the P-prepare of the PLAN tool. Client and therapist reviewed coping skills that would help client manage emotions, let go of intrusive thoughts, and give client options. Client identified her coping skills as positive self-talk of I can do this.. Anxiety will not kill me its her amygdala... Teresa made it through many times. Client also created a list of coping skills she could use before the event such as walking, listening to audiobooks, and reading magazines. Client shared she continues to use thoughts are thoughts not facts which has been helpful to manage her ruminations. Client and therapist discussed when it is appropriate to use the PLAN technique and when it might be inappropriate, such as when client is ruminating. Risks/Concerns:: Client reports fleeting suicidal thoughts, but reports they are less frequent. Client denies plan and intent. Client reports ability to maintain safety and does not have access to the means. Progress Toward Goals/Plan:: Client demonstrating progress towards treatment goals as shown by her report of spending more days at home with her and daughter, increased use of thought stopping techniques to managing intrusive thoughts, and self-report of daily use of calming coping skills. Client continues to report moderate anxiety, guilt, ruminations, and negative thinking. Client also shared she feels tired of being strong and wants her symptoms to go away, which increases clients frustration. Client continues to have ongoing stomach issues that worsen with increased anxiety per clients report. Client to continue IOP to prevent decompensation, increase mood stability, and reduce ruminations. Time Stopped:: 10:15
--- NOTE | 2018-06-21 10:30 | BH.MDN_ITS ---
Multi-Disciplinary Note - Note 45-min Individual Time Started:: 09:30 Date: 06/21/18 Purpose of session/treatment goals addressed:: The purpose of this session was to address client's current stressors, symptoms, and use of coping skills. Another goal was to use the PLAN tool to help client increase emotional regulation when faced with anxiety triggers. Eye Contact:: Fair Motor Activity:: Appropriate Appearance:: Casual Speech:: Appropriate Mood:: Anxious Affect:: Congruent - smiling and laughing at times Thoughts:: Circular, No evidence of hallucinations/delusions noted Staff Interventions:: Therapist used open-ended and scaling questions to explore client?s current stressors, symptoms, and use of coping skills. Therapist gave client a safe place to verbally process challenges and triggers that occurred this week. Therapist used the PLAN (prepare, let go, acceptance, note all coping skills) tool to help client increase emotional regulation skills when faced with an anxiety or PTSD trigger. Therapist used strengths perspective and praised client for her application of calming and thought stopping techniques. Therapist gave client homework to practice the PLAN tool this weekend when client spends time with her daughter. Client Response:: Client responded well to session, open to meeting with therapist. Client shared her stomach scope results show client has esophagitis. Client stated she is frustrated with how long she has been having stomach issues and the lack of alleviation from her symptoms. Client reported she was successful with spending an additional night at home earlier this week with her and daughter which demonstrates progress. Client rated her anxiety as 7 out of 10 (10 being high) before staying an extra night at home, but now client feels slightly less anxious about it. Client and therapist discussed how gradual exposure reduces anxiety over time. Client reported she continues to feel anxious about situations where her daughter may become ?dramatic? and trigger client?s anxiety and PTSD. Client open to learning about the PLAN technique to help client more effectively manage her symptoms before and during the situation. Client identified emotions, thoughts, and physical symptoms that client may feel in a triggering situation as part of the P-prepare of the PLAN tool. Client and therapist reviewed coping skills that would help client manage emotions, let go of intrusive thoughts, and give client options. Client identified her coping skills as positive self-talk of ?I can do this.. Anxiety will not kill me? it?s her amygdala... I?ve made it through many times.? Client also created a list of coping skills she could use before the event such as walking, listening to audiobooks, and reading magazines. Client shared she continues to use ?thoughts are thoughts not facts? which has been helpful to manage her ruminations. Client and therapist discussed when it is appropriate to use the PLAN technique and when it might be inappropriate, such as when client is ruminating. Risks/Concerns:: Client reports fleeting suicidal thoughts, but reports they are less frequent. Client denies plan and intent. Client reports ability to maintain safety and does not have access to the means. Progress Toward Goals/Plan:: Client demonstrating progress towards treatment goals as shown by her report of spending more days at home with her and daughter, increased use of thought stopping techniques to managing intrusive thoughts, and self-report of daily use of calming coping skills. Client continues to report moderate anxiety, guilt, ruminations, and negative thinking. Client also shared she feels tired of ?being strong? and wants her symptoms to go away, which increases client?s frustration. Client continues to have ongoing stomach issues that worsen with increased anxiety per client?s report. Client to continue IOP to prevent decompensation, increase mood stability, and reduce ruminations. Time Stopped:: 10:15
--- NOTE | 2018-06-21 11:25 | BH.SGPN.GN ---
Behaviors/Verbalizations/Mental Status: []Pt eye contact fair, casually dressed, motor activity restless, speech normal rate and tone, mood anxious, congruent affect, thoughts linear and logical, no evidence of delusions or hallucinations. Client Response/Progress/Benefit: []Pt passive participant, contributed to discussion if elicited by therapist. Pt identified her personal pitfalls to include: comparing self to others, negative thoughts, physical health, anxiety, ruminations, overthinking, and being too sensitive. Pt reported ruminating to be the most impactful pitfall that can lead to others pitfalls. Pt reported her goal for the weekend is to write 5 positives from each day in her journal because she sometimes has trouble seeing the positive from a day. Pt seemed to benefit from increased self-awareness and identifying a goal for the weekend that will help her decrease impact of her personal pitfalls. Pt to continue IOP level of care to maintain gains, decrease anxiety, and prevent decompensation. Narrative Note: []
--- NOTE | 2018-06-21 12:07 | PCM.PN.BLA ---
Progress Note Patient is seen in follow-up for major depressive disorder F 33.2, OCD, anxiety unspecified. History is been obtained per interview with patient, discussion with staff, review of chart. Case discussed with treatment team. Chief complaint-depression and anxiety The main symptom I have had is tiredness. Interim history Patient reports mood overall improved. More stable than I was before. Moderate depressive symptoms wax and wane but of decreased intensity. Ongoing moderate anxiety regarding family dynamics. Spending 3 nights per week at home with and daughter. Fleeting passive suicidal thoughts of I do not want to be here. No suicide plan or intent. Feels able to maintain safety. No homicidal ideation. No symptom consistent with psychosis. Sleeping from 11 PM to 6 AM. Appetite fair. Complaint of nausea secondary to GERD and recent esophagitis diagnosed by endoscopy last week. No vomiting or diarrhea. Compliant with medication including lithium ER 600 mg nightly, Luvox 150 mg twice daily and Klonopin which she has reduced to 0.5 mg every morning and 1 mg q. afternoon and q. night. Mental status exam Alert and oriented. No acute distress. Ambulatory with normal gait and station. Casually dressed and groomed. Appropriate hygiene. Cooperative with interview. Good eye contact. No psychomotor agitation or retardation. Mood depressed but improved. Affect congruent. Speech is clear and of regular rate and volume. Language fluent. Thought process organized. Associations logical. Thought content significant for ruminative anxiety and themes of depression. Fleeting passive suicidal ideation. No suicide plan or intent. Feels able to maintain safety. No homicidal ideation related to her detected. No evidence of psychosis related to her detected. Immediate recent and remote memory grossly intact. Attention and concentration are fair. Estimated intelligence fund of knowledge average. Judgment and insight are improving. Labs and testing May 15, 2018 labs. [place] level 0.7, TSH 4.47, creatinine 0.84 Further lab work will be obtained as needed Diagnosis Major depressive disorder recurrent severe F 33.2 OCD Anxiety unspecified Plan Continue IOP as the structured setting is necessary to maintain gains and prevent decompensation. Risk-benefit alternative of medications discussed with patient. Patient acknowledges understanding. Continue lithium ER 600 mg p.o. nightly. Continue Luvox 150 mg p.o. twice daily. Decrease Klonopin to 1/2 mg p.o. q. morning and 1/2 mg p.o. q. afternoon and 1 mg p.o. nightly. Reduction of Klonopin may reduce daytime somnolence. Continue trazodone 100 mg nightly on an as-needed basis only. Encourage follow-up with outpatient providers including Dr. Serrato and Dr. Joe. 18 minutes of Insight oriented psychotherapy provided. Patient acknowledges understanding and is in agreement with plan. Feels able to maintain safety. Agrees to seek help or emergency care feeling unsafe to self or others.
--- NOTE | 2018-06-24 09:05 | BH.SGPN.GN ---
Behaviors/Verbalizations/Mental Status: [Client maintained fair eye contact, casually dressed, motor activity appropriate, speech normal rate and soft tone - limited input provided, mood anxious, depressed, affect constricted, thoughts linear and logical, no evidence of delusions or hallucinations. Therapist reviewed clients symptom tracker to assess for intensity of mental health symptoms and identify risk for suicide. Client reports a 4/5 for suicidal ideation which is normal to client baseline and 2/5 for intent. Therapist discussed concerns with client individual therapist who will follow-up with client prior to end of group to further assess for safety. ] Client Response/Progress/Benefit: [Client receptive of session and remained an active listener throughout. She appeared to connect with fellow participants discussing concerns regarding preparing for winter and managing mental health symptoms when it gets colder. Client benefited from the support provided by the group environment and encouragement of fellow participants regarding strategies that have helped them better manage negative thoughts and mental health symptoms. Client is making progress in her ability to manage symptoms of anxiety AEB increased socialization and improved ability to challenge intrusive thoughts. Client recommended continued IOP tx to prevent decompensation and continue to make gains in her ability to utilize identified anxiety and depression management skills on a more consistent basis. ] Narrative Note: []
--- NOTE | 2018-06-24 10:20 | BH.SGPN.GN ---
Behaviors/Verbalizations/Mental Status: []Client alert and oriented, hygiene good, casual dress. Eye contact fair. Motor activity appropriate. Speech within normal limits. Affect constricted, mood anxious, dysthymic. Thoughts linear, logical, no signs of hallucinations or delusions Client Response/Progress/Benefit: []client responded well to session, engaged in activity. Client reported mental health, anxiety, and cognitive distortions can make a person view a situation as impossible. Client stated having an impossible mindset can negatively impact mental health progress because it can make a person feel helpless. Client engaged in an activity that at first appeared impossible, but with different ideas and communication can be solved. Client was quiet during the activity, but she was receptive to feedback from peers. Client appeared to benefit from increasing awareness of how the impossible mindset can impact mental health. Progress noted in clients generalization of coping skills to manage intrusive thoughts, but she can continue to increase emotional regulation of anxiety triggers.
--- NOTE | 2018-06-24 11:20 | BH.SGPN.GN ---
Behaviors/Verbalizations/Mental Status: []Client alert and oriented, hygiene clean, casual dress. Eye contact poor. Motor activity appropriate. Speech within normal limits. Affect constricted-smiling at times, mood anxious, dysthymic. Thoughts linear, logical, no signs of hallucinations or delusions. Client Response/Progress/Benefit: []Client responded well to session, taking notes and providing supportive feedback to peers. Client engaged in discussion of growth versus fixed mindset. Client reported fixed mindset can keep a person stuck and lead to increased negativity when faced with challenges. Client reported overcoming suicidal ideation and living with mental health as something she thought something would be impossible, but client is progressing. Client stated she is currently struggling with anxiety and her stomach issues. Client was receptive of ideas provided by group of various internal and external resources to help client overcome these barriers such as watching her diet, using calming strategies, and communicating with her doctors. Client appeared to benefit from learning about the benefits of a growth mindset and from identifying current barriers. Client seems to be progressing as evidenced by clients report of reduced suicidal ideation and use of coping skills to manage intrusive thoughts. Client to continue IOP to prevent decompensation and increase emotional regulation.
--- NOTE | 2018-06-24 15:02 | BH.MDN_ITS ---
Multi-Disciplinary Note - Note 45-min Individual Time Started:: 12:30 Date: 06/24/18 Purpose of session/treatment goals addressed:: The purpose of this session was to address client's current stressors, symptoms, intrusive thoughts, and use of coping skills. Another goal was to practice accepting and allowing junk thoughts as another tool to manage client's intrusive, ruminating thoughts. Other topics included discharge, healthy supports, and goal setting. Eye Contact:: Fair Motor Activity:: Appropriate Appearance:: Casual Speech:: Other - stuttering at times Mood:: Anxious Affect:: Congruent Thoughts:: Circular, No evidence of hallucinations/delusions noted Staff Interventions:: Therapist used active listening and open-ended questions to explore client's current symptoms, stressors, ruminations, and use of coping skills. Therapist processed barriers and challenges that client experienced over the weekend and helped client identify ways to cope with stressors out of client's control. Therapist and client completed a cost/benefit analysis to improve client's decision-making. Therapist taught client another strategy to manage intrusive thoughts and discussed coping skills that can replace hiking during the colder months. Therapist used strengths perspective to empower client on progress and discussed plans for discharge. Client Response:: Client responded well to session, open to meeting with therapist. Client shared the weekend was kind of depressing as client struggled with the colder weather and stomach issues. Client and therapist discussed the benefits of focusing on stressors in client's control and how to make the most out of the weather and her current situation. Client identified coping skills she can use when it is too cold to hike or be outside. Client stated she plans to start walking at [employer] again when it starts getting cold which has helped client in the past. Client reported there is a ladies' night this Sunday and her goal is to attend because I deserve to have some fun. Client expressed ambivalence about returning to a orthodoxy group and used a cost/benefit analysis to help client make a decision that will support her mental health. Client continues to have circular thinking patterns regarding her daughter?s behavior which makes client feel increased anxiety when client is around her daughter. Client was receptive to learning a new strategy to manage her intrusive thoughts and she shared using thoughts are thoughts not facts in addition to distractions have been the most helpful coping skills for client. Client reported feeling down today due to the weather and shared she plans to name positives and try pour art today to improve her mood. Client was open to discussing discharge and states she will feel ready to discharge in two weeks should she be able to maintain stability. Risks/Concerns:: Client shared she had fleeting suicidal thoughts over the weekend which she was able to manage using thoughts are thoughts. Client denies suicidal thoughts today and denies intent or plan as of 06/24/18. Client reports ability to maintain safety. Progress Toward Goals/Plan:: Client demonstrating progress towards treatment goals as shown by her report of spending more days at home with her and daughter, active use of ?thoughts are thoughts not facts? to manage intrusive thoughts, and report of using calming skills to manage anxiety. Client shared she has increased interest in attending social events including an upcoming ladies? night on Sunday. Client continues to report moderate anxiety and depressive symptoms. Client also reports ongoing fleeting suicidal thoughts of reduced intensity. Client continues to have ongoing stomach issues that are both medical and psychosomatic in nature. Client to continue IOP to prevent decompensation, increase mood stability, and reduce ruminations. Client to practice strategies to reduce distress over a thought and to identify coping skills she can use during the colder months to replace hiking. Time Stopped:: 13:13
--- NOTE | 2018-06-26 09:00 | BH.SGPN.GN ---
Behaviors/Verbalizations/Mental Status: [] Pt eye contact fair, casually dressed, motor activity restless, speech normal rate and tone, mood anxious, constricted affect, thoughts linear and logical, no evidence of delusions or hallucinations. Reviewed client?s symptom tracker, patient indicates thoughts of suicide to be a 3 out of 5 and intent a 2 out of 5. This does indicate a decrease in suicidal thoughts compared to patient's score on Sunday. Patient's individual IOP therapist informed of current thoughts of suicide. Client Response/Progress/Benefit: [] Patient shared yesterday she went to see her psychiatrist and reported she tends to trigger me. Patient reported her psychiatrist asked her how will you be able to manage when her daughter gets worse. Patient shared she is not sure why a psychiatrist on necessary to ask and it increased her rumination about what will happen when her daughter struggles. Patient reported her labs showed a decrease in her thyroid, which could explain some of the somatic complaints patient is currently experiencing. Patient reported she took me labs yesterday and based on that her psychiatrist will decide if thyroid medication would be needed. Patient able to identify 2 positives to include: That her daughter has been at the fair yesterday and patient went to the library to get a book. Patient seemed to benefit from expressing thoughts and feelings as well as receiving support from peers. Progress noted with patient improved mood and appearing to manage stressful situations more effectively. Patient to continue IOP level of care to maintain gains, improve daily functioning, and prevent decompensation. Narrative Note: []
--- NOTE | 2018-06-26 10:10 | BH.SGPN.GN ---
Behaviors/Verbalizations/Mental Status: []Client alert and oriented, neatly dressed and groomed. Eye contact fair. Motor activity appropriate. Speech within normal limits. Affect constricted, mood anxious. Thoughts linear, logical, no signs of hallucinations or delusions. Client Response/Progress/Benefit: []Client responded well to session, increased participation in group discussion. Client connected with the quote sharing, in the moment it doesnt feel like it will ever get better, but it does. Client defined crisis as a difficult situation that turns ones worlds upside down. Client reported anything could become a crisis depending on ones current stressors and emotional state. Client shared crisis can impact the body mentally, emotionally, physically, and behaviorally. Client participated in group discussion of the role coping skills play in managing crisis. Client reported crisis for her feels like shredded nerves, panic, and a dark place. Client stated since her first round in [facility] client is now better at managing crisis but I wont lie its still hard. Client appeared to benefit from increasing awareness of how a crisis can develop and what crisis looks like for her. Progress noted as evidenced by clients report of increased emotional regulation during crisis, but she can continue to benefit from increasing mood stability.
--- NOTE | 2018-06-26 11:10 | BH.SGPN.GN ---
Behaviors/Verbalizations/Mental Status: []Client alert and oriented, neatly dressed and groomed. Eye contact fair. Motor activity for majority of the session was appropriate, startled at times by loud talking. Speech within normal limits. Affect congruent- smiling and joking at times, mood anxious. Thoughts linear, logical, no signs of hallucinations or delusions. Client Response/Progress/Benefit: []Client responded well to session, contributing to discussion. Client able to identify warning signs that indicate client may be heading towards panic or crisis. Client identified her top warning signs as negative thinking, racing thoughts, and constant worries. Client shared if she does not manage her negative thinking early I start to get really OCD. Client helped the group identify coping skills for both crisis prevention and de-escalation. Client created a crisis survival kit that included tea, a rubber band, rocks, and a support persons initial. Client stated the items in the kit will help client remember to use grounding coping skills and to communicate with her supports. Client appeared to benefit from creating a crisis survival kit that reminded client of healthy coping skills to use during crisis. Client to continue IOP to prevent decompensation and increased management of ruminations.
--- NOTE | 2018-06-28 09:00 | BH.SGPN.GN ---
Behaviors/Verbalizations/Mental Status: []Client alert and oriented, neatly dressed and groomed. Eye contact fair. Motor activity appropriate. Speech within normal limits. Affect congruent-laughing and joking. Mood anxious, euthymic. Thoughts linear, logical, no signs of hallucinations or delusions. Reviewed clients symptom tracker client self-reporting moderate for thoughts of suicide. Client denies plan or intent as of 06/28/18 and future oriented as shown by her report of waiting to attend [employer] night tonight. Client Response/Progress/Benefit: []Client responded well to session, active participant. Client reports feeling some anxiety today due to ongoing stressors. Client shared her negative today was client did not have a good day yesterday due to increased intrusive thoughts and fleeting suicidal ideation. Client stated she was able to reduce these thoughts and manage anxiety with the help of her and hiking. In addition to client being able to reduce her intrusive thoughts yesterday, client also identified plans to attend ladies' night tonight as a positive. Client seemed to benefit from praise provided by group on her successful use of coping skills and positive supports. Progress noted as shown by clients report of using coping skills to manage symptoms, but she can continue to benefit from IOP to increase emotional regulation.
--- NOTE | 2018-06-28 11:19 | BH.SGPN.GN ---
Behaviors/Verbalizations/Mental Status: [Client maintained positive, consistent eye contact, casually and appropriately dressed, motor activity WNL, mood euthymic, anxious - client laughing and appearing more positive than in previous sessions, affect congruent, thoughts linear and logical, no evidence of delusions or hallucinations.] Client Response/Progress/Benefit: []Client responded well to session and remained engaged in the discussion throughout. She did well to work with fellow participants on processing the group activity. Client benefited from identifying barriers or supports in communicating during the activity, as well as ways this could be applied to communicating mental health needs with supports. Client expressed agreement that communicating personal needs and concerns can aid in improving connection with supports. She is displaying progress in her ability to reduce anxiety and better advocate for her own mental health needs. Recommended continued IOP tx to maintain current gains and continue progress towards tx goals. Narrative Note: []
--- NOTE | 2018-06-28 15:03 | BH.COMM ---
Communication Note - Communication with Client Communication Note: Per client request, therapist had a family phone call with client's , step-father, and mother. The purpose of the call was to discuss aftercare options, ongoing expectations for progress, and steps the family and client can take that can promote gains client has made in IOP. Therapist addressed concerns and used active listening to gather information on client's progress from her family's perspective.
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
--- NOTE | 2018-07-01 10:20 | BH.SGPN.GN ---
Behaviors/Verbalizations/Mental Status: [] Pt eye contact fair, casually dressed, motor activity appropriate, speech normal rate and tone, mood anxious, congruent affect, thoughts linear and intact, no evidence of delusions or hallucinations. Client Response/Progress/Benefit: []Pt passive participant AEB pt's limited contributions, appeared to listen attentively to others. Pt reported she recognizes her thought patterns often create more problems or make her current problems to be more intense than they actually are. Pt shared she is doing better with recognizing distorted thought patterns. Pt connected with problem solving method and discussion about impact barriers can have on solving problems. Pt worked cooperatively with peers during problem solving activity, went along with others ideas. Pt seemed to benefit from learning about a problem solving method and practicing problem solving in the moment. Narrative Note: []
--- NOTE | 2018-07-01 11:20 | BH.SGPN.GN ---
Behaviors/Verbalizations/Mental Status: [] Pt eye contact fair, casually dressed, motor activity appropriate, speech normal rate and tone, mood anxious, constricted affect, thoughts linear and intact, no evidence of delusions or hallucinations. Client Response/Progress/Benefit: []Pt listened to others and contributed to discussion if elicited by therapist. Pt reported one her main problems is rumination. Pt shared her rumination keeps her stuck for hours and can lead to isolative behaviors. Pt reported the steps she identified to help her solve the problem is to: use her healthy coping, set healthy boundaries, and get out of bed. Pt reported remind herself a thought is a thought as a helpful strategy. Pt reported she is still working on setting emotional boundaries with others because it makes her situation worse when she takes on others problems. Pt shared she is able to get out of bed when has something scheduled, but often struggles with getting out of bed on the weekends because nothing she has to go to usually. Pt open to creating a weekend routine/schedule to help motivate her to get out of bed. Pt seemed to benefit from creating a step by step plan as to what can help her decrease ruminations. Pt showing progress with demonstrated improved mood, increased engagement, and generalization of healthy coping. Pt to continue IOP level of care to maintain gains, decrease anxiety, and prevent decompensation. Narrative Note: []
--- NOTE | 2018-07-03 07:57 | BH.AFTERPLAN ---
Aftercare Plan - Demographics Treatment End Date:: 07/03/18 Psychiatrist:: Desi Montiel Psychiatrist Office #:: [id number] [facility] Therapist:: Leyla Fuentes Therapist Phone #:: [phone] - Medications Home Medications: Home Medications Clonazepam [Klonopin] 0.5 mg PO TID 12/22/16 Levothyroxine [Synthroid] 75 mcg PO DAILY 12/22/16 Cholecalciferol (Vitamin D3) [Vitamin D3] 1 tab PO DAILY 11/10/17 Fluvoxamine Maleate [Luvox] 150 mg PO BID 11/25/17 lithium carbonate 300 mg capsule 300 mg PO QHS cap 05/16/18 Fructooligosaccharides/Polydex [Fiber-Stat 15 gm/30 ml Liquid] 15 gm PO BID 06/12/18 Pantoprazole Sodium [Protonix] 40 mg PO BID 06/12/18 Ranitidine [Zantac] 150 mg PO BID 06/28/18 Sucralfate 1 g RC .4 Times daily 06/28/18 - Plan Details Progress/Aftercare Plan Details:: Isabell, you have really made significant strides during your time here at [facility]. You have been able to more effectively manage your anxiety, depression, and intrusive thoughts. You made great progress towards your treatment goals by being able to use coping skills to manage intrusive thoughts, reduce suicidal ideation, manage anxiety in the moment, and improve your mood. You have been focusing on bettering yourself by using self-care, setting emotional boundaries, and focusing on positives. You have succeeded with going to ladies' night, [facility], and staying at home on Sunday. You have made it through challenges and have been working on doing the anxious thing. You are improving with identifying junk thoughts, and although progress is ongoing, you can more effectively stop ruminations and let the thoughts float down the river. You have improved with replacing negative self-talk and giving yourself credit for accomplishments. You have shown your sense of humor and fun personality during group which was an absolute lucrecia to witness. Way to go Isabell!! Strategies for Success:: Thoughts are thoughts, not facts! We don't have to believe all our thoughts. 2. Let the junk thoughts go down the river. 3. Remember it's her amygdala! 4. STOP! remember to tell yourself to stop when you get in your sticky mind. 5. Remember to use mindfulness! Hiking, bubble baths with music, reading- magazines, feeling different textures- jewel weed popping! 6. Communicate with your supports when you need to express how you feel and asking them to do things. 7. Stay active! 8. Self-care! It's okay to take time for fun and for yourself! Remember don't compare-focus on your accomplishments! 9. Keep track of your accomplishments and daily positives! 10. Start a gratitude journal - Appointments Appointments/Referrals to Other Services:: 1. Dr. Joe for individual counseling. Next appointment 07/10/18. 2. Dr. Rangel for psychiatry 07/25/18 3. WRAP Workshop at [facility] starts July 22 at 1:00pm. 4. DBT group at [facility] will be starting again in approximately a month. Need to call for an intake to get a referral for the group. [facility]'s number is [phone]. 5. [facility] or potential classes at [facility], [facility] in [place], or [facility].
--- NOTE | 2018-07-03 08:09 | BH.IGGP_ITS ---
Aftercare Plan - Demographics Treatment End Date:: 07/03/18 Psychiatrist:: Desi Montiel Psychiatrist Office #:: [id number] [facility] Therapist:: Leyla Fuentes Therapist Phone #:: [phone] - Medications Home Medications: Home Medications Clonazepam [Klonopin] 0.5 mg PO TID 12/22/16 Levothyroxine [Synthroid] 75 mcg PO DAILY 12/22/16 Cholecalciferol (Vitamin D3) [Vitamin D3] 1 tab PO DAILY 11/10/17 Fluvoxamine Maleate [Luvox] 150 mg PO BID 11/25/17 lithium carbonate 300 mg capsule 300 mg PO QHS cap 05/16/18 Fructooligosaccharides/Polydex [Fiber-Stat 15 gm/30 ml Liquid] 15 gm PO BID Pantoprazole Sodium [Protonix] 40 mg PO BID 06/12/18 Ranitidine [Zantac] 150 mg PO BID 06/28/18 Sucralfate 1 g RC .4 Times daily 06/28/18 - Plan Details Progress/Aftercare Plan Details:: Isabell, you have really made significant strides during your time here at [facility]. You have been able to more effectively manage your anxiety, depression, and intrusive thoughts. You made great progress towards your treatment goals by being able to use coping skills to manage intrusive thoughts, reduce suicidal ideation, manage anxiety in the moment, and improve your mood. You have been focusing on bettering yourself by using self-care, setting emotional boundaries, and focusing on positives. You have succeeded with going to ladies' night, [facility], and staying at home on Sunday. You have made it through challenges and have been working on doing the anxious thing. You are improving with identifying junk thoughts, and although progress is ongoing, you can more effectively stop ruminations and let the thoughts float down the river. You have improved with replacing negative self-talk and giving yourself credit for accomplishments. You have shown your sense of humor and fun personality during group which was an absolute lucrecia to witness. Way to go Isabell!! Strategies for Success:: Thoughts are thoughts, not facts! We don't have to believe all our thoughts. 2. Let the junk thoughts go down the river. 3. Remember it's her amygdala! 4. STOP! remember to tell yourself to stop when you get in your sticky mind. 5. Remember to use mindfulness! Hiking, bubble baths with music, reading- magazines, feeling different textures- jewel weed popping! 6. Communicate with your supports when you need to express how you feel and asking them to do things. 7. Stay active! 8. Self-care! It's okay to take time for fun and for yourself! Remember don't compare-focus on your accomplishments! 9. Keep track of your accomplishments and daily positives! 10. Start a gratitude journal - Appointments Appointments/Referrals to Other Services:: 1. Dr. Joe for individual counseling. Next appointment 07/10/18. 2. Dr. Rangel for psychiatry 07/25/18 3. WRAP Workshop at [facility] starts July 22 at 1:00pm. 4. DBT group at [facility] will be starting again in approximately a month. Need to call for an intake to get a referral for the group. [facility]'s number is [phone]. 5. [facility] or potential classes at [facility], [facility] in [place], or [facility].
--- NOTE | 2018-07-03 10:03 | BH.SGPN.GN ---
Behaviors/Verbalizations/Mental Status: []Client alert and oriented, casual dress, hygiene good. Eye contact fair. Motor activity appropriate. Speech within normal limits. Affect constricted, mood anxious. Thoughts linear, logical, no signs of hallucinations or delusions. Client Response/Progress/Benefit: []Client responded well to session, quiet, but participating when prompted. Client discussed things in life that keep people stuck from obtaining mental wellness. Client listed things she would like to get rid of in her life that are contributing to her mental health symptoms. Client identified low self-worth, ruminations, negative thinking, being an emotional sponge, and having a ?sticky? brain as things should would like to get rid of. Client shared if she removed these things her anxiety and depression would lessen. Client participated in the activity that promoted emotional release of things holding client back. Client reported the activity helped client relieve emotions in the moment. Client appeared to benefit from identifying what she would like to remove from her life in order to obtain improved mental wellness.
--- NOTE | 2018-07-03 11:05 | BH.SGPN.GN ---
Behaviors/Verbalizations/Mental Status: []Client alert and oriented, casual dress. Eye contact fair. Motor activity appropriate. Speech within normal limits. Affect constricted, mood anxious. Thoughts linear, logical, no signs of hallucinations or delusions. Client Response/Progress/Benefit: []Client responded well to session, quiet, but sharing her plan when prompted. Client created a 30-day plan to help client get rid of one of the stressors holding her back from improved mental wellness. Client?s 30-day plan was ?no more? negative self-talk. Client stated she picked this stressor because it ?impacts everything? and client would like to be able to control her thinking more. Client appeared to benefit from creating a 30-day action plan. Progress noted in client?s application of healthy coping skills, but she continues to struggle with reframing negative core beliefs.
--- NOTE | 2018-07-03 13:56 | BH.DS_ITS ---
Discharge Summary - Demographics Date of Admission:: 05/20/18 Discharge Date: 07/03/18 Presenting Problems at Admission:: Client is a 43-year-old female who at admission endorsed a moderately depressed mood with anhedonia, guilt, and decreased energy. Client's symptoms and mood were impacted by stomach and digestive issues that were medical and psychosomatic in nature. Client reported chronic suicidal thoughts nearly every day, but of decreased in intensity and frequency. Client has had numerous previous psychiatric admissions for suicidal ideation, her most recent was 04/23/18. At admission, client reported rumination , and severe anxiety about multiple issues including recent health issues, family, her role as a mother, and her daughter. Client shared ongoing difficulty with comparing herself to others, low self-esteem, negative self-talk , and setting boundaries. Client endorsed intrusive thoughts and difficulty using internal coping skills to reduce these thoughts. Client?s symptoms impacted her familial, social, and occupational functioning. Discharge Diagnoses:: Major depressive disorder recurrent severe F 33.2; OCD; Anxiety unspecified Reason for Discharge:: Client has accomplished her [facility] treatment goals as evidenced by her reduced DSM-5 scores, report of reduced suicidal ideation, and reduced intensity of mental health symptoms. For these reasons client no longer meets [facility] level of care. - Treatment Progress During Treatment & Response: Client appeared to be respond well to treatment as evidenced by her consistent attendance, report of implementing strategies discussed during group and individual sessions, and participation in group activities. Client provided supportive statements to peers and was receptive to feedback from [facility] therapists and peers. Client has demonstrated progress towards her treatment goals as shown by client's reduced DSM-5 cross- cutting symptoms scores for anxiety, suicidal ideation, and OCD. Client?s DSM-5 scores for anxiety and OCD at admission were 12 out of 12 (severe) for anxiety and 8 out of 8 (severe) for repetitive thoughts and behaviors. At discharge client scored 9 out of 12 (moderate) for anxiety and 6 out of 8 (moderate) for repetitive thoughts and behaviors. Client's scores for suicidal ideation were a 4 out of 4 at admission and a 2 out of 4 at discharge which demonstrates progress. Client's DSM-5 cross-cutting scores for depression were a 5 out of 8 at admission and a 5 out of 8 at discharge which does not demonstrate improved mood but may suggest client has been able to prevent decompensation which demonstrates progress. Additionally, client showed improvement with managing her symptoms as evidenced by her report of actively using healthy coping skills to cope with anxiety, intrusive thoughts, and depression. Client has responded well to strategies for overcoming unwanted, intrusive thoughts and with identifying daily accomplishments. Furthermore, client reports increased desire to engage in social interactions as client has attended [employer] and a ladies? night during her time in IOP, both are activities client has not been able to do for months. At discharge client reported she feels more confident in boundary setting and coping with stressors. Client also started staying home with her and daughter three days a week instead of two days which demonstrates progress. Issues Still to be Addressed:: Client has shown progress with accomplishing IOP goals and incorporating healthy coping skills into her daily routine to manage symptoms of OCD, anxiety, and depression. However, client can continue to benefit from ongoing work on improving self-esteem, reducing intrusive thoughts and ruminations, and reducing anxiety to improve familial and social functioning. Client has ongoing chronic, fleeting suicidal ideation and can benefit from ongoing work on maintaining safety. Client has been making strides towards her long-term goal of returning home seven days a week with her and daughter and could benefit from ongoing support and anxiety management skills. Lastly, client reports concerns for lack of structure and routine. It may be beneficial for client to engage in increased social activities to promote emotional wellness, self-care, and daily purpose. Discharge Recommendations/Instructions:: Client recommended to follow up with her outpatient counselor, Dr. Joe for individual counseling. Client's next appointment with Dr. Joe is 07/10/18. Client to follow up with her outpatient psychiatrist, Dr. Rangel, next appointment is 07/25/18. Client also recommended to follow up with her case checker at [facility], Taran Jha, and to attend the WRAP Program at [facility]. Client was receptive to participating in the DBT group at [facility] as well, and reports plan to call [facility] to schedule an intake as the group will not be starting again for approximately a month. Lastly, client was provided resources for mental health and leisure activities to promote gains made in IOP and emotional wellness. Client to return on 07/17/18 for a two week follow up with IOP therapist. Discharge Handout: Complete Discharge Handout with client on aftercare options and continuity of care.
--- NOTE | 2018-07-03 13:56 | BH.MDN ---
Multi-Disciplinary Note - Note 45-min Individual Time Started:: 08:22 Date: 07/03/18 Purpose of session/treatment goals addressed:: The purpose of this session was to review client's progress, provide closure to treatment, and review strategies that will promote mood stability and gains made in IOP. Another goal was to discuss aftercare and discharge recommendations. Eye Contact:: Good Motor Activity:: Appropriate Appearance:: Neat Speech:: Appropriate Mood:: Anxious Affect:: Constricted - smiling at times. Thoughts:: Linear, Logical, No evidence of hallucinations/delusions noted Staff Interventions:: Therapist used open-ended questions to explore client's thoughts on personal progress. Therapist reviewed strategies for success, warning signs, and coping skills with client to promote gains and prevent setbacks. Therapist discussed aftercare plan with client and used strengths-perspective to empower client on the goals client accomplished. Therapist provided client with a list of mental health and leisure activities client could participate in post IOP discharge and advocated for client by calling [facility] to register client for the WRAP program. Therapist gave client a quote collage for closure and had client complete the IOP surveys. Client Response:: Client responded well to session, client open to meeting with therapist. Client shared she has seen progress such as being able to stay home three nights a week, setting boundaries, and using thoughts are thoughts not facts. Client stated she plans to keep adding days she spends at home, but I'm taking it slow. Client identified strategies for success which included challenging negative self-talk, using mindfulness and exercise, communicating needs with supports, reminding herself that her daughter's behaviors are normal, and letting her junk thoughts float down the river. Client shared she is concerned about losing the structure of the IOP setting. Client and therapist discussed different mental health and leisure activities client could engage in to promote gains made in IOP and give client something to look forward to each day. Client reports plan to attend the WRAP program at [facility], meet with Dr. Joe bi-weekly, and possibly attend groups at [facility] or [facility] on days she does not have anything scheduled. Client was appreciative of the [facility] staff and shared kind remarks. Risks/Concerns:: Client reports ongoing fleeting suicidal ideations of reduced intensity and frequency. Client reports ability to maintain safety, denies access to means, and identifies her and daughter as reasons to live. Progress Toward Goals/Plan:: Client has made significant progress towards her treatment goals as evidenced by client's reduced DSM-5 scores for anxiety, report of using coping skills to manage symptoms and promote self-care, and increased social engagement. Client also demonstrated progress as shown by client increasing the number of days spent at home, setting more boundaries, and using more positive self-talk to combat ruminations and negative thoughts. Client to discharge from [facility] as she has accomplished her [facility] treatment goals and no longer meets criteria for [facility] level of care. Client to follow up with outpatient providers, Dr. Joe and Dr. Rangel for ongoing mental health treatment. Client to follow up with WRAP at [facility]. Time Stopped:: 09:00
--- NOTE | 2018-07-03 14:22 | BH.MDN_ITS ---
Multi-Disciplinary Note - Note 45-min Individual Time Started:: 08:22 Date: 07/03/18 Purpose of session/treatment goals addressed:: The purpose of this session was to review client's progress, provide closure to treatment, and review strategies that will promote mood stability and gains made in IOP. Another goal was to discuss aftercare and discharge recommendations. Eye Contact:: Good Motor Activity:: Appropriate Appearance:: Neat Speech:: Appropriate Mood:: Anxious Affect:: Constricted - smiling at times. Thoughts:: Linear, Logical, No evidence of hallucinations/delusions noted Staff Interventions:: Therapist used open-ended questions to explore client's thoughts on personal progress. Therapist reviewed strategies for success, warning signs, and coping skills with client to promote gains and prevent setbacks. Therapist discussed aftercare plan with client and used strengths- perspective to empower client on the goals client accomplished. Therapist provided client with a list of mental health and leisure activities client could participate in post IOP discharge and advocated for client by calling [facility] to register client for the WRAP program. Therapist gave client a quote collage for closure and had client complete the IOP surveys. Client Response:: Client responded well to session, client open to meeting with therapist. Client shared she has seen progress such as being able to stay home three nights a week, setting boundaries, and using thoughts are thoughts not facts. Client stated she plans to keep adding days she spends at home, but I' m taking it slow. Client identified strategies for success which included challenging negative self-talk, using mindfulness and exercise, communicating needs with supports, reminding herself that her daughter's behaviors are normal , and letting her junk thoughts float down the river. Client shared she is concerned about losing the structure of the IOP setting. Client and therapist discussed different mental health and leisure activities client could engage in to promote gains made in IOP and give client something to look forward to each day. Client reports plan to attend the WRAP program at [facility], meet with Dr. Joe bi-weekly, and possibly attend groups at [facility] or [facility] on days she does not have anything scheduled. Client was appreciative of the [facility] staff and shared kind remarks. Risks/Concerns:: Client reports ongoing fleeting suicidal ideations of reduced intensity and frequency. Client reports ability to maintain safety, denies access to means, and identifies her and daughter as reasons to live. Progress Toward Goals/Plan:: Client has made significant progress towards her treatment goals as evidenced by client's reduced DSM-5 scores for anxiety, report of using coping skills to manage symptoms and promote self-care, and increased social engagement. Client also demonstrated progress as shown by client increasing the number of days spent at home, setting more boundaries, and using more positive self-talk to combat ruminations and negative thoughts. Client to discharge from [facility] as she has accomplished her [facility] treatment goals and no longer meets criteria for [facility] level of care. Client to follow up with outpatient providers, Dr. Joe and Dr. Rangel for ongoing mental health treatment. Client to follow up with WRAP at [facility]. Time Stopped:: 09:00
== END 2018-07-14 23:59 ==
LOC: BHIOP 09:00
PROVIDERS: Family Provider Family Medicine; PCP Family Medicine; Visit Provider Psychiatry & Neurology Psychiatry
DX: F33.2 Major depressive disorder, recurrent severe without psychotic features (principal); F42.9 Obsessive-compulsive disorder, unspecified; F41.9 Anxiety disorder, unspecified
CPT/HCPCS: H0035; 90834; 90853

== ENCOUNTER → 2018-06-25 10:11 | Outpatient (CLI) | payer BC, SELFPAY ==
[2018-06-25 11:38] LABS: Free T3 2.3 pg/mL (2.18-3.98); Thyroid Stim Hormone (TSH) 3.09 uIU/mL (0.358-3.74)
== END ==
PROVIDERS: Family Provider Family Medicine; PCP Family Medicine; Visit Provider Psychiatry & Neurology Psychiatry
DX: Z79.899 Other long term (current) drug therapy (principal)
CPT/HCPCS: 36415; 84439; 84443; 84481

== ENCOUNTER → 2018-11-13 11:45 | Outpatient (CLI) | payer BC, SELFPAY ==
[2018-11-13 12:55] LABS: EST Glomerular Filtration Rate 72 mL/min (>60); Est Glom Filt Rate - Afr Amer 87 mL/min (>60); Thyroid Stim Hormone (TSH) 6.56 uIU/mL (0.358-3.74)
== END ==
PROVIDERS: Family Provider Family Medicine; PCP Family Medicine; Referring Provider Psychiatry & Neurology Psychiatry; Visit Provider Psychiatry & Neurology Psychiatry
DX: Z79.899 Other long term (current) drug therapy (principal)
CPT/HCPCS: 36415; 80178; 82565; 84443

== ENCOUNTER → 2018-12-13 15:21 | Outpatient (CLI) | payer BC, SELFPAY ==
[2018-12-13 17:51] LABS: Thyroid Stim Hormone (TSH) 2.39 uIU/mL (0.358-3.74)
== END ==
PROVIDERS: Family Provider Family Medicine; PCP Family Medicine; Referring Provider Family Medicine; Visit Provider Family Medicine
DX: E03.9 Hypothyroidism, unspecified (principal)
CPT/HCPCS: 36415; 84443

== ENCOUNTER → 2019-02-03 11:02 | Outpatient (CLI) | payer BC, SELFPAY ==
[2019-02-03 13:21] LABS: T4 Free Direct 0.99 ng/dL (0.76-1.46); Thyroid Stim Hormone (TSH) 2.56 uIU/mL (0.358-3.74)
== END ==
PROVIDERS: Family Provider Family Medicine; PCP Family Medicine; Referring Provider Family Medicine; Visit Provider Family Medicine
DX: E03.9 Hypothyroidism, unspecified (principal); F32.9 Major depressive disorder, single episode, unspecified
CPT/HCPCS: 36415; 84439; 84443

== ENCOUNTER → 2019-03-03 10:54 | Outpatient (CLI) | payer BC, SELFPAY | PROVIDERS: Family Provider Family Medicine; PCP Family Medicine; Referring Provider Family Medicine; Visit Provider Family Medicine | DX: E03.9 Hypothyroidism, unspecified (principal) | CPT/HCPCS: 36415; 84443 ==

== ENCOUNTER → 2019-06-27 14:11 | Outpatient (CLI) | payer BC, SELFPAY ==
[2019-06-27 16:26] LABS: AST(SGOT) 18 U/L (15-37); Alanine Aminotransfer ALT/SGPT 24 U/L (13-56); Creatinine, Serum 1.25 mg/dL (0.55-1.02); EST Glomerular Filtration Rate 49 mL/min (>60); Est Glom Filt Rate - Afr Amer 60 mL/min (>60); Thyroid Stim Hormone (TSH) 1.22 uIU/mL (0.358-3.74)
== END ==
PROVIDERS: Family Provider Family Medicine; PCP Family Medicine; Referring Provider Psychiatry & Neurology Psychiatry; Visit Provider Psychiatry & Neurology Psychiatry
DX: Z79.899 Other long term (current) drug therapy (principal)
CPT/HCPCS: 36415; 80178; 82565; 84443; 84450; 84460

== ENCOUNTER → 2019-09-03 14:55 | Outpatient (CLI) | payer BC, SELFPAY ==
[2019-09-03 17:51] LABS: T4 Free Direct 1.09 ng/dL (0.76-1.46); Thyroid Stim Hormone (TSH) 1.89 uIU/mL (0.358-3.74)
== END ==
PROVIDERS: Family Provider Family Medicine; PCP Family Medicine; Visit Provider Family Medicine
DX: E03.9 Hypothyroidism, unspecified (principal)
CPT/HCPCS: 36415; 84439; 84443

== ENCOUNTER → 2019-10-02 11:54 | Outpatient (CLI) | payer BC, SELFPAY ==
[2019-10-02 16:21] LABS: Anion Gap 4 (5-15); BUN 12 mg/dL (7-18); BUN/Creat Ratio 14.6 RATIO (10-20); Calcium,Total 8.4 mg/dL (8.5-10.1); Chloride 105 mmol/L (98-107); Creatinine, Serum 0.82 mg/dL (0.55-1.02); EST Glomerular Filtration Rate 80 mL/min (>60); Est Glom Filt Rate - Afr Amer 97 mL/min (>60); Glucose 85 mg/dL (74-106); Potassium 4.1 mmol/L (3.5-5.1); Sodium Level 137 mmol/L (136-145); Thyroid Stim Hormone (TSH) 1.33 uIU/mL (0.358-3.74)
== END ==
PROVIDERS: Family Provider Family Medicine; PCP Family Medicine
DX: Z79.899 Other long term (current) drug therapy (principal)
CPT/HCPCS: 36415; 80048; 84443

== ENCOUNTER → 2019-10-03 11:57 | Outpatient (CLI) | payer BC, SELFPAY ==
[2019-10-03 14:24] LABS: Creatinine, Serum 0.89 mg/dL (0.55-1.02); EST Glomerular Filtration Rate 73 mL/min (>60); Est Glom Filt Rate - Afr Amer 88 mL/min (>60)
== END ==
PROVIDERS: Family Provider Family Medicine; PCP Family Medicine; Referring Provider Psychiatry & Neurology Psychiatry; Visit Provider Psychiatry & Neurology Psychiatry
DX: Z79.899 Other long term (current) drug therapy (principal)
CPT/HCPCS: 36415; 80178; 82565; 84443

== ENCOUNTER → 2019-10-10 12:44 | Outpatient (CLI) | payer BC, SELFPAY | PROVIDERS: Family Provider Family Medicine; PCP Family Medicine; Referring Provider Psychiatry & Neurology Psychiatry; Visit Provider Psychiatry & Neurology Psychiatry | DX: Z79.899 Other long term (current) drug therapy (principal) | CPT/HCPCS: 36415; 80178 ==

== ENCOUNTER → 2020-03-31 11:13 | Outpatient (CLI) | payer BC, SELFPAY ==
[2020-03-31 16:31] LABS: T4 Free Direct 0.96 ng/dL (0.76-1.46); Thyroid Stim Hormone (TSH) 4.48 uIU/mL (0.358-3.74)
== END ==
PROVIDERS: PCP Family Medicine; Visit Provider Family Medicine
DX: E03.9 Hypothyroidism, unspecified (principal)
CPT/HCPCS: 36415; 80178; 84439; 84443

== ENCOUNTER → 2020-05-11 13:57 | Outpatient (CLI) | payer BC, SELFPAY ==
[2020-05-11 17:29] LABS: Thyroid Stim Hormone (TSH) 0.59 uIU/mL (0.358-3.74)
== END ==
PROVIDERS: PCP Family Medicine; Visit Provider Family Medicine
DX: E03.9 Hypothyroidism, unspecified (principal)
CPT/HCPCS: 36415; 84443

== ENCOUNTER → 2020-08-05 10:08 | Outpatient (CLI) | payer BC, SELFPAY ==
[2020-08-05 12:39] LABS: Anion Gap 5 (5-15); BUN 11 mg/dL (7-18); BUN/Creat Ratio 12.2 RATIO (10-20); Calcium,Total 9.2 mg/dL (8.5-10.1); Chloride 107 mmol/L (98-107); EST Glomerular Filtration Rate 72 mL/min (>60); Est Glom Filt Rate - Afr Amer 87 mL/min (>60); Glucose 90 mg/dL (74-106); Sodium Level 137 mmol/L (136-145); T4 Free Direct 1.18 ng/dL (0.76-1.46); Thyroid Stim Hormone (TSH) 1.03 uIU/mL (0.358-3.74)
[2020-08-05 12:41] LABS: Vitamin D,25 Hydroxy 41.4 ng/mL
== END ==
PROVIDERS: PCP Family Medicine; Visit Provider Family Medicine
DX: Z51.81 Encounter for therapeutic drug level monitoring (principal); E03.9 Hypothyroidism, unspecified; M62.81 Muscle weakness (generalized)
CPT/HCPCS: 36415; 80048; 80178; 82306; 84439; 84443

== ENCOUNTER → 2020-08-16 11:19 | Outpatient (CLI) | payer BC, SELFPAY ==
[2020-08-16 16:01] LABS: Creatinine, Serum 0.84 mg/dL (0.55-1.02); EST Glomerular Filtration Rate 77 mL/min (>60); Est Glom Filt Rate - Afr Amer 94 mL/min (>60); Thyroid Stim Hormone (TSH) 0.74 uIU/mL (0.358-3.74)
== END ==
PROVIDERS: PCP Family Medicine; Visit Provider Psychiatry & Neurology Psychiatry
DX: Z79.899 Other long term (current) drug therapy (principal)
CPT/HCPCS: 36415; 80178; 82565; 84443

== ENCOUNTER → 2020-08-30 15:03 | Outpatient (CLI) | payer BC, SELFPAY | PROVIDERS: PCP Family Medicine; Visit Provider Family Medicine | DX: F33.2 Major depressive disorder, recurrent severe without psychotic features (principal) | CPT/HCPCS: 36415; 80178 ==

== ENCOUNTER → 2020-08-31 14:21 | Outpatient (CLI) | payer BC, SELFPAY ==
[2020-08-31 17:55] LABS: Absolute Lymphocyte Count 1.72 X10^3/uL (0.83-4.51); Basophil# 0.05 X10^3/uL; Basophil% 0.6 % (0-1); Eosinophil# 0.37 X10^3/uL; Eosinophils% 4.3 % (0-5); Hematocrit 42.7 % (37-47); Lymphocyte # 1.72 X10^3/ul (4.0); Lymphocyte % 19.8 % (19-41); Mean Corp Hgb Conc 30.4 g/dL (32-36); Mean Corpuscular Hgb 30.4 pg (27.0-32.0); Mean Platelet Vol. 10.2 fl (6.2-12.0); Monocyte# 0.52 X10^3/uL; NRBC Flagged by Analyzer 0 % (0-5); Neutrophil # 5.99 X10^3/uL (2.7-7.7); Platelet Count 301 K/mm3 (150-450); RBC Distribution Width SD 48.1 fl (35.1-43.9); Red Blood Count 4.27 M/mm3 (4.2-5.4); White Blood Count 8.7 K/mm3 (4.4-11.0)
[2020-08-31 18:25] LABS: Anion Gap 5 (5-15); BUN 11 mg/dL (7-18); BUN/Creat Ratio 11.7 RATIO (10-20); Calcium,Total 9.3 mg/dL (8.5-10.1); Chloride 108 mmol/L (98-107); Creatinine, Serum 0.94 mg/dL (0.55-1.02); EST Glomerular Filtration Rate 68 mL/min (>60); Est Glom Filt Rate - Afr Amer 82 mL/min (>60); Glucose 102 mg/dL (74-106); Sodium Level 140 mmol/L (136-145)
[2020-08-31 18:40] LABS: Amphetamine Urine VISTA NEGATIVE (<1000 ng/mL); Barbiturate Urine VISTA NEGATIVE (< 200 ng/mL); Benzodiazepine Urine VISTA NEGATIVE (< 200 ng/mL); Cocaine Urine VISTA NEGATIVE (< 300 ng/mL); Ecstacy Urine VISTA NEGATIVE (< 500 ng/mL); Methadone Urine VISTA NEGATIVE (< 300 ng/mL); PCP Urine VISTA NEGATIVE (< 25 ng/mL); THC Urine VISTA NEGATIVE (< 50 ng/mL); Vista UDS pH Range 6
== END ==
PROVIDERS: PCP Family Medicine
DX: F41.9 Anxiety disorder, unspecified (principal); F33.2 Major depressive disorder, recurrent severe without psychotic features
CPT/HCPCS: 36415; 80048; 80307; 85025

== ENCOUNTER 2020-12-02 11:29 | Emergency (ER) | payer OTHER, SELFPAY ==
[2020-12-02 11:29] VITALS: BP 144/96; PULSE 120; RESP 18; TEMP 36.8; O2SAT 95; BMI 29.2
--- NOTE | 2020-12-02 11:35 | ED.VISSUMM ---
- ER Visit Summary Date of Service: 12/02/20 Chief Complaint: Depression with suicidal ideation History of Present Illness: The patient is a 45 F who presents with depression and suicidal ideation that has gradually been getting worse over the past week. Patient states she has thought of overdosing on pills. Patient states she called her friend last weekend who talked her out of taking her whole bottle of Klonopin. Patient states she feels hopeless. Patient states she has no lucrecia in her life and feels like a burden. Patient denies any visual or auditory hallucinations. Patient denies any recent fevers or chills. Physical Examination: Vital signs are stable. Patient is afebrile. Patient is in no acute distress. Oral mucosa is pink and moist. Neck is supple. Trachea is midline. There is no JVD noted. Heart was regular rate and rhythm. Lungs are clear and equal bilaterally. Abdomen is soft. Bowel sounds are normal. There is no tenderness. There is no rebound or guarding noted. Skin is warm dry. Cranial nerves II through XII are intact. There are no focal motor or sensory deficits noted. Extremities are intact. There is no calf tenderness or edema. Patient does have a flat affect and a depressed mood. Patient admits to suicidal ideations with a plan to overdose. Test Results: CBC and basic metabolic profile were obtained and were within normal limits. TSH was within normal limits. Urinalysis does not show any evidence of urinary tract infection. Serum alcohol level was normal. Urine tox screen was negative. EKG was obtained. On my interpretation, there is a sinus tachycardia with a rate of 115. There are no acute ST or T wave changes. Serum hCG was negative. D-dimer was within normal limits. Troponin was obtained and is normal. [place] level was obtained and is normal. Emergency Department Course and Treatment: Patient is cooperative here in the emergency department. Patient is requesting to be transferred to [facility] in [place]. squirrel worker is attempting to arrange for transfer. Patient states she is feeling more anxious and requested a dose of Vistaril. This was given. Disposition: Transfer to psychiatric facility Impression: 1. Depression with suicidal ideation This note was generated with [employer] dictation software. It may contain incorrect words, spelling, and punctuation that were not noted in review of the chart prior to signing ED Disposition - Plan for ED Patient: Disposition: Psychiatric Hospital or Unit Diagnosis: Depression with suicidal ideation Referrals: Nick Martinez MD [Primary Care Provider] -
[2020-12-02 11:55] LABS: Mucous, Urine 0 SEEN /hpf (<or=2+); Red Blood Cells-Urine 0 SEEN /hpf (0-5)
[2020-12-02 11:56] LABS: Color, Urine Yellow (Yellow); Glucose, Dipstick Normal (Normal); Ketone-Dipstick Negative (Negative); Leukocyte Esterase-Dipstick 500 /ul (Negative); Nitrite-Dipstick Negative (Negative); Occult Blood-Urine 10 /ul (Negative); Protein-Dipstick Negative (Negative); Specific Gravity, Urine 1.015 (1.002-1.030); Urine Bilirubin Dipstick Negative (Negative); Urine Clarity Clear (Clear); Urine Urobilinogen Normal (Normal)
[2020-12-02 12:02] LABS: Bacteria 1+ /hpf (None Seen); White Blood Cells 0-5 SEEN /hpf (0-5)
[2020-12-02 12:03] LABS: Squamous Epithelial Cells - UA 5-10 SEEN /hpf (5-10)
[2020-12-02 12:07] LABS: Absolute Lymphocyte Count 1.73 X10^3/uL (0.83-4.51); Basophil# 0.07 X10^3/uL; Basophil% 0.8 % (0-1); Eosinophils% 4.5 % (0-5); Hematocrit 39.6 % (37-47); Hemoglobin 12.7 g/dL (12.0-15.0); Lymphocyte # 1.73 X10^3/ul (4.0); Lymphocyte % 19.4 % (19-41); Mean Corp Hgb Conc 32.1 g/dL (32-36); Mean Corpuscular Hgb 28.9 pg (27.0-32.0); Mean Corpuscular Volume 90.2 fL (81-99); Mean Platelet Vol. 9.5 fl (6.2-12.0); Monocyte# 0.66 X10^3/uL; Monocyte% 7.4 % (0-10); NRBC Flagged by Analyzer 0 % (0-5); Neutrophil # 6.02 X10^3/uL (2.7-7.7); Neutrophil % 67.5 % (47-70); Platelet Count 316 K/mm3 (150-450); RBC Distribution Width CV 13.7 % (11.6-14.6); RBC Distribution Width SD 45.5 fl (35.1-43.9); Red Blood Count 4.39 M/mm3 (4.2-5.4); White Blood Count 8.9 K/mm3 (4.4-11.0)
[2020-12-02 12:08] LABS: Amphetamine Urine VISTA NEGATIVE (<1000 ng/mL); Barbiturate Urine VISTA NEGATIVE (< 200 ng/mL); Benzodiazepine Urine VISTA NEGATIVE (< 200 ng/mL); Cocaine Urine VISTA NEGATIVE (< 300 ng/mL); Ecstacy Urine VISTA NEGATIVE (< 500 ng/mL); Methadone Urine VISTA NEGATIVE (< 300 ng/mL); PCP Urine VISTA NEGATIVE (< 25 ng/mL); THC Urine VISTA NEGATIVE (< 50 ng/mL); Vista UDS pH Range 6
[2020-12-02 12:28] LABS: Alcohol, Blood (Medical)-Serum < 3.0 mg/dL
[2020-12-02 12:31] LABS: Anion Gap 7 (5-15); BUN 15 mg/dL (7-18); BUN/Creat Ratio 15.5 RATIO (10-20); Chloride 107 mmol/L (98-107); Creatinine, Serum 0.97 mg/dL (0.55-1.02); EST Glomerular Filtration Rate 66 mL/min (>60); Est Glom Filt Rate - Afr Amer 80 mL/min (>60); Estimated Creatinine Clearance 63.24 ml/min; Glucose 104 mg/dL (74-106); Potassium 3.6 mmol/L (3.5-5.1); Sodium Level 138 mmol/L (136-145); Thyroid Stim Hormone (TSH) 0.61 uIU/mL (0.358-3.74)
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
--- NOTE | 2020-12-02 12:55 | CM.ED ---
SOCIAL WORK Call to [facility] intake. Informed beds available. Will fax referral once medically cleared.
--- NOTE | 2020-12-02 12:57 | EKG12_ITS ---
Test Reason : MEDICAL CLEARANCE Blood Pressure : / mmHG Vent. Rate : 115 BPM Atrial Rate : 115 BPM P-R Int : 144 ms QRS Dur : 080 ms QT Int : 352 ms P-R-T Axes : 052 068 050 degrees QTc Int : 486 ms Sinus tachycardia Otherwise normal ECG Confirmed by CANDI MARTINEZ, LIT ([id number]), newspaper editor managing JOHN HEARD ([id number]) on 12/06/2020 10:50:55 AM Referred By: ZENON Confirmed By:LIT CHRISTOPHER MD
[2020-12-02 13:12] LABS: Internal QC Validated? YES +Cl - CLEAR BKGD; Pregnancy, Serum, hCG Quali. NEGATIVE Negative
--- NOTE | 2020-12-02 13:42 | CM.ED ---
SOCIAL WORK Referral faxed to [facility]. Pending review at this time. Mariela Sears, FARMWORKER GRAIN, PLASTICS PLATER
[2020-12-02 14:35] VITALS: BP 129/89; PULSE 119; RESP 15; O2SAT 96
[2020-12-02] MEDS: hydrOXYzine PAM 25 MG Capsule PO (14:43)
--- NOTE | 2020-12-02 15:03 | CM.ED ---
SOCIAL WORK Received call from [facility]. Per bunker worker, Dr. Barr is worried about patient's heart rate and requesting further cardiac workup and checking lithium levels. Dr. Solis updated. New orders placed. Will fax results once received. Mariela Sears, RECORD KEEPER, SUPERVISOR RIDES
[2020-12-02 15:20] LABS: D-Dimer Quantitative (DVT/PE) 0.36 FEU/ug/m (0.27-0.49)
--- NOTE | 2020-12-02 15:49 | CM.ED ---
SOCIAL WORK Updated clinical information faxed to [facility]
--- NOTE | 2020-12-02 16:35 | CM.ED ---
SOCIAL WORK Call to [facility] to inquire about referral. Intake to review with physician and get back to this worker. Mariela Sears, ENDOSCOPIC TECHNICIAN, ANTIQUE DEALER
[2020-12-02 16:41] VITALS: BP 124/88; PULSE 111; RESP 18; TEMP 36.7; O2SAT 95
--- NOTE | 2020-12-02 17:17 | CM.ED ---
SOCIAL WORK Patient accepted to [facility] by Dr. Barr. Nurse to call report to . [place] to set up transport. [facility] faxed per request. Patient and staff updated. Mariela Sears MSW, ICE CREAM DIPPER
[2020-12-02] MEDS: hydrOXYzine PAM 25 MG Capsule 50 MG PO (17:18)
--- NOTE | 2020-12-02 17:30 | ED.RN ---
RN called to give report to [facility]- informed to call back in 15 min
== END 2020-12-02 18:55 ==
PROVIDERS: Emergency Provider Emergency Medicine; PCP Family Medicine
DX: R45.851 Suicidal ideations (principal); F32.9 Major depressive disorder, single episode, unspecified
CPT/HCPCS: 80048; 80178; 80307; 81001; 82077; 84443; 84484; 84703; 85025; 85379; 87426; 93005; 99285

== ENCOUNTER → 2021-01-14 10:47 | Outpatient (CLI) | payer OTHER, SELFPAY | PROVIDERS: PCP Family Medicine | DX: F33.2 Major depressive disorder, recurrent severe without psychotic features (principal); Z79.899 Other long term (current) drug therapy | CPT/HCPCS: 36415; 80178 ==

== ENCOUNTER → 2021-03-22 15:32 | Outpatient (CLI) | payer OTHER, SELFPAY ==
[2021-03-22 17:43] LABS: Absolute Lymphocyte Count 2.25 X10^3/uL (0.83-4.51); Absolute Neutrophil Count 8.4 X10^3/uL (2.0-7.7); Basophil# 0.04 X10^3/uL; Basophil% 0.3 % (0-1); Eosinophil# 0.38 X10^3/uL; Eosinophils% 3.3 % (0-5); Hematocrit 39.3 % (37-47); Hemoglobin 12.2 g/dL (12.0-15.0); Lymphocyte # 2.25 X10^3/ul (0.83-4.51); Lymphocyte % 19.3 % (19-41); Mean Corpuscular Hgb 28.5 pg (27.0-32.0); Mean Corpuscular Volume 91.8 fL (81-99); Mean Platelet Vol. 10.3 fl (6.2-12.0); Monocyte% 5.1 % (0-10); NRBC Flagged by Analyzer 0 % (0-5); Neutrophil # 8.36 X10^3/uL (2.7-7.7); Neutrophil % 71.7 % (47-70); Platelet Count 374 K/mm3 (150-450); RBC Distribution Width CV 16.8 % (11.6-14.6); Red Blood Count 4.28 M/mm3 (4.2-5.4); White Blood Count 11.7 K/mm3 (4.4-11.0)
[2021-03-22 18:16] LABS: Vitamin B12 396 pg/mL (211-911)
[2021-03-22 18:29] LABS: ALB/GLOB Ratio 0.9 RATIO (0.9-2.4); AST(SGOT) 23 U/L (15-37); Alanine Aminotransfer ALT/SGPT 20 U/L (13-56); Albumin, Serum 3.6 g/dL (3.2-5.0); Alkaline Phosphatase 72 U/L (45-117); Anion Gap 4 (5-15); BUN 16 mg/dL (7-18); BUN/Creat Ratio 16.2 RATIO (10-20); Calcium,Total 8.9 mg/dL (8.5-10.1); Chloride 108 mmol/L (98-107); Creatinine, Serum 0.99 mg/dL (0.55-1.02); EST Glomerular Filtration Rate 64 mL/min (>60); Est Glom Filt Rate - Afr Amer 78 mL/min (>60); Globulin 3.8 g/dL (2.2-4.2); Glucose 96 mg/dL (74-106); Potassium 4.1 mmol/L (3.5-5.1); Protein, Total 7.4 g/dL (6.4-8.2); Sodium Level 139 mmol/L (136-145); Thyroid Stim Hormone (TSH) 0.41 uIU/mL (0.358-3.74)
== END ==
PROVIDERS: PCP Family Medicine; Referring Provider Family Medicine; Visit Provider Family Medicine
DX: F41.9 Anxiety disorder, unspecified (principal); F32.9 Major depressive disorder, single episode, unspecified; E03.9 Hypothyroidism, unspecified; D75.89 Other specified diseases of blood and blood-forming organs
CPT/HCPCS: 36415; 80053; 82607; 82746; 84443; 85025

== ENCOUNTER → 2021-05-11 14:45 | Outpatient (CLI) | payer OTHER, SELFPAY | PROVIDERS: PCP Family Medicine | DX: Z51.81 Encounter for therapeutic drug level monitoring (principal) | CPT/HCPCS: 36415; 80178 ==

== ENCOUNTER → 2021-08-02 15:57 | Outpatient (CLI) | payer OTHER, SELFPAY ==
[2021-08-02 18:25] LABS: T4 Free Direct 0.69 ng/dL (0.76-1.46); Thyroid Stim Hormone (TSH) 0.43 uIU/mL (0.358-3.74)
== END ==
PROVIDERS: PCP Family Medicine; Referring Provider Family Medicine; Visit Provider Family Medicine
DX: E03.9 Hypothyroidism, unspecified (principal)
CPT/HCPCS: 36415; 84439; 84443

== ENCOUNTER 2021-12-09 14:18 | Outpatient (CLI) | payer OTHER, SELFPAY ==
--- NOTE | 2021-12-09 14:36 | BI_ITS ---
MAMMOGRAPHY - BILATERAL SCREENING REASON FOR EXAM: Female, 46 years old. Routine annual screening examination. PERTINENT HISTORY: Personal history of breast cancer. Prior right lumpectomy. Mother with breast cancer. TECHNIQUE: Digital bilateral breast sophia (3D mammographic acquisition) in the CC and MLO projections. 2-D mediolateral oblique (MLO) and craniocaudad (CC) views of both breasts were obtained. CAD: Full Field Digital Mammography with Computer Added Detection was performed. COMPARISON: Comparison is made with prior study of 01/01/2018 and 12/25/2016. FINDINGS: Breast Composition: The breasts are heterogeneously dense, which may obscure small masses. There is 8 mm x 8 mm well-defined nodule in the deep upper lateral aspect of the right breast. Correlation with ultrasound is recommended. Stable postoperative changes in the upper outer quadrant of the right breast from prior lumpectomy. No other significant abnormalities are identified. BI/SCRN MAMM (CAD)W/SOPHIA BILAT IMPRESSION: 8 mm x 8 mm well-defined nodule in the deep upper lateral aspect of the right breast. Correlation with ultrasound is recommended. ASSESSMENT CATEGORY: BIRADS Category 0: Incomplete. Need additional imaging evaluation. A letter regarding these results will be sent to the patient by the facility within 30 days. Approximately 10% of breast cancers are not detected by mammography. A normal mammogram should not delay biopsy of a clinically suspicious abnormality. [id number] Electronically Signed: Juwan Fay MD at 15:30 EST ,
== END 2021-12-09 23:59 | disposition home or self-care (01) ==
LOC: OPBI 14:35
PROVIDERS: PCP Family Medicine; Referring Provider Student in an Organized Health Care Education/Training Program; Visit Provider Student in an Organized Health Care Education/Training Program
DX: Z12.31 Encounter for screening mammogram for malignant neoplasm of breast (principal); Z85.3 Personal history of malignant neoplasm of breast
CPT/HCPCS: 77063; 77067

== ENCOUNTER 2021-12-13 10:54 | Outpatient (CLI) | payer OTHER, SELFPAY ==
--- NOTE | 2021-12-13 10:58 | US_ITS ---
STUDY: ULTRASOUND BREAST - RIGHT REASON FOR EXAM: Female, 46 years old. Abnormal screening mammogram. TECHNIQUE: Axial and longitudinal images of the RIGHT breast were performed with a high resolution ultrasound transducer. # OF IMAGES: 10 COMPARISON: Comparison is made with prior mammogram dated 01/06 2022. FINDINGS: RIGHT Breast: The mammographic abnormality corresponds to an 8 mm x 9 mm x 9 mm cyst at the 10 o''clock position in the breast at 9 cm from nipple. US/Breast Limited Unilateral IMPRESSION: The mammographic abnormality corresponds to an 8 mm x 9 mm x 9 mm cyst at the 10 o''clock position of the breast at 9 cm from the nipple. ASSESSMENT CATEGORY: BIRADS Category 2: Benign. A letter regarding these results will be sent to the patient by the facility within 30 days. Electronically Signed: Juwan Fay MD at 15:41 EST ,
== END 2021-12-13 23:59 | disposition home or self-care (01) ==
LOC: OPUS 10:55
PROVIDERS: PCP Family Medicine; Visit Provider Student in an Organized Health Care Education/Training Program
DX: N63.10 Unspecified lump in the right breast, unspecified quadrant (principal)
CPT/HCPCS: 76642

== ENCOUNTER → 2022-02-07 | Outpatient (CLI) | payer OTHER, SELFPAY ==
[2022-02-07 11:38] LABS: Iron 39 ug/dL (50-170); Iron Binding Capacity,Total 450 ug/dL (250-450); PERCENT IRON SATURATION 8.7 % (15.0-55.0)
[2022-02-07 11:40] LABS: Vitamin B12 998 pg/mL (211-911)
== END | disposition home or self-care (01) ==
PROVIDERS: PCP Family Medicine
DX: Z51.81 Encounter for therapeutic drug level monitoring (principal); Z13.29 Encounter for screening for other suspected endocrine disorder; Z13.228 Encounter for screening for other metabolic disorders; Z13.0 Encounter for screening for diseases of the blood and blood-forming organs and certain disorders involving the immune mechanism
CPT/HCPCS: 36415; 82542; 82607; 83540; 83550

== ENCOUNTER → 2022-02-23 | Outpatient (CLI) | payer OTHER, SELFPAY | END | disposition home or self-care (01) | LOC: MTLAB 13:58 | PROVIDERS: PCP Family Medicine | DX: Z51.81 Encounter for therapeutic drug level monitoring (principal) | CPT/HCPCS: 36415; 82542 ==

== ENCOUNTER → 2022-05-08 | Outpatient (CLI) | payer OTHER, SELFPAY ==
[2022-05-08 15:32] LABS: Free T3 2.7 pg/mL (2.18-3.98); T4 Free Direct 1.11 ng/dL (0.76-1.46)
== END | disposition home or self-care (01) ==
LOC: LAB 13:13
PROVIDERS: PCP Family Medicine
DX: E03.9 Hypothyroidism, unspecified (principal)
CPT/HCPCS: 36415; 84439; 84481

== ENCOUNTER → 2022-05-19 | Outpatient (CLI) | payer OTHER, SELFPAY ==
[2022-05-19 14:59] LABS: Absolute Lymphocyte Count 2.76 X10^3/uL (0.83-4.51); Absolute Neutrophil Count 8.7 X10^3/uL (2.0-7.7); Basophil# 0.05 X10^3/uL; Basophil% 0.4 % (0-1); Eosinophil# 0.48 X10^3/uL; Eosinophils% 3.8 % (0-5); Hematocrit 41.3 % (37-47); Hemoglobin 12.6 g/dL (12.0-15.0); Lymphocyte # 2.76 X10^3/ul (0.83-4.51); Lymphocyte % 21.7 % (19-41); Mean Corp Hgb Conc 30.5 g/dL (32-36); Mean Corpuscular Hgb 28.6 pg (27.0-32.0); Mean Corpuscular Volume 93.9 fL (81-99); Mean Platelet Vol. 9.6 fl (6.2-12.0); Monocyte# 0.72 X10^3/uL; Monocyte% 5.7 % (0-10); NRBC Flagged by Analyzer 0 % (0-5); Neutrophil # 8.66 X10^3/uL (2.7-7.7); Platelet Count 394 K/mm3 (150-450); White Blood Count 12.7 K/mm3 (4.4-11.0)
[2022-05-19 15:45] LABS: ALB/GLOB Ratio 0.9 RATIO (0.9-2.4); AST(SGOT) 14 U/L (15-37); Alanine Aminotransfer ALT/SGPT 25 U/L (13-56); Albumin, Serum 3.5 g/dL (3.2-5.0); Alkaline Phosphatase 113 U/L (45-117); Anion Gap 7 (5-15); BUN 17 mg/dL (7-18); Calcium,Total 9.1 mg/dL (8.5-10.1); Chloride 107 mmol/L (98-107); Creatinine, Serum 0.71 mg/dL (0.55-1.02); EST Glomerular Filtration Rate 94 mL/min (>60); Est Glom Filt Rate - Afr Amer 114 mL/min (>60); Globulin 4.1 g/dL (2.2-4.2); Glucose 78 mg/dL (74-106); Potassium 4.5 mmol/L (3.5-5.1); Protein, Total 7.6 g/dL (6.4-8.2); Sodium Level 137 mmol/L (136-145); T4 Free Direct 0.89 ng/dL (0.76-1.46); Thyroid Stim Hormone (TSH) 0.29 uIU/mL (0.358-3.74)
[2022-05-29 18:00] LABS: T3 Reverse 10.3 ng/dL (9.2-24.1)
== END | disposition home or self-care (01) ==
LOC: BIMLAB 13:11
PROVIDERS: PCP Internal Medicine; Referring Provider Internal Medicine; Visit Provider Internal Medicine
DX: E03.9 Hypothyroidism, unspecified (principal); E05.90 Thyrotoxicosis, unspecified without thyrotoxic crisis or storm
CPT/HCPCS: 36415; 80053; 84439; 84443; 84482; 85025; 86140

== ENCOUNTER → 2022-05-29 | Outpatient (CLI) | payer OTHER, SELFPAY ==
[2022-05-29 12:44] LABS: T4 Free Direct 0.44 ng/dL (0.76-1.46); Thyroid Stim Hormone (TSH) 0.56 uIU/mL (0.358-3.74)
== END | disposition home or self-care (01) ==
LOC: BIMLAB 11:19
PROVIDERS: PCP Internal Medicine; Referring Provider Internal Medicine; Visit Provider Internal Medicine
DX: E03.9 Hypothyroidism, unspecified (principal)
CPT/HCPCS: 36415; 84439; 84443

== ENCOUNTER → 2022-07-25 | Outpatient (CLI) | payer OTHER, SELFPAY ==
[2022-07-25 16:34] LABS: T4 Free Direct 0.72 ng/dL (0.76-1.46); Thyroid Stim Hormone (TSH) 0.74 uIU/mL (0.358-3.74)
== END | disposition home or self-care (01) ==
LOC: LAB 15:01
PROVIDERS: PCP Internal Medicine; Visit Provider Internal Medicine Endocrinology, Diabetes & Metabolism
DX: E03.9 Hypothyroidism, unspecified (principal)
CPT/HCPCS: 36415; 84439; 84443

== ENCOUNTER 2023-04-03 08:54 | Day surgery (SDC) | payer OTHER, SELFPAY ==
--- NOTE | 2023-04-03 | GASB_PTH ---
PATIENT: NILDA BEARD LOC: EN U#:[id number] AGE/SX: 47/F ROOM: RE04/03/[address]: Dr. Imtiaz Hogan MD : 1975 BED: DIS: 04/03/2023 SPEC #: [id number] RECD: 04/03/23 11:31 STATUS: ANN RECaio #: [id number] LIONEL: 04/03/23 00:[address]: Imtiaz Hogan DEPT: SURGICAL PATHOLOGY RECD BY: Kristopher Bryan ENTERED: 04/03/23 11:31 SP TYPE: Gastric Bx OTHR DR: Dr. Otis Prasad MD Tissues: Gastric mucous membrane Procedures: Surgery Specimen Level IV HEADER OPERATION: EGD ([facility]), PH probe PRE-OP DIAGNOSIS: GERD TISSUE SUBMITTED: Antrum for H. pylori and path MICROSCOPIC DIAGNOSIS Gastric antrum, biopsy: Fragments of gastric mucosa with mild chronic gastritis. See comment. AM:jovita 04/04/2023 COMMENT The results of immunohistochemistry for Helicobacter pylori will be reported separately ([id number]). MICROSCOPIC DESCRIPTION Slides are reviewed. GROSS DESCRIPTION Received in fixative is one container labeled with the patient's name and designated antrum. The specimen consists of two irregular fragments of light grover soft tissue that in aggregate measure 0.8 x 0.3 x 0.1 cm. The specimen is totally submitted in one cassette. / AM:jovita 04/03/2023 TC:3 CPT: 92649
[2023-04-03 09:51] VITALS: BP 128/81; PULSE 100; RESP 18; TEMP 37.2; O2SAT 93; BMI 32.8
[2023-04-03] MEDS: Lactated Ringers 1,000 ML 15 ML IV (09:58)
--- NOTE | 2023-04-03 09:59 | PCM.HP.BLA ---
History and Physical Date of Admission: 04/03/23 Intake Vital Signs ? 03/15/2309:41 Height 5 ft 4 in Weight: 190 lb BMI 32.5 BP 114/70 Blood Pressure Location Rt brachial Position Sitting Respiration 17 Pulse 92 Pulse Source Monitor Temp 97.5 F L Temp Source Temporal Pulse Oximetry (%) 94 Oxygen Delivery Method room air Intake Visit Reasons:?Gastroesophageal reflux disease (GERD) Chief Complaint: gerd Is patient in pain?: No Allergies amitriptyline [From Elavil] Allergy (Verified 03/15/23 09:37) Hives PFSH Medical History? Anemia Anxiety Atypical ductal hyperplasia of right breast Bipolar depression Borderline personality disorder Depressed GERD with esophagitis Hay fever History of breast cancer History of electroconvulsive therapy History of hospitalization in psychiatric facility Hypothyroidism IBS (irritable bowel syndrome) Macrocytosis PTSD (post-traumatic stress disorder) Seasonal allergies Surgical History? History of esophagogastroduodenoscopy (EGD) History of partial mastectomy of right breast Family History? Mother HyperlipemiaOther Anxiety and depression Breast cancer Heart disease Osteoporosis Social History? Smoking Status:? Former smoker second hand exposure:? No alcohol intake:? current alcohol intake frequency: holidays/special occasions only substance use type:? does not use caffeine:? No what type of physical activity do you participate in:? walking frequency:? 1-2 times per week seatbelt use:? always HPI HPI HPI: Patient is a 47-year-old female here for reflux.? Patient reports is been going on for at least 5 years.? She had an EGD 5 years ago and was put on a PPI and recommended to come back but never followed up.? Patient also reports epigastric pain.? She was started on Carafate recently which has helped.? Patient is also never had a screening colonoscopy.? She denies any blood in the stool. ROS General General: Yes weight change and fatigue; No appetite, colon cancer, breast cancer or weakness HEENT HEENT: No difficulty swallowing, eye injury, eye surgery, swollen glands or hoarseness Endo Endocrine: Yes thyroid disease; No diabetes mellitus, thyroid cancer, Hair loss, heat intolerance or cold intolerance Skin Skin: No rash or changing moles Musc Musculoskeletal: No back problems, arthritis, rheumatoid arthritis, gout or joint pain Cardio Cardiovascular: No murmur, pacemaker, heart disease, atrial fibrillation, high blood pressure, heart attack, heart stent, palpitations, shortness of breat with exertion or chest pain Psych Psychiatric: Yes depression and anxiety; No hearing voices Resp Respiratory: No shortness of breath, No sleep apnea, No cough, No COPD, No asthma, No emphysema and No wheezing Gastro Gastrointestinal: No abdominal pain, No nausea or vomiting, No diarrhea, No constipation, No blood in stool, Yes acid reflux, No hemorrhoids, No ulcers, No gallbladder problem and No black,tarry stools Marcus Hematologic: No blood thinners, No blood disorders, No bleeding, No anemia and No blood clots Neuro Neurologic: No system reviewed and no additional complaints, except as documented, No as per HPI, No abnormal gait, No abnormal hearing, No abnormal movements, No abnormal speech, No behavioral changes, No burning sensations, No confusion, No convulsions, No disequilibrium, No dizziness, No localized weakness, No frequent falls, No headache(s), No lack of coordination, No loss of vision, No memory loss, No numbness, No other visual disturbances, No radicular pain, No restless legs, No sensory deficit, No syncope, No tingling, No tremor(s), No weakness and No other Exam Const General: cooperative Orientation: alert and oriented x3 HENMT Head: normal to inspection Neck Neck: normal visual inspection and full ROM Chest Chest palpation & inspection: normal inspection of the chest Resp Effort & Inspection: normal respiratory effort Auscultation: clear to auscultation bilaterally Cardio Rate: regular rate Rhythm: regular rhythm GI Inspection: non-distended Palpation: soft and nontender Skin General: no rashes or lesions noted Neuro General: patient alert and patient oriented x3 Extrem General: full ROM Psych Appearance: grossly normal Mental Status: mental status grossly normal Assessment and Plan Assessment and Plan (1) Gastroesophageal reflux disease: ?Qualifiers: ?Esophagitis presence:?with esophagitis??Esophagitis bleeding:?unspecified whether hemorrhage? Qualified Code(s):?K21.00 - Gastro-esophageal reflux disease with esophagitis, without bleeding ?Plan: The patient has severe GERD and she has been on twice a day PPI for 5 years.? She was recently started on Carafate which she reports is helping.? I discussed performing EGD with pH probe with her.? This would evaluate and help work her up for possible Rhina.? Patient is also never had a screening colonoscopy so I recommended colonoscopy to her. I explained endoscopy in detail to the patient.? I explained the risks including but not limited to stroke or heart attack with anesthesia, perforation of the GI tract, bleeding, infection.? I explained that any of these could necessitate further emergency surgery.? The patient understands and all questions were answered sufficiently.? The patient wishes to proceed with procedure. Imtiaz Hogan MD Pager: [facility] [address] [place] [address], [address] [place] [address] Office: I have examined the patient and the H&P has been reviewed. There are no clinical changes since date of exam. The patient has suboptimal prep so we will be performing her EGD with pH probe today. She will reschedule her colonoscopy with Jose aguilar.
--- NOTE | 2023-04-03 10:00 | IMM_PTH ---
PATIENT: NILDA BEARD LOC: EN U#:[id number] AGE/SX: 47/F ROOM: RE04/03/[address]: Dr. Imtiaz Hogan MD : 1975 BED: DIS: 04/03/2023 SPEC #: [id number] RECD: 04/03/23 11:54 STATUS: ANN REQ #: [id number] LIONEL: 04/03/23 10:[address]: Imtiaz Hogan DEPT: IMMUNOHISTOCHEMISTRY RECD BY: Merline Chavez ENTERED: 04/03/23 11:54 SP TYPE: IMMUNO OTHR DR: Dr. Otis Prasad MD Tissues: Stomach, NOS Procedures: H Pylori (initial) PHYSICIAN & INSTITUTION [facility] [id number] SPECIMEN INFORMATION: Tissue Source: Antrum Clinical Info: GERD Specimen Number: [id number] CPT code: 79639 METHODOLOGY: Deparaffinized sections of prefer/formalin-fixed tissue or PAP/DQ stained slides are incubated with monoclonal/polyclonal antibodies/oligonucleotide probes. Localization is made via biotin free immunoperoxidase method. Appropriate controls are performed and reacted as expected. Results on target cell population are indicated in the following table: RESULTS: ANTIBODY / CLONE RESULT H Pylori (polyclonal) negative These tests were developed and their performance characteristics determined by [facility]. They may not have been cleared or approved by the U.S. Food and Drug Administration. The FDA has determined that such clearance or approval is not necessary. The above immunohistochemical/dualISH markers are ordered and reviewed by the Pathologist. INTERPRETATION: Antrum, biopsy: Negative for Helicobacter pylori organisms. AM:jovita 04/05/2023
--- NOTE | 2023-04-03 10:25 | OP.EGD_ITS ---
Patient Name: Isabell Mcmanus Procedure Date: 04/03/2023 9:57 AM Date of : 1975 Age: 47 Procedure: Upper GI endoscopy Indications: Gastro-esophageal reflux disease Providers: Itmiaz Hogan MD Medicines: Monitored Anesthesia Care Patient Profile: This is a 47 year old female. Refer to note in patient chart for documentation of history and physical. Complications: No immediate complications. Estimated blood loss: Minimal. Procedure: Pre-Anesthesia Assessment: - Prior to the procedure, a History and Physical was performed, and patient medications and allergies were reviewed. The patient's tolerance of previous anesthesia was also reviewed. The risks and benefits of the procedure and the sedation options and risks were discussed with the patient. All questions were answered, and informed consent was obtained. Prior Anticoagulants: The patient has taken no previous anticoagulant or antiplatelet agents. After reviewing the risks and benefits, the patient was deemed in satisfactory condition to undergo the procedure. After obtaining informed consent, the endoscope was passed under direct vision. Throughout the procedure, the patient's blood pressure, pulse, and oxygen saturations were monitored continuously. The Endoscope was introduced through the mouth, and advanced to the fourth part of duodenum. The upper GI endoscopy was accomplished without difficulty. The patient tolerated the procedure well. Scope In: 10:15:06 AM Scope Out: 10:20:35 AM Total Procedure Duration Time 0 hours 5 minutes 29 seconds Findings: The esophagus was normal. The stomach was normal. The examined duodenum was normal. The SPENCER capsule with delivery system was introduced through the mouth and advanced into the esophagus, such that the SPENCER pH capsule was positioned 31 cm from the incisors, which was 6 cm proximal to the GE junction. Suction was applied to the well of the SPENCER pH capsule to suck in the adjacent mucosa of the esophagus using the external vacuum pump set at a minimum vacuum pressure of 550 mmHg for 30 seconds. The SPENCER pH capsule was then deployed by depressing the plunger on top of the handle to advance the locking pin into the mucosa, thereby attaching the capsule to the esophagus. The plunger was then rotated a quarter turn clockwise to release the capsule from the delivery system. The delivery system was then withdrawn. Endoscopy was utilized for probe placement and diagnostic evaluation. Impression: - Normal esophagus. - Normal stomach. - Normal examined duodenum. - The SPENCER pH capsule was positioned 31 cm from the incisors, which was 6 cm proximal to the GE junction. - No specimens collected. Recommendation: - Discharge patient to home. - Resume previous diet. - Continue present medications. Procedure Code(s): --- Professional --- 19993, Esophagogastroduodenoscopy, flexible, transoral; diagnostic, including collection of specimen(s) by brushing or washing, when performed (separate procedure) Diagnosis Code(s): --- Professional --- K21.9, Gastro-esophageal reflux disease without esophagitis CPT copyright 2017 [employer]. All rights reserved. The codes documented in this report are preliminary and upon physician coder review may be revised to meet current compliance requirements. Imtiaz Hogan MD 04/03/2023 10:24:33 AM This report has been signed electronically. Number of Addenda: 0 Note Initiated On: 04/03/2023 9:57 AM
[2023-04-03 10:26] VITALS: BP 128/81; BP 92/69; PULSE 89; RESP 16; TEMP 36.2; O2SAT 90
--- NOTE | 2023-04-03 10:26 | OP.CCLET_ITS ---
04/03/2023 Otis Prasad MD [address] [place] [address] [place] [address] Re : Upper GI endoscopy procedure for Isabell Mcmanus Dear Dr. Prasad This procedure was performed on Monday, April 03, 2023. My impressions and recommendations are as follows: Impressions : - Normal esophagus. - Normal stomach. - Normal examined duodenum. - The SPENCER pH capsule was positioned 31 cm from the incisors, which was 6 cm proximal to the GE junction. - No specimens collected. Recommendations : - Discharge patient to home. - Resume previous diet. - Continue present medications. My findings are described in the full procedure note, which is enclosed. If I can be of further assistance, please feel free to contact me at Doctor phone number(s): , Work: . Sincerely, Imtiaz Hogan MD 04/03/2023 10:24:33 AM This report has been signed electronically.
[2023-04-03 10:30] VITALS: BP 101/79; BP 128/81; PULSE 85; RESP 16; O2SAT 91
[2023-04-03 10:35] VITALS: BP 107/72; BP 128/81; PULSE 83; RESP 16; O2SAT 91
[2023-04-03 10:40] VITALS: BP 118/86; BP 128/81; PULSE 87; RESP 16; O2SAT 93
[2023-04-03 10:45] VITALS: BP 115/83; BP 128/81; PULSE 84; RESP 16; TEMP 37; O2SAT 93
== END 2023-04-03 11:40 | disposition home or self-care (01) ==
LOC: EN 09:02 → AC 09:03
PROVIDERS: PCP Internal Medicine; Referring Provider Internal Medicine; Visit Provider Surgery
PROC: 0DJD8ZZ Inspection of Lower Intestinal Tract, Via Natural or Artificial Opening Endoscopic (ICD-10-PCS; CPT 45378; principal; 2023-04-03 09:55)
DX: K21.9 Gastro-esophageal reflux disease without esophagitis (principal); Z87.891 Personal history of nicotine dependence; K29.50 Unspecified chronic gastritis without bleeding
CPT/HCPCS: 43235; 88305; 88342; J7120; J2405

== ENCOUNTER → 2023-06-04 | Outpatient (CLI) | payer OTHER, SELFPAY ==
--- NOTE | 2023-06-04 14:48 | BI_ITS ---
MAMMOGRAPHY - BILATERAL SCREENING REASON FOR EXAM: Female, 48 years old. Routine annual screening examination. PERTINENT HISTORY: Personal history of breast cancer status post right lumpectomy in 2017. Mother with breast cancer. TECHNIQUE: Digital bilateral breast sophia (3D mammographic acquisition) in the CC and MLO projections. 2-D mediolateral oblique (MLO) and craniocaudad (CC) views of both breasts were obtained. CAD: Full Field Digital Mammography with Computer Added Detection was performed. COMPARISON: Screening mammogram from 12/09/2021. FINDINGS: Breast Composition: The breasts are heterogeneously dense, which may obscure small masses. There is a 0.8 x 0.6 cm focal asymmetry in the right outer slightly inferior breast, middle depth, approximately 8 cm posterior to the nipple. This is best seen on the 3-D sophia views and was not well-seen on prior study. Further assessment with spot compression views and ultrasound is recommended. The previously characterized cyst in the upper outer right breast has decreased in size, now measuring approximately 0.5 x 0.6 cm. No suspicious calcifications. No other significant findings. BI/SCRN MAMM (CAD)W/SOPHIA BILAT IMPRESSION: Further imaging evaluation recommended, as described above. (E) Recall Side: Right Breast ASSESSMENT CATEGORY: BIRADS Category 0: Incomplete. Need additional imaging evaluation. A letter regarding these results will be sent to the patient by the facility within 30 days. Approximately 10% of breast cancers are not detected by mammography. A normal mammogram should not delay biopsy of a clinically suspicious abnormality. Electronically Signed: Kenny Gaytan DO at 10:19 EDT ,
== END | disposition home or self-care (01) ==
LOC: OPBI 14:46
PROVIDERS: PCP Internal Medicine; Referring Provider Student in an Organized Health Care Education/Training Program; Visit Provider Student in an Organized Health Care Education/Training Program
DX: Z12.31 Encounter for screening mammogram for malignant neoplasm of breast (principal); Z85.3 Personal history of malignant neoplasm of breast; Z80.3 Family history of malignant neoplasm of breast
CPT/HCPCS: 77063; 77067

== ENCOUNTER → 2023-06-21 | Outpatient (CLI) | payer OTHER, SELFPAY ==
--- NOTE | 2023-06-21 14:19 | BI_ITS ---
MAMMOGRAPHY - UNILATERAL DIAGNOSTIC: RIGHT BREAST REASON FOR EXAM: Female, 48 years old. Abnormal screening mammogram. PERTINENT HISTORY: Personal history of breast cancer. Prior right lumpectomy. TECHNIQUE: Compression spot views of the right breast in the mediolateral oblique and craniocaudad projections were obtained. CAD: Full Field Digital Mammography with Computer Added Detection was performed. COMPARISON: Comparison is made with prior study June 04, 2023. FINDINGS: Breast Composition: The breasts are heterogeneously dense, which may obscure small masses. Persistent 8 mm x 6 mm nodular density in the right outer slightly inferior aspect of the right breast. Correlation with ultrasound is recommended. No other significant abnormalities are identified. BI/DIAG MAMM W/CAD, UNILAT IMPRESSION: Persistent nodular density in the right breast as described. Correlation with ultrasound is recommended. ASSESSMENT CATEGORY: BIRADS Category 0: Incomplete. Need additional imaging evaluation. A letter regarding these results will be sent to the patient by the facility within 30 days. Approximately 10% of breast cancers are not detected by mammography. A normal mammogram should not delay biopsy of a clinically suspicious abnormality. Electronically Signed: Juwan Fay MD at 15:17 EDT ,
--- NOTE | 2023-06-21 14:20 | US_ITS ---
STUDY: ULTRASOUND BREAST - RIGHT REASON FOR EXAM: Female, 48 years old. Abnormal screening mammogram. TECHNIQUE: Axial and longitudinal images of the RIGHT breast were performed with a high resolution ultrasound transducer. # OF IMAGES: 43 COMPARISON: Comparison is made with prior mammogram dated June 04, 2023 and June 21, 2023. FINDINGS: RIGHT Breast: The lower and lateral aspect of the right breast was examined with ultrasound. The mammographic and amount to correspond to a 6 mm x 7 mm x 6 mm cyst at the 10:00 position of the breast at 9 cm from the nipple. Routine annual mammographic follow-up is recommended. US/Breast Limited Unilateral IMPRESSION: The mammographic abnormality corresponds to a 6 mm x 7 mm x 6 mm cyst. Routine mammographic follow-up is recommended. ASSESSMENT CATEGORY: BIRADS Category 2: Benign. A letter regarding these results will be sent to the patient by the facility within 30 days. Electronically Signed: Juwan Fay MD at 13:27 EDT ,
== END | disposition home or self-care (01) ==
PROVIDERS: PCP Internal Medicine; Referring Provider Student in an Organized Health Care Education/Training Program; Visit Provider Student in an Organized Health Care Education/Training Program
DX: R92.8 Other abnormal and inconclusive findings on diagnostic imaging of breast (principal)
CPT/HCPCS: 76642; 77065

== ENCOUNTER → 2023-07-02 | Outpatient (CLI) | payer OTHER, SELFPAY ==
[2023-07-02 16:19] LABS: ALB/GLOB Ratio 0.9 RATIO (0.9-2.4); AST(SGOT) 14 U/L (15-37); Alanine Aminotransfer ALT/SGPT 22 U/L (13-56); Albumin, Serum 3.6 g/dL (3.2-5.0); Alkaline Phosphatase 79 U/L (45-117); Anion Gap 8 (5-15); BUN 19 mg/dL (7-18); BUN/Creat Ratio 24.9 RATIO (10-20); Chloride 108 mmol/L (98-107); Creatinine, Serum 0.76 mg/dL (0.55-1.02); EST Glomerular Filtration Rate 86 mL/min (>60); Est Glom Filt Rate - Afr Amer 104 mL/min (>60); Globulin 3.8 g/dL (2.2-4.2); Glucose 103 mg/dL (74-106); Potassium 4.2 mmol/L (3.5-5.1); Protein, Total 7.4 g/dL (6.4-8.2); Sodium Level 138 mmol/L (136-145); T4 Free Direct 0.91 ng/dL (0.76-1.46); Thyroid Stim Hormone (TSH) 0.95 uIU/mL (0.358-3.74)
== END | disposition home or self-care (01) ==
LOC: MTLAB 14:02
PROVIDERS: PCP Internal Medicine; Referring Provider Internal Medicine Endocrinology, Diabetes & Metabolism; Visit Provider Internal Medicine Endocrinology, Diabetes & Metabolism
DX: E03.9 Hypothyroidism, unspecified (principal)
CPT/HCPCS: 36415; 80053; 84439; 84443

== ENCOUNTER 2023-10-03 12:00 | Outpatient (RCR) | payer OTHER, SELFPAY ==
--- NOTE | 2023-08-09 13:04 | HP.PTEVAL_ITS ---
Patient's Visit Information Visit Information Visit Information: NILDA BEARD is a 48 year old F referred to Physical Therapy by Dr. Odilia Chawla MD with a diagnosis of UTEROVAGINAL PROLAPSE AND URGE INCONTINENCE. Date of Evaluation: 08/09/23 Physical Therapist: Radha Wallace PT, Cert MDT Visit Plan Frequency: 1x/Week Duration: 2-4 Months Plan: PF THERAPY FOR STRENGTHENING, LENGTHENING/RELAXATION AND ENDURANCE TRAINING. URINARY URGE AND FREQUENCY EDUCATION. HEALTHY BLADDER HABIT EDUCATION. TRAINING IN COORDINATION OF PELVIC FLOOR MUSCULATURE WITH HIP AND CORE (TRANSVERSE ABDOMINUS) MUSCULATURE. CORE STRENGTHENING. MARIELA LE ROM, STRETCHING AND STRENGTHENING. TRAINING IN ABDOMINAL CAVITY PRESSURE MGMT WITH ADL'S. Subjective Subjective: Work/Leisure: UNEMPLOYEED. ONE CHILD. VAGINAL . NO COMPLICATIONS. Disability: NO Present symptoms: URINARY LEAKAGE AND URGENCY TO GO QUITE OFTEN Present since: ABOUT A YEAR Pain Scale: N/A Is it getting better, worse or staying the same: STAYING THE SAME Commenced as a result of: NO APPARENT REASON Worse: JUMPING, PHYSICAL ACTIVITY, NIGHT TIME, PRETTY CONSTANT. Better: NOTHING Disturbed sleep: GETTING UP ABOUT ONCE AT NIGHT AND HAS LEAKAGE EVERY NIGHT - WEARS POISE PAD AND IT DOESN'T ALWAYS WAKE HER UP. Coughing/sneezing/straining: POSITIVE FOR URINARY LEAKAGE How long can you delay the need to urinate: ABOUT 5 MINUTES I CAN USUALLY MAKE IT TO THE BATHROOM IN TIME. Prolapse (Falling out feeling): NO Frequency of Urination: ABOUT EVERY HOUR Ability to stop urine flow: PATIENT DOES NOT KNOW. Ability to initiate urine stream: YES Dyspareunia: N/A Bowel Incontinence: NO Accidents: NO Unexplained weight loss: NO Imaging: NO PMH/Recent major surgery: HYPOTHYROIDISM, ACID REFLUX, IBS, SEVERE DEPRESSION, SEVERE ANXIETY, PTSD, borderline personality disorder. Objective Objective: Sitting/Standing Posture: POOR. FORWARD HEAD. ROUNDED SHOULDERS. DECREASED LORDOSIS. NO RELEVANT LATERAL SHIFT. Active Correction of posture: NE Other Observations: INDEP GAIT AND TRANSFERS. PATIENT IS ACTING AND REPORTING BEING VERY ANXIOUS ABOUT BEING HERE TODAY. Sensory deficit: MARIELA LE LIGHT TOUCH SENSATION GROSSLY INTACT AND SYMMETRICAL ROM deficit: MARIELA HIP TIGHTNESS ALL PLANES. MARIELA HS AND GASTROC SOLEUS COMPLEX TIGHTNESS. Motor deficit: MARIELA LE'S GROSSLY 5/5 WITH MMT'ING. Dural Signs: NEGATIVE MARIELA LE'S. Lumbar mvmt loss: flex - NIL ext - MOD R SG - MOD L SG - MOD PATIENT DENIES PAIN WITH LUMBAR ROM TESTING ALL PLANES. Core strength: POOR Palpation: PATIENT AND THIS PT DEFERRED PELVIC EXAM TODAY DUE TO PATIENTS HIGH ANXIETY. PATIENT ALSO REPORTS SHE JUST HAD A MEDICATION CHANGE A COUPLE DAYS AGO AND SHE IS VERY SENSATIVE TO IT. PATIENT COMMUNICATES THE ABILITY TO HOLD A PELVIC FLOOR CONTRACTION X APPROX 6 SECONDS IN LYING. FUNCTIONAL SCREEN: Incontinence Impact Questionnaire Score: 13 Urogenital Distress Inventory Score: 6 TREATMENT: INSTRUCTED PATIENT IN HOW TO DO PELVIC FLOOR CONTRACTIONS AND INITIATED HEP WITH QUICK FLICK KEGELS X 8, 3 TIMES A DAY. Goals Goal 1:: DECREASE URINARY LEAKAGE EPISODES TO ONE OR LESS PER DAY Goal Time Frame: 8-12 Weeks Goal 2:: PATIENT WILL SUCCESSFULLY DELAY VOIDING LONG NEEDED WHEN URGENCY OCCURS TO SUCCESSFULLY MAKE IT TO THE BATHROOM. Goal Time Frame: 2-4 Weeks Goal 3:: PATIENT WILL DEMONSTRATE/COMMUNICATE 10 CONSISTENT AND CONSECUTIVE 10 SECOND PELVIC FLOOR MUSCLE CONTRACTIONS TO DEMONSTRATE IMPROVED PELVIC FLOOR ENDURANCE. Goal Time Frame: 8-12 Weeks Goal 4:: DEVELOP HEALTHY FLUID INTAKE HABITS WITH FLUID INTAKE OF ? BODY WEIGHT IN OUNCES PER DAY AND 2/3 BEING WATER. Goal Time Frame: 2-4 Weeks Goal 5:: NORMALIZE VOIDING FREQUENCEY TO EVERY 3-4 HOURS. Goal Time Frame: 6-8 Weeks Goal 6:: PATIENT WILL BE INDEP WITH A HEP/HOME INSTRUCTIONS FOR CONTINUED IMPROVEMENT ONCE FORMAL PHYSICAL THERAPY CONCLUDES. Goal Time Frame: 8-12 Weeks Rehabilitation Potential Physical Therapy Diagnosis: CORE WEAKNESS. MARIELA LE STIFFNESS. PELVIC FLOOR WEAKNESS. URINARY URGENCY AND FREQUENCY. Rehabilitation Potential: Fair Anticipated Interventions Patient/Client Instruction: Educate patient on: Condition, Plan of Care and Risk Factors For the Purpose of:: To improve self management Therapeutic Exercise to Include: Strength training, Endurance training, Coordination, Body mechanics, Postural training, Flexibilty training and Neuromotor development For the Purpose of:: To increase ROM, To improve muscle performance and motor function, To increase tolerance to activity/condition/position and To improve ability of physical actions for home/community/work/leisure Text: Thank you for the opportunity to evaluate your patient. For Medicare and Medicare HMO plans, please review the plan of care and approve it. It will need to be FAXED BACK to us at [phone] for Medicare purposes. For Medicare only, by signing this I certify the plan of care. Please let me know if there are questions or concerns regarding this plan of care. Physician Signature: Date:
--- NOTE | 2024-01-21 11:51 | HP.PT.NRP ---
Patient Information Patient Information: NILDA BEARD was seen in my office for initial evaluation on 08/09/23. The following Plan of Care was established for this patient: POC Established Initial Frequency: 1x/Week Initial Duration: 2-4 Months Anticipated Interventions Patient/Client Instruction: Educate patient on: Condition, Plan of Care and Risk Factors For the Purpose of:: To improve self management Therapeutic Exercise to Include: Strength training, Endurance training, Coordination, Body mechanics, Postural training, Flexibilty training and Neuromotor development For the Purpose of:: To increase ROM, To improve muscle performance and motor function, To increase tolerance to activity/condition/position and To improve ability of physical actions for home/community/work/leisure Last Seen Last Seen: This patient was last seen in our office 10/03/23. Pertinent comments regarding their Physical therapy will appear below: This patient has not returned to Physical Therapy and is appropriate to return to MD for further follow-up as needed. At patients last attended visit 10/03/23 she reported 80% improvement. She reported going 4 nights in a row staying completely dry and stating I was so pleased. At this point I will be discontinuing this patient from physical therapy. I would be happy to see this patient again in the future if found appropriate by the physician. Thank you! Radha Wallace, PT, Cert MDT
== END 2023-10-03 19:00 | disposition home or self-care (01) ==
LOC: PT 12:00
PROVIDERS: PCP Internal Medicine; Referring Provider Urology; Visit Provider Urology
DX: N81.4 Uterovaginal prolapse, unspecified (principal); N39.41 Urge incontinence
CPT/HCPCS: 97162; 97530

== ENCOUNTER → 2024-02-13 | Outpatient (CLI) | payer OTHER, SELFPAY ==
--- NOTE | 2024-02-13 15:20 | RAD_ITS ---
STUDY: X-RAY CHEST REASON FOR EXAM: Female, 48 years old. Abnormal sounds. TECHNIQUE: Frontal and lateral views of the chest. COMPARISON: None. FINDINGS: Linear opacity in the right middle lobe compatible with atelectasis. Early/developing pneumonia cannot be excluded so follow-up chest imaging to resolution is recommended. There is no demonstrated pleural abnormality. Normal size heart. Normal mediastinum and db. Normal visualized pulmonary arteries. Normal visualized aortic arch and descending thoracic aorta. No abnormality of the visualized soft tissue structures of the upper abdomen. RAD/Chest PA and Lateral IMPRESSION: Linear opacity in the right middle lobe most compatible with atelectasis. Early/developing pneumonia cannot be excluded so follow-up chest imaging to resolution is recommended. Electronically Signed: Shemar Sheppard MD at 15:34 EDT ,
== END | disposition home or self-care (01) ==
PROVIDERS: PCP Internal Medicine; Referring Provider Internal Medicine; Visit Provider Internal Medicine
DX: R09.89 Other specified symptoms and signs involving the circulatory and respiratory systems (principal)
CPT/HCPCS: 71046

== ENCOUNTER → 2024-06-13 | Outpatient (CLI) | payer OTHER, SELFPAY ==
[2024-06-13 12:59] LABS: Cholesterol 202 mg/dL (200); High Density Lipoprotein 38 mg/dL; Triglycerides 219 mg/dL; Very Low Density Lipoprotein 44 mg/dL (5-40)
== END | disposition home or self-care (01) ==
LOC: BIMLAB 10:42
PROVIDERS: Internal Medicine Endocrinology, Diabetes & Metabolism; PCP Internal Medicine; Visit Provider Internal Medicine
DX: E78.1 Pure hyperglyceridemia (principal)
CPT/HCPCS: 36415; 80061; 84439; 84443

== ENCOUNTER → 2024-09-01 | Outpatient (CLI) | payer OTHER, SELFPAY ==
--- NOTE | 2024-09-01 15:35 | BI_ITS ---
MAMMOGRAPHY - BILATERAL SCREENING REASON FOR EXAM: Female, 49 years old. Routine annual screening examination. PERTINENT HISTORY: Personal history of breast cancer. Prior right lumpectomy. Mother with breast cancer. TECHNIQUE: Digital bilateral breast sophia (3D mammographic acquisition) in the CC and MLO projections. 2-D mediolateral oblique (MLO) and craniocaudad (CC) views of both breasts were obtained. CAD: Full Field Digital Mammography with Computer Added Detection was performed. COMPARISON: Comparison is made with prior study dated June 04, 2023 and June 21, 2023. FINDINGS: Breast Composition: The breasts are heterogeneously dense, which may obscure small masses. Stable 6 mm x 6 mm well-defined nodule in the lateral upper aspect of the right breast. A cyst was seen on prior sonogram. No other significant abnormalities are identified. There has been no significant change since the prior study. BI/SCRN MAMM (CAD)W/SOPHIA BILAT IMPRESSION: Stable bilateral screening mammogram. Yearly follow-up mammogram recommended. (A) ASSESSMENT CATEGORY: BIRADS Category 2: Benign. A letter regarding these results will be sent to the patient by the facility within 30 days. Approximately 10% of breast cancers are not detected by mammography. A normal mammogram should not delay biopsy of a clinically suspicious abnormality. [id number] Electronically Signed: Juwan Fay MD at 9:23 EST ,
== END | disposition home or self-care (01) ==
LOC: OPBI 15:34
PROVIDERS: PCP Internal Medicine; Referring Provider Obstetrics & Gynecology; Visit Provider Obstetrics & Gynecology
DX: Z12.31 Encounter for screening mammogram for malignant neoplasm of breast (principal); Z85.3 Personal history of malignant neoplasm of breast; Z80.3 Family history of malignant neoplasm of breast
CPT/HCPCS: 77063; 77067

== ENCOUNTER → 2024-09-09 | Outpatient (CLI) | payer OTHER, SELFPAY ==
[2024-09-09 15:51] LABS: Cholesterol 126 mg/dL (200); High Density Lipoprotein 36 mg/dL; Triglycerides 164 mg/dL; Very Low Density Lipoprotein 33 mg/dL (5-40)
== END | disposition home or self-care (01) ==
LOC: MTLAB 11:17
PROVIDERS: PCP Family Medicine; Referring Provider Family Medicine; Visit Provider Family Medicine
DX: E78.5 Hyperlipidemia, unspecified (principal)
CPT/HCPCS: 36415; 80061

== ENCOUNTER → 2025-06-16 | Outpatient (CLI) | payer OTHER, SELFPAY ==
[2025-06-16 16:12] LABS: AST(SGOT) 19 U/L (<=31); Alanine Aminotransfer ALT/SGPT 13 U/L (<=34); Albumin, Serum 4.4 g/dL (3.5-5.0); Alkaline Phosphatase 65 U/L (35-104); Anion Gap 10 (5-15); BUN 9 mg/dL (4-19); BUN/Creat Ratio 11.6 RATIO (10-20); Calcium,Total 9.4 mg/dL (7.6-11.0); Carbon Dioxide 21.4 mmol/L (21.0-32.0); Chloride 106 mmol/L (98-108); Cholesterol 126 mg/dL (<=200); Globulin 2.8 g/dL (2.2-4.2); Glucose 111 mg/dL (70-99); Low Density Lipoprotein Calc. 64 mg/dL; Potassium 4.8 mmol/L (3.3-5.1); Triglycerides 147 mg/dL; Very Low Density Lipoprotein 29 mg/dL (5-40); cholesterol:hdl ratio screen 3.85
== END | disposition home or self-care (01) ==
LOC: LAB 14:55
PROVIDERS: PCP Family Medicine; Referring Provider Internal Medicine Endocrinology, Diabetes & Metabolism; Visit Provider Internal Medicine Endocrinology, Diabetes & Metabolism
DX: E03.9 Hypothyroidism, unspecified (principal)
CPT/HCPCS: 36415; 80053; 80061; 84439; 84443

== ENCOUNTER → 2025-09-03 | Outpatient (CLI) | payer OTHER, SELFPAY | END | disposition home or self-care (01) | LOC: MTLAB 13:44 | PROVIDERS: Internal Medicine Endocrinology, Diabetes & Metabolism; PCP Family Medicine; Referring Provider Psychiatry & Neurology Psychiatry; Visit Provider Psychiatry & Neurology Psychiatry | DX: Z13.29 Encounter for screening for other suspected endocrine disorder (principal); Z13.228 Encounter for screening for other metabolic disorders; Z13.0 Encounter for screening for diseases of the blood and blood-forming organs and certain disorders involving the immune mechanism; Z79.899 Other long term (current) drug therapy | CPT/HCPCS: 36415; 84439; 84443 ==

== ENCOUNTER → 2025-10-05 | Outpatient (CLI) | payer OTHER, SELFPAY ==
[2025-10-05 15:43] LABS: Anion Gap 14 (7-18); BUN 21 mg/dL (4-19); BUN/Creat Ratio 22.3 RATIO (10-20); Calcium,Total 9.7 mg/dL (7.6-11.0); Carbon Dioxide 21.3 mmol/L (20.0-29.0); Chloride 102 mmol/L (96-106); Glucose 102 mg/dL (70-99); Potassium 4.6 mmol/L (3.5-5.1)
[2025-10-05 15:44] LABS: Lithium 0.76 mmol/L (0.60-1.20)
== END | disposition home or self-care (01) ==
LOC: MTLAB 12:44
PROVIDERS: PCP Family Medicine; Referring Provider Psychiatry & Neurology Psychiatry; Visit Provider Psychiatry & Neurology Psychiatry
DX: Z13.29 Encounter for screening for other suspected endocrine disorder (principal); Z13.228 Encounter for screening for other metabolic disorders; Z13.0 Encounter for screening for diseases of the blood and blood-forming organs and certain disorders involving the immune mechanism; Z79.899 Other long term (current) drug therapy
CPT/HCPCS: 36415; 80048; 80178